=== PATIENT | male | born 2000 | race Caucasian/White ===

== ENCOUNTER 2021-03-09 00:21 | Inpatient (IN) | payer OTHER, SELFPAY ==
--- NOTE | 2021-03-09 00:23 | ED.PSYCH ---
HPI - Psych General Chief Complaint: Psychiatric Symptoms <Roselia Reese NP - Last Filed: 03/09/21 02:05> Stated Complaint: Crisis <Roselia Reese NP - Last Filed: 03/09/21 02:05> Time Seen by Provider: 03/09/21 09:21 <Roselia Reese NP - Last Filed: 03/09/21 02:05> Source: patient and EMS <Roselia Reese NP - Last Filed: 03/09/21 02:05> Mode of arrival: EMS <Roselia Reese NP - Last Filed: 03/09/21 02:05> Limitations: other <Roselia Reese NP - Last Filed: 03/09/21 02:05> History of Present Illness HPI Narrative: 20-year-old male presents via EMS with Section 12 out in the community for violent and aggressive behavior. <Roselia Reese NP - Last Filed: 03/09/21 02:05> MD complaint: anxiety and other (Aggressive and destructive behavior) <Roselia Reese NP - Last Filed: 03/09/21 02:05> Onset (ago): unknown <Roselia Reese NP - Last Filed: 03/09/21 02:05> History of same: Yes <Roselia Reese NP - Last Filed: 03/09/21 02:05> Exacerbating factors: drug use (Suspected) <Roselia Reese NP - Last Filed: 03/09/21 02:05> Context: recent drug abuse and significant life stressor <Roselia Reese NP - Last Filed: 03/09/21 02:05> Associated psychiatric symptoms: other (Aggressive and violent behavior) <Roselia Reese NP - Last Filed: 03/09/21 02:05> Associated symptoms: denies other symptoms <Roselia Reese NP - Last Filed: 03/09/21 02:05> Treatments prior to arrival: placed on mental health hold <Roselia Reese NP - Last Filed: 03/09/21 02:05> Related Data Home Medications: Home Medications Medication Instructions Recorded Confirmed aripiprazole 1 tab PO DAILY 03/09/21 03/09/21 divalproex 2 tab PO BID 03/09/21 03/09/21 fluoxetine 1 cap PO DAILY 03/09/21 03/09/21 lorazepam 1 tab PO TID 03/09/21 03/09/21 melatonin 2 tab PO BEDTIME 03/09/21 03/09/21 quetiapine 1 tab PO QAM 03/09/21 03/09/21 quetiapine 2 tab PO BEDTIME 03/09/21 03/09/21 <Roselia Reese NP - Last Filed: 03/09/21 02:05> Allergies/Adverse Reactions: Allergies Allergy/AdvReac Type Severity Reaction Status Date / Time No Known Allergies Allergy Unverified 05/11/20 18:39 [No Known Allergies*] <Roselia Reese NP - Last Filed: 03/09/21 02:05> Review of Systems Review of Systems: Yes Unobtainable due to mental status <Roselia Reese NP - Last Filed: 03/09/21 02:05> [facility] Past Medical History Attestation statement: The following information was validated with the patient. <Roselia Reese NP - Last Filed: 03/09/21 02:05> Source: old records reviewed <Roselia Reese NP - Last Filed: 03/09/21 02:05> Social History Social History: Social History Advance Directives: No Advance Directives Information Provided: No <Roselia Reese NP - Last Filed: 03/09/21 02:05> Physical Exam Vital Signs: Vital Signs: Last Vital Signs Temp 97.8 F 03/09/21 08:12 Pulse 73 03/09/21 08:12 Resp 03/09/21 08:12 BP 112/59 L 03/09/21 08:12 Pulse Ox 98 03/09/21 08:12 Body Mass Index 34.4 <Roselia Reese NP - Last Filed: 03/09/21 02:05> Vital Signs: Last Vital Signs Temp 97.8 F 03/09/21 08:12 Pulse 73 03/09/21 08:12 Resp 03/09/21 08:12 BP 112/59 L 03/09/21 08:12 Pulse Ox 98 03/09/21 08:12 Body Mass Index 34.4 <ASHLEY Foster - Last Filed: 03/09/21 09:32> Appearance: Alert. Oriented X3. No acute distress. Eyes: Pupils equal, round and reactive to light. ENT: Pharynx normal. Neck: Normal inspection. Neck supple. CVS: Normal heart rate and rhythm. Pulses normal. Respiratory: No respiratory distress. Breath sounds normal. Abdomen: Soft and nontender. Skin: Skin warm and dry. Normal skin color. Normal skin turgor. Extremities: No lower extremity edema. Neuro: No motor deficit. No sensory deficit. <Roselia Reese NP - Last Filed: 03/09/21 02:05> Course Course Course Narrative: 20-year-old male presents with aggressive and violent behavior from the community, placed on Section 12 by police department. Patient was destroying property in his home, and was removed by police and EMS and brought for evaluation. He has been taking his medications as directed, and this behavior is suspected to be due to drug use. At this time patient is not answering questions fully, but is cooperative with care, and polite. Will continue with Section 12, N consult, and will continue his home medications. Physician observation started at this time. <Roselia Reese NP - Last Filed: 03/09/21 02:05> Physician observation continued. Patient is not in any distress. Patient's vital signs stable. Patient awaiting care team evaluation. <ASHLEY Foster - Last Filed: 03/09/21 09:32> MDM - Psych Differential Diagnosis Differential diagnosis: Likely acute psychosis, bipolar disorder, depression, drug-induced psychotic disorder and acute anxiety <Roselia Reese NP - Last Filed: 03/09/21 02:05> Medical Records Attestation: I reviewed the patient's medical records. <Roselia Reese NP - Last Filed: 03/09/21 02:05> Lab Data Attestation: I reviewed the patient's lab results. <Roselia Reese NP - Last Filed: 03/09/21 02:05> Result diagrams: : 03/09/21 01:22 03/09/21 01:22 <Roselia Reese NP - Last Filed: 03/09/21 02:05> Labs: Lab Results 03/09/21 03/09/21 03/09/21 Range/Units 01:22 01:22 01:22 WBC 10.5 (4.8-10.8) X10*3/uL RBC 4.86 (4.60-5.80) X10*6/uL Hgb 14.8 (14.0-18.0) g/dl Hct 43.2 (42-52) % MCV 88.9 (80-98) fL MCH 30.5 (27.0-33.0) pg MCHC 34.3 (31.0-36.0) g/dl RDW 13.1 (11.0-16.0) % Plt Count 260 (160-400) X10*3/uL MPV 10.3 (9.4-12.4) fL Immature Gran % (Auto) 0.2 (0.0-0.4) % Neut % (Auto) 61.5 (45-73) % Lymph % (Auto) 28.4 (20-40) % [place] % (Auto) 8.7 (2-11) % Eos % (Auto) 1.0 (0-4) % Baso % (Auto) 0.2 (0-2) % Lymph # (Auto) 3.0 (1.2-4.9) X10*3/uL [place] # (Auto) 0.9 (0.1-1.2) X10*3/uL Eos # (Auto) 0.1 (0.0-0.4) X10*3/uL Baso # (Auto) 0.0 (0.0-0.2) X10*3/uL Abs Immat Gran (auto) 0.02 (0.00-0.03) X10*3/uL Absolute Neuts (auto) 6.4 (2.0-8.3) X10*3/uL Absolute Nucleated RBC 0.000 (0.0-0.012) X10*3/uL Nucleated RBC % (auto) 0.0 (0.0-0.2) /100WBC Sodium 138 (135-145) mmol/L Potassium 3.3 (3.3-5.1) mmol/L Chloride 100 (96-108) mmol/L Carbon Dioxide 27 (22-29) mmol/L Anion Gap 14 (12-20) BUN 11 (9-16) mg/dL Creatinine 0.94 (0.5-1.4) mg/dL Estim Creat Clear Calc 153.5 Estimated GFR > 60 Random Glucose 127 H (60-115) mg/dL Calcium 9.9 (8.4-10.2) mg/dL Valproic Acid (50.0-100.0) mcg/mL COVID-19 (JOSUE) Negative (Negative) COVID-19 Clin Com See Note 03/09/21 Range/Units 01:22 WBC (4.8-10.8) X10*3/uL RBC (4.60-5.80) X10*6/uL Hgb (14.0-18.0) g/dl Hct (42-52) % MCV (80-98) fL MCH (27.0-33.0) pg MCHC (31.0-36.0) g/dl RDW (11.0-16.0) % Plt Count (160-400) X10*3/uL MPV (9.4-12.4) fL Immature Gran % (Auto) (0.0-0.4) % Neut % (Auto) (45-73) % Lymph % (Auto) (20-40) % [place] % (Auto) (2-11) % Eos % (Auto) (0-4) % Baso % (Auto) (0-2) % Lymph # (Auto) (1.2-4.9) X10*3/uL [place] # (Auto) (0.1-1.2) X10*3/uL Eos # (Auto) (0.0-0.4) X10*3/uL Baso # (Auto) (0.0-0.2) X10*3/uL Abs Immat Gran (auto) (0.00-0.03) X10*3/uL Absolute Neuts (auto) (2.0-8.3) X10*3/uL Absolute Nucleated RBC (0.0-0.012) X10*3/uL Nucleated RBC % (auto) (0.0-0.2) /100WBC Sodium (135-145) mmol/L Potassium (3.3-5.1) mmol/L Chloride (96-108) mmol/L Carbon Dioxide (22-29) mmol/L Anion Gap (12-20) BUN (9-16) mg/dL Creatinine (0.5-1.4) mg/dL Estim Creat Clear Calc Estimated GFR Random Glucose (60-115) mg/dL Calcium (8.4-10.2) mg/dL Valproic Acid < 2.0 L (50.0-100.0) mcg/mL COVID-19 (JOSUE) (Negative) COVID-19 Clin Com <Roselia Reese NP - Last Filed: 03/09/21 02:05> Lab Results 03/09/21 03/09/21 03/09/21 Range/Units 01:22 01:22 01:22 WBC 10.5 (4.8-10.8) X10*3/uL RBC 4.86 (4.60-5.80) X10*6/uL Hgb 14.8 (14.0-18.0) g/dl Hct 43.2 (42-52) % MCV 88.9 (80-98) fL MCH 30.5 (27.0-33.0) pg MCHC 34.3 (31.0-36.0) g/dl RDW 13.1 (11.0-16.0) % Plt Count 260 (160-400) X10*3/uL MPV 10.3 (9.4-12.4) fL Immature Gran % (Auto) 0.2 (0.0-0.4) % Neut % (Auto) 61.5 (45-73) % Lymph % (Auto) 28.4 (20-40) % [place] % (Auto) 8.7 (2-11) % Eos % (Auto) 1.0 (0-4) % Baso % (Auto) 0.2 (0-2) % Lymph # (Auto) 3.0 (1.2-4.9) X10*3/uL [place] # (Auto) 0.9 (0.1-1.2) X10*3/uL Eos # (Auto) 0.1 (0.0-0.4) X10*3/uL Baso # (Auto) 0.0 (0.0-0.2) X10*3/uL Abs Immat Gran (auto) 0.02 (0.00-0.03) X10*3/uL Absolute Neuts (auto) 6.4 (2.0-8.3) X10*3/uL Absolute Nucleated RBC 0.000 (0.0-0.012) X10*3/uL Nucleated RBC % (auto) 0.0 (0.0-0.2) /100WBC Sodium 138 (135-145) mmol/L Potassium 3.3 (3.3-5.1) mmol/L Chloride 100 (96-108) mmol/L Carbon Dioxide 27 (22-29) mmol/L Anion Gap 14 (12-20) BUN 11 (9-16) mg/dL Creatinine 0.94 (0.5-1.4) mg/dL Estim Creat Clear Calc 153.5 Estimated GFR > 60 Random Glucose 127 H (60-115) mg/dL Calcium 9.9 (8.4-10.2) mg/dL Valproic Acid (50.0-100.0) mcg/mL COVID-19 ([facility]OSUE) Negative (Negative) COVID-19 Clin Com See Note 03/09/21 Range/Units 01:22 WBC (4.8-10.8) X10*3/uL RBC (4.60-5.80) X10*6/uL Hgb (14.0-18.0) g/dl Hct (42-52) % MCV (80-98) fL MCH (27.0-33.0) pg MCHC (31.0-36.0) g/dl RDW (11.0-16.0) % Plt Count (160-400) X10*3/uL MPV (9.4-12.4) fL Immature Gran % (Auto) (0.0-0.4) % Neut % (Auto) (45-73) % Lymph % (Auto) (20-40) % [place] % (Auto) (2-11) % Eos % (Auto) (0-4) % Baso % (Auto) (0-2) % Lymph # (Auto) (1.2-4.9) X10*3/uL [place] # (Auto) (0.1-1.2) X10*3/uL Eos # (Auto) (0.0-0.4) X10*3/uL Baso # (Auto) (0.0-0.2) X10*3/uL Abs Immat Gran (auto) (0.00-0.03) X10*3/uL Absolute Neuts (auto) (2.0-8.3) X10*3/uL Absolute Nucleated RBC (0.0-0.012) X10*3/uL Nucleated RBC % (auto) (0.0-0.2) /100WBC Sodium (135-145) mmol/L Potassium (3.3-5.1) mmol/L Chloride (96-108) mmol/L Carbon Dioxide (22-29) mmol/L Anion Gap (12-20) BUN (9-16) mg/dL Creatinine (0.5-1.4) mg/dL Estim Creat Clear Calc Estimated GFR Random Glucose (60-115) mg/dL Calcium (8.4-10.2) mg/dL Valproic Acid < 2.0 L (50.0-100.0) mcg/mL COVID-19 ([facility]OSUE) (Negative) COVID-19 Clin Com <ASHLEY Foster - Last Filed: 03/09/21 09:32> Discharge Plan Discharge Clinical Impression: Acute psychosis, Chronic schizophrenia Drug-induced psychotic disorder Qualifiers: Complication of substance-induced condition: with unspecified complication Qualified Code(s): F19.959 - Other psychoactive substance use, unspecified with psychoactive substance-induced psychotic disorder, unspecified <Roselia Reese NP - Last Filed: 03/09/21 02:05> Prescriptions: No Action quetiapine 300 mg tablet 2 tab PO BEDTIME RF: 0 quetiapine 100 mg tablet 1 tab PO QAM RF: 0 lorazepam 0.5 mg tablet 1 tab PO TID RF: 0 divalproex 500 mg tablet extended release 24 hr 2 tab PO BID RF: 0 fluoxetine 20 mg capsule 1 cap PO DAILY RF: 0 aripiprazole 10 mg tablet 1 tab PO DAILY RF: 0 melatonin 3 mg tablet 2 tab PO BEDTIME RF: 0 <Roselia Reese NP - Last Filed: 03/09/21 02:05>
[2021-03-09 00:27] VITALS: BP 124/78; PULSE 97; RESP 18; TEMP 36.8; O2SAT 97; BMI 34.4
[2021-03-09 00:53] VITALS: BP 151/104; PULSE 110; RESP 18; TEMP 36.8; O2SAT 97
[2021-03-09 01:31] LABS: Basophils Percent Auto 0.2 % (0-2); Eosinophils Absolute Auto 0.1 X10*3/uL (0.0-0.4); Hematocrit 43.2 % (42-52); Hemoglobin 14.8 g/dl (14.0-18.0); Imm Gran Abs Auto 0.02 X10*3/uL (0.00-0.03); Imm Gran Pct Auto 0.2 % (0.0-0.4); Lymphocytes Percent Auto 28.4 % (20-40); MANUAL DIFF FLAG NO; Mean Corpuscular HGB Conc 34.3 g/dl (31.0-36.0); Mean Corpuscular Hemoglobin 30.5 pg (27.0-33.0); Mean Corpuscular Volume 88.9 fL (80-98); Mean Platelet Volume 10.3 fL (9.4-12.4); Monocytes Absolute Auto 0.9 X10*3/uL (0.1-1.2); Monocytes Percent Auto 8.7 % (2-11); Neutrophils Absolute Auto 6.4 X10*3/uL (2.0-8.3); Neutrophils Percent Auto 61.5 % (45-73); Platelet Count 260 X10*3/uL (160-400); Red Blood Count 4.86 X10*6/uL (4.60-5.80); Red Cell Distribution Width 13.1 % (11.0-16.0); White Blood Count 10.5 X10*3/uL (4.8-10.8)
[2021-03-09 01:46] LABS: COVID-19 Test Negative (Negative); IDNOW Serial# 9DD0AD1C
[2021-03-09 02:01] LABS: Anion Gap 14 (12-20); Blood Urea Nitrogen 11 mg/dL (9-16); Calcium 9.9 mg/dL (8.4-10.2); Carbon Dioxide 27 mmol/L (22-29); Chloride 100 mmol/L (96-108); Creatinine Clr Calc Pharmacy 153.5; Estimated Glomerular Filt Rate > 60; Glucose Random 127 mg/dL (60-115); Potassium 3.3 mmol/L (3.3-5.1); Sodium 138 mmol/L (135-145)
[2021-03-09 02:26] LABS: Valproate < 2.0 mcg/mL (50.0-100.0)
--- NOTE | 2021-03-09 06:42 | PC.NURSE ---
Patient in bed appears sleeping, patient slept through the night, no distress observed/reported, pending urine for ZELAYA, med rec completed/pending MAR update, awaiting N assessment, will continue to monitor.
--- NOTE | 2021-03-09 07:05 | PC.NURSE ---
patient appears to remain at rest at present patients respirations are even and unlabored, patient in no distress
[2021-03-09 08:12] VITALS: BP 112/59; PULSE 73; RESP 16; TEMP 36.6; O2SAT 98
[2021-03-09] MEDS: LORazepam 0.5 MG TABLET PO ×3 (11:31→20:10)
[2021-03-09] MEDS: Divalproex Sodium ER 500 MG TAB.ER.24H 1000 MG PO ×2 (11:31→20:09)
[2021-03-09] MEDS: QUEtiapine Fumarate 100 MG TABLET PO (11:31)
[2021-03-09] MEDS: FLUoxetine HCl 20 MG CAPSULE PO (11:31)
[2021-03-09] MEDS: ARIPiprazole 10 MG TABLET PO (11:32)
--- NOTE | 2021-03-09 12:00 | MHC.CARE ---
This television script writer talked with Philomena Wallace from [facility] [place] who is an outreach member. Reported that they received a call from mom reporting that pt was off meds and punched a hole in the wall and was destroying things. Pt could not be located all day and was brought in on a section 12 from the police. Reported that pt has been off medication. Pt reported that he feels like his marijuana was laced and reported that he knows that he was off. Pt reported that he wanted to go and was ready to go home and regretted how he acted. Reported increased fear for being at the hospital and that Pt's mom: [phone] Lizbeth Medina- leather case finisher
--- NOTE | 2021-03-09 16:17 | PC.NURSE ---
patient sleeping, woke to verbal stimulus, medicated per order, vitals being obtained, will continue to monitor
[2021-03-09 16:24] VITALS: BP 130/70; PULSE 91; TEMP 36.3; O2SAT 98
--- NOTE | 2021-03-09 18:26 | PC.NURSE ---
patient ambulated to nursing station asking if we knew what time he would be going to an inpatient bed, pt was told we were unsure of the time but would let him know as soon as we found out.
[2021-03-09] MEDS: QUEtiapine Fumarate 300 MG TABLET 600 MG PO (20:09)
[2021-03-09] MEDS: Melatonin 3 MG TABLET 6 MG PO (20:09)
[2021-03-10] MEDS: Nicotine Polacrilex 2 MG GUM 4 MG BUCCAL ×6 (09:05→19:04)
[2021-03-10] MEDS: QUEtiapine Fumarate 100 MG TABLET PO (09:27)
[2021-03-10] MEDS: ARIPiprazole 10 MG TABLET PO (09:27)
[2021-03-10] MEDS: FLUoxetine HCl 20 MG CAPSULE PO (09:27)
[2021-03-10] MEDS: LORazepam 0.5 MG TABLET PO ×3 (09:27→20:12)
[2021-03-10] MEDS: Divalproex Sodium ER 500 MG TAB.ER.24H 1000 MG PO ×2 (09:27→20:13)
[2021-03-10] MEDS: diphenhydrAMINE HCL 50 MG/ML VIAL IM ×2 (10:36→16:23)
[2021-03-10] MEDS: OLANZapine ODT 10 MG TAB.RAPDIS TRANSLINGU (12:05)
[2021-03-10] MEDS: Ascorbic Acid 500 MG TABLET PO (14:44)
[2021-03-10] MEDS: Ibuprofen 600 MG TABLET PO (15:07)
--- NOTE | 2021-03-10 15:41 | HO.PSYADMNOT ---
Documented by User: Zoë Brady APRN 03/10/21 16:31 HPI Chief Complaint: Psychosis, Agitation, Property Destruction Sources of Information: patient interviewed, chart reviewed and crisis/core team assessment reviewed HPI Subjective Notes: Section 12B Healthcare Proxy: No Guardianship: Yes Medical Problems Affecting Mental Status: No Narrative: 20 yo male, history of schizoaffective disorder, bipolar type to ER with police via Section XII due to an increase in aggression at home. It is reported pt has not been compliant with medications, destruction of property in the home (punching holes in richard pt reports), questionable use of substances for the past month. Significant history of aggression. Pt refused CV signing in ER. Pt then signed a CV meant for a guardian, which he has (refer to paperwork in the MR), so tw completed 12B. Pt has a Inocencio's guardianship, set to 09/28/21 for Seroquel, Abilify, Maintena, Aristada, Latuda, Olanzapine, Clozaril and Chlorpromazine. Met with pt this a.m. He is a poor historian.. This is how it will go-you will discharge me to my home or [facility] or [facility] so I can smoke or I will mess you up. Continued to exhibit threatening behaviors. Team managed these with ease, support, connection with family and scheduled and prn meds including benadryl and olanzapine. Pt at this time continues to pace on the unit, but is talking with team, family, and appears somewhat calmer. Past Psychiatric History: IP: [facility] [id number]; [facility] 01/2019; [facility] 09/2018 OP: [id number], [facility]ill[facility]man Medical Evaluation Reviewed: Yes No toxic screen completed in ER [facility] Medical History (Updated 03/10/21 @ 16:23 by Zoë Brady APRN) Schizoaffective disorder, bipolar type Family History: Bipolar-mother Schizophrenia-mother Opiate Dependence-uncle Bipolar- My cousin Social History: Lives with mother, brother Substance History: Cannibis, Cocaine, Nicotine Trauma History: Affirms Diagnostics Vital Signs (24Hr): Vital Signs - 24 hr 03/09/21 16:24 Temperature 97.4 F Pulse Rate 91 Blood Pressure 130/70 Pulse Oximetry 98 Body Mass Index 34.4 Labs Results: 03/09/21 01:22 03/09/21 01:22 Labs: Laboratory Results - last 48 hr 03/09/21 03/09/21 03/09/21 01:22 01:22 01:22 WBC 10.5 RBC 4.86 Hgb 14.8 Hct 43.2 MCV 88.9 MCH 30.5 MCHC 34.3 RDW 13.1 Plt Count 260 MPV 10.3 Immature Gran % (Auto) 0.2 Neut % (Auto) 61.5 Lymph % (Auto) 28.4 [place] % (Auto) 8.7 Eos % (Auto) 1.0 Baso % (Auto) 0.2 Lymph # (Auto) 3.0 [place] # (Auto) 0.9 Eos # (Auto) 0.1 Baso # (Auto) 0.0 Abs Immat Gran (auto) 0.02 Absolute Neuts (auto) 6.4 Absolute Nucleated RBC 0.000 Nucleated RBC % (auto) 0.0 Sodium Potassium Chloride Carbon Dioxide Anion Gap BUN Creatinine Estim Creat Clear Calc Estimated GFR Random Glucose Calcium Urine Opiates Screen Cancelled Ur Barbiturates Screen Cancelled Valproic Acid Ur Phencyclidine Scrn Cancelled Ur Amphetamines Screen Cancelled U Benzodiazepines Scrn Cancelled Urine Cocaine Screen Cancelled U Marijuana (THC) Screen Cancelled COVID-19 (JOSUE) Negative COVID-19 Clin Com See Note 03/09/21 03/09/21 01:22 01:22 WBC RBC Hgb Hct MCV MCH MCHC RDW Plt Count MPV Immature Gran % (Auto) Neut % (Auto) Lymph % (Auto) [place] % (Auto) Eos % (Auto) Baso % (Auto) Lymph # (Auto) [place] # (Auto) Eos # (Auto) Baso # (Auto) Abs Immat Gran (auto) Absolute Neuts (auto) Absolute Nucleated RBC Nucleated RBC % (auto) Sodium 138 Potassium 3.3 Chloride 100 Carbon Dioxide 27 Anion Gap 14 BUN 11 Creatinine 0.94 Estim Creat Clear Calc 153.5 Estimated GFR > 60 Random Glucose 127 H Calcium 9.9 Urine Opiates Screen Ur Barbiturates Screen Valproic Acid < 2.0 L Ur Phencyclidine Scrn Ur Amphetamines Screen U Benzodiazepines Scrn Urine Cocaine Screen U Marijuana (THC) Screen COVID-19 (JOSUE) COVID-19 Clin Com Meds/Allergies Meds Home Medications Acetaminophen (Acetaminophen 325 Mg Tablet) 650 mg PO Q6H PRN PRN Reason: Pain, Mild (Pain Scale 1-3) Last Admin: 03/11/21 11:38 Dose: 650 mg Documented by: Al Hydroxide/Mg Hydroxide (Magnesium Hydrox/Alum Hydrox 30 Ml Oral.Susp) 30 ml PO Q6H PRN PRN Reason: Heartburn/Nausea Aripiprazole (Aripiprazole 10 Mg Tablet) 10 mg PO DAILY [facility] Last Admin: 03/12/21 08:26 Dose: 10 mg Documented by: Ascorbic Acid (Ascorbic Acid 500 Mg Tablet) 500 mg PO DAILY [facility] Last Admin: 03/12/21 08:26 Dose: 500 mg Documented by: Diphenhydramine HCl (Diphenhydramine Hcl 50 Mg/Ml Vial) 50 mg IM Q6H PRN PRN Reason: agitation Last Admin: 03/12/21 08:26 Dose: 50 mg Documented by: Divalproex Sodium (Divalproex Sodium Er 500 Mg Tab.Er.24h) 1,000 mg PO BID [facility] Last Admin: 03/12/21 08:26 Dose: 1,000 mg Documented by: Fluoxetine HCl (Fluoxetine Hcl 20 Mg Capsule) 20 mg PO DAILY [facility] Last Admin: 03/12/21 08:26 Dose: 20 mg Documented by: Ibuprofen (Ibuprofen 600 Mg Tablet) 600 mg PO Q8H PRN PRN Reason: Pain, Moderate (Pain Scale 4-6 Last Admin: 03/11/21 15:47 Dose: 600 mg Documented by: Lorazepam (Lorazepam 0.5 Mg Tablet) 0.5 mg PO TID [facility] Last Admin: 03/12/21 08:26 Dose: 0.5 mg Documented by: Lorazepam (Lorazepam 1 Mg Tablet) 1 mg PO Q4H PRN PRN Reason: agitation, anxiety Last Admin: 03/10/21 16:31 Dose: 1 mg Documented by: Lorazepam (Lorazepam 2 Mg/Ml Vial) 1 mg IM Q4H PRN PRN Reason: anxiety,agitation Magnesium Hydroxide (Milk Of Magnesia 30 Ml Oral.Susp) 30 ml PO DAILY PRN PRN Reason: Constipation Melatonin (Melatonin 3 Mg Tablet) 6 mg PO BEDTIME [facility] Last Admin: 03/11/21 20:12 Dose: 6 mg Documented by: Nicotine (Nicotine 21 Mg Patch.Td24) 21 mg TRANSDERMA DAILY [facility] Last Admin: 03/12/21 08:25 Dose: 21 mg Documented by: Nicotine Polacrilex (Nicotine Polacrilex 2 Mg Gum) 4 mg BUCCAL Q2H PRN PRN Reason: Nicotine Cravings Last Admin: 03/12/21 08:48 Dose: 4 mg Documented by: Olanzapine (Olanzapine Odt 10 Mg Tab.Rapdis) 10 mg TRANSLINGU BID PRN PRN Reason: psychosis,agitation Last Admin: 03/10/21 12:05 Dose: 10 mg Documented by: Olanzapine (Olanzapine 10 Mg Vial) 10 mg IM BID PRN PRN Reason: psychosis,agitation Quetiapine Fumarate (Quetiapine Fumarate 100 Mg Tablet) 100 mg PO DAILY [facility] Last Admin: 03/12/21 08:26 Dose: 100 mg Documented by: Quetiapine Fumarate (Quetiapine Fumarate 300 Mg Tablet) 600 mg PO BEDTIME [facility] Last Admin: 03/11/21 20:12 Dose: 600 mg Documented by: Allergies Allergies Allergy/AdvReac Type Severity Reaction Status Date / Time No Known Allergies Allergy Unverified 05/11/20 18:39 [No Known Allergies*] Mental Status Exam Mental Status Exam Patient Appearance: Appropriate Patient Orientation: Person and Place Level of Consciousness: Alert Patient Behavior: Guarded, Talkative, Hyperactive, Suspicious, Aggressive, Restless, Wandering, Verbal Threats, Anxious, Fearful, Avoidant, Distractible, Good Eye Contact and Impulsive Mood Description: Labile and Angry Affect Description: Labile Patient Cognition Impaired: Yes Ability to Follow Directions: Fair Speech Pattern: Perseverating and Spontaneous Speech Memory Description: Remote Impaired and Episodic Impaired Hallucinations: Auditory Delusions: Being Controlled, Paranoid Ideation and Present Thought Process: Illogical and Distracted Thought Content: positive for [place], positive for Circumstantial, positive for Perseveration, positive for Preoccupation, positive for Thought Blocking, positive for Tangential, positive for Suicidal Ideation and positive for Homicidal Ideation Depressive Symptoms: Increased Anxiety, Diff. Making Decisions, Increased Irritability, Increased Fatigue, Thoughts of /Suicide and Difficulty Concentrating Abnormal Motor Activity Signs and Symptoms: Aggression, Agitation, Hyperactivity and Restlessness Judgement: Poor Assessment & Plan Assessment & Plan (1) Schizoaffective disorder, bipolar type: Status: Acute Code(s): F25.0 - Schizoaffective disorder, bipolar type Assessment and Plan: 20 yo male, presenting a danger to self and others in community, off meds, possibly using substances, destroying property in the home, exhibiting aggressive agitation. Section XII B. Plan: Re-establish regime-Abilify, Depakote, Prozac, Lorazepam, Seroquel Olanzapine 10 mg bid prn for violent agitation along with Lorazepam 1 mg q 4 hours prn Benadryl 50 mg q 6 hours prn (pt reports this assists him in calming.) Nicotine Patch/Gum Ibuprofen prn for pain Vitamin C daily Diagnostics- EKG, B12, Folate, TSH, Lipid Panel A1C Patient educated on: medication risk/benefits and therapeutic strategies Informed Consent: does not understand Reason for continued inpatient stay Substantial Risk for: harm to self, harm to others, inability to function and rapid decompensation Documented by User: Reinaldo Martinez MD 03/12/21 09:48 HPI Chief Complaint: Psychosis, Agitation, Property Destruction [facility] Medical History (Updated 03/10/21 @ 16:23 by Zoë Brady APRN) Schizoaffective disorder, bipolar type Diagnostics Labs Results: 03/09/21 01:22 03/09/21 01:22 Meds/Allergies Meds Home Medications Acetaminophen (Acetaminophen 325 Mg Tablet) 650 mg PO Q6H PRN PRN Reason: Pain, Mild (Pain Scale 1-3) Last Admin: 03/11/21 11:38 Dose: 650 mg Documented by: Al Hydroxide/Mg Hydroxide (Magnesium Hydrox/Alum Hydrox 30 Ml Oral.Susp) 30 ml PO Q6H PRN PRN Reason: Heartburn/Nausea Aripiprazole (Aripiprazole 10 Mg Tablet) 10 mg PO DAILY [facility] Last Admin: 03/12/21 08:26 Dose: 10 mg Documented by: Ascorbic Acid (Ascorbic Acid 500 Mg Tablet) 500 mg PO DAILY [facility] Last Admin: 03/12/21 08:26 Dose: 500 mg Documented by: Diphenhydramine HCl (Diphenhydramine Hcl 50 Mg/Ml Vial) 50 mg IM Q6H PRN PRN Reason: agitation Last Admin: 03/12/21 08:26 Dose: 50 mg Documented by: Divalproex Sodium (Divalproex Sodium Er 500 Mg Tab.Er.24h) 1,000 mg PO BID [facility] Last Admin: 03/12/21 08:26 Dose: 1,000 mg Documented by: Fluoxetine HCl (Fluoxetine Hcl 20 Mg Capsule) 20 mg PO DAILY [facility] Last Admin: 03/12/21 08:26 Dose: 20 mg Documented by: Ibuprofen (Ibuprofen 600 Mg Tablet) 600 mg PO Q8H PRN PRN Reason: Pain, Moderate (Pain Scale 4-6 Last Admin: 03/11/21 15:47 Dose: 600 mg Documented by: Lorazepam (Lorazepam 0.5 Mg Tablet) 0.5 mg PO TID [facility] Last Admin: 03/12/21 08:26 Dose: 0.5 mg Documented by: Lorazepam (Lorazepam 1 Mg Tablet) 1 mg PO Q4H PRN PRN Reason: agitation, anxiety Last Admin: 03/10/21 16:31 Dose: 1 mg Documented by: Lorazepam (Lorazepam 2 Mg/Ml Vial) 1 mg IM Q4H PRN PRN Reason: anxiety,agitation Magnesium Hydroxide (Milk Of Magnesia 30 Ml Oral.Susp) 30 ml PO DAILY PRN PRN Reason: Constipation Melatonin (Melatonin 3 Mg Tablet) 6 mg PO BEDTIME [facility] Last Admin: 03/11/21 20:12 Dose: 6 mg Documented by: Nicotine (Nicotine 21 Mg Patch.Td24) 21 mg TRANSDERMA DAILY [facility] Last Admin: 03/12/21 08:25 Dose: 21 mg Documented by: Nicotine Polacrilex (Nicotine Polacrilex 2 Mg Gum) 4 mg BUCCAL Q2H PRN PRN Reason: Nicotine Cravings Last Admin: 03/12/21 08:48 Dose: 4 mg Documented by: Olanzapine (Olanzapine Odt 10 Mg Tab.Rapdis) 10 mg TRANSLINGU BID PRN PRN Reason: psychosis,agitation Last Admin: 03/10/21 12:05 Dose: 10 mg Documented by: Olanzapine (Olanzapine 10 Mg Vial) 10 mg IM BID PRN PRN Reason: psychosis,agitation Quetiapine Fumarate (Quetiapine Fumarate 100 Mg Tablet) 100 mg PO DAILY [facility] Last Admin: 03/12/21 08:26 Dose: 100 mg Documented by: Quetiapine Fumarate (Quetiapine Fumarate 300 Mg Tablet) 600 mg PO BEDTIME [facility] Last Admin: 03/11/21 20:12 Dose: 600 mg Documented by: Allergies Allergies Allergy/AdvReac Type Severity Reaction Status Date / Time No Known Allergies Allergy Unverified 05/11/20 18:39 [No Known Allergies*]
[2021-03-10] MEDS: LORazepam 1 MG TABLET PO (16:31)
[2021-03-10 18:00] VITALS: BP 121/70; PULSE 86; TEMP 36.2
[2021-03-10] MEDS: Acetaminophen 325 MG TABLET 650 MG PO (20:12)
[2021-03-10] MEDS: QUEtiapine Fumarate 300 MG TABLET 600 MG PO (20:13)
[2021-03-10] MEDS: Melatonin 3 MG TABLET 6 MG PO (20:13)
[2021-03-11] MEDS: diphenhydrAMINE HCL 50 MG/ML VIAL IM ×3 (04:08→16:45)
[2021-03-11 07:58] LABS: Estimated Average Glucose 91 mg/dL; Hemoglobin A1c % 4.8 %
[2021-03-11] MEDS: Divalproex Sodium ER 500 MG TAB.ER.24H 1000 MG PO ×2 (08:00→08:13)
[2021-03-11 08:11] LABS: Cholesterol 109 mg/dL; HDL Cholesterol 40 mg/dL; LDL Cholesterol Calculated 43 mg/dl; Triglycerides 131 mg/dL
[2021-03-11] MEDS: ARIPiprazole 10 MG TABLET PO (08:13)
[2021-03-11] MEDS: LORazepam 0.5 MG TABLET PO ×3 (08:13→20:12)
[2021-03-11] MEDS: Nicotine 21 MG PATCH.TD24 TRANSDERMA (08:13)
[2021-03-11] MEDS: QUEtiapine Fumarate 100 MG TABLET PO (08:13)
[2021-03-11] MEDS: FLUoxetine HCl 20 MG CAPSULE PO (08:13)
[2021-03-11] MEDS: Ascorbic Acid 500 MG TABLET PO (08:13)
[2021-03-11] MEDS: Nicotine Polacrilex 2 MG GUM 4 MG BUCCAL ×6 (08:20→20:53)
[2021-03-11] MEDS: Acetaminophen 325 MG TABLET 650 MG PO (11:38)
[2021-03-11 12:04] VITALS: BP 133/75; PULSE 85; RESP 18; TEMP 36.4; O2SAT 99
--- NOTE | 2021-03-11 15:02 | HO.PSYCHPN ---
Subjective Subjective Date of Service: 03/11/21 Reason For Visit: Psychosis, Agitation, Property Destruction Interim History: Christian is more settled and calm today in milieu. Attending to ADL's, interactive, connecting with family by phone, no lability or outbursts with TW. Agreed to labs which were completed. Re-titration of medication regime is progessing without adverse effects. Medication Compliance: Yes Side effects from medications: No Attending Groups: Yes Review of Systems Reports behavioral changes Psychiatric: Reports anxiety, Reports behavioral changes, Reports depression, Reports auditory hallucinations, Reports irritability, Reports mood swings, Reports hallucinations, Reports homicidal ideation (denies) and Reports suicidal ideation (denies) Mental Status Exam Mental Status Exam Patient Appearance: Appropriate Patient Orientation: Person and Place Level of Consciousness: Alert Patient Behavior: Guarded, Talkative, Cooperative, Suspicious, Restless, Wandering, Anxious and Distractible Mood Description: Flat Affect Description: Flat Patient Cognition Impaired: Yes Ability to Follow Directions: Fair Speech Pattern: Spontaneous Speech Memory Description: Remote Impaired and Episodic Impaired Hallucinations: Auditory Delusions: Paranoid Ideation Thought Process: Distracted Thought Content: positive for [place], positive for Circumstantial, positive for Perseveration, positive for Preoccupation, positive for Tangential and positive for Suicidal Ideation (denies) Depressive Symptoms: Increased Anxiety, Increased Irritability and Difficulty Concentrating Judgement: Poor Diagnostics Vital Signs (24Hr): Vital Signs - 24 hr 03/10/21 18:00 03/11/21 12:04 Temperature 97.2 F 97.6 F Pulse Rate 86 85 Respiratory Rate 18 Blood Pressure 121/70 133/75 Pulse Oximetry 99 Body Mass Index 34.4 Labs Results: 03/09/21 01:22 03/09/21 01:22 Labs: Laboratory Results - last 48 hr 03/09/21 03/11/21 03/11/21 01:22 07:39 07:39 Estimat Average Glucose 91 Hemoglobin A1c % 4.8 Triglycerides 131 Cholesterol 109 LDL Cholesterol, Calc 43 HDL Cholesterol 40 Urine Opiates Screen Cancelled Ur Barbiturates Screen Cancelled Ur Phencyclidine Scrn Cancelled Ur Amphetamines Screen Cancelled U Benzodiazepines Scrn Cancelled Urine Cocaine Screen Cancelled U Marijuana (THC) Screen Cancelled Medications Medications Current Medications Generic Name Dose Route Start Last Admin Trade Name Freq PRN Reason Stop Dose Admin Acetaminophen 650 mg 03/10/21 13:51 03/11/21 11:38 Acetaminophen 325 Mg Tablet PO 650 mg Q6H PRN Administration Pain, Mild (Pain Scale 1-3) Al Hydroxide/Mg Hydroxide 30 ml 03/09/21 22:20 Magnesium Hydrox/Alum Hydrox 30 Ml Oral.Susp PO Q6H PRN Heartburn/Nausea Aripiprazole 10 mg 03/09/21 09:30 03/11/21 08:13 Aripiprazole 10 Mg Tablet PO 10 mg DAILY DION Administration Ascorbic Acid 500 mg 03/10/21 14:00 03/11/21 08:13 Ascorbic Acid 500 Mg Tablet PO 500 mg DAILY DION Administration Diphenhydramine HCl 50 mg 03/10/21 16:06 03/11/21 10:23 Diphenhydramine Hcl 50 Mg/Ml Vial IM 50 mg Q6H PRN Administration agitation Divalproex Sodium 1,000 mg 03/09/21 09:30 03/11/21 08:13 Divalproex Sodium Er 500 Mg Tab.Er.24h PO 1,000 mg BID DION Administration Fluoxetine HCl 20 mg 03/09/21 09:30 03/11/21 08:13 Fluoxetine Hcl 20 Mg Capsule PO 20 mg DAILY [facility]ION Administration Ibuprofen 600 mg 03/10/21 13:51 03/10/21 15:07 Ibuprofen 600 Mg Tablet PO 600 mg Q8H PRN Administration Pain, Moderate (Pain Scale 4-6 Lorazepam 0.5 mg 03/09/21 09:30 03/11/21 14:23 Lorazepam 0.5 Mg Tablet PO 0.5 mg TID DION Administration Lorazepam 1 mg 03/10/21 09:45 03/10/21 16:31 Lorazepam 1 Mg Tablet PO 1 mg Q4H PRN Administration agitation, anxiety Lorazepam 1 mg 03/10/21 12:34 Lorazepam 2 Mg/Ml Vial IM Q4H PRN anxiety,agitation Magnesium Hydroxide 30 ml 03/09/21 22:20 Milk Of Magnesia 30 Ml Oral.Susp PO DAILY PRN Constipation Melatonin 6 mg 03/09/21 21:00 03/10/21 20:13 Melatonin 3 Mg Tablet PO 6 mg BEDTIME DION Administration Nicotine 21 mg 03/10/21 09:45 03/11/21 08:13 Nicotine 21 Mg Patch.Td24 TRANSDERMA 21 mg DAILY DION Administration Nicotine Polacrilex 4 mg 03/10/21 09:44 03/11/21 13:21 Nicotine Polacrilex 2 Mg Gum BUCCAL 4 mg Q2H PRN Administration Nicotine Cravings Olanzapine 10 mg 03/10/21 09:46 03/10/21 12:05 Olanzapine Odt 10 Mg Tab.Rapdis TRANSLINGU 10 mg BID PRN Administration psychosis,agitation Olanzapine 10 mg 03/10/21 12:33 Olanzapine 10 Mg Vial IM BID PRN psychosis,agitation Quetiapine Fumarate 100 mg 03/09/21 09:30 03/11/21 08:13 Quetiapine Fumarate 100 Mg Tablet PO 100 mg DAILY DION Administration Quetiapine Fumarate 600 mg 03/09/21 21:00 03/10/21 20:13 Quetiapine Fumarate 300 Mg Tablet PO 600 mg BEDTIME DION Administration Allergies Allergies Allergy/AdvReac Type Severity Reaction Status Date / Time No Known Allergies Allergy Unverified 05/11/20 18:39 [No Known Allergies*] Assessment & Plan Assessment & Plan (1) Schizoaffective disorder, bipolar type: Status: Acute Code(s): F25.0 - Schizoaffective disorder, bipolar type Assessment and Plan: 20 yo male, presenting a danger to self and others in community, off meds, possibly using substances, destroying property in the home, exhibiting aggressive agitation. Section XII B. Plan: Re-establish regime-Abilify, Depakote, Prozac, Lorazepam, Seroquel Olanzapine 10 mg bid prn for violent agitation along with Lorazepam 1 mg q 4 hours prn Benadryl 50 mg q 6 hours prn (pt reports this assists him in calming.) Nicotine Patch/Gum Ibuprofen prn for pain Vitamin C daily Diagnostics- EKG, B12, Folate, TSH, Lipid Panel A1C Greater than 50% of the session was spent on counseling and/or coordination of care Reason for contiued inpatient stay Substantial Risk for: harm to self, inability to function and rapid decompensation
[2021-03-11] MEDS: Ibuprofen 600 MG TABLET PO (15:47)
[2021-03-11 17:27] VITALS: BP 125/59; PULSE 106; TEMP 36.1; O2SAT 96
[2021-03-11] MEDS: QUEtiapine Fumarate 300 MG TABLET 600 MG PO (20:12)
[2021-03-11] MEDS: Melatonin 3 MG TABLET 6 MG PO (20:12)
[2021-03-12] MEDS: Nicotine Polacrilex 2 MG GUM 4 MG BUCCAL ×6 (02:24→18:41)
[2021-03-12 06:00] VITALS: BP 121/58; PULSE 96; TEMP 36.3; O2SAT 96
[2021-03-12] MEDS: Nicotine 21 MG PATCH.TD24 TRANSDERMA (08:25)
[2021-03-12] MEDS: LORazepam 0.5 MG TABLET PO ×3 (08:26→19:54)
[2021-03-12] MEDS: diphenhydrAMINE HCL 50 MG/ML VIAL IM ×2 (08:26→13:43)
[2021-03-12] MEDS: Divalproex Sodium ER 500 MG TAB.ER.24H 1000 MG PO ×2 (08:26→19:55)
[2021-03-12] MEDS: FLUoxetine HCl 20 MG CAPSULE PO (08:26)
[2021-03-12] MEDS: QUEtiapine Fumarate 100 MG TABLET PO (08:26)
[2021-03-12] MEDS: ARIPiprazole 10 MG TABLET PO (08:26)
[2021-03-12] MEDS: Ascorbic Acid 500 MG TABLET PO (08:26)
--- NOTE | 2021-03-12 09:48 | HO.PSYCHPN ---
Subjective Subjective Date of Service: 03/12/21 Reason For Visit: Psychosis, Agitation, Property Destruction Subjective Notes: Section 12B Guardianship: Yes Interim History: Patient is irritable agitated paranoid vaguely threatening. Demanding to leave has difficult time taking in information why he was brought to the hospital he was given a [place] warning history of violence unclear if he was taking medication outpatient Medication Compliance: Yes Mental Status Exam Mental Status Exam Patient Appearance: Appropriate Patient Orientation: Person and Place Level of Consciousness: Restless and Alert Patient Behavior: Guarded, Talkative, Posturing, Cooperative, Suspicious, Restless, Wandering, Anxious and Distractible Mood Description: Flat Affect Description: Flat Patient Cognition Impaired: Yes Ability to Follow Directions: Fair Speech Pattern: Spontaneous Speech Memory Description: Remote Impaired and Episodic Impaired Hallucinations: Auditory Delusions: Paranoid Ideation Thought Process: Distracted Thought Content: positive for [place], positive for Circumstantial, positive for Perseveration, positive for Preoccupation, positive for Tangential and positive for Suicidal Ideation (denies) Depressive Symptoms: Increased Anxiety, Increased Irritability and Difficulty Concentrating Judgement: Poor Diagnostics Vital Signs (24Hr): Vital Signs - 24 hr 03/11/21 12:04 03/11/21 17:27 Temperature 97.6 F 96.9 F Pulse Rate 85 106 H Respiratory Rate 18 Blood Pressure 133/75 125/59 L Pulse Oximetry 99 96 Body Mass Index 34.4 Labs Results: 03/09/21 01:22 03/09/21 01:22 Labs: Laboratory Results - last 48 hr 03/11/21 03/11/21 07:39 07:39 Estimat Average Glucose 91 Hemoglobin A1c % 4.8 Triglycerides 131 Cholesterol 109 LDL Cholesterol, Calc 43 HDL Cholesterol 40 Medications Medications Current Medications Generic Name Dose Route Start Last Admin Trade Name Freq PRN Reason Stop Dose Admin Acetaminophen 650 mg 03/10/21 13:51 03/11/21 11:38 Acetaminophen 325 Mg Tablet PO 650 mg Q6H PRN Administration Pain, Mild (Pain Scale 1-3) Al Hydroxide/Mg Hydroxide 30 ml 03/09/21 22:20 Magnesium Hydrox/Alum Hydrox 30 Ml Oral.Susp PO Q6H PRN Heartburn/Nausea Aripiprazole 10 mg 03/09/21 09:30 03/12/21 08:26 Aripiprazole 10 Mg Tablet PO 10 mg DAILY DION Administration Ascorbic Acid 500 mg 03/10/21 14:00 03/12/21 08:26 Ascorbic Acid 500 Mg Tablet PO 500 mg DAILY DION Administration Diphenhydramine HCl 50 mg 03/10/21 16:06 03/12/21 08:26 Diphenhydramine Hcl 50 Mg/Ml Vial IM 50 mg Q6H PRN Administration agitation Divalproex Sodium 1,000 mg 03/09/21 09:30 03/12/21 08:26 Divalproex Sodium Er 500 Mg Tab.Er.24h PO 1,000 mg BID DION Administration Fluoxetine HCl 20 mg 03/09/21 09:30 03/12/21 08:26 Fluoxetine Hcl 20 Mg Capsule PO 20 mg DAILY DION Administration Ibuprofen 600 mg 03/10/21 13:51 03/11/21 15:47 Ibuprofen 600 Mg Tablet PO 600 mg Q8H PRN Administration Pain, Moderate (Pain Scale 4-6 Lorazepam 0.5 mg 03/09/21 09:30 03/12/21 08:26 Lorazepam 0.5 Mg Tablet PO 0.5 mg TID DION Administration Lorazepam 1 mg 03/10/21 09:45 03/10/21 16:31 Lorazepam 1 Mg Tablet PO 1 mg Q4H PRN Administration agitation, anxiety Lorazepam 1 mg 03/10/21 12:34 Lorazepam 2 Mg/Ml Vial IM Q4H PRN anxiety,agitation Magnesium Hydroxide 30 ml 03/09/21 22:20 Milk Of Magnesia 30 Ml Oral.Susp PO DAILY PRN Constipation Melatonin 6 mg 03/09/21 21:00 03/11/21 20:12 Melatonin 3 Mg Tablet PO 6 mg BEDTIME DION Administration Nicotine 21 mg 03/10/21 09:45 03/12/21 08:25 Nicotine 21 Mg Patch.Td24 TRANSDERMA 21 mg DAILY DION Administration Nicotine Polacrilex 4 mg 03/10/21 09:44 03/12/21 08:48 Nicotine Polacrilex 2 Mg Gum BUCCAL 4 mg Q2H PRN Administration Nicotine Cravings Olanzapine 10 mg 03/10/21 09:46 03/10/21 12:05 Olanzapine Odt 10 Mg Tab.Rapdis TRANSLINGU 10 mg BID PRN Administration psychosis,agitation Olanzapine 10 mg 03/10/21 12:33 Olanzapine 10 Mg Vial IM BID PRN psychosis,agitation Quetiapine Fumarate 100 mg 03/09/21 09:30 03/12/21 08:26 Quetiapine Fumarate 100 Mg Tablet PO 100 mg DAILY DION Administration Quetiapine Fumarate 600 mg 03/09/21 21:00 03/11/21 20:12 Quetiapine Fumarate 300 Mg Tablet PO 600 mg BEDTIME DION Administration Allergies Allergies Allergy/AdvReac Type Severity Reaction Status Date / Time No Known Allergies Allergy Unverified 05/11/20 18:39 [No Known Allergies*] Assessment & Plan Assessment & Plan (1) Schizoaffective disorder, bipolar type: Status: Acute Code(s): F25.0 - Schizoaffective disorder, bipolar type Assessment and Plan: 20 yo male, presenting a danger to self and others in community, off meds, possibly using substances, destroying property in the home, exhibiting aggressive agitation. Section XII B. Plan: Re-establish regime-Abilify, Depakote, Prozac, Lorazepam, Seroquel Olanzapine 10 mg bid prn for violent agitation along with Lorazepam 1 mg q 4 hours prn Benadryl 50 mg q 6 hours prn (pt reports this assists him in calming.) Nicotine Patch/Gum Ibuprofen prn for pain Vitamin C daily Diagnostics- EKG, B12, Folate, TSH, Lipid Panel A1C Above reviewed need information how patient was not community whether substance abuse was part of his impulsivity and agitation would hold off on fluoxetine given patient's level of aggression and irritability Tried to speak repeatedly that to the patient we need more information regarding his safety and behavior in the community prior to being able to discharge him Greater than 50% of the session was spent on counseling and/or coordination of care Reason for contiued inpatient stay Substantial Risk for: harm to others, inability to function and rapid decompensation
[2021-03-12 16:55] VITALS: BP 111/70; PULSE 96; TEMP 36.7
[2021-03-12] MEDS: Acetaminophen 325 MG TABLET 650 MG PO (18:40)
[2021-03-12] MEDS: QUEtiapine Fumarate 300 MG TABLET 600 MG PO (19:54)
[2021-03-12] MEDS: Melatonin 3 MG TABLET 6 MG PO (19:54)
[2021-03-12] MEDS: Ibuprofen 600 MG TABLET PO (19:54)
[2021-03-13] MEDS: Acetaminophen 325 MG TABLET 650 MG PO (00:04)
[2021-03-13] MEDS: Nicotine Polacrilex 2 MG GUM 4 MG BUCCAL ×7 (00:08→22:50)
[2021-03-13] MEDS: diphenhydrAMINE HCL 50 MG/ML VIAL IM ×2 (03:43→09:49)
[2021-03-13] MEDS: OLANZapine ODT 10 MG TAB.RAPDIS TRANSLINGU (06:58)
[2021-03-13] MEDS: Divalproex Sodium ER 500 MG TAB.ER.24H 1000 MG PO ×2 (08:29→19:55)
[2021-03-13] MEDS: QUEtiapine Fumarate 100 MG TABLET PO (08:29)
[2021-03-13] MEDS: ARIPiprazole 10 MG TABLET PO (08:29)
[2021-03-13] MEDS: Ascorbic Acid 500 MG TABLET PO (08:30)
[2021-03-13] MEDS: LORazepam 0.5 MG TABLET PO ×3 (08:30→19:56)
[2021-03-13 18:00] VITALS: BP 133/84; PULSE 101; TEMP 36.2
--- NOTE | 2021-03-13 18:38 | HO.PSYCHPN ---
Subjective Subjective Date of Service: 03/13/21 Reason For Visit: Psychosis, Agitation, Property Destruction Subjective Notes: Section 12B (Exp 03/14) Healthcare Proxy: No Guardianship: Yes (Abelardo Guerrier [phone] guardian of Arsenio in community) Medical Problems Affecting Mental Status: No Interim History: Pt anxious, tense, asking for discharge. Family meeting via phone with pt's mother, whom pt believes wants him to leave, but who tells team that she wants pt to remain in hospital until he is really improved. (Computer interpreting service utilized). Discussed with pts guardian Abelardo Guerrier [phone]. Abelardo is unable to sign pt in for treatment, pt is unable to sign in for treatment, so we will need to pursue civil commitment. Mother reports pt has not been taking medications, has an upcoming court date but does not know the specifics of this and she is unclear if there is a protection order placed on him for her. She reports he may come home when stable, really stable . Abelardo contacted pts [facility] career guidance counselor who reports when stable respite may be an option. Review of Systems Reports behavioral changes Psychiatric: Reports anxiety, Reports behavioral changes, Reports difficulty concentrating, Reports auditory hallucinations, Reports irritability, Reports mood swings, Reports paranoia and Reports homicidal ideation Mental Status Exam Mental Status Exam Patient Appearance: Appropriate Patient Orientation: Person, Place, Time and Situation Level of Consciousness: Alert Patient Behavior: Guarded, Talkative, Suspicious, Aggressive, Restless, Wandering, Anxious, Fearful, Avoidant, Distractible and Good Eye Contact Mood Description: Constricted and Labile Affect Description: Constricted Patient Cognition Impaired: Yes Ability to Follow Directions: Good Speech Pattern: Spontaneous Speech and Soft-Spoken Memory Description: Remote Impaired and Episodic Impaired Hallucinations: None Delusions: Present Thought Process: Illogical and Distracted Thought Content: positive for [place], positive for Circumstantial, positive for Perseveration and positive for Thought Blocking Depressive Symptoms: Diff. Making Decisions, Increased Irritability and Unhappiness Abnormal Motor Activity Signs and Symptoms: Agitation and Restlessness Judgement: Poor Diagnostics Vital Signs (24Hr): Vital Signs - 24 hr 03/13/21 18:00 Temperature 97.2 F Pulse Rate 101 H Blood Pressure 133/84 Body Mass Index 34.4 Labs Results: 03/09/21 01:22 03/09/21 01:22 Medications Medications Current Medications Generic Name Dose Route Start Last Admin Trade Name Freq PRN Reason Stop Dose Admin Acetaminophen 650 mg 03/10/21 13:51 03/13/21 00:04 Acetaminophen 325 Mg Tablet PO 650 mg Q6H PRN Administration Pain, Mild (Pain Scale 1-3) Al Hydroxide/Mg Hydroxide 30 ml 03/09/21 22:20 Magnesium Hydrox/Alum Hydrox 30 Ml Oral.Susp PO Q6H PRN Heartburn/Nausea Aripiprazole 10 mg 03/09/21 09:30 03/13/21 08:29 Aripiprazole 10 Mg Tablet PO 10 mg DAILY DION Administration Ascorbic Acid 500 mg 03/10/21 14:00 03/13/21 08:30 Ascorbic Acid 500 Mg Tablet PO 500 mg DAILY DION Administration Diphenhydramine HCl 50 mg 03/10/21 16:06 03/13/21 09:49 Diphenhydramine Hcl 50 Mg/Ml Vial IM 50 mg Q6H PRN Administration agitation Divalproex Sodium 1,000 mg 03/09/21 09:30 03/13/21 08:29 Divalproex Sodium Er 500 Mg Tab.Er.24h PO 1,000 mg BID DION Administration Ibuprofen 600 mg 03/10/21 13:51 03/12/21 19:54 Ibuprofen 600 Mg Tablet PO 600 mg Q8H PRN Administration Pain, Moderate (Pain Scale 4-6 Lorazepam 0.5 mg 03/09/21 09:30 03/13/21 14:06 Lorazepam 0.5 Mg Tablet PO 0.5 mg TID DION Administration Lorazepam 1 mg 03/10/21 09:45 03/10/21 16:31 Lorazepam 1 Mg Tablet PO 1 mg Q4H PRN Administration agitation, anxiety Lorazepam 1 mg 03/10/21 12:34 Lorazepam 2 Mg/Ml Vial IM Q4H PRN anxiety,agitation Magnesium Hydroxide 30 ml 03/09/21 22:20 Milk Of Magnesia 30 Ml Oral.Susp PO DAILY PRN Constipation Melatonin 6 mg 03/09/21 21:00 03/12/21 19:54 Melatonin 3 Mg Tablet PO 6 mg BEDTIME DION Administration Nicotine 21 mg 03/10/21 09:45 03/13/21 08:32 Nicotine 21 Mg Patch.Td24 TRANSDERMA Not Given DAILY DION Nicotine Polacrilex 4 mg 03/10/21 09:44 03/13/21 18:27 Nicotine Polacrilex 2 Mg Gum BUCCAL 4 mg Q2H PRN Administration Nicotine Cravings Olanzapine 10 mg 03/10/21 09:46 03/13/21 06:58 Olanzapine Odt 10 Mg Tab.Rapdis TRANSLINGU 10 mg BID PRN Administration psychosis,agitation Olanzapine 10 mg 03/10/21 12:33 Olanzapine 10 Mg Vial IM BID PRN psychosis,agitation Quetiapine Fumarate 100 mg 03/09/21 09:30 03/13/21 08:29 Quetiapine Fumarate 100 Mg Tablet PO 100 mg DAILY DION Administration Quetiapine Fumarate 600 mg 03/09/21 21:00 03/12/21 19:54 Quetiapine Fumarate 300 Mg Tablet PO 600 mg BEDTIME DION Administration Allergies Allergies Allergy/AdvReac Type Severity Reaction Status Date / Time No Known Allergies Allergy Unverified 05/11/20 18:39 [No Known Allergies*] Assessment & Plan Assessment & Plan (1) Schizoaffective disorder, bipolar type: Status: Acute Code(s): F25.0 - Schizoaffective disorder, bipolar type Assessment and Plan: 20 yo male, presenting a danger to self and others in community, off meds, possibly using substances, destroying property in the home, exhibiting aggressive agitation. Section XII B. Plan: Re-establish regime-Abilify, Depakote, Prozac, Lorazepam, Seroquel Olanzapine 10 mg bid prn for violent agitation along with Lorazepam 1 mg q 4 hours prn Benadryl 50 mg q 6 hours prn (pt reports this assists him in calming.) Nicotine Patch/Gum Ibuprofen prn for pain Vitamin C daily Diagnostics- EKG, B12, Folate, TSH, Lipid Panel A1C Above reviewed need information how patient was not community whether substance abuse was part of his impulsivity and agitation would hold off on fluoxetine given patient's level of aggression and irritability Tried to speak repeatedly that to the patient we need more information regarding his safety and behavior in the community prior to being able to discharge him 03/13/21: Continue current plan. Continue to provide education and support. File for civil commitment on 03/14/21. Greater than 50% of the session was spent on counseling and/or coordination of care Reason for contiued inpatient stay Substantial Risk for: harm to self, harm to others, inability to function and rapid decompensation
[2021-03-13] MEDS: LORazepam 1 MG TABLET PO (19:03)
[2021-03-13] MEDS: QUEtiapine Fumarate 300 MG TABLET 600 MG PO (19:56)
[2021-03-13] MEDS: Melatonin 3 MG TABLET 6 MG PO (19:56)
[2021-03-13] MEDS: Ibuprofen 600 MG TABLET PO (22:50)
[2021-03-14] MEDS: Nicotine Polacrilex 2 MG GUM 4 MG BUCCAL ×5 (00:53→18:58)
[2021-03-14 06:15] VITALS: BP 113/70; PULSE 104; TEMP 35.8
[2021-03-14] MEDS: diphenhydrAMINE HCL 50 MG/ML VIAL IM ×2 (07:01→18:02)
[2021-03-14] MEDS: ARIPiprazole 10 MG TABLET PO (08:02)
[2021-03-14] MEDS: Ascorbic Acid 500 MG TABLET PO (08:03)
[2021-03-14] MEDS: LORazepam 0.5 MG TABLET PO (08:03)
[2021-03-14] MEDS: QUEtiapine Fumarate 100 MG TABLET PO (08:03)
[2021-03-14] MEDS: Divalproex Sodium ER 500 MG TAB.ER.24H 1000 MG PO ×2 (08:03→19:34)
[2021-03-14 18:00] VITALS: BP 110/72; PULSE 101; TEMP 36.6
--- NOTE | 2021-03-14 18:00 | P.PNPSI_ITS ---
Subjective Subjective Date of Service: 03/14/21 Reason For Visit: Psychosis, Agitation, Property Destruction Subjective Notes: Section 7 Healthcare Proxy: No Guardianship: Yes Medical Problems Affecting Mental Status: No Interim History: Met with pt, his team, Lizett DOA and Juan C Escalante RN. Explained Section XIIB, guardianship status and limited options. Informed pt we will file for civil commitment. Pt very sad, angry, acknowledged depressive sx and sadness but in a way where he was threatening to harm others, not wanting to work with anyone except Juan C. Attempted to support pt-discussed increasing frequency of nicotine gum, benadryl prn, assisting him with music access. R eports lump in his groin-requested hospitalist cosultation. Olanzapine 5 mg bid standing dosage added. Will await court date from team. Medication Compliance: Yes Side effects from medications: No Attending Groups: No Review of Systems Reports behavioral changes Psychiatric: Reports anxiety, Reports behavioral changes, Reports depression, Reports difficulty concentrating, Reports hopelessness, Reports irritability, Reports anhedonia, Reports mood swings, Reports paranoia and Reports homicidal ideation Mental Status Exam Mental Status Exam Patient Appearance: Appropriate Patient Orientation: Person and Place Level of Consciousness: Restless and Alert Patient Behavior: Guarded, Talkative, Suspicious, Restless, Anxious, Fearful, Avoidant, Distractible, Isolative and Good Eye Contact Mood Description: Constricted and Angry Affect Description: Constricted Patient Cognition Impaired: Yes Ability to Follow Directions: Fair Speech Pattern: Perseverating, Spontaneous Speech and Soft-Spoken Memory Description: Remote Impaired and Episodic Impaired Hallucinations: None Delusions: Being Controlled, Paranoid Ideation and Present Thought Process: Illogical, Distracted and Rumination Thought Content: positive for [place]um[place], positive for Goal Oriented, positive for Preoccupation and positive for Homicidal Ideation Depressive Symptoms: Increased Anxiety and Increased Irritability Abnormal Motor Activity Signs and Symptoms: Agitation and Restlessness Judgement: Poor Diagnostics Vital Signs (24Hr): Vital Signs - 24 hr 03/14/21 06:15 Temperature 96.5 F L Pulse Rate 104 H Blood Pressure 113/70 Body Mass Index 34.4 Labs Results: 03/09/21 01:22 03/09/21 01:22 Medications Medications Current Medications Generic Name Dose Route Start Last Admin Trade Name Freq PRN Reason Stop Dose Admin Acetaminophen 650 mg 03/10/21 13:51 03/13/21 00:04 Acetaminophen 325 Mg Tablet PO 650 mg Q6H PRN Administration Pain, Mild (Pain Scale 1-3) Al Hydroxide/Mg Hydroxide 30 ml 03/09/21 22:20 Magnesium Hydrox/Alum Hydrox 30 Ml Oral.Susp PO Q6H PRN Heartburn/Nausea Aripiprazole 10 mg 03/09/21 09:30 03/14/21 08:02 Aripiprazole 10 Mg Tablet PO 10 mg DAILY DION Administration Ascorbic Acid 500 mg 03/10/21 14:00 03/14/21 08:03 Ascorbic Acid 500 Mg Tablet PO 500 mg DAILY DION Administration Diphenhydramine HCl 50 mg 03/13/21 23:36 03/14/21 00:00 Diphenhydramine Hcl 25 Mg Tablet PO 50 mg BEDTIME PRN Administration Sleep Diphenhydramine HCl 50 mg 03/14/21 10:15 Diphenhydramine Hcl 50 Mg/Ml Vial IM Q4H PRN agitation Divalproex Sodium 1,000 mg 03/09/21 09:30 03/14/21 08:03 Divalproex Sodium Er 500 Mg Tab.Er.24h PO 1,000 mg BID DION Administration Ibuprofen 600 mg 03/10/21 13:51 03/13/21 22:50 Ibuprofen 600 Mg Tablet PO 600 mg Q8H PRN Administration Pain, Moderate (Pain Scale 4-6 Lorazepam 1 mg 03/10/21 09:45 03/13/21 19:03 Lorazepam 1 Mg Tablet PO 1 mg Q4H PRN Administration agitation, anxiety Lorazepam 1 mg 03/10/21 12:34 Lorazepam 2 Mg/Ml Vial IM Q4H PRN anxiety,agitation Magnesium Hydroxide 30 ml 03/09/21 22:20 Milk Of Magnesia 30 Ml Oral.Susp PO DAILY PRN Constipation Melatonin 6 mg 03/09/21 21:00 03/13/21 19:56 Melatonin 3 Mg Tablet PO 6 mg BEDTIME DION Administration Nicotine 21 mg 03/10/21 09:45 03/14/21 09:04 Nicotine 21 Mg Patch.Td24 TRANSDERMA Not Given DAILY DION Nicotine Polacrilex 4 mg 03/14/21 10:14 03/14/21 15:11 Nicotine Polacrilex 2 Mg Gum BUCCAL 4 mg Q1H PRN Administration Nicotine Cravings Olanzapine 10 mg 03/10/21 09:46 03/13/21 06:58 Olanzapine Odt 10 Mg Tab.Rapdis TRANSLINGU 10 mg BID PRN Administration psychosis,agitation Olanzapine 10 mg 03/10/21 12:33 Olanzapine 10 Mg Vial IM BID PRN psychosis,agitation Olanzapine 5 mg 03/14/21 21:00 Olanzapine 5 Mg Tablet PO BID DION Quetiapine Fumarate 100 mg 03/09/21 09:30 03/14/21 08:03 Quetiapine Fumarate 100 Mg Tablet PO 100 mg DAILY DION Administration Quetiapine Fumarate 600 mg 03/09/21 21:00 03/13/21 19:56 Quetiapine Fumarate 300 Mg Tablet PO 600 mg BEDTIME DION Administration Trolamine Salicylate/Aloe Vera 1 appl 03/13/21 20:39 03/14/21 01:46 Trolamine Salicylate 10%/Aloe Cream 35.4 Gm TOPICAL 1 appl QID PRN Administration Pain, Moderate (Pain Scale 4-6 Allergies Allergies Allergy/AdvReac Type Severity Reaction Status Date / Time No Known Allergies Allergy Unverified 05/11/20 18:39 [No Known Allergies*] Assessment & Plan Assessment & Plan (1) Schizoaffective disorder, bipolar type: Status: Acute Code(s): F25.0 - Schizoaffective disorder, bipolar type Assessment and Plan: 20 yo male, presenting a danger to self and others in community, off meds, po ssibly using substances, destroying property in the home, exhibiting aggressive agitation. Section XII B. Plan: Re-establish regime-Abilify, Depakote, Prozac, Lorazepam, Seroquel Olanzapine 10 mg bid prn for violent agitation along with Lorazepam 1 mg q 4 hours prn Benadryl 50 mg q 6 hours prn (pt reports this assists him in calming.) Nicotine Patch/Gum Ibuprofen prn for pain Vitamin C daily Diagnostics- EKG, B12, Folate, TSH, Lipid Panel A1C Above reviewed need information how patient was not community whether substance abuse was part of his impulsivity and agitation would hold off on fluoxetine given patient's level of aggression and irritability Tried to speak repeatedly that to the patient we need more information regarding his safety and behavior in the community prior to being able to discharge him 03/13/21: Continue current plan. Continue to provide education and support. File for civil commitment on 03/14/21. 03/14/21: Civil commitment papers filed Pt reports lump in his groin-hospitalist consult requested Frequency of nicotine gum increased Benadryl prn increased OLanzapine 5 mg bid CBC Valproate level 7.22.21 Attempt to support pt through this time. Greater than 50% of the session was spent on counseling and/or coordination of care Reason for contiued inpatient stay Substantial Risk for: harm to self, harm to others, inability to function and rapid decompensation
--- NOTE | 2021-03-14 18:12 | PC.NURSE ---
PT agitated from groin pain. PT requests IM Benadryl as this helps both agitation and pain.
[2021-03-14] MEDS: QUEtiapine Fumarate 300 MG TABLET 600 MG PO (19:34)
[2021-03-14] MEDS: OLANZapine 5 MG TABLET PO (19:34)
[2021-03-14] MEDS: Melatonin 3 MG TABLET 6 MG PO (19:34)
[2021-03-14] MEDS: Ibuprofen 600 MG TABLET PO (20:53)
[2021-03-14] MEDS: diphenhydrAMINE HCL 25 MG TABLET 50 MG PO ×2 (21:12)
--- NOTE | 2021-03-14 22:22 | PC.NURSE ---
PT reports severe pain in lump in groin area. Hospitalist consult is pending @ this time. Ibuprofen given with good effect.
[2021-03-15 06:00] VITALS: BP 126/73; PULSE 90; TEMP 36.7; O2SAT 98
[2021-03-15] MEDS: Nicotine Polacrilex 2 MG GUM 4 MG BUCCAL ×5 (06:26→19:04)
[2021-03-15] MEDS: diphenhydrAMINE HCL 50 MG/ML VIAL IM (08:00)
[2021-03-15] MEDS: ARIPiprazole 10 MG TABLET PO (08:00)
[2021-03-15] MEDS: QUEtiapine Fumarate 100 MG TABLET PO (08:01)
[2021-03-15] MEDS: Ascorbic Acid 500 MG TABLET PO (08:01)
[2021-03-15] MEDS: Divalproex Sodium ER 500 MG TAB.ER.24H 1000 MG PO ×2 (08:01→20:48)
[2021-03-15] MEDS: OLANZapine 5 MG TABLET PO ×2 (08:01→20:48)
[2021-03-15 08:21] LABS: MANUAL DIFF FLAG NO
[2021-03-15 08:26] LABS: Basophils Percent Auto 0.3 % (0-2); Eosinophils Absolute Auto 0.1 X10*3/uL (0.0-0.4); Hematocrit 45.5 % (42-52); Hemoglobin 15.2 g/dl (14.0-18.0); Imm Gran Abs Auto 0.02 X10*3/uL (0.00-0.03); Imm Gran Pct Auto 0.3 % (0.0-0.4); Lymphocytes Absolute Auto 2.7 X10*3/uL (1.2-4.9); Lymphocytes Percent Auto 36.8 % (20-40); Mean Corpuscular HGB Conc 33.4 g/dl (31.0-36.0); Mean Corpuscular Hemoglobin 30.5 pg (27.0-33.0); Mean Corpuscular Volume 91.2 fL (80-98); Mean Platelet Volume 10.3 fL (9.4-12.4); Monocytes Absolute Auto 0.7 X10*3/uL (0.1-1.2); Monocytes Percent Auto 9.3 % (2-11); Neutrophils Absolute Auto 3.9 X10*3/uL (2.0-8.3); Neutrophils Percent Auto 52.3 % (45-73); Platelet Count 246 X10*3/uL (160-400); Red Blood Count 4.99 X10*6/uL (4.60-5.80); Red Cell Distribution Width 13.1 % (11.0-16.0); White Blood Count 7.3 X10*3/uL (4.8-10.8)
[2021-03-15 09:02] LABS: Valproate 64.7 mcg/mL (50.0-100.0)
[2021-03-15] MEDS: OLANZapine ODT 10 MG TAB.RAPDIS TRANSLINGU (11:32)
--- NOTE | 2021-03-15 12:09 | P.PNPSI_ITS ---
Subjective Subjective Date of Service: 03/16/21 Reason For Visit: Psychosis, Agitation, Property Destruction Subjective Notes: Section 7 Healthcare Proxy: No Guardianship: Yes Medical Problems Affecting Mental Status: No Interim History: women- useless and stupid . I am mad that you are taking me to court. Settling in to the unit-responsive to music which is organized and streamlined by the nursing team. Accepting medications. Court date pending. One of pt's peers reports he is propositioning her, team is maintaining close obs, however, pt for the most part is visable-in the main group area, near the nursing station and the phone-and for the most part isolative, so validity of this report is questionable. He approaches with questions, declines meeting, declines further explanation of guardianship, rationale for court filing. Review of Systems Genitourinary: Reports testicular mass Comments: Consult from hospitalist ordered. Mental Status Exam Mental Status Exam Patient Appearance: Appropriate Patient Orientation: Person and Place Level of Consciousness: Alert Patient Behavior: Guarded, Suspicious, Anxious, Fearful, Distractible and Isolative Mood Description: Suspicious, Withdrawn and Constricted Affect Description: Constricted Patient Cognition Impaired: Yes Ability to Follow Directions: Good Speech Pattern: Spontaneous Speech Memory Description: Remote Impaired and Episodic Impaired Hallucinations: None Delusions: Being Controlled, Paranoid Ideation and Present Thought Process: Distracted and Goal Oriented Thought Content: positive for [place], positive for Circumstantial and positive for Goal Oriented Depressive Symptoms: Increased Anxiety and Increased Irritability Judgement: Poor Diagnostics Vital Signs (24Hr): Vital Signs - 24 hr 03/14/21 18:00 03/15/21 06:00 Temperature 98 F 98.1 F Pulse Rate 101 H 90 Blood Pressure 110/72 126/73 Pulse Oximetry 98 Body Mass Index 34.4 Labs Results: 03/15/21 08:05 03/09/21 01:22 Labs: Laboratory Results - last 48 hr 03/15/21 03/15/21 08:05 08:06 WBC 7.3 RBC 4.99 Hgb 15.2 Hct 45.5 MCV 91.2 MCH 30.5 MCHC 33.4 RDW 13.1 Plt Count 246 MPV 10.3 Immature Gran % (Auto) 0.3 Neut % (Auto) 52.3 Lymph % (Auto) 36.8 [place] % (Auto) 9.3 Eos % (Auto) 1.0 Baso % (Auto) 0.3 Lymph # (Auto) 2.7 [place] # (Auto) 0.7 Eos # (Auto) 0.1 Baso # (Auto) 0.0 Abs Immat Gran (auto) 0.02 Absolute Neuts (auto) 3.9 Absolute Nucleated RBC 0.000 Nucleated RBC % (auto) 0.0 Valproic Acid 64.7 Medications Medications Current Medications Generic Name Dose Route Start Last Admin Trade Name Freq PRN Reason Stop Dose Admin Acetaminophen 650 mg 03/10/21 13:51 03/13/21 00:04 Acetaminophen 325 Mg Tablet PO 650 mg Q6H PRN Administration Pain, Mild (Pain Scale 1-3) Al Hydroxide/Mg Hydroxide 30 ml 03/09/21 22:20 Magnesium Hydrox/Alum Hydrox 30 Ml Oral.Susp PO Q6H PRN Heartburn/Nausea Aripiprazole 10 mg 03/09/21 09:30 03/15/21 08:00 Aripiprazole 10 Mg Tablet PO 10 mg DAILY DION Administration Ascorbic Acid 500 mg 03/10/21 14:00 03/15/21 08:01 Ascorbic Acid 500 Mg Tablet PO 500 mg DAILY DION Administration Diphenhydramine HCl 50 mg 03/13/21 23:36 03/14/21 21:12 Diphenhydramine Hcl 25 Mg Tablet PO 50 mg BEDTIME PRN Administration Sleep Diphenhydramine HCl 50 mg 03/14/21 10:15 03/15/21 08:00 Diphenhydramine Hcl 50 Mg/Ml Vial IM 50 mg Q4H PRN Administration agitation Divalproex Sodium 1,000 mg 03/09/21 09:30 03/15/21 08:01 Divalproex Sodium Er 500 Mg Tab.Er.24h PO 1,000 mg BID DION Administration Ibuprofen 600 mg 03/10/21 13:51 03/14/21 20:53 Ibuprofen 600 Mg Tablet PO 600 mg Q8H PRN Administration Pain, Moderate (Pain Scale 4-6 Lorazepam 1 mg 03/10/21 09:45 03/13/21 19:03 Lorazepam 1 Mg Tablet PO 1 mg Q4H PRN Administration agitation, anxiety Lorazepam 1 mg 03/10/21 12:34 Lorazepam 2 Mg/Ml Vial IM Q4H PRN anxiety,agitation Magnesium Hydroxide 30 ml 03/09/21 22:20 Milk Of Magnesia 30 Ml Oral.Susp PO DAILY PRN Constipation Melatonin 6 mg 03/09/21 21:00 03/14/21 19:34 Melatonin 3 Mg Tablet PO 6 mg BEDTIME DION Administration Nicotine 21 mg 03/10/21 09:45 03/15/21 08:40 Nicotine 21 Mg Patch.Td24 TRANSDERMA Not Given DAILY DION Nicotine Polacrilex 4 mg 03/14/21 10:14 03/15/21 10:07 Nicotine Polacrilex 2 Mg Gum BUCCAL 4 mg Q1H PRN Administration Nicotine Cravings Olanzapine 10 mg 03/10/21 09:46 03/15/21 11:32 Olanzapine Odt 10 Mg Tab.Rapdis TRANSLINGU 10 mg BID PRN Administration psychosis,agitation Olanzapine 10 mg 03/10/21 12:33 Olanzapine 10 Mg Vial IM BID PRN psychosis,agitation Olanzapine 5 mg 03/14/21 21:00 03/15/21 08:01 Olanzapine 5 Mg Tablet PO 5 mg BID DION Administration Quetiapine Fumarate 100 mg 03/09/21 09:30 03/15/21 08:01 Quetiapine Fumarate 100 Mg Tablet PO 100 mg DAILY DION Administration Quetiapine Fumarate 600 mg 03/09/21 21:00 03/14/21 19:34 Quetiapine Fumarate 300 Mg Tablet PO 600 mg BEDTIME DION Administration Trolamine Salicylate/Aloe Vera 1 appl 03/13/21 20:39 03/14/21 01:46 Trolamine Salicylate 10%/Aloe Cream 35.4 Gm TOPICAL 1 appl QID PRN Administration Pain, Moderate (Pain Scale 4-6 Allergies Allergies Allergy/AdvReac Type Severity Reaction Status Date / Time No Known Allergies Allergy Unverified 05/11/20 18:39 [No Known Allergies*] Assessment & Plan Assessment & Plan (1) Schizoaffective disorder, bipolar type: Status: Acute Code(s): F25.0 - Schizoaffective disorder, bipolar type Assessment and Plan: 20 yo male, presenting a danger to self and others in community, off meds, possibly using substances, destroying property in the home, exhibiting aggressive agitation. Section XII B. Plan: Re-establish regime-Abilify, Depakote, Prozac, Lorazepam, Seroquel Olanzapine 10 mg bid prn for violent agitation along with Lorazepam 1 mg q 4 hours prn Benadryl 50 mg q 6 hours prn (pt reports this assists him in calming.) Nicotine Patch/Gum Ibuprofen prn for pain Vitamin C daily Diagnostics- EKG, B12, Folate, TSH, Lipid Panel A1C Above reviewed need information how patient was not community whether substance abuse was part of his impulsivity and agitation would hold off on fluoxetine given patient's level of aggression and irritability Tried to speak repeatedly that to the patient we need more information regarding his safety and behavior in the community prior to being able to discharge him 03/13/21: Continue current plan. Continue to provide education and support. File for civil commitment on 03/14/21. 03/14/21: Civil commitment papers filed Pt reports lump in his groin-hospitalist consult requested Frequency of nicotine gum increased Benadryl prn increased OLanzapine 5 mg bid CBC Valproate level 03.15.21 Attempt to support pt through this time. Greater than 50% of the session was spent on counseling and/or coordination of care Patient educated on: other (legal status) Informed Consent: further education needed Reason for contiued inpatient stay Substantial Risk for: harm to others, inability to function and rapid decompensation
[2021-03-15 12:10] VITALS: BMI 31.0
--- NOTE | 2021-03-15 17:42 | PM.EVENT ---
Event Note Date of Service: 03/15/21 Event Note:
--- NOTE | 2021-03-15 17:45 | PM.EVENT ---
Event Note Date of Service: 03/15/21 Event Note: Called to see patient for lump in groin small area of induration right groin, no fluctuance to indicate abscess, no erythema. no open area or drainage does not appear infected no fever, leukocytosis can use warm compresses if worsens can consider soft tissue US
[2021-03-15 18:26] VITALS: BP 122/74; PULSE 108; TEMP 36.4
[2021-03-15] MEDS: Melatonin 3 MG TABLET 6 MG PO (20:48)
[2021-03-15] MEDS: QUEtiapine Fumarate 300 MG TABLET 600 MG PO (20:51)
[2021-03-16] MEDS: Nicotine Polacrilex 2 MG GUM 4 MG BUCCAL ×5 (05:17→19:42)
[2021-03-16 06:38] VITALS: BP 125/57; PULSE 82; RESP 16; O2SAT 97
[2021-03-16] MEDS: ARIPiprazole 10 MG TABLET PO (08:26)
[2021-03-16] MEDS: Ascorbic Acid 500 MG TABLET PO (08:26)
[2021-03-16] MEDS: OLANZapine 5 MG TABLET PO (08:26)
[2021-03-16] MEDS: QUEtiapine Fumarate 100 MG TABLET PO (08:26)
[2021-03-16] MEDS: Divalproex Sodium ER 500 MG TAB.ER.24H 1000 MG PO ×2 (08:26→20:01)
[2021-03-16] MEDS: Nicotine 21 MG PATCH.TD24 TRANSDERMA (08:26)
[2021-03-16] MEDS: Ibuprofen 600 MG TABLET PO (10:41)
--- NOTE | 2021-03-16 14:41 | PC.NURSE ---
Pt declined for RN to assess ingrown hair on his R inner thigh. Pt reports that it is currently not bothering him. Declined warm compress when offerred.
--- NOTE | 2021-03-16 15:51 | HO.PSYCHPN ---
Subjective Subjective Date of Service: 03/16/21 Reason For Visit: Psychosis, Agitation, Property Destruction Subjective Notes: Section 7 Healthcare Proxy: No Guardianship: Yes Medical Problems Affecting Mental Status: No Interim History: CBCD WNL. Valproate Level 64.7 Copies given to pt- Will you keep these for me and since my tests are good can I leave. Explained Section VII. Pt responded OK, no problem-can I have soda for supper? Team reports pt with Epistaxis this a.m. Will check PT/PTT on 03/17. Pt agrees. Message left with Dr. Alcaraz of [facility] to discuss pt's treatment as he was admitted to [facility] in 2019. Reports rash/groin lump-evaluated by hospitalist and encouraged to use comfort measures i.e. warm compress. Pt declined today. Review of Systems Reports behavioral changes Psychiatric: Reports behavioral changes and Reports mood swings Mental Status Exam Mental Status Exam Patient Appearance: Unkempt Patient Orientation: Person and Place Level of Consciousness: Alert Patient Behavior: Appropriate, Cooperative, Suspicious, Anxious and Avoidant Mood Description: Withdrawn Affect Description: Flat Patient Cognition Impaired: Yes Ability to Follow Directions: Good Speech Pattern: Spontaneous Speech Memory Description: Remote Impaired and Episodic Impaired Delusions: Being Controlled, Paranoid Ideation and Present Thought Process: Distracted and Evasive Thought Content: positive for Circumstantial, positive for Tangential, positive for Evasive, positive for Suicidal Ideation (denies) and positive for Homicidal Ideation (denies) Depressive Symptoms: Diff. Making Decisions and Increased Irritability Judgement: Poor Diagnostics Vital Signs (24Hr): Vital Signs - 24 hr 03/15/21 18:26 03/16/21 06:38 Temperature 97.5 F Pulse Rate 108 H 82 Respiratory Rate 16 Blood Pressure 122/74 125/57 L Pulse Oximetry 97 Body Mass Index 31.0 Labs Results: 03/15/21 08:05 03/09/21 01:22 Labs: Laboratory Results - last 48 hr 03/15/21 03/15/21 08:05 08:06 WBC 7.3 RBC 4.99 Hgb 15.2 Hct 45.5 MCV 91.2 MCH 30.5 MCHC 33.4 RDW 13.1 Plt Count 246 MPV 10.3 Immature Gran % (Auto) 0.3 Neut % (Auto) 52.3 Lymph % (Auto) 36.8 Brewster % (Auto) 9.3 Eos % (Auto) 1.0 Baso % (Auto) 0.3 Lymph # (Auto) 2.7 Brewster # (Auto) 0.7 Eos # (Auto) 0.1 Baso # (Auto) 0.0 Abs Immat Gran (auto) 0.02 Absolute Neuts (auto) 3.9 Absolute Nucleated RBC 0.000 Nucleated RBC % (auto) 0.0 Valproic Acid 64.7 Medications Medications Current Medications Generic Name Dose Route Start Last Admin Trade Name Freq PRN Reason Stop Dose Admin Acetaminophen 650 mg 03/10/21 13:51 03/13/21 00:04 Acetaminophen 325 Mg Tablet PO 650 mg Q6H PRN Administration Pain, Mild (Pain Scale 1-3) Al Hydroxide/Mg Hydroxide 30 ml 03/09/21 22:20 Magnesium Hydrox/Alum Hydrox 30 Ml Oral.Susp PO Q6H PRN Heartburn/Nausea Aripiprazole 10 mg 03/09/21 09:30 03/16/21 08:26 Aripiprazole 10 Mg Tablet PO 10 mg DAILY DION Administration Ascorbic Acid 500 mg 03/10/21 14:00 03/16/21 08:26 Ascorbic Acid 500 Mg Tablet PO 500 mg DAILY DION Administration Diphenhydramine HCl 50 mg 03/13/21 23:36 03/14/21 21:12 Diphenhydramine Hcl 25 Mg Tablet PO 50 mg BEDTIME PRN Administration Sleep Diphenhydramine HCl 50 mg 03/14/21 10:15 03/15/21 08:00 Diphenhydramine Hcl 50 Mg/Ml Vial IM 50 mg Q4H PRN Administration agitation Divalproex Sodium 1,000 mg 03/09/21 09:30 03/16/21 08:26 Divalproex Sodium Er 500 Mg Tab.Er.24h PO 1,000 mg BID DION Administration Ibuprofen 600 mg 03/10/21 13:51 03/16/21 10:41 Ibuprofen 600 Mg Tablet PO 600 mg Q8H PRN Administration Pain, Moderate (Pain Scale 4-6 Lorazepam 1 mg 03/10/21 09:45 03/13/21 19:03 Lorazepam 1 Mg Tablet PO 1 mg Q4H PRN Administration agitation, anxiety Lorazepam 1 mg 03/10/21 12:34 Lorazepam 2 Mg/Ml Vial IM Q4H PRN anxiety,agitation Magnesium Hydroxide 30 ml 03/09/21 22:20 Milk Of Magnesia 30 Ml Oral.Susp PO DAILY PRN Constipation Melatonin 6 mg 03/09/21 21:00 03/15/21 20:48 Melatonin 3 Mg Tablet PO 6 mg BEDTIME DION Administration Nicotine 21 mg 03/10/21 09:45 03/16/21 08:26 Nicotine 21 Mg Patch.Td24 TRANSDERMA 21 mg DAILY DION Administration Nicotine Polacrilex 4 mg 03/14/21 10:14 03/16/21 14:20 Nicotine Polacrilex 2 Mg Gum BUCCAL 4 mg Q1H PRN Administration Nicotine Cravings Olanzapine 10 mg 03/10/21 09:46 03/15/21 11:32 Olanzapine Odt 10 Mg Tab.Rapdis TRANSLINGU 10 mg BID PRN Administration psychosis,agitation Olanzapine 10 mg 03/10/21 12:33 Olanzapine 10 Mg Vial IM BID PRN psychosis,agitation Olanzapine 5 mg 03/14/21 21:00 03/16/21 08:26 Olanzapine 5 Mg Tablet PO 5 mg BID DION Administration Quetiapine Fumarate 100 mg 03/09/21 09:30 03/16/21 08:26 Quetiapine Fumarate 100 Mg Tablet PO 100 mg DAILY DION Administration Quetiapine Fumarate 600 mg 03/09/21 21:00 03/15/21 20:51 Quetiapine Fumarate 300 Mg Tablet PO 600 mg BEDTIME DION Administration Trolamine Salicylate/Aloe Vera 1 appl 03/13/21 20:39 03/14/21 01:46 Trolamine Salicylate 10%/Aloe Cream 35.4 Gm TOPICAL 1 appl QID PRN Administration Pain, Moderate (Pain Scale 4-6 Allergies Allergies Allergy/AdvReac Type Severity Reaction Status Date / Time No Known Allergies Allergy Unverified 05/11/20 18:39 [No Known Allergies*] Assessment & Plan Assessment & Plan (1) Schizoaffective disorder, bipolar type: Status: Acute Code(s): F25.0 - Schizoaffective disorder, bipolar type Assessment and Plan: 20 yo male, presenting a danger to self and others in community, off meds, possibly using substances, destroying property in the home, exhibiting aggressive agitation. Section XII B. Plan: Re-establish regime-Abilify, Depakote, Prozac, Lorazepam, Seroquel Olanzapine 10 mg bid prn for violent agitation along with Lorazepam 1 mg q 4 hours prn Benadryl 50 mg q 6 hours prn (pt reports this assists him in calming.) Nicotine Patch/Gum Ibuprofen prn for pain Vitamin C daily Diagnostics- EKG, B12, Folate, TSH, Lipid Panel A1C Above reviewed need information how patient was not community whether substance abuse was part of his impulsivity and agitation would hold off on fluoxetine given patient's level of aggression and irritability Tried to speak repeatedly that to the patient we need more information regarding his safety and behavior in the community prior to being able to discharge him 03/13/21: Continue current plan. Continue to provide education and support. File for civil commitment on 03/14/21. 03/14/21: Civil commitment papers filed Pt reports lump in his groin-hospitalist consult requested Frequency of nicotine gum increased Benadryl prn increased OLanzapine 5 mg bid CBC Valproate level 7.22.21 Attempt to support pt through this time. 03/16/21: Discontinue Olanzapine 5 mg bid-keep prn. CBC WNL, Valproate Level 64.7 PT/PTT on 03/17 due to Epistaxis on 03/16. Improved behavioral control Greater than 50% of the session was spent on counseling and/or coordination of care Reason for contiued inpatient stay Substantial Risk for: harm to self, harm to others, inability to function and rapid decompensation
[2021-03-16 16:10] VITALS: BP 117/74; PULSE 101; TEMP 36.6
[2021-03-16] MEDS: QUEtiapine Fumarate 300 MG TABLET 600 MG PO (20:01)
[2021-03-16] MEDS: Melatonin 3 MG TABLET 6 MG PO (20:01)
[2021-03-17] MEDS: Nicotine Polacrilex 2 MG GUM 4 MG BUCCAL ×6 (01:39→20:47)
[2021-03-17] MEDS: diphenhydrAMINE HCL 25 MG TABLET 50 MG PO (01:51)
[2021-03-17] MEDS: LORazepam 1 MG TABLET PO (01:52)
[2021-03-17 05:32] VITALS: BP 119/77; PULSE 100; RESP 18; O2SAT 98
[2021-03-17 08:16] LABS: Prothrombin Time 11.3 SEC (9.9-13.0)
[2021-03-17 08:19] LABS: Partial Thromboplastin Time 38.9 SEC (24.1-38.0)
[2021-03-17] MEDS: QUEtiapine Fumarate 100 MG TABLET PO (08:44)
[2021-03-17] MEDS: Ascorbic Acid 500 MG TABLET PO (08:44)
[2021-03-17] MEDS: ARIPiprazole 10 MG TABLET PO (08:44)
[2021-03-17] MEDS: Divalproex Sodium ER 500 MG TAB.ER.24H 1000 MG PO ×2 (08:44→20:46)
[2021-03-17] MEDS: Nicotine 21 MG PATCH.TD24 TRANSDERMA (10:33)
--- NOTE | 2021-03-17 14:50 | HO.PSYCHPN ---
Subjective Subjective Date of Service: 03/17/21 Reason For Visit: Psychosis, Agitation, Property Destruction Subjective Notes: Ott Order Interim History: is frustrated about being in the hospital. Reports that he feels like getting angry, but also knows that he this could impact his treatment planning and disposition planning if he acts out. Feels that he had a nosebleed yesterday and this was secondary to being hospitalized and did appear paranoid about this. Reports things are good with his family and he can return home. Reports that he will be staying here for 2 more weeks and then get discharged. 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 Review of Systems Review of Systems Nothing new. Aware of recent rash Mental Status Exam Mental Status Exam Narrative: wearing headphones. casually dressed. Fair hygiene. Did engage. Some irritability and frustration. No aggression or agitation. Does respond to redirection and support. No SI. No HI. Does appear guarded at times. Denies hallucinations. Insight and judgment is limited Diagnostics Vital Signs (24Hr): Vital Signs - 24 hr 03/16/21 16:10 03/17/21 05:32 Temperature 97.8 F Pulse Rate 101 H 100 Respiratory Rate 18 Blood Pressure 117/74 119/77 Pulse Oximetry 98 Body Mass Index 31.0 Labs Results: 03/15/21 08:05 03/09/21 01:22 Labs: Laboratory Results - last 48 hr 03/17/21 07:50 PT 11.3 INR 1.0 APTT 38.9 H Medications Medications Current Medications Generic Name Dose Route Start Last Admin Trade Name Bensonq PRN Reason Stop Dose Admin Acetaminophen 650 mg 03/10/21 13:51 03/13/21 00:04 Acetaminophen 325 Mg Tablet PO 650 mg Q6H PRN Administration Pain, Mild (Pain Scale 1-3) Al Hydroxide/Mg Hydroxide 30 ml 03/09/21 22:20 Magnesium Hydrox/Alum Hydrox 30 Ml Oral.Susp PO Q6H PRN Heartburn/Nausea Aripiprazole 10 mg 03/09/21 09:30 03/17/21 08:44 Aripiprazole 10 Mg Tablet PO 10 mg DAILY DION Administration Ascorbic Acid 500 mg 03/10/21 14:00 03/17/21 08:44 Ascorbic Acid 500 Mg Tablet PO 500 mg DAILY DION Administration Diphenhydramine HCl 50 mg 03/13/21 23:36 03/17/21 01:51 Diphenhydramine Hcl 25 Mg Tablet PO 50 mg BEDTIME PRN Administration Sleep Diphenhydramine HCl 50 mg 03/14/21 10:15 03/15/21 08:00 Diphenhydramine Hcl 50 Mg/Ml Vial IM 50 mg Q4H PRN Administration agitation Divalproex Sodium 1,000 mg 03/09/21 09:30 03/17/21 08:44 Divalproex Sodium Er 500 Mg Tab.Er.24h PO 1,000 mg BID DION Administration Ibuprofen 600 mg 03/10/21 13:51 03/16/21 10:41 Ibuprofen 600 Mg Tablet PO 600 mg Q8H PRN Administration Pain, Moderate (Pain Scale 4-6 Lorazepam 1 mg 03/10/21 09:45 03/17/21 01:52 Lorazepam 1 Mg Tablet PO 1 mg Q4H PRN Administration agitation, anxiety Lorazepam 1 mg 03/10/21 12:34 Lorazepam 2 Mg/Ml Vial IM Q4H PRN anxiety,agitation Magnesium Hydroxide 30 ml 03/09/21 22:20 Milk Of Magnesia 30 Ml Oral.Susp PO DAILY PRN Constipation Melatonin 6 mg 03/09/21 21:00 03/16/21 20:01 Melatonin 3 Mg Tablet PO 6 mg BEDTIME DION Administration Nicotine 21 mg 03/10/21 09:45 03/17/21 10:33 Nicotine 21 Mg Patch.Td24 TRANSDERMA 21 mg DAILY DION Administration Nicotine Polacrilex 4 mg 03/14/21 10:14 03/17/21 13:47 Nicotine Polacrilex 2 Mg Gum BUCCAL 4 mg Q1H PRN Administration Nicotine Cravings Olanzapine 10 mg 03/10/21 09:46 03/15/21 11:32 Olanzapine Odt 10 Mg Tab.Rapdis TRANSLINGU 10 mg BID PRN Administration psychosis,agitation Olanzapine 10 mg 03/10/21 12:33 Olanzapine 10 Mg Vial IM BID PRN psychosis,agitation Quetiapine Fumarate 100 mg 03/09/21 09:30 03/17/21 08:44 Quetiapine Fumarate 100 Mg Tablet PO 100 mg DAILY DION Administration Quetiapine Fumarate 600 mg 03/09/21 21:00 03/16/21 20:01 Quetiapine Fumarate 300 Mg Tablet PO 600 mg BEDTIME DION Administration Trolamine Salicylate/Aloe Vera 1 appl 03/13/21 20:39 03/14/21 01:46 Trolamine Salicylate 10%/Aloe Cream 35.4 Gm TOPICAL 1 appl QID PRN Administration Pain, Moderate (Pain Scale 4-6 Allergies Allergies Allergy/AdvReac Type Severity Reaction Status Date / Time No Known Allergies Allergy Unverified 05/11/20 18:39 [No Known Allergies*] Assessment & Plan Assessment & Plan (1) Schizoaffective disorder, bipolar type: Status: Acute Code(s): F25.0 - Schizoaffective disorder, bipolar type Assessment and Plan: 20 yo male, presenting a danger to self and others in community, off meds, possibly using substances, destroying property in the home, exhibiting aggressive agitation. Section XII B. Plan: Re-establish regime-Abilify, Depakote, Prozac, Lorazepam, Seroquel Olanzapine 10 mg bid prn for violent agitation along with Lorazepam 1 mg q 4 hours prn Benadryl 50 mg q 6 hours prn (pt reports this assists him in calming.) Nicotine Patch/Gum Ibuprofen prn for pain Vitamin C daily Diagnostics- EKG, B12, Folate, TSH, Lipid Panel A1C Above reviewed need information how patient was not community whether substance abuse was part of his impulsivity and agitation would hold off on fluoxetine given patient's level of aggression and irritability Tried to speak repeatedly that to the patient we need more information regarding his safety and behavior in the community prior to being able to discharge him 03/13/21: Continue current plan. Continue to provide education and support. File for civil commitment on 03/14/21. 03/14/21: Civil commitment papers filed Pt reports lump in his groin-hospitalist consult requested Frequency of nicotine gum increased Benadryl prn increased OLanzapine 5 mg bid CBC Valproate level .. Attempt to support pt through this time. 03/16/21: Discontinue Olanzapine 5 mg bid-keep prn. CBC WNL, Valproate Level 64.7 PT/PTT on 03/17 due to Epistaxis on 03/16. Improved behavioral control 03/17/21: No changes to primary team's treatment plan Greater than 50% of the session was spent on counseling and/or coordination of care Reason for contiued inpatient stay Substantial Risk for: harm to others and rapid decompensation
[2021-03-17 18:00] VITALS: BP 130/81; PULSE 89; TEMP 36.7
[2021-03-17] MEDS: Ibuprofen 600 MG TABLET PO (19:46)
[2021-03-17] MEDS: QUEtiapine Fumarate 300 MG TABLET 600 MG PO (20:46)
[2021-03-17] MEDS: Melatonin 3 MG TABLET 6 MG PO (20:46)
[2021-03-18] MEDS: Ibuprofen 600 MG TABLET PO (04:51)
[2021-03-18] MEDS: Nicotine Polacrilex 2 MG GUM 4 MG BUCCAL ×7 (04:54→21:48)
[2021-03-18 06:00] VITALS: BP 131/60; PULSE 88; RESP 16
[2021-03-18] MEDS: Ascorbic Acid 500 MG TABLET PO (08:55)
[2021-03-18] MEDS: Divalproex Sodium ER 500 MG TAB.ER.24H 1000 MG PO ×2 (08:56→19:44)
[2021-03-18] MEDS: QUEtiapine Fumarate 100 MG TABLET PO (08:57)
[2021-03-18] MEDS: ARIPiprazole 10 MG TABLET PO (08:57)
[2021-03-18] MEDS: Nicotine 21 MG PATCH.TD24 TRANSDERMA (12:00)
[2021-03-18] MEDS: diphenhydrAMINE HCL 50 MG/ML VIAL IM (14:31)
--- NOTE | 2021-03-18 15:14 | HO.PSYCHPN ---
Subjective Subjective Date of Service: 03/18/21 Reason For Visit: Psychosis, Agitation, Property Destruction Subjective Notes: Section 12B Interim History: reports today that he is feeling good. Denied any concerns. Denied feeling depressed or agitated. Denied feeling paranoid around staff or other patients. Hopeful for discharge soon and wants to discuss this with his primary team tomorrow. Medication Compliance: Yes Review of Systems Review of Systems Nothing new. Aware of recent rash Yes Unobtainable due to mental status Genitourinary: Reports testicular mass Reports behavioral changes Psychiatric: Reports anxiety, Reports behavioral changes, Reports depression, Reports difficulty concentrating, Reports auditory hallucinations, Reports hopelessness, Reports irritability, Reports anhedonia, Reports mood swings, Reports paranoia, Reports hallucinations, Reports homicidal ideation and Reports suicidal ideation (denies) Mental Status Exam Mental Status Exam Narrative: wearing headphones. casually dressed. Fair hygiene. Did engage. Less irritable today. No SI. No HI. Does appear guarded at times. Denies hallucinations. Insight and judgment is limited Patient Appearance: Unkempt Patient Orientation: Person and Place Level of Consciousness: Alert Patient Behavior: Appropriate, Cooperative, Suspicious, Anxious and Avoidant Mood Description: Withdrawn Affect Description: Flat Patient Cognition Impaired: Yes Ability to Follow Directions: Good Speech Pattern: Spontaneous Speech Memory Description: Remote Impaired and Episodic Impaired Diagnostics Vital Signs (24Hr): Vital Signs - 24 hr 03/17/21 18:00 03/18/21 06:00 Temperature 98.1 F Pulse Rate 89 88 Respiratory Rate 16 Blood Pressure 130/81 131/60 Body Mass Index 31.0 Labs Results: 03/15/21 08:05 03/09/21 01:22 Labs: Laboratory Results - last 48 hr 03/17/21 07:50 PT 11.3 INR 1.0 APTT 38.9 H Medications Medications Current Medications Generic Name Dose Route Start Last Admin Trade Name Freq PRN Reason Stop Dose Admin Acetaminophen 650 mg 03/10/21 13:51 03/13/21 00:04 Acetaminophen 325 Mg Tablet PO 650 mg Q6H PRN Administration Pain, Mild (Pain Scale 1-3) Al Hydroxide/Mg Hydroxide 30 ml 03/09/21 22:20 Magnesium Hydrox/Alum Hydrox 30 Ml Oral.Susp PO Q6H PRN Heartburn/Nausea Aripiprazole 10 mg 03/09/21 09:30 03/18/21 08:57 Aripiprazole 10 Mg Tablet PO 10 mg DAILY DION Administration Ascorbic Acid 500 mg 03/10/21 14:00 03/18/21 08:55 Ascorbic Acid 500 Mg Tablet PO 500 mg DAILY DION Administration Diphenhydramine HCl 50 mg 03/13/21 23:36 03/17/21 01:51 Diphenhydramine Hcl 25 Mg Tablet PO 50 mg BEDTIME PRN Administration Sleep Diphenhydramine HCl 50 mg 03/14/21 10:15 03/18/21 14:31 Diphenhydramine Hcl 50 Mg/Ml Vial IM 50 mg Q4H PRN Administration agitation Divalproex Sodium 1,000 mg 03/09/21 09:30 03/18/21 08:56 Divalproex Sodium Er 500 Mg Tab.Er.24h PO 1,000 mg BID DION Administration Ibuprofen 600 mg 03/10/21 13:51 03/18/21 04:51 Ibuprofen 600 Mg Tablet PO 600 mg Q8H PRN Administration Pain, Moderate (Pain Scale 4-6 Lorazepam 1 mg 03/10/21 09:45 03/17/21 01:52 Lorazepam 1 Mg Tablet PO 1 mg Q4H PRN Administration agitation, anxiety Lorazepam 1 mg 03/10/21 12:34 Lorazepam 2 Mg/Ml Vial IM Q4H PRN anxiety,agitation Magnesium Hydroxide 30 ml 03/09/21 22:20 Milk Of Magnesia 30 Ml Oral.Susp PO DAILY PRN Constipation Melatonin 6 mg 03/09/21 21:00 03/17/21 20:46 Melatonin 3 Mg Tablet PO 6 mg BEDTIME DION Administration Nicotine 21 mg 03/10/21 09:45 03/18/21 12:00 Nicotine 21 Mg Patch.Td24 TRANSDERMA 21 mg DAILY DION Administration Nicotine Polacrilex 4 mg 03/14/21 10:14 03/18/21 12:32 Nicotine Polacrilex 2 Mg Gum BUCCAL 4 mg Q1H PRN Administration Nicotine Cravings Olanzapine 10 mg 03/10/21 09:46 03/15/21 11:32 Olanzapine Odt 10 Mg Tab.Rapdis TRANSLINGU 10 mg BID PRN Administration psychosis,agitation Olanzapine 10 mg 03/10/21 12:33 Olanzapine 10 Mg Vial IM BID PRN psychosis,agitation Quetiapine Fumarate 100 mg 03/09/21 09:30 03/18/21 08:57 Quetiapine Fumarate 100 Mg Tablet PO 100 mg DAILY DION Administration Quetiapine Fumarate 600 mg 03/09/21 21:00 03/17/21 20:46 Quetiapine Fumarate 300 Mg Tablet PO 600 mg BEDTIME DION Administration Trolamine Salicylate/Aloe Vera 1 appl 03/13/21 20:39 03/14/21 01:46 Trolamine Salicylate 10%/Aloe Cream 35.4 Gm TOPICAL 1 appl QID PRN Administration Pain, Moderate (Pain Scale 4-6 Allergies Allergies Allergy/AdvReac Type Severity Reaction Status Date / Time No Known Allergies Allergy Unverified 05/11/20 18:39 [No Known Allergies*] Assessment & Plan Assessment & Plan (1) Schizoaffective disorder, bipolar type: Status: Acute Code(s): F25.0 - Schizoaffective disorder, bipolar type Assessment and Plan: 20 yo male, presenting a danger to self and others in community, off meds, possibly using substances, destroying property in the home, exhibiting aggressive agitation. Section XII B. Plan: Re-establish regime-Abilify, Depakote, Prozac, Lorazepam, Seroquel Olanzapine 10 mg bid prn for violent agitation along with Lorazepam 1 mg q 4 hours prn Benadryl 50 mg q 6 hours prn (pt reports this assists him in calming.) Nicotine Patch/Gum Ibuprofen prn for pain Vitamin C daily Diagnostics- EKG, B12, Folate, TSH, Lipid Panel A1C Above reviewed need information how patient was not community whether substance abuse was part of his impulsivity and agitation would hold off on fluoxetine given patient's level of aggression and irritability Tried to speak repeatedly that to the patient we need more information regarding his safety and behavior in the community prior to being able to discharge him 03/13/21: Continue current plan. Continue to provide education and support. File for civil commitment on 03/14/21. 03/14/21: Civil commitment papers filed Pt reports lump in his groin-hospitalist consult requested Frequency of nicotine gum increased Benadryl prn increased OLanzapine 5 mg bid CBC Valproate level 7.22.21 Attempt to support pt through this time. 03/16/21: Discontinue Olanzapine 5 mg bid-keep prn. CBC WNL, Valproate Level 64.7 PT/PTT on 03/17 due to Epistaxis on 03/16. Improved behavioral control 03/17/21: No changes to primary team's treatment plan Greater than 50% of the session was spent on counseling and/or coordination of care Reason for contiued inpatient stay Substantial Risk for: inability to function and rapid decompensation
[2021-03-18 16:45] VITALS: BP 118/67; PULSE 99; TEMP 36.2
[2021-03-18] MEDS: Melatonin 3 MG TABLET 6 MG PO (19:43)
[2021-03-18] MEDS: QUEtiapine Fumarate 300 MG TABLET 600 MG PO (19:43)
[2021-03-18] MEDS: Acetaminophen 325 MG TABLET 650 MG PO (21:07)
[2021-03-19 06:00] VITALS: BP 118/56; PULSE 72; RESP 18; TEMP 35.3; O2SAT 98
[2021-03-19] MEDS: Divalproex Sodium ER 500 MG TAB.ER.24H 1000 MG PO ×2 (07:55→19:39)
[2021-03-19] MEDS: ARIPiprazole 10 MG TABLET PO (07:55)
[2021-03-19] MEDS: Nicotine Polacrilex 2 MG GUM 4 MG BUCCAL ×6 (07:56→19:40)
[2021-03-19] MEDS: Nicotine 21 MG PATCH.TD24 TRANSDERMA (07:56)
[2021-03-19] MEDS: Ascorbic Acid 500 MG TABLET PO (07:56)
[2021-03-19] MEDS: QUEtiapine Fumarate 100 MG TABLET PO (07:56)
[2021-03-19] MEDS: Ibuprofen 600 MG TABLET PO (09:15)
[2021-03-19] MEDS: diphenhydrAMINE HCL 50 MG/ML VIAL IM (09:34)
[2021-03-19] MEDS: Acetaminophen 325 MG TABLET 650 MG PO (14:59)
--- NOTE | 2021-03-19 16:05 | P.PNPSI_ITS ---
Subjective Subjective Date of Service: 03/19/21 Reason For Visit: Psychosis, Agitation, Property Destruction Subjective Notes: Section 7 Healthcare Proxy: No Guardianship: Yes Medical Problems Affecting Mental Status: No Interim History: Agrees to postpone court date, continue treatment and work with team with a goal of going home. Court rescheduled to 03/27/21. No further epistaxis PT 11.3, INR 1.0, PTT 38.9 * Visable in the milieu, social with peers, approachable, using music at times for added support. * Primative, demanding at times Medication Compliance: Yes Side effects from medications: No Attending Groups: No Review of Systems Reports behavioral changes Psychiatric: Reports behavioral changes, Reports irritability, Reports anhedonia, Reports mood swings, Reports paranoia, Reports homicidal ideation (denies) and Reports suicidal ideation (denies) Mental Status Exam Mental Status Exam Patient Appearance: Disheveled Patient Orientation: Person, Place and Situation Level of Consciousness: Alert Patient Behavior: Talkative, Suspicious, Self Manipulative, Restless, Anxious, Avoidant, Distractible, Good Eye Contact and Impulsive Mood Description: Withdrawn Affect Description: Flat Patient Cognition Impaired: Yes Ability to Follow Directions: Good Speech Pattern: Spontaneous Speech and Soft-Spoken Memory Description: Episodic Impaired Hallucinations: None (denies) Delusions: Paranoid Ideation and Present Thought Process: Distracted and Evasive Thought Content: positive for [place], positive for Circumstantial, positive for Suicidal Ideation (denies) and positive for Homicidal Ideation (denies) Depressive Symptoms: Increased Anxiety, Diff. Making Decisions, Increased Irritability and Thoughts of /Suicide (denies) Judgement: Poor Diagnostics Vital Signs (24Hr): Vital Signs - 24 hr 03/18/21 16:45 03/19/21 06:00 Temperature 97.2 F 95.6 F L Pulse Rate 99 72 Respiratory Rate 18 Blood Pressure 118/67 118/56 L Pulse Oximetry 98 Body Mass Index 31.0 Labs Results: 03/15/21 08:05 03/09/21 01:22 Medications Medications Current Medications Generic Name Dose Route Start Last Admin Trade Name Freq PRN Reason Stop Dose Admin Acetaminophen 650 mg 03/10/21 13:51 03/19/21 14:59 Acetaminophen 325 Mg Tablet PO 650 mg Q6H PRN Administration Pain, Mild (Pain Scale 1-3) Al Hydroxide/Mg Hydroxide 30 ml 03/09/21 22:20 Magnesium Hydrox/Alum Hydrox 30 Ml Oral.Susp PO Q6H PRN Heartburn/Nausea Aripiprazole 10 mg 03/09/21 09:30 03/19/21 07:55 Aripiprazole 10 Mg Tablet PO 10 mg DAILY DION Administration Ascorbic Acid 500 mg 03/10/21 14:00 03/19/21 07:56 Ascorbic Acid 500 Mg Tablet PO 500 mg DAILY DION Administration Diphenhydramine HCl 50 mg 03/13/21 23:36 03/17/21 01:51 Diphenhydramine Hcl 25 Mg Tablet PO 50 mg BEDTIME PRN Administration Sleep Diphenhydramine HCl 50 mg 03/14/21 10:15 03/19/21 09:34 Diphenhydramine Hcl 50 Mg/Ml Vial IM 50 mg Q4H PRN Administration agitation Divalproex Sodium 1,000 mg 03/09/21 09:30 03/19/21 07:55 Divalproex Sodium Er 500 Mg Tab.Er.24h PO 1,000 mg BID DION Administration Ibuprofen 600 mg 03/10/21 13:51 03/19/21 09:15 Ibuprofen 600 Mg Tablet PO 600 mg Q8H PRN Administration Pain, Moderate (Pain Scale 4-6 Lorazepam 1 mg 03/10/21 09:45 03/17/21 01:52 Lorazepam 1 Mg Tablet PO 1 mg Q4H PRN Administration agitation, anxiety Lorazepam 1 mg 03/10/21 12:34 Lorazepam 2 Mg/Ml Vial IM Q4H PRN anxiety,agitation Magnesium Hydroxide 30 ml 03/09/21 22:20 Milk Of Magnesia 30 Ml Oral.Susp PO DAILY PRN Constipation Melatonin 6 mg 03/09/21 21:00 03/18/21 19:43 Melatonin 3 Mg Tablet PO 6 mg BEDTIME DION Administration Nicotine 21 mg 03/10/21 09:45 03/19/21 07:56 Nicotine 21 Mg Patch.Td24 TRANSDERMA 21 mg DAILY DION Administration Nicotine Polacrilex 4 mg 03/14/21 10:14 03/19/21 13:17 Nicotine Polacrilex 2 Mg Gum BUCCAL 4 mg Q1H PRN Administration Nicotine Cravings Olanzapine 10 mg 03/10/21 09:46 03/15/21 11:32 Olanzapine Odt 10 Mg Tab.Rapdis TRANSLINGU 10 mg BID PRN Administration psychosis,agitation Olanzapine 10 mg 03/10/21 12:33 Olanzapine 10 Mg Vial IM BID PRN psychosis,agitation Quetiapine Fumarate 100 mg 03/09/21 09:30 03/19/21 07:56 Quetiapine Fumarate 100 Mg Tablet PO 100 mg DAILY DION Administration Quetiapine Fumarate 600 mg 03/09/21 21:00 03/18/21 19:43 Quetiapine Fumarate 300 Mg Tablet PO 600 mg BEDTIME DION Administration Trolamine Salicylate/Aloe Vera 1 appl 03/13/21 20:39 03/14/21 01:46 Trolamine Salicylate 10%/Aloe Cream 35.4 Gm TOPICAL 1 appl QID PRN Administration Pain, Moderate (Pain Scale 4-6 Allergies Allergies Allergy/AdvReac Type Severity Reaction Status Date / Time No Known Allergies Allergy Unverified 05/11/20 18:39 [No Known Allergies*] Assessment & Plan Assessment & Plan (1) Schizoaffective disorder, bipolar type: Status: Acute Code(s): F25.0 - Schizoaffective disorder, bipolar type Assessment and Plan: 20 yo male, presenting a danger to self and others in community, off meds, possibly using substances, destroying property in the home, exhibiting aggressive agitation. Section XII B. Plan: Re-establish regime-Abilify, Depakote, Prozac, Lorazepam, Seroquel Olanzapine 10 mg bid prn for violent agitation along with Lorazepam 1 mg q 4 hours prn Benadryl 50 mg q 6 hours prn (pt reports this assists him in calming.) Nicotine Patch/Gum Ibuprofen prn for pain Vitamin C daily Diagnostics- EKG, B12, Folate, TSH, Lipid Panel A1C Above reviewed need information how patient was not community whether substance abuse was part of his impulsivity and agitation would hold off on fluoxetine given patient's level of aggression and irritability Tried to speak repeatedly that to the patient we need more information regarding his safety and behavior in the community prior to being able to discharge him 03/13/21: Continue current plan. Continue to provide education and support. File for civil commitment on 03/14/21. 03/14/21: Civil commitment papers filed Pt reports lump in his groin-hospitalist consult requested Frequency of nicotine gum increased Benadryl prn increased OLanzapine 5 mg bid CBC Valproate level 03.15.21 Attempt to support pt through this time. 03/16/21: Discontinue Olanzapine 5 mg bid-keep prn. CBC WNL, Valproate Level 64.7 PT/PTT on 03/17 due to Epistaxis on 03/16. Improved behavioral control 03/17/21: No changes to primary team's treatment plan 03/19/21: Court date extension to 03/27/21. Continue current plan of care. Greater than 50% of the session was spent on counseling and/or coordination of care Patient educated on: therapeutic strategies Informed Consent: further education needed Reason for contiued inpatient stay Substantial Risk for: harm to self, harm to others, inability to function and rapid decompensation
[2021-03-19 18:37] VITALS: BP 123/68; PULSE 86; TEMP 36.6; O2SAT 98
[2021-03-19] MEDS: Melatonin 3 MG TABLET 6 MG PO (19:40)
[2021-03-19] MEDS: QUEtiapine Fumarate 300 MG TABLET 600 MG PO (19:40)
[2021-03-20] MEDS: Ibuprofen 600 MG TABLET PO ×2 (05:30→23:01)
[2021-03-20 05:38] VITALS: BP 83/66; PULSE 104; RESP 18; TEMP 36
[2021-03-20] MEDS: Nicotine 21 MG PATCH.TD24 TRANSDERMA (08:14)
[2021-03-20] MEDS: ARIPiprazole 10 MG TABLET PO (08:15)
[2021-03-20] MEDS: QUEtiapine Fumarate 100 MG TABLET PO (08:15)
[2021-03-20] MEDS: Ascorbic Acid 500 MG TABLET PO (08:16)
[2021-03-20] MEDS: Nicotine Polacrilex 2 MG GUM 4 MG BUCCAL ×6 (08:16→21:26)
[2021-03-20] MEDS: Divalproex Sodium ER 500 MG TAB.ER.24H 1000 MG PO ×2 (08:16→20:29)
--- NOTE | 2021-03-20 11:05 | P.PNPSI_ITS ---
Subjective Subjective Date of Service: 03/20/21 Reason For Visit: Psychosis, Agitation, Property Destruction Subjective Notes: Section 7 Healthcare Proxy: No Guardianship: Yes Medical Problems Affecting Mental Status: No Interim History: Compliant with medicines, no behavioral episodes. Family reports pt continues with symptoms of paranoia and psychotic thought process. Pt asks to go home. Mother tells social service she does not feel he is prepared and continues to need adjustment in medications. Will adjust based upon his interactions with family and delusional content presented to team. Review of Systems Reports behavioral changes and Reports confusion Psychiatric: Reports behavioral changes, Reports confusion, Reports difficulty concentrating, Reports auditory hallucinations, Reports irritability, Reports mood swings, Reports paranoia, Reports hallucinations, Reports homicidal ideation (targets non specific people in community, thinking he has been w ronged.) and Reports suicidal ideation (denies) Mental Status Exam Mental Status Exam Patient Appearance: Appropriate Patient Orientation: Person, Place, Time and Situation Level of Consciousness: Alert Patient Behavior: Appropriate, Guarded, Talkative, Suspicious, Distractible and Good Eye Contact Mood Description: Constricted Affect Description: Constricted Patient Cognition Impaired: Yes Speech Pattern: Spontaneous Speech and Cofabulation Memory Description: Remote Impaired and Episodic Impaired Hallucinations: Auditory Delusions: Paranoid Ideation and Present Perceptual Disturbances: Derealization Thought Process: Illogical and Distracted Thought Content: positive for [place], positive for [place] [place], posit christopher for Tangential and positive for Suicidal Ideation (denies) Judgement: Poor Diagnostics Vital Signs (24Hr): Vital Signs - 24 hr 03/19/21 18:37 03/20/21 05:38 Temperature 97.8 F 96.8 F Pulse Rate 86 104 H Respiratory Rate 18 Blood Pressure 123/68 83/66 L Pulse Oximetry 98 Body Mass Index 31.0 Labs Results: 03/15/21 08:05 03/09/21 01:22 Medications Medications Current Medications Generic Name Dose Route Start Last Admin Trade Name Freq PRN Reason Stop Dose Admin Acetaminophen 650 mg 03/10/21 13:51 03/19/21 14:59 Acetaminophen 325 Mg Tablet PO 650 mg Q6H PRN Administration Pain, Mild (Pain Scale 1-3) Al Hydroxide/Mg Hydroxide 30 ml 03/09/21 22:20 Magnesium Hydrox/Alum Hydrox 30 Ml Oral.Susp PO Q6H PRN Heartburn/Nausea Aripiprazole 10 mg 03/09/21 09:30 03/20/21 08:15 Aripiprazole 10 Mg Tablet PO 10 mg DAILY DION Administration Ascorbic Acid 500 mg 03/10/21 14:00 03/20/21 08:16 Ascorbic Acid 500 Mg Tablet PO 500 mg DAILY DION Administration Diphenhydramine HCl 50 mg 03/13/21 23:36 03/17/21 01:51 Diphenhydramine Hcl 25 Mg Tablet PO 50 mg BEDTIME PRN Administration Sleep Diphenhydramine HCl 50 mg 03/14/21 10:15 03/19/21 09:34 Diphenhydramine Hcl 50 Mg/Ml Vial IM 50 mg Q4H PRN Administration agitation Divalproex Sodium 1,000 mg 03/09/21 09:30 03/20/21 08:16 Divalproex Sodium Er 500 Mg Tab.Er.24h PO 1,000 mg BID DION Administration Ibuprofen 600 mg 03/10/21 13:51 03/20/21 05:30 Ibuprofen 600 Mg Tablet PO 600 mg Q8H PRN Administration Pain, Moderate (Pain Scale 4-6 Lorazepam 1 mg 03/10/21 09:45 03/17/21 01:52 Lorazepam 1 Mg Tablet PO 1 mg Q4H PRN Administration agitation, anxiety Lorazepam 1 mg 03/10/21 12:34 Lorazepam 2 Mg/Ml Vial IM Q4H PRN anxiety,agitation Magnesium Hydroxide 30 ml 03/09/21 22:20 Milk Of Magnesia 30 Ml Oral.Susp PO DAILY PRN Constipation Melatonin 6 mg 03/09/21 21:00 03/19/21 19:40 Melatonin 3 Mg Tablet PO 6 mg BEDTIME DION Administration Nicotine 21 mg 03/10/21 09:45 03/20/21 08:14 Nicotine 21 Mg Patch.Td24 TRANSDERMA 21 mg DAILY DION Administration Nicotine Polacrilex 4 mg 03/14/21 10:14 03/20/21 10:29 Nicotine Polacrilex 2 Mg Gum BUCCAL 4 mg Q1H PRN Administration Nicotine Cravings Olanzapine 10 mg 03/10/21 09:46 03/15/21 11:32 Olanzapine Odt 10 Mg Tab.Rapdis TRANSLINGU 10 mg BID PRN Administration psychosis,agitation Olanzapine 10 mg 03/10/21 12:33 Olanzapine 10 Mg Vial IM BID PRN psychosis,agitation Quetiapine Fumarate 100 mg 03/09/21 09:30 03/20/21 08:15 Quetiapine Fumarate 100 Mg Tablet PO 100 mg DAILY DION Administration Quetiapine Fumarate 600 mg 03/09/21 21:00 03/19/21 19:40 Quetiapine Fumarate 300 Mg Tablet PO 600 mg BEDTIME DION Administration Trolamine Salicylate/Aloe Vera 1 appl 03/13/21 20:39 03/14/21 01:46 Trolamine Salicylate 10%/Aloe Cream 35.4 Gm TOPICAL 1 appl QID PRN Administration Pain, Moderate (Pain Scale 4-6 Allergies Allergies Allergy/AdvReac Type Severity Reaction Status Date / Time No Known Allergies Allergy Unverified 05/11/20 18:39 [No Known Allergies*] Assessment & Plan Assessment & Plan (1) Schizoaffective disorder, bipolar type: Status: Acute Code(s): F25.0 - Schizoaffective disorder, bipolar type Assessment and Plan: 20 yo male, presenting a danger to self and others in community, off meds, possibly using substances, destroying property in the home, exhibiting aggressive agitation. Section XII B. Plan: Re-establish regime-Abilify, Depakote, Prozac, Lorazepam, Seroquel Olanzapine 10 mg bid prn for violent agitation along with Lorazepam 1 mg q 4 hours prn Benadryl 50 mg q 6 hours prn (pt reports this assists him in calming.) Nicotine Patch/Gum Ibuprofen prn for pain Vitamin C daily Diagnostics- EKG, B12, Folate, TSH, Lipid Panel A1C Above reviewed need information how patient was not community whether substance abuse was part of his impulsivity and agitation would hold off on fluoxetine given patient's level of aggression and irritability Tried to speak repeatedly that to the patient we need more information regarding his safety and behavior in the community prior to being able to discharge him 03/13/21: Continue current plan. Continue to provide education and support. File for civil commitment on 03/14/21. 03/14/21: Civil commitment papers filed Pt reports lump in his groin-hospitalist consult requested Frequency of nicotine gum increased Benadryl prn increased OLanzapine 5 mg bid CBC Valproate level 7.22.21 Attempt to support pt through this time. 03/16/21: Discontinue Olanzapine 5 mg bid-keep prn. CBC WNL, Valproate Level 64.7 PT/PTT on 03/17 due to Epistaxis on 03/16. Improved behavioral control 03/17/21: No changes to primary team's treatment plan 03/19/21: Court date extension to 03/27/21. Continue current plan of care. 03/20/21: Increase Abilify to 20 mg daily. Greater than 50% of the session was spent on counseling and/or coordination of care Reason for contiued inpatient stay Substantial Risk for: harm to self, harm to others, inability to function and rapid decompensation
[2021-03-20 11:25] VITALS: BP 113/72; PULSE 77; O2SAT 96
[2021-03-20] MEDS: diphenhydrAMINE HCL 50 MG/ML VIAL IM (11:52)
[2021-03-20] MEDS: Acetaminophen 325 MG TABLET 650 MG PO (16:18)
[2021-03-20 18:00] VITALS: BP 144/68; PULSE 90; RESP 18; TEMP 36.3; O2SAT 98
[2021-03-20] MEDS: QUEtiapine Fumarate 300 MG TABLET 600 MG PO (20:28)
[2021-03-20] MEDS: diphenhydrAMINE HCL 25 MG TABLET 50 MG PO (20:29)
[2021-03-20] MEDS: Melatonin 3 MG TABLET 6 MG PO (20:29)
[2021-03-21 06:00] VITALS: BP 113/64; PULSE 114; TEMP 35.8; O2SAT 97
[2021-03-21] MEDS: Nicotine 21 MG PATCH.TD24 TRANSDERMA (08:05)
[2021-03-21] MEDS: ARIPiprazole 20 MG TABLET PO (08:05)
[2021-03-21] MEDS: Divalproex Sodium ER 500 MG TAB.ER.24H 1000 MG PO ×2 (08:05→20:40)
[2021-03-21] MEDS: QUEtiapine Fumarate 100 MG TABLET PO (08:05)
[2021-03-21] MEDS: Ascorbic Acid 500 MG TABLET PO (08:05)
[2021-03-21] MEDS: Nicotine Polacrilex 2 MG GUM 4 MG BUCCAL ×6 (08:08→23:30)
--- NOTE | 2021-03-21 14:46 | HO.PSYCHPN ---
Subjective Subjective Date of Service: 03/21/21 Reason For Visit: Psychosis, Agitation, Property Destruction Review of Systems Accepting of treatment and medicines, participating in milieu, no symptoms of behavioral dyscontrol noted today. Review of Systems Psychiatric: Reports no additional psychiatric complaints, Reports homicidal ideation (denies) and Reports suicidal ideation (denies) Mental Status Exam Mental Status Exam Patient Appearance: Appropriate Patient Orientation: Person, Place and Situation Level of Consciousness: Alert Patient Behavior: Appropriate, Talkative and Cooperative Mood Description: Calm Affect Description: Calm Patient Cognition Impaired: Yes Ability to Follow Directions: Good Speech Pattern: Spontaneous Speech and Cofabulation (on some issues) Memory Description: Remote Impaired and Episodic Impaired Hallucinations: None Delusions: Present Thought Process: Distracted Thought Content: positive for Circumstantial, positive for Tangential, positive for Suicidal Ideation (denies) and positive for Homicidal Ideation (denies) Depressive Symptoms: Thoughts of /Suicide (denies) Judgement: Fair Diagnostics Vital Signs (24Hr): Vital Signs - 24 hr 03/20/21 18:00 03/21/21 06:00 Temperature 97.3 F 96.4 F L Pulse Rate 90 114 H Respiratory Rate 18 Blood Pressure 144/68 H 113/64 Pulse Oximetry 98 97 Body Mass Index 31.0 Labs Results: 03/15/21 08:05 03/09/21 01:22 Medications Medications Current Medications Generic Name Dose Route Start Last Admin Trade Name Freq PRN Reason Stop Dose Admin Acetaminophen 650 mg 03/10/21 13:51 03/20/21 16:18 Acetaminophen 325 Mg Tablet PO 650 mg Q6H PRN Administration Pain, Mild (Pain Scale 1-3) Al Hydroxide/Mg Hydroxide 30 ml 03/09/21 22:20 Magnesium Hydrox/Alum Hydrox 30 Ml Oral.Susp PO Q6H PRN Heartburn/Nausea Aripiprazole 20 mg 03/21/21 09:00 03/21/21 08:05 Aripiprazole 20 Mg Tablet PO 20 mg DAILY DION Administration Ascorbic Acid 500 mg 03/10/21 14:00 03/21/21 08:05 Ascorbic Acid 500 Mg Tablet PO 500 mg DAILY DION Administration Diphenhydramine HCl 50 mg 03/13/21 23:36 03/20/21 20:29 Diphenhydramine Hcl 25 Mg Tablet PO 50 mg BEDTIME PRN Administration Sleep Diphenhydramine HCl 50 mg 03/14/21 10:15 03/20/21 11:52 Diphenhydramine Hcl 50 Mg/Ml Vial IM 50 mg Q4H PRN Administration agitation Divalproex Sodium 1,000 mg 03/09/21 09:30 03/21/21 08:05 Divalproex Sodium Er 500 Mg Tab.Er.24h PO 1,000 mg BID DION Administration Ibuprofen 600 mg 03/10/21 13:51 03/20/21 23:01 Ibuprofen 600 Mg Tablet PO 600 mg Q8H PRN Administration Pain, Moderate (Pain Scale 4-6 Lorazepam 1 mg 03/10/21 09:45 03/17/21 01:52 Lorazepam 1 Mg Tablet PO 1 mg Q4H PRN Administration agitation, anxiety Lorazepam 1 mg 03/10/21 12:34 Lorazepam 2 Mg/Ml Vial IM Q4H PRN anxiety,agitation Magnesium Hydroxide 30 ml 03/09/21 22:20 Milk Of Magnesia 30 Ml Oral.Susp PO DAILY PRN Constipation Melatonin 6 mg 03/09/21 21:00 03/20/21 20:29 Melatonin 3 Mg Tablet PO 6 mg BEDTIME DION Administration Nicotine 21 mg 03/10/21 09:45 03/21/21 08:05 Nicotine 21 Mg Patch.Td24 TRANSDERMA 21 mg DAILY DION Administration Nicotine Polacrilex 4 mg 03/14/21 10:14 03/21/21 12:24 Nicotine Polacrilex 2 Mg Gum BUCCAL 4 mg Q1H PRN Administration Nicotine Cravings Olanzapine 10 mg 03/10/21 09:46 03/15/21 11:32 Olanzapine Odt 10 Mg Tab.Rapdis TRANSLINGU 10 mg BID PRN Administration psychosis,agitation Olanzapine 10 mg 03/10/21 12:33 Olanzapine 10 Mg Vial IM BID PRN psychosis,agitation Quetiapine Fumarate 100 mg 03/09/21 09:30 03/21/21 08:05 Quetiapine Fumarate 100 Mg Tablet PO 100 mg DAILY DION Administration Quetiapine Fumarate 600 mg 03/09/21 21:00 03/20/21 20:28 Quetiapine Fumarate 300 Mg Tablet PO 600 mg BEDTIME DION Administration Trolamine Salicylate/Aloe Vera 1 appl 03/13/21 20:39 03/14/21 01:46 Trolamine Salicylate 10%/Aloe Cream 35.4 Gm TOPICAL 1 appl QID PRN Administration Pain, Moderate (Pain Scale 4-6 Allergies Allergies Allergy/AdvReac Type Severity Reaction Status Date / Time No Known Allergies Allergy Unverified 05/11/20 18:39 [No Known Allergies*] Assessment & Plan Assessment & Plan (1) Schizoaffective disorder, bipolar type: Status: Acute Code(s): F25.0 - Schizoaffective disorder, bipolar type Assessment and Plan: 20 yo male, presenting a danger to self and others in community, off meds, possibly using substances, destroying property in the home, exhibiting aggressive agitation. Section XII B. Plan: Re-establish regime-Abilify, Depakote, Prozac, Lorazepam, Seroquel Olanzapine 10 mg bid prn for violent agitation along with Lorazepam 1 mg q 4 hours prn Benadryl 50 mg q 6 hours prn (pt reports this assists him in calming.) Nicotine Patch/Gum Ibuprofen prn for pain Vitamin C daily Diagnostics- EKG, B12, Folate, TSH, Lipid Panel A1C Above reviewed need information how patient was not community whether substance abuse was part of his impulsivity and agitation would hold off on fluoxetine given patient's level of aggression and irritability Tried to speak repeatedly that to the patient we need more information regarding his safety and behavior in the community prior to being able to discharge him 03/13/21: Continue current plan. Continue to provide education and support. File for civil commitment on 03/14/21. 03/14/21: Civil commitment papers filed Pt reports lump in his groin-hospitalist consult requested Frequency of nicotine gum increased Benadryl prn increased OLanzapine 5 mg bid CBC Valproate level .. Attempt to support pt through this time. 03/16/21: Discontinue Olanzapine 5 mg bid-keep prn. CBC WNL, Valproate Level 64.7 PT/PTT on 03/17 due to Epistaxis on 03/16. Improved behavioral control 03/17/21: No changes to primary team's treatment plan 03/19/21: Court date extension to 03/27/21. Continue current plan of care. 03/20/21: Increase Abilify to 20 mg daily. 03/21/21: Continue current regime. Greater than 50% of the session was spent on counseling and/or coordination of care Informed Consent: understands Reason for contiued inpatient stay Substantial Risk for: harm to others, inability to function and rapid decompensation
[2021-03-21] MEDS: diphenhydrAMINE HCL 50 MG/ML VIAL IM (17:19)
[2021-03-21 18:00] VITALS: BP 105/58; PULSE 100; RESP 18; TEMP 36.3; O2SAT 98
[2021-03-21] MEDS: Melatonin 3 MG TABLET 6 MG PO (20:40)
[2021-03-21] MEDS: QUEtiapine Fumarate 300 MG TABLET 600 MG PO (20:40)
[2021-03-22] MEDS: Ibuprofen 600 MG TABLET PO (02:59)
[2021-03-22] MEDS: Nicotine Polacrilex 2 MG GUM 4 MG BUCCAL ×7 (03:15→23:59)
[2021-03-22 07:00] VITALS: BMI 30.4
[2021-03-22] MEDS: Nicotine 21 MG PATCH.TD24 TRANSDERMA (09:01)
[2021-03-22] MEDS: Divalproex Sodium ER 500 MG TAB.ER.24H 1000 MG PO ×2 (09:05→20:25)
[2021-03-22] MEDS: ARIPiprazole 20 MG TABLET PO (09:06)
[2021-03-22] MEDS: Ascorbic Acid 500 MG TABLET PO (09:06)
[2021-03-22] MEDS: QUEtiapine Fumarate 100 MG TABLET PO (09:07)
[2021-03-22] MEDS: diphenhydrAMINE HCL 50 MG/ML VIAL IM (11:24)
[2021-03-22] MEDS: Acetaminophen 325 MG TABLET 650 MG PO (12:59)
--- NOTE | 2021-03-22 13:21 | HO.PSYCHPN ---
Subjective Subjective Date of Service: 03/22/21 Reason For Visit: Psychosis, Agitation, Property Destruction Subjective Notes: Section 7 Healthcare Proxy: No Guardianship: Yes Medical Problems Affecting Mental Status: No Interim History: Tells team he has no idea why he is admitted to hospital. Review of precipitants to admission. Pt reports he does not recall any conflict at home. Also tells team he has been experiencing shortness of breath a few minutes after he takes Depakote and this has occurred before when hospitalized with [facility]. Medication Compliance: Yes Side effects from medications: Yes (as noted above) Attending Groups: Intermittent Review of Systems Acute medical concerns: No Medical Review of Systems: unchanged Review of Systems Reports behavioral changes and Reports memory loss Psychiatric: Reports behavioral changes, Reports auditory hallucinations, Reports memory loss, Reports homicidal ideation (denies) and Reports suicidal ideation (denies) Mental Status Exam Mental Status Exam Patient Appearance: Disheveled Patient Orientation: Person and Place Level of Consciousness: Awake and Alert Patient Behavior: Cooperative Mood Description: Constricted Affect Description: Constricted Patient Cognition Impaired: Yes Ability to Follow Directions: Good Speech Pattern: Spontaneous Speech Memory Description: Remote Impaired and Episodic Impaired Hallucinations: Auditory Delusions: Present Thought Process: Distracted and Goal Oriented Thought Content: positive for [place], positive for Circumstantial, positive for Goal Oriented, positive for Slowed Thinking, positive for Suicidal Ideation (denies) and positive for Homicidal Ideation (denies) Depressive Symptoms: Diff. Making Decisions and Thoughts of /Suicide (denies) Judgement: Fair Diagnostics Vital Signs (24Hr): Vital Signs - 24 hr 03/21/21 18:00 Temperature 97.4 F Pulse Rate 100 Respiratory Rate 18 Blood Pressure 105/58 L Pulse Oximetry 98 Body Mass Index 30.4 Labs Results: 03/15/21 08:05 03/09/21 01:22 Medications Medications Current Medications Generic Name Dose Route Start Last Admin Trade Name Freq PRN Reason Stop Dose Admin Acetaminophen 650 mg 03/10/21 13:51 03/22/21 12:59 Acetaminophen 325 Mg Tablet PO 650 mg Q6H PRN Administration Pain, Mild (Pain Scale 1-3) Al Hydroxide/Mg Hydroxide 30 ml 03/09/21 22:20 Magnesium Hydrox/Alum Hydrox 30 Ml Oral.Susp PO Q6H PRN Heartburn/Nausea Aripiprazole 20 mg 03/21/21 09:00 03/22/21 09:06 Aripiprazole 20 Mg Tablet PO 20 mg DAILY DION Administration Ascorbic Acid 500 mg 03/10/21 14:00 03/22/21 09:06 Ascorbic Acid 500 Mg Tablet PO 500 mg DAILY DION Administration Diphenhydramine HCl 50 mg 03/13/21 23:36 03/20/21 20:29 Diphenhydramine Hcl 25 Mg Tablet PO 50 mg BEDTIME PRN Administration Sleep Diphenhydramine HCl 50 mg 03/14/21 10:15 03/22/21 11:24 Diphenhydramine Hcl 50 Mg/Ml Vial IM 50 mg Q4H PRN Administration agitation Divalproex Sodium 1,000 mg 03/09/21 09:30 03/22/21 09:05 Divalproex Sodium Er 500 Mg Tab.Er.24h PO 1,000 mg BID DION Administration Ibuprofen 600 mg 03/10/21 13:51 03/22/21 02:59 Ibuprofen 600 Mg Tablet PO 600 mg Q8H PRN Administration Pain, Moderate (Pain Scale 4-6 Lorazepam 1 mg 03/10/21 09:45 03/17/21 01:52 Lorazepam 1 Mg Tablet PO 1 mg Q4H PRN Administration agitation, anxiety Lorazepam 1 mg 03/10/21 12:34 Lorazepam 2 Mg/Ml Vial IM Q4H PRN anxiety,agitation Magnesium Hydroxide 30 ml 03/09/21 22:20 Milk Of Magnesia 30 Ml Oral.Susp PO DAILY PRN Constipation Melatonin 6 mg 03/09/21 21:00 03/21/21 20:40 Melatonin 3 Mg Tablet PO 6 mg BEDTIME DION Administration Nicotine 21 mg 03/10/21 09:45 03/22/21 09:01 Nicotine 21 Mg Patch.Td24 TRANSDERMA 21 mg DAILY DION Administration Nicotine Polacrilex 4 mg 03/14/21 10:14 03/22/21 11:23 Nicotine Polacrilex 2 Mg Gum BUCCAL 4 mg Q1H PRN Administration Nicotine Cravings Olanzapine 10 mg 03/10/21 09:46 03/15/21 11:32 Olanzapine Odt 10 Mg Tab.Rapdis TRANSLINGU 10 mg BID PRN Administration psychosis,agitation Olanzapine 10 mg 03/10/21 12:33 Olanzapine 10 Mg Vial IM BID PRN psychosis,agitation Quetiapine Fumarate 100 mg 03/09/21 09:30 03/22/21 09:07 Quetiapine Fumarate 100 Mg Tablet PO 100 mg DAILY DION Administration Quetiapine Fumarate 600 mg 03/09/21 21:00 03/21/21 20:40 Quetiapine Fumarate 300 Mg Tablet PO 600 mg BEDTIME DION Administration Trolamine Salicylate/Aloe Vera 1 appl 03/13/21 20:39 03/14/21 01:46 Trolamine Salicylate 10%/Aloe Cream 35.4 Gm TOPICAL 1 appl QID PRN Administration Pain, Moderate (Pain Scale 4-6 Allergies Allergies Allergy/AdvReac Type Severity Reaction Status Date / Time No Known Allergies Allergy Unverified 05/11/20 18:39 [No Known Allergies*] Assessment & Plan Assessment & Plan (1) Schizoaffective disorder, bipolar type: Status: Acute Code(s): F25.0 - Schizoaffective disorder, bipolar type Assessment and Plan: 20 yo male, presenting a danger to self and others in community, off meds, possibly using substances, destroying property in the home, exhibiting aggressive agitation. Section XII B. Plan: Re-establish regime-Abilify, Depakote, Prozac, Lorazepam, Seroquel Olanzapine 10 mg bid prn for violent agitation along with Lorazepam 1 mg q 4 hours prn Benadryl 50 mg q 6 hours prn (pt reports this assists him in calming.) Nicotine Patch/Gum Ibuprofen prn for pain Vitamin C daily Diagnostics- EKG, B12, Folate, TSH, Lipid Panel A1C Above reviewed need information how patient was not community whether substance abuse was part of his impulsivity and agitation would hold off on fluoxetine given patient's level of aggression and irritability Tried to speak repeatedly that to the patient we need more information regarding his safety and behavior in the community prior to being able to discharge him 03/13/21: Continue current plan. Continue to provide education and support. File for civil commitment on 03/14/21. 03/14/21: Civil commitment papers filed Pt reports lump in his groin-hospitalist consult requested Frequency of nicotine gum increased Benadryl prn increased OLanzapine 5 mg bid CBC Valproate level 7.22.21 Attempt to support pt through this time. 03/16/21: Discontinue Olanzapine 5 mg bid-keep prn. CBC WNL, Valproate Level 64.7 PT/PTT on 03/17 due to Epistaxis on 03/16. Improved behavioral control 03/17/21: No changes to primary team's treatment plan 03/19/21: Court date extension to 03/27/21. Continue current plan of care. 03/20/21: Increase Abilify to 20 mg daily. 03/21/21: Continue current regime. 03/22/21: Section VII. Tentative court date 03/27/21. Pt on track, with some improvement, ?possible discharge next week to [facility] home if he continues to improve. Assessment and Plan: As noted above. Greater than 50% of the session was spent on counseling and/or coordination of care Patient educated on: therapeutic strategies and medical condition Guardian/Caregiver educated on: medication risk/benefits, therapeutic strategies and medical condition Informed Consent: further education needed Reason for contiued inpatient stay Substantial Risk for: harm to self, harm to others, inability to function and rapid decompensation
[2021-03-22 18:00] VITALS: BP 106/59; PULSE 83; RESP 18; TEMP 36.3; O2SAT 100
[2021-03-22] MEDS: QUEtiapine Fumarate 300 MG TABLET 600 MG PO (20:25)
[2021-03-22] MEDS: Melatonin 3 MG TABLET 6 MG PO (20:25)
[2021-03-23] MEDS: Ibuprofen 600 MG TABLET PO ×2 (00:04→14:20)
[2021-03-23] MEDS: LORazepam 1 MG TABLET PO (01:24)
[2021-03-23] MEDS: Nicotine Polacrilex 2 MG GUM 4 MG BUCCAL ×7 (04:38→21:31)
[2021-03-23 06:00] VITALS: BP 135/69; PULSE 109; RESP 18; TEMP 36.6; O2SAT 97
[2021-03-23] MEDS: diphenhydrAMINE HCL 50 MG/ML VIAL IM ×2 (08:16→16:51)
[2021-03-23] MEDS: Divalproex Sodium ER 500 MG TAB.ER.24H 1000 MG PO ×2 (08:33→20:03)
[2021-03-23] MEDS: QUEtiapine Fumarate 100 MG TABLET PO (08:33)
[2021-03-23] MEDS: Ascorbic Acid 500 MG TABLET PO (08:33)
[2021-03-23] MEDS: ARIPiprazole 20 MG TABLET PO (08:33)
[2021-03-23] MEDS: Nicotine 21 MG PATCH.TD24 TRANSDERMA (12:23)
[2021-03-23 16:22] VITALS: BP 118/59; PULSE 90; RESP 18; TEMP 36.8; O2SAT 99
--- NOTE | 2021-03-23 17:54 | HO.PSYCHPN ---
Subjective Subjective Date of Service: 03/23/21 Reason For Visit: Psychosis, Agitation, Property Destruction Subjective Notes: Section 7 Healthcare Proxy: No Guardianship: Yes Medical Problems Affecting Mental Status: No Interim History: Christian reports he is feeling well. We discussed his report of having shortness of breath after taking Depakote at times-he reports this occurred at [facility] and it is not a consistent symptom, just when feeling congested. Also reviewed epistaxis sx. Pt denies recent sx, stating he has these sx when congested and when environment is dry. Today he denies all sx. We discussed sx possibly being SE and he does not believe this is correct. Believes meds are helpful- I don't know why I don't take them-I feel good when I do and I get in problems when I don't. Is that why I ended up in here? Reviewed recent diagnostics, discussed possible sinus xrays, eval for asthma-pt declines at this time, stating if sx recur he will reconsider this. Medication Compliance: Yes Side effects from medications: No Attending Groups: Intermittent Review of Systems Acute medical concerns: No Medical Review of Systems: unchanged Review of Systems Reports behavioral changes and Reports confusion Psychiatric: Reports behavioral changes, Reports confusion, Reports homicidal ideation (denies) and Reports suicidal ideation (denies) Mental Status Exam Mental Status Exam Patient Appearance: Appropriate Patient Orientation: Person, Place and Situation Level of Consciousness: Alert Patient Behavior: Talkative and Good Eye Contact Mood Description: Calm and Appropriate Affect Description: Appropriate Patient Cognition Impaired: No Ability to Follow Directions: Good Speech Pattern: Spontaneous Speech and Soft-Spoken Memory Description: Episodic Impaired Hallucinations: None Delusions: Not Present Thought Process: Goal Oriented Thought Content: positive for [place], positive for Circumstantial and positive for Goal Oriented Depressive Symptoms: Diff. Making Decisions Judgement: Fair Diagnostics Vital Signs (24Hr): Vital Signs - 24 hr 03/22/21 18:00 03/23/21 06:00 03/23/21 16:22 Temperature 97.4 F 97.8 F 98.3 F Pulse Rate 83 109 H 90 Respiratory Rate 18 18 18 Blood Pressure 106/59 L 135/69 118/59 L Pulse Oximetry 100 97 99 Body Mass Index 30.4 Labs Results: 03/15/21 08:05 03/09/21 01:22 Medications Medications Current Medications Generic Name Dose Route Start Last Admin Trade Name Freq PRN Reason Stop Dose Admin Acetaminophen 650 mg 03/10/21 13:51 03/22/21 12:59 Acetaminophen 325 Mg Tablet PO 650 mg Q6H PRN Administration Pain, Mild (Pain Scale 1-3) Al Hydroxide/Mg Hydroxide 30 ml 03/09/21 22:20 Magnesium Hydrox/Alum Hydrox 30 Ml Oral.Susp PO Q6H PRN Heartburn/Nausea Aripiprazole 20 mg 03/21/21 09:00 03/23/21 08:33 Aripiprazole 20 Mg Tablet PO 20 mg DAILY DION Administration Ascorbic Acid 500 mg 03/10/21 14:00 03/23/21 08:33 Ascorbic Acid 500 Mg Tablet PO 500 mg DAILY DION Administration Diphenhydramine HCl 50 mg 03/13/21 23:36 03/20/21 20:29 Diphenhydramine Hcl 25 Mg Tablet PO 50 mg BEDTIME PRN Administration Sleep Diphenhydramine HCl 50 mg 03/14/21 10:15 03/23/21 16:51 Diphenhydramine Hcl 50 Mg/Ml Vial IM 50 mg Q4H PRN Administration agitation Divalproex Sodium 1,000 mg 03/09/21 09:30 03/23/21 08:33 Divalproex Sodium Er 500 Mg Tab.Er.24h PO 1,000 mg BID DION Administration Ibuprofen 600 mg 03/10/21 13:51 03/23/21 14:20 Ibuprofen 600 Mg Tablet PO 600 mg Q8H PRN Administration Pain, Moderate (Pain Scale 4-6 Lorazepam 1 mg 03/10/21 09:45 03/23/21 01:24 Lorazepam 1 Mg Tablet PO 1 mg Q4H PRN Administration agitation, anxiety Lorazepam 1 mg 03/10/21 12:34 Lorazepam 2 Mg/Ml Vial IM Q4H PRN anxiety,agitation Magnesium Hydroxide 30 ml 03/09/21 22:20 Milk Of Magnesia 30 Ml Oral.Susp PO DAILY PRN Constipation Melatonin 6 mg 03/09/21 21:00 03/22/21 20:25 Melatonin 3 Mg Tablet PO 6 mg BEDTIME DION Administration Nicotine 21 mg 03/10/21 09:45 03/23/21 12:23 Nicotine 21 Mg Patch.Td24 TRANSDERMA 21 mg DAILY DION Administration Nicotine Polacrilex 4 mg 03/14/21 10:14 03/23/21 14:16 Nicotine Polacrilex 2 Mg Gum BUCCAL 4 mg Q1H PRN Administration Nicotine Cravings Olanzapine 10 mg 03/10/21 09:46 03/15/21 11:32 Olanzapine Odt 10 Mg Tab.Rapdis TRANSLINGU 10 mg BID PRN Administration psychosis,agitation Olanzapine 10 mg 03/10/21 12:33 Olanzapine 10 Mg Vial IM BID PRN psychosis,agitation Quetiapine Fumarate 100 mg 03/09/21 09:30 03/23/21 08:33 Quetiapine Fumarate 100 Mg Tablet PO 100 mg DAILY DION Administration Quetiapine Fumarate 600 mg 03/09/21 21:00 03/22/21 20:25 Quetiapine Fumarate 300 Mg Tablet PO 600 mg BEDTIME DION Administration Trolamine Salicylate/Aloe Vera 1 appl 03/13/21 20:39 03/14/21 01:46 Trolamine Salicylate 10%/Aloe Cream 35.4 Gm TOPICAL 1 appl QID PRN Administration Pain, Moderate (Pain Scale 4-6 Allergies Allergies Allergy/AdvReac Type Severity Reaction Status Date / Time No Known Allergies Allergy Unverified 05/11/20 18:39 [No Known Allergies*] Assessment & Plan Assessment & Plan (1) Schizoaffective disorder, bipolar type: Status: Acute Code(s): F25.0 - Schizoaffective disorder, bipolar type Assessment and Plan: 20 yo male, presenting a danger to self and others in community, off meds, possibly using substances, destroying property in the home, exhibiting aggressive agitation. Section XII B. Plan: Re-establish regime-Abilify, Depakote, Prozac, Lorazepam, Seroquel Olanzapine 10 mg bid prn for violent agitation along with Lorazepam 1 mg q 4 hours prn Benadryl 50 mg q 6 hours prn (pt reports this assists him in calming.) Pt prefers IM. Declines PO. Nicotine Patch/Gum Ibuprofen prn for pain Vitamin C daily Diagnostics- EKG, B12, Folate, TSH, Lipid Panel A1C Above reviewed need information how patient was not community whether substance abuse was part of his impulsivity and agitation would hold off on fluoxetine given patient's level of aggression and irritability Tried to speak repeatedly that to the patient we need more information regarding his safety and behavior in the community prior to being able to discharge him 03/13/21: Continue current plan. Continue to provide education and support. File for civil commitment on 03/14/21. 03/14/21: Civil commitment papers filed Pt reports lump in his groin-hospitalist consult requested Frequency of nicotine gum increased Benadryl prn increased OLanzapine 5 mg bid CBC Valproate level 7..21 Attempt to support pt through this time. 03/16/21: Discontinue Olanzapine 5 mg bid-keep prn. CBC WNL, Valproate Level 64.7 PT/PTT on 03/17 due to Epistaxis on 03/16. Improved behavioral control 03/17/21: No changes to primary team's treatment plan 03/19/21: Court date extension to 03/27/21. Continue current plan of care. 03/20/21: Increase Abilify to 20 mg daily. 03/21/21: Continue current regime. 03/22/21: Section VII. Tentative court date 03/27/21. Pt on track, with some improvement, ?possible discharge next week to mothers home if he continues to improve. 03/23/21: Continue plan of care. If pt is continuining on track will plan discharge next week to his home or [facility] respite (they have offered a bed). Assessment and Plan: As noted above. Greater than 50% of the session was spent on counseling and/or coordination of care Reason for contiued inpatient stay Substantial Risk for: harm to self, harm to others, inability to function and rapid decompensation
[2021-03-23] MEDS: Melatonin 3 MG TABLET 6 MG PO (20:03)
[2021-03-23] MEDS: QUEtiapine Fumarate 300 MG TABLET 600 MG PO (20:04)
[2021-03-24] MEDS: Ibuprofen 600 MG TABLET PO (04:14)
[2021-03-24] MEDS: Nicotine Polacrilex 2 MG GUM 4 MG BUCCAL ×6 (04:16→23:38)
[2021-03-24 06:00] VITALS: BP 106/65; PULSE 95; RESP 18; TEMP 35.9; O2SAT 99
[2021-03-24] MEDS: Nicotine 21 MG PATCH.TD24 TRANSDERMA (08:59)
[2021-03-24] MEDS: Divalproex Sodium ER 500 MG TAB.ER.24H 1000 MG PO ×2 (09:00→20:49)
[2021-03-24] MEDS: ARIPiprazole 20 MG TABLET PO (09:00)
[2021-03-24] MEDS: QUEtiapine Fumarate 100 MG TABLET PO (09:00)
[2021-03-24] MEDS: Ascorbic Acid 500 MG TABLET PO (09:00)
[2021-03-24] MEDS: diphenhydrAMINE HCL 50 MG/ML VIAL IM ×2 (10:15→17:04)
--- NOTE | 2021-03-24 14:42 | HO.PSYCHPN ---
Subjective Subjective Date of Service: 03/24/21 Reason For Visit: Psychosis, Agitation, Property Destruction Subjective Notes: Section 7 Interim History: Christian reports he is feeling well. He is taking medication- I don't know why I don't take them-I feel good when I do and I get in problems when I don't. Is that why I ended up in here? Reviewed recent diagnostics, discussed possible sinus xrays, eval for asthma-pt declines at this time, stating if sx recur he will reconsider this. Medication Compliance: Yes Side effects from medications: No Attending Groups: No Review of Systems Acute medical concerns: No Medical Review of Systems: unchanged Review of Systems Review of Systems Nothing new. Aware of recent rash Reports behavioral changes, Reports confusion and Reports memory loss Psychiatric: Reports no additional psychiatric complaints, Reports anxiety, Reports behavioral changes, Reports confusion, Reports depression, Reports difficulty concentrating, Reports auditory hallucinations, Reports hopelessness, Reports irritability, Reports anhedonia, Reports memory loss, Reports mood swings, Reports paranoia, Reports hallucinations, Reports homicidal ideation (denies) and Reports suicidal ideation (denies) Mental Status Exam Mental Status Exam Narrative: wearing headphones. casually dressed. Fair hygiene. Did engage. Less irritable today. No SI. No HI. Does appear guarded at times. Denies hallucinations. Insight and judgment is limited Patient Appearance: Appropriate Patient Orientation: Person, Place and Situation Level of Consciousness: Alert Patient Behavior: Talkative and Good Eye Contact Mood Description: Calm and Appropriate Affect Description: Appropriate Patient Cognition Impaired: No Ability to Follow Directions: Good Speech Pattern: Spontaneous Speech and Soft-Spoken Memory Description: Episodic Impaired Thought Content: negative for Suicidal Ideation or negative for Homicidal Ideation Judgement: Fair Diagnostics Vital Signs (24Hr): Vital Signs - 24 hr 03/23/21 16:22 03/24/21 06:00 Temperature 98.3 F 96.6 F L Pulse Rate 90 95 Respiratory Rate 18 18 Blood Pressure 118/59 L 106/65 Pulse Oximetry 99 99 Body Mass Index 30.4 Labs Results: 03/15/21 08:05 03/09/21 01:22 Medications Medications Current Medications Generic Name Dose Route Start Last Admin Trade Name Freq PRN Reason Stop Dose Admin Acetaminophen 650 mg 03/10/21 13:51 03/22/21 12:59 Acetaminophen 325 Mg Tablet PO 650 mg Q6H PRN Administration Pain, Mild (Pain Scale 1-3) Al Hydroxide/Mg Hydroxide 30 ml 03/09/21 22:20 Magnesium Hydrox/Alum Hydrox 30 Ml Oral.Susp PO Q6H PRN Heartburn/Nausea Aripiprazole 20 mg 03/21/21 09:00 03/24/21 09:00 Aripiprazole 20 Mg Tablet PO 20 mg DAILY DION Administration Ascorbic Acid 500 mg 03/10/21 14:00 03/24/21 09:00 Ascorbic Acid 500 Mg Tablet PO 500 mg DAILY DION Administration Diphenhydramine HCl 50 mg 03/13/21 23:36 03/20/21 20:29 Diphenhydramine Hcl 25 Mg Tablet PO 50 mg BEDTIME PRN Administration Sleep Diphenhydramine HCl 50 mg 03/14/21 10:15 03/24/21 10:15 Diphenhydramine Hcl 50 Mg/Ml Vial IM 50 mg Q4H PRN Administration agitation Divalproex Sodium 1,000 mg 03/09/21 09:30 03/24/21 09:00 Divalproex Sodium Er 500 Mg Tab.Er.24h PO 1,000 mg BID DION Administration Ibuprofen 600 mg 03/10/21 13:51 03/24/21 04:14 Ibuprofen 600 Mg Tablet PO 600 mg Q8H PRN Administration Pain, Moderate (Pain Scale 4-6 Lorazepam 1 mg 03/10/21 09:45 03/23/21 01:24 Lorazepam 1 Mg Tablet PO 1 mg Q4H PRN Administration agitation, anxiety Lorazepam 1 mg 03/10/21 12:34 Lorazepam 2 Mg/Ml Vial IM Q4H PRN anxiety,agitation Magnesium Hydroxide 30 ml 03/09/21 22:20 Milk Of Magnesia 30 Ml Oral.Susp PO DAILY PRN Constipation Melatonin 6 mg 03/09/21 21:00 03/23/21 20:03 Melatonin 3 Mg Tablet PO 6 mg BEDTIME DION Administration Nicotine 21 mg 03/10/21 09:45 03/24/21 08:59 Nicotine 21 Mg Patch.Td24 TRANSDERMA 21 mg DAILY DION Administration Nicotine Polacrilex 4 mg 03/14/21 10:14 03/24/21 08:59 Nicotine Polacrilex 2 Mg Gum BUCCAL 4 mg Q1H PRN Administration Nicotine Cravings Olanzapine 10 mg 03/10/21 09:46 03/15/21 11:32 Olanzapine Odt 10 Mg Tab.Rapdis TRANSLINGU 10 mg BID PRN Administration psychosis,agitation Olanzapine 10 mg 03/10/21 12:33 Olanzapine 10 Mg Vial IM BID PRN psychosis,agitation Quetiapine Fumarate 100 mg 03/09/21 09:30 03/24/21 09:00 Quetiapine Fumarate 100 Mg Tablet PO 100 mg DAILY DION Administration Quetiapine Fumarate 600 mg 03/09/21 21:00 03/23/21 20:04 Quetiapine Fumarate 300 Mg Tablet PO 600 mg BEDTIME DION Administration Trolamine Salicylate/Aloe Vera 1 appl 03/13/21 20:39 03/14/21 01:46 Trolamine Salicylate 10%/Aloe Cream 35.4 Gm TOPICAL 1 appl QID PRN Administration Pain, Moderate (Pain Scale 4-6 Allergies Allergies Allergy/AdvReac Type Severity Reaction Status Date / Time No Known Allergies Allergy Unverified 05/11/20 18:39 [No Known Allergies*] Assessment & Plan Assessment & Plan (1) Schizoaffective disorder, bipolar type: Status: Acute Code(s): F25.0 - Schizoaffective disorder, bipolar type Assessment and Plan: 20 yo male, presenting a danger to self and others in community, off meds, possibly using substances, destroying property in the home, exhibiting aggressive agitation. Section XII B. Plan: Re-establish regime-Abilify, Depakote, Prozac, Lorazepam, Seroquel Olanzapine 10 mg bid prn for violent agitation along with Lorazepam 1 mg q 4 hours prn Benadryl 50 mg q 6 hours prn (pt reports this assists him in calming.) Pt prefers IM. Declines PO. Nicotine Patch/Gum Ibuprofen prn for pain Vitamin C daily Diagnostics- EKG, B12, Folate, TSH, Lipid Panel A1C Above reviewed need information how patient was not community whether substance abuse was part of his impulsivity and agitation would hold off on fluoxetine given patient's level of aggression and irritability Tried to speak repeatedly that to the patient we need more information regarding his safety and behavior in the community prior to being able to discharge him 03/13/21: Continue current plan. Continue to provide education and support. File for civil commitment on 03/14/21. 03/14/21: Civil commitment papers filed Pt reports lump in his groin-hospitalist consult requested Frequency of nicotine gum increased Benadryl prn increased OLanzapine 5 mg bid CBC Valproate level 7.. Attempt to support pt through this time. 03/16/21: Discontinue Olanzapine 5 mg bid-keep prn. CBC WNL, Valproate Level 64.7 PT/PTT on 03/17 due to Epistaxis on 03/16. Improved behavioral control 03/17/21: No changes to primary team's treatment plan 03/19/21: Court date extension to 03/27/21. Continue current plan of care. 03/20/21: Increase Abilify to 20 mg daily. 03/21/21: Continue current regime. 03/22/21: Section VII. Tentative court date 03/27/21. Pt on track, with some improvement, ?possible discharge next week to mothers home if he continues to improve. 03/23/21: Continue plan of care. If pt is continuining on track will plan discharge next week to his home or [facility] respite (they have offered a bed). 03/24/21: No cahnge to the above Assessment and Plan: As noted above. Greater than 50% of the session was spent on counseling and/or coordination of care Patient educated on: diagnosis and medication risk/benefits Informed Consent: further education needed Reason for contiued inpatient stay Substantial Risk for: inability to function
[2021-03-24 16:55] VITALS: BP 107/59; PULSE 92; RESP 18; TEMP 36.9; O2SAT 97
[2021-03-24] MEDS: QUEtiapine Fumarate 300 MG TABLET 600 MG PO (20:49)
[2021-03-24] MEDS: Melatonin 3 MG TABLET 6 MG PO (20:49)
[2021-03-24] MEDS: diphenhydrAMINE HCL 25 MG TABLET 50 MG PO (23:37)
[2021-03-25] MEDS: Nicotine Polacrilex 2 MG GUM 4 MG BUCCAL ×7 (03:07→22:26)
[2021-03-25 06:00] VITALS: BP 118/67; PULSE 94; RESP 18; TEMP 36.4; O2SAT 99
[2021-03-25] MEDS: diphenhydrAMINE HCL 50 MG/ML VIAL IM ×2 (08:35→17:22)
[2021-03-25] MEDS: Nicotine 21 MG PATCH.TD24 TRANSDERMA (08:35)
[2021-03-25] MEDS: QUEtiapine Fumarate 100 MG TABLET PO (09:25)
[2021-03-25] MEDS: Divalproex Sodium ER 500 MG TAB.ER.24H 1000 MG PO ×2 (09:25→20:22)
[2021-03-25] MEDS: ARIPiprazole 20 MG TABLET PO (09:25)
[2021-03-25] MEDS: Ascorbic Acid 500 MG TABLET PO (09:25)
[2021-03-25] MEDS: Ibuprofen 600 MG TABLET PO (12:56)
--- NOTE | 2021-03-25 16:18 | P.PNPSI_ITS ---
Subjective Subjective Date of Service: 03/25/21 Reason For Visit: Psychosis, Agitation, Property Destruction Subjective Notes: Section 7 Interim History: Christian had no new complaints. He was cooperative with all aspects of his treatment and interacting with his peers. He has no been sleeping that well. per nursing. Medication Compliance: Yes Side effects from medications: No Attending Groups: Intermittent Review of Systems Acute medical concerns: No Medical Review of Systems: unchanged Review of Systems Review of Systems Nothing new. Aware of recent rash Yes Unobtainable due to mental status Genitourinary: Reports testicular mass Reports behavioral changes, Reports confusion and Reports memory loss Psychiatric: Reports no additional psychiatric complaints, Reports anxiety, Reports behavioral changes, Reports confusion, Reports depression, Reports difficulty concentrating, Reports auditory hallucinations, Reports hopelessness, Reports irritability, Reports anhedonia, Reports memory loss, Reports mood swings, Reports paranoia, Reports hallucinations, Denies homicidal ideation (denies) and Denies suicidal ideation (denies) Mental Status Exam Mental Status Exam Narrative: wearing headphones. casually dressed. Fair hygiene. Did engage. Less irritable today. No SI. No HI. Does appear guarded at times. Denies hallucinations. Insight and judgment is limited Patient Appearance: Appropriate Patient Orientation: Person, Place and Situation Level of Consciousness: Alert Patient Behavior: Talkative and Good Eye Contact Mood Description: Calm and Appropriate Affect Description: Appropriate Patient Cognition Impaired: No Ability to Follow Directions: Good Speech Pattern: Spontaneous Speech and Soft-Spoken Memory Description: Episodic Impaired Thought Content: positive for [place], negative for Suicidal Ideation or negative for Homicidal Ideation Diagnostics Vital Signs (24Hr): Vital Signs - 24 hr 03/24/21 16:55 03/25/21 06:00 Temperature 98.5 F 97.5 F Pulse Rate 92 94 Respiratory Rate 18 18 Blood Pressure 107/59 L 118/67 Pulse Oximetry 97 99 Body Mass Index 30.4 Labs Results: 03/15/21 08:05 03/09/21 01:22 Medications Medications Current Medications Generic Name Dose Route Start Last Admin Trade Name Freq PRN Reason Stop Dose Admin Acetaminophen 650 mg 03/10/21 13:51 03/22/21 12:59 Acetaminophen 325 Mg Tablet PO 650 mg Q6H PRN Administration Pain, Mild (Pain Scale 1-3) Al Hydroxide/Mg Hydroxide 30 ml 03/09/21 22:20 Magnesium Hydrox/Alum Hydrox 30 Ml Oral.Susp PO Q6H PRN Heartburn/Nausea Aripiprazole 20 mg 03/21/21 09:00 03/25/21 09:25 Aripiprazole 20 Mg Tablet PO 20 mg DAILY DION Administration Ascorbic Acid 500 mg 03/10/21 14:00 03/25/21 09:25 Ascorbic Acid 500 Mg Tablet PO 500 mg DAILY DION Administration Diphenhydramine HCl 50 mg 03/14/21 10:15 03/25/21 08:35 Diphenhydramine Hcl 50 Mg/Ml Vial IM 50 mg Q4H PRN Administration agitation Diphenhydramine HCl 50 mg 03/25/21 21:00 Diphenhydramine Hcl 25 Mg Tablet PO BEDTIME DION Divalproex Sodium 1,000 mg 03/09/21 09:30 03/25/21 09:25 Divalproex Sodium Er 500 Mg Tab.Er.24h PO 1,000 mg BID DION Administration Ibuprofen 600 mg 03/10/21 13:51 03/25/21 12:56 Ibuprofen 600 Mg Tablet PO 600 mg Q8H PRN Administration Pain, Moderate (Pain Scale 4-6 Lorazepam 1 mg 03/10/21 09:45 03/23/21 01:24 Lorazepam 1 Mg Tablet PO 1 mg Q4H PRN Administration agitation, anxiety Lorazepam 1 mg 03/10/21 12:34 Lorazepam 2 Mg/Ml Vial IM Q4H PRN anxiety,agitation Magnesium Hydroxide 30 ml 03/09/21 22:20 Milk Of Magnesia 30 Ml Oral.Susp PO DAILY PRN Constipation Melatonin 9 mg 03/25/21 21:00 Melatonin 3 Mg Tablet PO BEDTIME DION Nicotine 21 mg 03/10/21 09:45 03/25/21 08:35 Nicotine 21 Mg Patch.Td24 TRANSDERMA 21 mg DAILY DION Administration Nicotine Polacrilex 4 mg 03/14/21 10:14 03/25/21 13:07 Nicotine Polacrilex 2 Mg Gum BUCCAL 4 mg Q1H PRN Administration Nicotine Cravings Olanzapine 10 mg 03/10/21 09:46 03/15/21 11:32 Olanzapine Odt 10 Mg Tab.Rapdis TRANSLINGU 10 mg BID PRN Administration psychosis,agitation Olanzapine 10 mg 03/10/21 12:33 Olanzapine 10 Mg Vial IM BID PRN psychosis,agitation Quetiapine Fumarate 100 mg 03/09/21 09:30 03/25/21 09:25 Quetiapine Fumarate 100 Mg Tablet PO 100 mg DAILY DION Administration Quetiapine Fumarate 600 mg 03/09/21 21:00 03/24/21 20:49 Quetiapine Fumarate 300 Mg Tablet PO 600 mg BEDTIME DION Administration Trolamine Salicylate/Aloe Vera 1 appl 03/13/21 20:39 03/14/21 01:46 Trolamine Salicylate 10%/Aloe Cream 35.4 Gm TOPICAL 1 appl QID PRN Administration Pain, Moderate (Pain Scale 4-6 Allergies Allergies Allergy/AdvReac Type Severity Reaction Status Date / Time No Known Allergies Allergy Unverified 05/11/20 18:39 [No Known Allergies*] Assessment & Plan Assessment & Plan (1) Schizoaffective disorder, bipolar type: Status: Acute Code(s): F25.0 - Schizoaffective disorder, bipolar type Assessment and Plan: 20 yo male, presenting a danger to self and others in community, off meds, possibly using substances, destroying property in the home, exhibiting aggressive agitation. Section XII B. Plan: Re-establish regime-Abilify, Depakote, Prozac, Lorazepam, Seroquel Olanzapine 10 mg bid prn for violent agitation along with Lorazepam 1 mg q 4 hours prn Benadryl 50 mg q 6 hours prn (pt reports this assists him in calming.) Pt prefers IM. Declines PO. Nicotine Patch/Gum Ibuprofen prn for pain Vitamin C daily Diagnostics- EKG, B12, Folate, TSH, Lipid Panel A1C Above reviewed need information how patient was not community whether substance abuse was part of his impulsivity and agitation would hold off on fluoxetine given patient's level of aggression and irritability Tried to speak repeatedly that to the patient we need more information regarding his safety and behavior in the community prior to being able to discharge him 03/13/21: Continue current plan. Continue to provide education and support. File for civil commitment on 03/14/21. 03/14/21: Civil commitment papers filed Pt reports lump in his groin-hospitalist consult requested Frequency of nicotine gum increased Benadryl prn increased OLanzapine 5 mg bid CBC Valproate level 7.. Attempt to support pt through this time. 03/16/21: Discontinue Olanzapine 5 mg bid-keep prn. CBC WNL, Valproate Level 64.7 PT/PTT on 03/17 due to Epistaxis on 03/16. Improved behavioral control 03/17/21: No changes to primary team's treatment plan 03/19/21: Court date extension to 03/27/21. Continue current plan of care. 03/20/21: Increase Abilify to 20 mg daily. 03/21/21: Continue current regime. 03/22/21: Section VII. Tentative court date 03/27/21. Pt on track, with some improvement, ?possible discharge next week to mothers home if he continues to improve. 03/23/21: Continue plan of care. If pt is continuining on track will plan discharge next week to his home or [facility] respite (they have offered a bed). 03/24/21: No cahnge to the above 03/25/21: No change to the above Assessment and Plan: As noted above. Greater than 50% of the session was spent on counseling and/or coordination of care Patient educated on: diagnosis and medication risk/benefits Informed Consent: does not understand Reason for contiued inpatient stay Substantial Risk for: rapid decompensation
--- NOTE | 2021-03-25 16:53 | PC.NURSE ---
PT. REPORTED A HEADACHE AND A NOSE BLEED. PT. SHOWED T/W BLOOD FROM HIS NOSE. HE STATED THIS PAIN GOES THROUGH MY NOSE AND IT STARTS BLEEDING WHEN MY BRAIN IS FULL OF BLOOD MY HEAD HURTS. DOC NOTIFIED, MEDICAL CONSULT SUGGESTED FOR TOMORROW, Friday03/26/21. PT. RECEIVED MOTRIN 600 MG AT 12:56 WITH SOME EFFECT, HEADACHE IS 6/10 AT PRESENT TIME.
[2021-03-25 16:59] VITALS: BP 120/70; PULSE 103; RESP 16; TEMP 36.7; O2SAT 98
[2021-03-25] MEDS: Melatonin 3 MG TABLET 9 MG PO (20:21)
[2021-03-25] MEDS: QUEtiapine Fumarate 300 MG TABLET 600 MG PO (20:21)
[2021-03-25] MEDS: diphenhydrAMINE HCL 25 MG TABLET 50 MG PO (20:22)
[2021-03-26] MEDS: Nicotine Polacrilex 2 MG GUM 4 MG BUCCAL ×5 (02:04→14:11)
[2021-03-26 05:15] VITALS: BP 115/68; PULSE 97; RESP 18; TEMP 35.6; O2SAT 99
[2021-03-26] MEDS: Divalproex Sodium ER 500 MG TAB.ER.24H 1000 MG PO (08:54)
[2021-03-26] MEDS: ARIPiprazole 20 MG TABLET PO (08:54)
[2021-03-26] MEDS: QUEtiapine Fumarate 100 MG TABLET PO (08:54)
[2021-03-26] MEDS: Ascorbic Acid 500 MG TABLET PO (08:54)
[2021-03-26] MEDS: diphenhydrAMINE HCL 50 MG/ML VIAL IM (10:48)
[2021-03-26] MEDS: Ibuprofen 600 MG TABLET PO (10:49)
--- NOTE | 2021-03-26 16:30 | PM.PSYDC ---
DS: Providers Provider Date of Service: 03/26/21 Date of admission: 03/09/21 22:21 Date of discharge: 03/26/21 Primary care physician: Idalia Billy NP 04/02/21 [facility]-daily for medications Admitting clinician: Zoë Brady Attending physician on admission: Reinaldo Martinez Consults: 03/14/21 10:20 Consult to Hospitalist Routine Consulting Provider: Hospitalist Reason For Exam: lump in groin-pt prefers female MD-hx aggression 03/26/21 09:38 Consult to Hospitalist Routine Consulting Provider: Hospitalist Reason For Exam: Persistent nose bleeding Attending physician on discharge: Reinaldo Martinez Discharging clinician: Zoë Brady DS: Diagnosis Discharge Diagnosis (1) Schizoaffective disorder, bipolar type: Start date: 03/10/21 Status: Acute DS: Medications Discharge Medications Home Medications: Previous Rx's Medication Instructions Recorded aripiprazole 20 mg tablet (Abilify) 20 mg PO DAILY #30 tab 03/26/21 ascorbic acid (vitamin C) 500 mg 500 mg PO DAILY #30 tab 03/26/21 tablet (Vitamin C) diphenhydramine HCl 25 mg tablet 50 mg PO BEDTIME #30 tab 03/26/21 (Allergy Relief (diphenhydramine)) divalproex 500 mg tablet,extended 2 tab PO BID #120 tab 03/26/21 release 24 hr lorazepam 0.5 mg tablet 1 tab PO TID #90 tab 03/26/21 quetiapine 100 mg tablet 1 tab PO QAM #30 tab 03/26/21 quetiapine 300 mg tablet 2 tab PO BEDTIME #60 tab 03/26/21 Mental Status Exam Mental Status Exam Narrative: wearing headphones. casually dressed. Fair hygiene. Did engage. Less irritable today. No SI. No HI. Does appear guarded at times. Denies hallucinations. Insight and judgment is limited Patient Appearance: Appropriate Patient Orientation: Person, Place and Situation Level of Consciousness: Alert Patient Behavior: Talkative and Good Eye Contact Mood Description: Calm and Appropriate Affect Description: Appropriate Patient Cognition Impaired: No Ability to Follow Directions: Good Speech Pattern: Spontaneous Speech and Soft-Spoken Memory Description: Episodic Impaired Thought Content: positive for [place], negative for Suicidal Ideation or negative for Homicidal Ideation DS: Summary Hospital Course Hospital Course: Christian was admitted on a Section XIIB. He has a community guardian who was informed of his admission. Symptoms of psychosis, agitation and aggression developed as he had been non compliant with medications prior to admission. Medications were re-started and titrated. Civil commitment request was filed, court date assigned, however, pt was able to recompensate as he re-established his medication regime, court was postponed and pt was able to recompensate with treatment, so commitment was not pursued. Once recompensated, pt was able to sign a conditional voluntary and was accepting of treatment. Pt asked to return home to mother's care with VNA to assist with medication compliance and out patient supports and services. Respite services were offered by pt's [facility] team as well, however, pt's mother approved of pt returning home with services. Pt found this plan preferable. Pt, family aware that pt should call return as needed should his plan not be enough to support him in ongoing care mgt. Time spent discussing smoking cessation with patient: 3 to 10 minutes Status at Discharge Cognitive/behavioral status at discharge: alert, oriented, non-psychotic, non suicidal, mood is euthymic, pt is engaged, talking, approving of plan. Functional status at discharge: independent ambulation Overall status at discharge: patient is back to baseline Time Spent with Patient Time attestation: Total time spent providing and/or coordinating discharge services:35 Time spent: Greater than 30 minutes Discharge Plan Discharge Patient Disposition: Home, Self-Care Discharge Diagnosis: Schizoaffective Disorder, Bipolar Type Referrals: Gerald Maher (psychiatrist) [Other] - 04/19/21 9:20 am (Appointment is in-person at [place] office) Scott KINNEY [Other] - 1 Week (Will call you today after discharge. ) Idalia Billy, JOSE [Nurse Practitioner] - 04/02/21 3:00 pm (in office) Discharge Medications: New ascorbic acid (vitamin C) [Vitamin C] 500 mg Tablet 500 mg PO DAILY Qty: 30 RF: 0 diphenhydramine HCl [Allergy Relief(diphenhydramin)] 25 mg Tablet 50 mg PO BEDTIME Qty: 30 RF: 0 aripiprazole [Abilify] 20 mg Tablet 20 mg PO DAILY Qty: 30 RF: 0 Continued quetiapine 300 mg tablet 2 tab PO BEDTIME Qty: 60 RF: 0 lorazepam 0.5 mg tablet 1 tab PO TID Qty: 90 RF: 0 divalproex 500 mg tablet extended release 24 hr 2 tab PO BID Qty: 120 RF: 0 quetiapine 100 mg tablet 1 tab PO QAM Qty: 30 RF: 0 Discontinued fluoxetine 20 mg capsule 1 cap PO DAILY RF: 0 aripiprazole 10 mg tablet 1 tab PO DAILY RF: 0 melatonin 3 mg tablet 2 tab PO BEDTIME RF: 0 No Action amoxicillin-pot clavulanate [Augmentin] 875-125 mg tablet 1 tab PO BID Qty: 10 RF: 0 Discharge Orders: Discharge Order (Routine); Ordered 03/26/21 Ordered By: Zoë Brady Diet: advance to usual diet Activity on Discharge: As tolerated Stand Alone Forms: Patient Portal Discharge page, Community Support Care Plan Goals: Mood Stabilization Health Concerns: Schizoaffective Disorder Plan of Treatment: Take medications as directed Follow up with appointments as scheduled. Assessment: Alert, clear, calm, denies SI, HI. mood is stable, no symptoms of psychosis Discharge Date/Time: 03/26/21 15:19
== END 2021-03-26 15:19 | disposition home or self-care (01) | DRG 750 ==
LOC: HO.ED 21:53 → HO.PM5 22:29
PROVIDERS: Nurse Practitioner Family; Admitting Provider Psychiatry & Neurology Psychiatry; Emergency Provider Student in an Organized Health Care Education/Training Program; PCP Internal Medicine; Visit Provider Clinical Nurse Specialist Psychiatric/Mental Health, Adult
DX: F25.0 Schizoaffective disorder, bipolar type (principal); Z20.822 Contact with and (suspected) exposure to COVID-19; Z79.899 Other long term (current) drug therapy
CPT/HCPCS: 36415; 80048; 80061; 80164; 83036; 85025; 85610; 85730; 87635; 99285; J1200; Q0163

== ENCOUNTER 2021-03-30 19:42 | Inpatient (IN) | payer OTHER, SELFPAY ==
--- NOTE | ~2021-03-30 | CT_ITS ---
EXAMINATION: CT CHEST WITHOUT CONTRAST CLINICAL INFORMATION: Suspected aspiration. COMPARISON: Chest radiograph done earlier today. TECHNIQUE: Multidetector volumetric CT imaging of the chest was done. Axial MIP volume rendering provided. Sagittal and coronal reformatted images were obtained. This CT examination was performed using dose optimization techniques as appropriate, variously including the following: *Automated exposure control *Adjustment of mA and/or kV according to patient size (this includes techniques or standardized protocols for targeted exams where dose is matched to indication/reason for exam; i.e. extremities or head) *Use of iterative reconstruction technique DLP: 300. mGy-cm FINDINGS: WIRELESS CELLULAR TECHNICIAN: Unremarkable. LUNGS: Left lower lobar patchy airspace disease is present with patent bronchi. Minimal airspace disease is also noted within the posteromedial aspect of the right lower lobe. In the appropriate clinical setting, the finding would be consistent with pneumonia including aspiration. The remainder of the lung padilla are clear. The tracheobronchial tree is patent. MEDIASTINUM: Mixed density triangular structure is present within the anterior mediastinum likely represent residual thymus. There are no pathologically enlarged mediastinal and/or hilar lymphadenopathy identified on this nonenhanced study. PLEURA: There is no pleural effusion. No pleural mass or thickening. AXILLA: Bilateral shotty axillary lymph nodes are present. Prominent subareolar soft tissue is noted within both breast, may represent gynecomastia. UPPER ABDOMEN: Unremarkable. OSSEOUS STRUCTURES: Unremarkable. CT/CT chest wo con IMPRESSION: 1. Left lower lobar patchy airspace disease is present. Similar-appearing focal airspace disease is noted within the posteromedial aspect of the right lower lobe. In the appropriate clinical setting, the finding would be consistent with pneumonia including aspiration pneumonia. 2. No evidence of any pleural effusion or pneumothorax or mediastinal or hilar lymphadenopathy. 3. Mixed density triangular soft tissue structure is present within the anterior mediastinum, likely represent residual thymus. Shotty bilateral prominent axillary lymph nodes are also noted with likely bilateral gynecomastia.
--- NOTE | ~2021-03-30 | XR_ITS ---
EXAMINATION: XR chest 1V CLINICAL INFORMATION: Reason for Exam eval for aspiration COMPARISON: None TECHNIQUE: XR chest 1V Tubes and lines: None Lungs and pleura: Opacification of the right hemithorax probably exaggerated by uptake technique. Cannot rule out mild right parahilar infiltrates. Heart and mediastinum: The mediastinum is within normal limits.. Bones/soft tissue: Skeletal structures included are normal for patient's age. XR/XR chest 1V IMPRESSION: Oblique technique might account for increased opacification of the right hemithorax, cannot rule out mild infiltrates. Clinical correlation and follow-up chest PA and lateral recommended.
[2021-03-30 19:50] VITALS: BP 144/102; PULSE 95; RESP 18; O2SAT 95; BMI 30.9
--- NOTE | 2021-03-30 19:53 | ED.OVERDOSE ---
HPI - Overdose General Chief Complaint: Overdose Stated Complaint: OD Time Seen by Provider: 03/30/21 19:53 Source: other (friends dropped him off) Mode of arrival: ambulatory Limitations: altered mental status History of Present Illness HPI Narrative: given 3mg IN narcan by ED staff prior to treatment room when he was dropped off, friends state he does several drugs complaint: accidental overdose Onset (ago): unknown Timing confirmed by: other (dropped by friends) How Overdose Was Discovered: family/friend present at time Context: Accidental Overdose: wanted to get high Treatments Prior to Arrival: none Related Data Previous Rx's Medication Instructions Recorded aripiprazole 20 mg tablet (Abilify) 20 mg PO DAILY #30 tab 03/26/21 ascorbic acid (vitamin C) 500 mg 500 mg PO DAILY #30 tab 03/26/21 tablet (Vitamin C) diphenhydramine HCl 25 mg tablet 50 mg PO BEDTIME #30 tab 03/26/21 (Allergy Relief (diphenhydramine)) divalproex 500 mg tablet,extended 2 tab PO BID #120 tab 03/26/21 release 24 hr lorazepam 0.5 mg tablet 1 tab PO TID #90 tab 03/26/21 quetiapine 100 mg tablet 1 tab PO QAM #30 tab 03/26/21 quetiapine 300 mg tablet 2 tab PO BEDTIME #60 tab 03/26/21 Allergies Allergy/AdvReac Type Severity Reaction Status Date / Time No Known Allergies Allergy Unverified 05/11/20 18:39 [No Known Allergies*] Review of Systems Review of Systems: ROS unable to be obtained due to altered mental status PMFSH Past Medical History Attestation statement: The following information was validated with the patient. 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 Neck: Normal inspection. Neck supple. CVS: Normal heart rate and rhythm. Pulses normal. Respiratory: Moderate respiratory distress. Agonal breath sounds Abdomen: Soft and nontender. No trauma Skin: Skin warm and dry. Normal skin color. Normal skin turgor. Extremities: No lower extremity edema. No calf ttp Neuro: Obtunded Course Course Course Narrative: patient woke up crying and asking what happened after narcan and being bagged x 2 minutes 91% on RA - 4L NC placed, RR 20 CO2 33 at this time possible infection suspected 1054pm possible aspiration pneumonia will obtain cultures, lactic acid, start on zosyn and vancomycin no repeat narcan needed at this time MDM - Overdose MDM Narrative Medical decision making narrative: 20 yo male hx of mental health issues and polysubstance abuse here with pinpoint pupils and agaonal respirations - responded to narcan at this time will need labs, CXR for aspiration, observation until sober in ED Lab Data Result diagrams: 03/30/21 20:11 03/30/21 20:11 Labs: Lab Results 03/30/21 03/30/21 03/30/21 Range/Units 20:11 20:11 20:11 WBC 15.9 H (4.8-10.8) X10*3/uL RBC 4.28 L (4.60-5.80) X10*6/uL Hgb 13.1 L (14.0-18.0) g/dl Hct 39.8 L (42-52) % MCV 93.0 (80-98) fL MCH 30.6 (27.0-33.0) pg MCHC 32.9 (31.0-36.0) g/dl RDW 13.4 (11.0-16.0) % Plt Count 267 (160-400) X10*3/uL MPV 10.0 (9.4-12.4) fL Immature Gran % (Auto) 0.4 (0.0-0.4) % Neut % (Auto) 38.6 L (45-73) % Lymph % (Auto) 51.3 H (20-40) % [place] % (Auto) 8.6 (2-11) % Eos % (Auto) 0.9 (0-4) % Baso % (Auto) 0.2 (0-2) % Lymph # (Auto) 8.2 H (1.2-4.9) X10*3/uL [place] # (Auto) 1.4 H (0.1-1.2) X10*3/uL Eos # (Auto) 0.2 (0.0-0.4) X10*3/uL Baso # (Auto) 0.0 (0.0-0.2) X10*3/uL Abs Immat Gran (auto) 0.06 H (0.00-0.03) X10*3/uL Absolute Neuts (auto) 6.1 (2.0-8.3) X10*3/uL Absolute Nucleated RBC 0.000 (0.0-0.012) X10*3/uL Nucleated RBC % (auto) 0.0 (0.0-0.2) /100WBC Smear Tech's Comments VERIFIED Sodium 140 (135-145) mmol/L Potassium 3.5 (3.3-5.1) mmol/L Chloride 102 (96-108) mmol/L Carbon Dioxide 23 (22-29) mmol/L Anion Gap 19 (12-20) BUN 6 L (9-16) mg/dL Creatinine 0.91 (0.5-1.4) mg/dL Estim Creat Clear Calc 123.8 Estimated GFR > 60 Random Glucose 203 H D (60-115) mg/dL Lactic Acid (0.5-2.0) mmol/L Calcium 8.4 D (8.4-10.2) mg/dL Ethyl Alcohol < 10 mg/dL Coronavirus (PCR) (Negative) Influenza Type A (PCR) (Negative) Influenza Type B (PCR) (Negative) RSV RNA Qual (PCR) (Negative) 03/30/21 03/30/21 Range/Units 23:22 23:22 WBC (4.8-10.8) X10*3/uL RBC (4.60-5.80) X10*6/uL Hgb (14.0-18.0) g/dl Hct (42-52) % MCV (80-98) fL MCH (27.0-33.0) pg MCHC (31.0-36.0) g/dl RDW (11.0-16.0) % Plt Count (160-400) X10*3/uL MPV (9.4-12.4) fL Immature Gran % (Auto) (0.0-0.4) % Neut % (Auto) (45-73) % Lymph % (Auto) (20-40) % [place] % (Auto) (2-11) % Eos % (Auto) (0-4) % Baso % (Auto) (0-2) % Lymph # (Auto) (1.2-4.9) X10*3/uL [place] # (Auto) (0.1-1.2) X10*3/uL Eos # (Auto) (0.0-0.4) X10*3/uL Baso # (Auto) (0.0-0.2) X10*3/uL Abs Immat Gran (auto) (0.00-0.03) X10*3/uL Absolute Neuts (auto) (2.0-8.3) X10*3/uL Absolute Nucleated RBC (0.0-0.012) X10*3/uL Nucleated RBC % (auto) (0.0-0.2) /100WBC Smear Tech's Comments Sodium (135-145) mmol/L Potassium (3.3-5.1) mmol/L Chloride (96-108) mmol/L Carbon Dioxide (22-29) mmol/L Anion Gap (12-20) BUN (9-16) mg/dL Creatinine (0.5-1.4) mg/dL Estim Creat Clear Calc Estimated GFR Random Glucose (60-115) mg/dL Lactic Acid 0.8 (0.5-2.0) mmol/L Calcium (8.4-10.2) mg/dL Ethyl Alcohol mg/dL Coronavirus (PCR) NEGATIVE (Negative) Influenza Type A (PCR) NEGATIVE (Negative) Influenza Type B (PCR) NEGATIVE (Negative) RSV RNA Qual (PCR) NEGATIVE (Negative) Critical Care Time Critical Care Time Critical Care Time: Yes Total Critical Care Time: 45 Attestation: robyn, bagged the patient I attest to this time spent taking care of the patient Discharge Plan Discharge Clinical Impression: Drug overdose Qualifiers: Encounter type: initial encounter Injury intent: undetermined intent Qualified Code(s): T50.904A - Poisoning by unspecified drugs, medicaments and biological substances, undetermined, initial encounter Aspiration pneumonia Qualifiers: Aspiration pneumonia type: unspecified Laterality: bilateral Lung location: unspecified part of lung Qualified Code(s): J69.0 - Pneumonitis due to inhalation of food and vomit Patient Disposition: Admitted As Inpatient
[2021-03-30 20:16] LABS: Basophils Percent Auto 0.2 % (0-2); Eosinophils Absolute Auto 0.2 X10*3/uL (0.0-0.4); Eosinophils Percent Auto 0.9 % (0-4); Hematocrit 39.8 % (42-52); Hemoglobin 13.1 g/dl (14.0-18.0); Imm Gran Abs Auto 0.06 X10*3/uL (0.00-0.03); Imm Gran Pct Auto 0.4 % (0.0-0.4); Lymphocytes Absolute Auto 8.2 X10*3/uL (1.2-4.9); Lymphocytes Percent Auto 51.3 % (20-40); MANUAL DIFF FLAG SCAN; Mean Corpuscular HGB Conc 32.9 g/dl (31.0-36.0); Mean Corpuscular Hemoglobin 30.6 pg (27.0-33.0); Monocytes Absolute Auto 1.4 X10*3/uL (0.1-1.2); Monocytes Percent Auto 8.6 % (2-11); Neutrophils Absolute Auto 6.1 X10*3/uL (2.0-8.3); Neutrophils Percent Auto 38.6 % (45-73); Platelet Count 267 X10*3/uL (160-400); Red Blood Count 4.28 X10*6/uL (4.60-5.80); Red Cell Distribution Width 13.4 % (11.0-16.0); SCAN SMEAR FLAG 1; White Blood Count 15.9 X10*3/uL (4.8-10.8)
[2021-03-30 20:39] LABS: Ethanol < 10 mg/dL
[2021-03-30 20:40] LABS: Anion Gap 19 (12-20); Blood Urea Nitrogen 6 mg/dL (9-16); Calcium 8.4 mg/dL (8.4-10.2); Carbon Dioxide 23 mmol/L (22-29); Chloride 102 mmol/L (96-108); Creatinine Clr Calc Pharmacy 123.8; Estimated Glomerular Filt Rate > 60; Glucose Random 203 mg/dL (60-115); Potassium 3.5 mmol/L (3.3-5.1); Sodium 140 mmol/L (135-145)
[2021-03-30 21:03] LABS: SLIDE REVIEW VERIFIED
[2021-03-30 23:18] VITALS: BP 100/52; PULSE 87; RESP 18; O2SAT 98
[2021-03-30] MEDS: 0.9 % Sodium Chloride 1,000 ML 999 ML IVCONT (23:33)
[2021-03-30] MEDS: Piperacillin Sodium/Tazobactam 3.375 GM in 0.9 % Sodium Chloride 50 ML IV (23:34)
[2021-03-30 23:42] LABS: Lactic Acid 0.8 mmol/L (0.5-2.0)
[2021-03-31] VITALS (9 sets, daily range): BP systolic 103–129; BP diastolic 56–74; PULSE 73–93; RESP 15–20; TEMP 36.2–37; O2SAT 94–100; BMI 33.9
[2021-03-31] MEDS: 0.9 % Sodium Chloride Flush 3 ML SYRINGE IVFLUSH ×3 (00:12→15:14)
[2021-03-31] MEDS: 0.9 % Sodium Chloride 1,000 ML 999 ML IVCONT (00:13)
[2021-03-31] MEDS: vancomycin HCL 1,000 MG in 0.9 % Sodium Chloride 250 ML 270 MG IV (00:13)
--- NOTE | 2021-03-31 00:33 | P.HPHOSP_ITS ---
History of Present Illness Date of Service: 03/31/21 Chief Complaint: Heroin overdose 20-year-old male with a past medical history of anxiety, depression, schizoaffective disorder, history substance abuse, heroin abuse presented to the hospital a chief complaint of heroin overdose. History from the patient is limited as he is drowsy and sleeping; did not in gaze in interview; response to verbal stimuli but does not answer and wanted to sleep. Spoke to ER team who mentioned that patient was dropped off by his friends in front of the ER; in the ER team and in to check on patient patient had pinpoint pupils, agonal breathing, patient was given Ambu bag and given 3 doses of intranasal Narcan; subsequently patient mental status improved; Patient was saturating 91 92%; chest x-ray showed no acute findings; CT scan showed possible aspiration pneumonia; admitted to the hospital for further management. 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 Drugs, Crack/Cocaine, Heroin, Marijuana, Opiates and Prescription Drugs Advance Directives: No Advance Directives Information Provided: No service: No Current occupational status: unemployed Sexual orientation: N/A Meds Allergies Allergy/AdvReac Type Severity Reaction Status Date / Time No Known Allergies Allergy Unverified 05/11/20 18:39 [No Known Allergies*] Active Medications: Current Medications Generic Name Dose Route Start Last Admin Trade Name Freq PRN Reason Stop Dose Admin Acetaminophen 650 mg 03/30/21 23:18 Acetaminophen 325 Mg Tablet PO Q6H PRN Pain, Mild (Pain Scale 1-3) Albuterol/Ipratropium 3 ml 03/30/21 23:18 Albuterol/Iprat 2.5/0.5mg 3 Ml Ampul.Neb INHALE RQ4H PRN Shortness of Breath/Wheezing Aripiprazole 20 mg 03/31/21 09:00 Aripiprazole 20 Mg Tablet PO DAILY DION Ascorbic Acid 500 mg 03/31/21 09:00 Ascorbic Acid 500 Mg Tablet PO DAILY DION Diphenhydramine HCl 50 mg 03/31/21 21:00 Diphenhydramine Hcl 25 Mg Tablet PO BEDTIME DION Divalproex Sodium 1,000 mg 03/31/21 09:00 Divalproex Sodium Er 500 Mg Tab.Er.24h PO BID DION Sodium Chloride 1,000 mls @ 100 mls/hr 03/30/21 23:30 Ns IVCONT .Q10H DION Ceftriaxone Sodium 1 gm/ 50 mls @ 100 mls/hr 03/30/21 23:30 Sodium Chloride IV Q24H DION Azithromycin 500 mg/ Sodium 250 mls @ 125 mls/hr 03/30/21 23:30 Chloride IV Q24H DION Metronidazole 500 mg in 100 mls @ 100 mls/hr 03/30/21 23:30 Flagyl IV Q8H DION Sodium Chloride 1,000 mls @ 999 mls/hr 03/30/21 23:45 03/31/21 00:13 Ns IVCONT 03/31/21 00:45 999 mls/hr .Q1H1M DION Administration Lorazepam 0.5 mg 03/31/21 09:00 Lorazepam 0.5 Mg Tablet PO TID [facility] Melatonin 6 mg 03/30/21 23:18 Melatonin 3 Mg Tablet PO BEDTIME PRN Insomnia Oxycodone HCl 5 mg 03/30/21 23:18 Oxycodone Hcl Immed Release 5 Mg Tablet PO Q6H PRN Pain, Severe (Pain Scale 7-10) Quetiapine Fumarate 100 mg 03/31/21 09:00 Quetiapine Fumarate 100 Mg Tablet PO DAILY [facility] Quetiapine Fumarate 600 mg 03/31/21 21:00 Quetiapine Fumarate 300 Mg Tablet PO BEDTIME DION Senna 17.2 mg 03/30/21 23:18 Sennosides 8.6 Mg Tablet PO BEDTIME PRN Constipation Sodium Chloride 3 ml 03/31/21 00:00 03/31/21 00:12 0.9 % Sodium Chloride Flush 3 Ml Syringe IVFLUSH 3 ml QSHIFT DION Administration Physical Exam Vital Signs and Narrative: Vital Signs: Last Vital Signs Pulse 85 03/31/21 00:00 Resp 18 03/31/21 00:00 BP 115/68 03/31/21 00:00 Pulse Ox 100 03/31/21 00:00 Body Mass Index 30.9 Gen: Appears be in no acute distress HEENT: NCAT, dry mucosa. Pupil size improving. Pulmonary: Vesicular breath sounds, fair air entry CVS: Normal S1-S2 Abdomen: BS+, Soft, Nontender Extremities: Warm well perfused Neuro: Drowsy and sleepy; respond to verbal stimuli; moves all extremities equally; Results Labs CBC and Chem 7: 03/31/21 05:50 03/31/21 05:50 Labs: Laboratory Results - last 24 hr 03/30/21 03/30/21 03/30/21 20:11 20:11 20:11 MCV 93.0 MCH 30.6 MCHC 32.9 RDW 13.4 Plt Count 267 MPV 10.0 Immature Gran % (Auto) 0.4 Neut % (Auto) 38.6 L Lymph % (Auto) 51.3 H [place] % (Auto) 8.6 Eos % (Auto) 0.9 Baso % (Auto) 0.2 Lymph # (Auto) 8.2 H [place] # (Auto) 1.4 H Eos # (Auto) 0.2 Baso # (Auto) 0.0 Abs Immat Gran (auto) 0.06 H Absolute Neuts (auto) 6.1 Absolute Nucleated RBC 0.000 Nucleated RBC % (auto) 0.0 Smear Tech's Comments VERIFIED Anion Gap 19 Estim Creat Clear Calc 123.8 Estimated GFR > 60 Random Glucose 203 H D Lactic Acid Calcium 8.4 D Ethyl Alcohol < 10 03/30/21 23:22 MCV MCH MCHC RDW Plt Count MPV Immature Gran % (Auto) Neut % (Auto) Lymph % (Auto) [place] % (Auto) Eos % (Auto) Baso % (Auto) Lymph # (Auto) [place] # (Auto) Eos # (Auto) Baso # (Auto) Abs Immat Gran (auto) Absolute Neuts (auto) Absolute Nucleated RBC Nucleated RBC % (auto) Smear Tech's Comments Anion Gap Estim Creat Clear Calc Estimated GFR Random Glucose Lactic Acid 0.8 Calcium Ethyl Alcohol Imaging Radiologist's Impressions: Impressions Chest X-Ray 03/30/21 20:06 IMPRESSION: Oblique technique might account for increased opacification of the right hemithorax, cannot rule out mild infiltrates. Clinical correlation and follow-up chest PA and lateral recommended. Chest CT 03/30/21 21:11 IMPRESSION: 1. Left lower lobar patchy airspace disease is present. Similar-appearing focal airspace disease is noted within the posteromedial aspect of the right lower lobe. In the appropriate clinical setting, the finding would be consistent with pneumonia including aspiration pneumonia. 2. No evidence of any pleural effusion or pneumothorax or mediastinal or hilar lymphadenopathy. 3. Mixed density triangular soft tissue structure is present within the anterior mediastinum, likely represent residual thymus. Shotty bilateral prominent axillary lymph nodes are also noted with likely bilateral gynecomastia. Assessment and Plan (1) AMS (altered mental status): Status: Acute 20-year-old male with a past medical history of schizoaffective disorder, polysubstance abuse was dropped in front of the ER by the friends mention patient took a lot of drugs; noted to be possible heroin overdose. Received intranasal Narcan x3; mental status started to improve. Admitted to the hospital for further management. Also noted to have aspiration pneumonia. Altered mental status: In the setting of polysubstance abuse/heroin overdose. Patient received senior receptionist Narcan x3. Currently patient mental status improving. Responds to verbal stimuli. Follows simple commands. But still drowsy and sleepy. Addiction Medicine consult Supportive care NPO Aspiration precautions Aspiration pneumonia: Continue ceftriaxone, azithromycin, Flagyl. Supplemental oxygen p.r.n.. For all other chronic conditions, home medications will be continued. DVT prophylaxis: SCD boots Code status: Full code No phone number available tried tried to reach patient's family. Will defer to the a.m. team try again once patient's mental status improves. Quality Stroke Does the patient have a stroke diagnosis?: No VTE Prior VTE?: No VTE Risk Level:: Medical - moderate - high VTE Device Contraindication: N/A - Device Ordered VTE Drug Contraindication: Treatment Not Indicated
[2021-03-31 00:45] LABS: Influenza A PCR NEGATIVE (Negative); Influenza B PCR NEGATIVE (Negative); Resp Syncy Virus RNA Qual PCR NEGATIVE (Negative); SARS COV2 PCR INHOUSE NEGATIVE (Negative)
--- NOTE | 2021-03-31 01:37 | PC.NURSE ---
1st call imc
[2021-03-31] MEDS: cefTRIAXone sodium 1 GM in 0.9 % Sodium Chloride 50 ML IV ×2 (02:16→23:04)
[2021-03-31] MEDS: 0.9 % Sodium Chloride 1,000 ML 100 ML IVCONT (02:16)
[2021-03-31] MEDS: Azithromycin 500 MG in 0.9 % Sodium Chloride 250 ML 125 MG IV (02:18)
[2021-03-31] MEDS: metroNIDAZOLE/NS 500 MG/100 ML PIGGYBACK 100 MG IV ×3 (03:33→18:33)
[2021-03-31 06:33] LABS: MANUAL DIFF FLAG NO
[2021-03-31 06:49] LABS: Basophils Percent Auto 0.1 % (0-2); Eosinophils Percent Auto 0.2 % (0-4); Hematocrit 36.3 % (42-52); Hemoglobin 12.1 g/dl (14.0-18.0); Imm Gran Abs Auto 0.03 X10*3/uL (0.00-0.03); Imm Gran Pct Auto 0.3 % (0.0-0.4); Lymphocytes Absolute Auto 1.9 X10*3/uL (1.2-4.9); Lymphocytes Percent Auto 21.2 % (20-40); Mean Corpuscular HGB Conc 33.3 g/dl (31.0-36.0); Mean Corpuscular Hemoglobin 30.3 pg (27.0-33.0); Mean Platelet Volume 10.1 fL (9.4-12.4); Monocytes Absolute Auto 0.8 X10*3/uL (0.1-1.2); Monocytes Percent Auto 8.4 % (2-11); Neutrophils Absolute Auto 6.3 X10*3/uL (2.0-8.3); Neutrophils Percent Auto 69.8 % (45-73); Platelet Count 227 X10*3/uL (160-400); Red Blood Count 3.99 X10*6/uL (4.60-5.80); Red Cell Distribution Width 13.2 % (11.0-16.0)
[2021-03-31 07:17] LABS: Magnesium 2.1 mg/dL (1.6-2.6)
[2021-03-31 07:29] LABS: Anion Gap 13 (12-20); Blood Urea Nitrogen 4 mg/dL (9-16); Calcium 7.6 mg/dL (8.4-10.2); Carbon Dioxide 26 mmol/L (22-29); Chloride 107 mmol/L (96-108); Creatinine Clr Calc Pharmacy 190.3; Estimated Glomerular Filt Rate > 60; Glucose Random 77 mg/dL (60-115); Potassium 3.7 mmol/L (3.3-5.1); Sodium 142 mmol/L (135-145)
[2021-03-31] MEDS: LORazepam 0.5 MG TABLET PO ×3 (09:48→19:36)
[2021-03-31] MEDS: Ascorbic Acid 500 MG TABLET PO (09:48)
[2021-03-31] MEDS: Divalproex Sodium ER 500 MG TAB.ER.24H 1000 MG PO ×2 (09:48→19:38)
[2021-03-31] MEDS: QUEtiapine Fumarate 100 MG TABLET PO (09:48)
[2021-03-31] MEDS: ARIPiprazole 20 MG TABLET PO (09:49)
--- NOTE | 2021-03-31 10:21 | MHC.RECOVSUP ---
Recovery Support note: Patient is a 20 year old Citizen Of [place] speaking male who presented to [facility] ED after an accidental overdose. This information writer met with patient with an [facility] loom inspector to discuss his substance use and recovery supports. Patient was awake, alert and engaged in the consultation. Patient denies using all substances. Patient reports he does not have any friends and does not spend time with anyone and reports it was bystanders who brought him in. This information writer discussed opioid overdoses with patient and the circumstances surrounding his ED admission. Patient reports he does not know how any substances could have entered his body. Patient reports it could have been in cannabis however then stated that he does not smoke cannabis. Patient acknowledges the danger in using substances and continues to deny substance use. Patient reports he takes medications prescribed by his doctor. Patient expressed frustration regarding being in the hospital and expressed interest in discharging. Encouraged patient to remain so that he could receive antibiotics. Patient expressed concern that he would overdose on antibiotics. This information writer reassured patient that this would not happen. Encouraged patient to reach out to staff if he needs anything to make him more comfortable while here.
[2021-03-31] MEDS: Nicotine Polacrilex 2 MG GUM BUCCAL ×3 (12:25→19:36)
--- NOTE | 2021-03-31 13:55 | HO.PM.IMPN ---
Subjective Subjective Date of Service: 03/31/21 Interval History: F/u on overdose, aspiration, recently discharge from inpatient Psych Review of Systems Gen: no fever Resp: no sob, no cough CV: no chest, no TERRELL, no leg edema GI: No n/v, no abd pain Neuro: No confusion Physical Exam Vital Signs: Vital Signs: Last Vital Signs Temp 97.2 F 03/31/21 12:00 Pulse 82 03/31/21 12:00 Resp 20 03/31/21 12:00 BP 114/65 03/31/21 12:00 Pulse Ox 95 03/31/21 12:00 Body Mass Index 33.9 Const: Other: General: AO X 3, no acute distress Resp: CTA bilateral CVS: S1,S2,RRR GI: +BS, NT, no distention Skin: No rash Neuro: motor grossly intact Psych: appropriate affect Objective Data Current Medications Generic Name Dose Route Start Last Admin Trade Name Freq PRN Reason Stop Dose Admin Acetaminophen 650 mg 03/30/21 23:18 Acetaminophen 325 Mg Tablet PO Q6H PRN Pain, Mild (Pain Scale 1-3) Albuterol/Ipratropium 3 ml 03/30/21 23:18 Albuterol/Iprat 2.5/0.5mg 3 Ml Ampul.Neb INHALE RQ4H PRN Shortness of Breath/Wheezing Aripiprazole 20 mg 03/31/21 09:00 03/31/21 09:49 Aripiprazole 20 Mg Tablet PO 20 mg DAILY DION Administration Ascorbic Acid 500 mg 03/31/21 09:00 03/31/21 09:48 Ascorbic Acid 500 Mg Tablet PO 500 mg DAILY DION Administration Diphenhydramine HCl 50 mg 03/31/21 21:00 Diphenhydramine Hcl 25 Mg Tablet PO BEDTIME DION Divalproex Sodium 1,000 mg 03/31/21 09:00 03/31/21 09:48 Divalproex Sodium Er 500 Mg Tab.Er.24h PO 1,000 mg BID DION Administration Ceftriaxone Sodium 1 gm/ 50 mls @ 100 mls/hr 03/30/21 23:30 03/31/21 03:38 Sodium Chloride IV Infused Q24H DION Infusion Azithromycin 500 mg/ Sodium 250 mls @ 125 mls/hr 03/30/21 23:30 03/31/21 05:56 Chloride IV Infused Q24H DION Infusion Metronidazole 500 mg in 100 mls @ 100 mls/hr 03/31/21 03:00 03/31/21 12:23 Flagyl IV Infused Q8H [facility] Infusion Lorazepam 0.5 mg 03/31/21 09:00 03/31/21 09:48 Lorazepam 0.5 Mg Tablet PO 0.5 mg TID DION Administration Melatonin 6 mg 03/30/21 23:18 Melatonin 3 Mg Tablet PO BEDTIME PRN Insomnia Nicotine Polacrilex 2 mg 03/31/21 11:10 03/31/21 12:25 Nicotine Polacrilex 2 Mg Gum BUCCAL 2 mg Q2H PRN Administration Nicotine Cravings Oxycodone HCl 5 mg 03/30/21 23:18 Oxycodone Hcl Immed Release 5 Mg Tablet PO Q6H PRN Pain, Severe (Pain Scale 7-10) Quetiapine Fumarate 100 mg 03/31/21 09:00 03/31/21 09:48 Quetiapine Fumarate 100 Mg Tablet PO 100 mg DAILY [facility] Administration Quetiapine Fumarate 600 mg 03/31/21 21:00 Quetiapine Fumarate 300 Mg Tablet PO BEDTIME [facility] Senna 17.2 mg 03/30/21 23:18 Sennosides 8.6 Mg Tablet PO BEDTIME PRN Constipation Sodium Chloride 3 ml 03/31/21 00:00 03/31/21 09:47 0.9 % Sodium Chloride Flush 3 Ml Syringe IVFLUSH 3 ml QSHIFT [facility] Administration Labs CBC & Chem 7: 03/31/21 05:50 03/31/21 05:50 Labs: Laboratory Results - last 24 hr 03/30/21 03/30/21 03/30/21 20:11 20:11 20:11 MCV 93.0 MCH 30.6 MCHC 32.9 RDW 13.4 Plt Count 267 MPV 10.0 Immature Gran % (Auto) 0.4 Neut % (Auto) 38.6 L Lymph % (Auto) 51.3 H [place] % (Auto) 8.6 Eos % (Auto) 0.9 Baso % (Auto) 0.2 Lymph # (Auto) 8.2 H [place] # (Auto) 1.4 H Eos # (Auto) 0.2 Baso # (Auto) 0.0 Abs Immat Gran (auto) 0.06 H Absolute Neuts (auto) 6.1 Absolute Nucleated RBC 0.000 Nucleated RBC % (auto) 0.0 Smear Tech's Comments VERIFIED Anion Gap 19 Estim Creat Clear Calc 123.8 Estimated GFR > 60 Random Glucose 203 H D Lactic Acid Calcium 8.4 D Magnesium Ethyl Alcohol < 10 Coronavirus (PCR) Influenza Type A (PCR) Influenza Type B (PCR) RSV RNA Qual (PCR) 03/30/21 03/30/21 03/31/21 23:22 23:22 05:50 MCV 91.0 MCH 30.3 MCHC 33.3 RDW 13.2 Plt Count 227 MPV 10.1 Immature Gran % (Auto) 0.3 Neut % (Auto) 69.8 Lymph % (Auto) 21.2 [place] % (Auto) 8.4 Eos % (Auto) 0.2 Baso % (Auto) 0.1 Lymph # (Auto) 1.9 [place] # (Auto) 0.8 Eos # (Auto) 0.0 Baso # (Auto) 0.0 Abs Immat Gran (auto) 0.03 Absolute Neuts (auto) 6.3 Absolute Nucleated RBC 0.000 Nucleated RBC % (auto) 0.0 Smear Tech's Comments Anion Gap Estim Creat Clear Calc Estimated GFR Random Glucose Lactic Acid 0.8 Calcium Magnesium Ethyl Alcohol Coronavirus (PCR) NEGATIVE Influenza Type A (PCR) NEGATIVE Influenza Type B (PCR) NEGATIVE RSV RNA Qual (PCR) NEGATIVE 03/31/21 03/31/21 05:50 05:50 MCV MCH MCHC RDW Plt Count MPV Immature Gran % (Auto) Neut % (Auto) Lymph % (Auto) [place] % (Auto) Eos % (Auto) Baso % (Auto) Lymph # (Auto) [place] # (Auto) Eos # (Auto) Baso # (Auto) Abs Immat Gran (auto) Absolute Neuts (auto) Absolute Nucleated RBC Nucleated RBC % (auto) Smear Tech's Comments Anion Gap 13 Estim Creat Clear Calc 190.3 Estimated GFR > 60 Random Glucose 77 D Lactic Acid Calcium 7.6 L D Magnesium 2.1 Ethyl Alcohol Coronavirus (PCR) Influenza Type A (PCR) Influenza Type B (PCR) RSV RNA Qual (PCR) Assessment and Plan (1) Aspiration pneumonia: Status: Acute (2) Drug overdose: Status: Acute (3) Schizoaffective disorder, bipolar type: Status: Acute (4) Schizoaffective disorder: Status: Acute Assessment and Plan: 20-year-old male with a past medical history of schizoaffective disorder, polysubstance abuse was dropped in front of the ER by the friends mention patient took a lot of drugs; noted to be possible heroin overdose.? Received intranasal Narcan x3; mental status started to improve.? Admitted to the hospital for further management.? Also noted to have aspiration pneumonia. Overdose with heroin and other substances, treated with Narcan--He is completely lucid right, denies SI, but concern given recent discharge from Psych, will consult N to be reasess for readmission Aspiration pneumonia-no fever, WBC is normal. MARIUM [place] Rocephin, and [place], oral Augmentin Quality Stroke Does the patient have a stroke diagnosis?: No VTE Prior VTE?: No VTE Risk Level:: Medical - moderate - high VTE Device Contraindication: N/A - Device Ordered VTE Drug Contraindication: Treatment Not Indicated
--- NOTE | 2021-03-31 15:31 | MHC.CM.PN ---
CM MET WITH PT WHO REPORTS HE LIVES WITH HIS MOTHER AND IS INDEPENDENT WITH SELF CARE. PT REPORTS HE HAS A DOCTOR THAT COMES TO HIS HOME AND GIVES HIM MEDICATION HOWEVER HE IS UNABLE TO TELL T/W WHAT AGENCY THEY ARE WITH OR THE NAME OF THE DOCTOR. PT ALSO UNABLE TO TELL T/W IF HE HAS A PCP BUT SAYS HE HAS BEEN TO THE [facility] IN THE PAST. PT DENIES USING ANY DME AT HOME. PT ALSO DECLINES TO PROVIDE HIS MOTHERS PHONE NUMBER SO THAT SHE MAY PROVIDE INFORMATION ABOUT HIS OUTSIDE SERVICES. PT REPORTS HE WOULD LIKE TO DC HOME TODAY. CURRENT DC PLAN IS HOME WITH CARE TEAM RESOURCES.
--- NOTE | 2021-03-31 17:20 | MHC.CARE ---
1530 ? Met with pt upon receiving request for a consult.? Pt was drowsy and appeared reluctant to engage in conversation, though he did.? Eye contact was almost entirely absent, speech was soft and mumbled. Pt was in bed at the time of the consult.? Pt denies any SI or HI and advised CARE Team that he did not intentionally overdose.? Pt denies any AVH and reports being medication compliant.? Pt declined any referrals to outpatient providers such as [facility] and the [facility] Partial Hospitalization Program.? This consult was requested due to his being recently discharged from from one of our inpatient units.? Pt presented then, much as he does now, and denied any SI, HI, and AVH.? CARE Team does not believe he is a candidate for IPLOC at this time.
[2021-03-31] MEDS: QUEtiapine Fumarate 300 MG TABLET 600 MG PO (19:36)
[2021-03-31] MEDS: diphenhydrAMINE HCL 50 MG/ML VIAL 25 MG IVPUSH (19:39)
[2021-04-01] MEDS: Azithromycin 500 MG in 0.9 % Sodium Chloride 250 ML 125 MG IV (00:26)
[2021-04-01] MEDS: 0.9 % Sodium Chloride Flush 3 ML SYRINGE IVFLUSH (00:27)
[2021-04-01] MEDS: metroNIDAZOLE/NS 500 MG/100 ML PIGGYBACK 100 MG IV (02:57)
[2021-04-01 03:15] LABS: Amphetamine Screen Urine Not Detected (Not Detect); Barbiturates, Urine Not Detected (Not Detect); Benzodiazepines Screen Urine Not Detected (Not Detect); Cannabinoid Screen Urine POSITIVE (Not Detect); Cocaine Screen Urine POSITIVE (Not Detect); Opiate Screen Urine Not Detected (Not Detect); Phencyclidine Screen Urine Not Detected (Not Detect)
[2021-04-01 03:29] VITALS: BP 114/55; PULSE 82; RESP 18; TEMP 36.7; O2SAT 97
[2021-04-01 06:00] VITALS: BMI 38.5
[2021-04-01 07:41] VITALS: BP 116/68; PULSE 66; RESP 16; TEMP 37.1; O2SAT 98
[2021-04-01] MEDS: Divalproex Sodium ER 500 MG TAB.ER.24H 1000 MG PO (08:35)
[2021-04-01] MEDS: Ascorbic Acid 500 MG TABLET PO (08:35)
[2021-04-01] MEDS: QUEtiapine Fumarate 100 MG TABLET PO (08:35)
[2021-04-01] MEDS: LORazepam 0.5 MG TABLET PO (08:35)
[2021-04-01] MEDS: ARIPiprazole 20 MG TABLET PO (08:35)
[2021-04-01] MEDS: Nicotine Polacrilex 2 MG GUM BUCCAL (09:08)
--- NOTE | 2021-04-01 09:19 | PM.DS ---
DS: Providers Provider Date of Service: 04/01/21 Date of admission: 03/30/21 23:18 Primary care physician: Unknown Physician Consults: 03/30/21 23:18 Addiction Medicine Routine Consulting Provider: Dennise Hess Reason for consultation: heroin abuse 03/31/21 10:12 Consult to Care Team Routine Comment: Reason for consultation: heroin overdose 03/31/21 14:07 Consult to Crisis Stat Reason for consultation: overdose, underlying recent discharge from inpatient Psych, Has provider been notified: No DS: Diagnosis Discharge Diagnosis (1) Aspiration pneumonia: Status: Acute (2) Drug overdose: Status: Acute (3) Schizoaffective disorder, bipolar type: Status: Acute (4) Schizoaffective disorder: Status: Acute DS: Medications Discharge Medications Home Medications: Previous Rx's Medication Instructions Recorded aripiprazole 20 mg tablet (Abilify) 20 mg PO DAILY #30 tab 03/26/21 ascorbic acid (vitamin C) 500 mg 500 mg PO DAILY #30 tab 03/26/21 tablet (Vitamin C) diphenhydramine HCl 25 mg tablet 50 mg PO BEDTIME #30 tab 03/26/21 (Allergy Relief (diphenhydramine)) divalproex 500 mg tablet,extended 2 tab PO BID #120 tab 03/26/21 release 24 hr lorazepam 0.5 mg tablet 1 tab PO TID #90 tab 03/26/21 quetiapine 100 mg tablet 1 tab PO QAM #30 tab 03/26/21 quetiapine 300 mg tablet 2 tab PO BEDTIME #60 tab 03/26/21 amoxicillin 875 mg-potassium 1 tab PO BID #10 tab 04/01/21 clavulanate 125 mg tablet (Augmentin) DS: Summary Hospital Course Hospital Course: Chief Complaint: Heroin overdose 20-year-old male with a past medical history of anxiety, depression, schizoaffective disorder, history substance abuse, heroin abuse presented to the hospital a chief complaint of heroin overdose. History from the patient is limited as he is drowsy and sleeping; did not in gaze in interview; response to verbal stimuli but does not answer and wanted to sleep. Spoke to ER team who mentioned that patient was dropped off by his friends in front of the ER; in the ER team and in to check on patient patient had pinpoint pupils, agonal breathing, patient was given Ambu bag and given 3 doses of intranasal Narcan; subsequently patient mental status improved; Patient was saturating 91 92%; chest x-ray showed no acute findings; CT scan showed possible aspiration pneumonia; admitted to the hospital for further manage. Hospital course: Patient was admitted for unintentional opioid overdose complicated by encephalopathy and aspiration pneumonia with increased in WBC but not hypoxia and this has been treated with IV Ceftriaxone, Azithromycin and Flagyl. He dsoens't have fever, WBC has come to normal. He has been evaluated by JOHN/Sina and not deem to be in need of inpatient Psych rehospitalization, they have given him resources in the community, I have advised as him of the need to stay awar from ilicity substances. He should follow up with PCP, will prescribe Augmentin for 5 days for pneumonia. Time Spent with Patient Time attestation: Total time spent providing and/or coordinating discharge services: Discharge coordination time: Greater than 30 minutes Quality: Stroke Does the patient have a stroke diagnosis?: No Physical Exam Vital Signs: Vital Signs: Last Vital Signs Temp 98.7 F 04/01/21 07:41 Pulse 66 04/01/21 07:41 Resp 16 04/01/21 07:41 BP 116/68 04/01/21 07:41 Pulse Ox 98 04/01/21 07:41 Body Mass Index 38.5 Const: Other: General: AO X 3, no acute distress Resp: CTA bilateral CVS: S1,S2,RRR GI: +BS, NT, no distention Skin: No rash Neuro: motor grossly intact Psych: appropriate affect DS: Data Data Completed and Pending Labs on day of discharge: Laboratory Results - last 24 hr 04/01/21 02:02 Urine Opiates Screen Not Detected Ur Barbiturates Screen Not Detected Ur Phencyclidine Scrn Not Detected Ur Amphetamines Screen Not Detected U Benzodiazepines Scrn Not Detected Urine Cocaine Screen POSITIVE H U Marijuana (THC) Screen POSITIVE H Preliminary micro results at discharge 03/30/21 23:22 Blood Culture - Preliminary Blood - Venous No growth after 24 hours. 03/30/21 23:22 Blood Culture - Preliminary Blood - Venous No growth after 24 hours. Discharge Plan Discharge Anticipated Discharge Date/Time: 04/01/21 09:08 Patient Disposition: Home, Self-Care Discharge Diagnosis: Drug overdose, aspiration pneumonitis Referrals: Physician,Unknown [Primary Care Provider] - 1 Week Discharge Medications: New amoxicillin-pot clavulanate [Augmentin] 875-125 mg tablet 1 tab PO BID Qty: 10 RF: 0 Continued ascorbic acid (vitamin C) [Vitamin C] 500 mg Tablet 500 mg PO DAILY Qty: 30 RF: 0 diphenhydramine HCl [Allergy Relief(diphenhydramin)] 25 mg Tablet 50 mg PO BEDTIME Qty: 30 RF: 0 aripiprazole [Abilify] 20 mg Tablet 20 mg PO DAILY Qty: 30 RF: 0 quetiapine 300 mg tablet 2 tab PO BEDTIME Qty: 60 RF: 0 lorazepam 0.5 mg tablet 1 tab PO TID Qty: 90 RF: 0 divalproex 500 mg tablet extended release 24 hr 2 tab PO BID Qty: 120 RF: 0 quetiapine 100 mg tablet 1 tab PO QAM Qty: 30 RF: 0 Discharge Orders: Discharge Order (Routine); Ordered 04/01/21 Ordered By: Morris Bruce Diet: advance to usual diet and diabetic diet Activity on Discharge: As tolerated Stand Alone Forms: Patient Portal Discharge page Care Plan Goals: Prevent further overdose, and to stay sobber Health Concerns: Opioid dependence, ilicit substance abuse Plan of Treatment: Take Augmentin as recommended and follow up with your Doctor in a wee Assessment: As above
--- NOTE | 2021-04-01 09:25 | MHC.CM.PN ---
PT CLEARED TO [place] TODAY WITH NO SERVICES .
[2021-04-02 08:53] LABS: Glucose, Whole Blood 260 mg/dL (60-115)
== END 2021-04-01 09:50 | disposition home or self-care (01) | DRG 816 ==
LOC: HO.ED 22:59 → HO.IMC 03-31 01:17
PROVIDERS: Admitting Provider Hospitalist; Emergency Provider Emergency Medicine; Visit Provider Internal Medicine
DX: T40.1X1A Poisoning by heroin, accidental (unintentional), initial encounter (principal); J69.0 Pneumonitis due to inhalation of food and vomit; G92 Toxic encephalopathy; Z20.822 Contact with and (suspected) exposure to COVID-19; F25.0 Schizoaffective disorder, bipolar type; Y92.9 Unspecified place or not applicable; Z79.899 Other long term (current) drug therapy
CPT/HCPCS: 0241U; 36415; 71045; 71250; 80048; 80307; 82077; 82947; 83605; 83735; 85025; 87040; 99285; J0456; J0696; J1200; J2543; J3370

== ENCOUNTER 2021-04-22 13:58 | Emergency (ER) | payer OTHER, SELFPAY ==
--- NOTE | ~2021-04-22 | CT_ITS ---
EXAMINATION: CT CHEST WITHOUT CONTRAST CLINICAL INFORMATION: OD, vomiting, check for aspiration COMPARISON: CT chest 03/30/2021 and chest radiograph 03/30/2021. TECHNIQUE: Multidetector volumetric CT imaging of the chest was done. Axial MIP volume rendering provided. Sagittal and coronal reformatted images were obtained. This CT examination was performed using dose optimization techniques as appropriate, variously including the following: *Automated exposure control *Adjustment of mA and/or kV according to patient size (this includes techniques or standardized protocols for targeted exams where dose is matched to indication/reason for exam; i.e. extremities or head) *Use of iterative reconstruction technique DLP: 310 mGy-cm FINDINGS: MEAT CARRIER: Unremarkable. LUNGS: Artifact has been created from the patient's arms. The central airways are patent without evidence of filling defects. Very minimal opacity is seen in the right middle lobe inferiorly (image 32, series 15) which may reflect artifact. MEDIASTINUM: The mediastinum is normal. PLEURA: There is no pleural effusion. No pleural mass or thickening. AXILLA: Normal axillary lymph nodes. CHEST WALL: Bilateral gynecomastia. UPPER ABDOMEN: Unremarkable. OSSEOUS STRUCTURES: Unremarkable. CT/CT chest wo con IMPRESSION: No significant consolidation or atelectasis. Minimal opacity in the inferior aspect of the right middle lobe may be artifactual.
--- NOTE | ~2021-04-22 | CT_ITS ---
EXAMINATION: CT HEAD WITHOUT CONTRAST CLINICAL INFORMATION: OD, evaluate for ICH. COMPARISON: None TECHNIQUE: Contiguous axial imaging was performed from the skull base to vertex without intravenous administration of contrast. This CT examination was performed using dose optimization techniques as appropriate, variously including the following: *Automated exposure control *Adjustment of mA and/or kV according to patient size (this includes techniques or standardized protocols for targeted exams where dose is matched to indication/reason for exam; i.e. extremities or head) *Use of iterative reconstruction technique DLP: 690 mGy-cm FINDINGS: There is no evidence of acute intracranial hemorrhage or territorial infarction. No abnormal mass effect or midline shift is seen. Nelson to white matter differentiation is well preserved. No extra-axial fluid collections are identified. The ventricles are normal in size. There is no abnormal attenuation within the brain parenchyma. The osseous structures and soft tissues are normal. The mastoid air cells and visualized portions of the paranasal sinuses are well aerated. CT/CT head/brain wo con IMPRESSION: No acute intracranial pathology.
[2021-04-22 14:04] VITALS: PULSE 94; RESP 20; O2SAT 100; BMI 27.2
--- NOTE | 2021-04-22 14:19 | ECG_ITS ---
Test Reason : OVEDOSE Blood Pressure : / mmHG Vent. Rate : 083 BPM Atrial Rate : 083 BPM P-R Int : 134 ms QRS Dur : 096 ms QT Int : 380 ms P-R-T Axes : 006 062 044 degrees QTc Int : 446 ms Normal sinus rhythm Normal ECG No previous ECGs available Referred By: Chayo Fuentes Electronically Signed By:KRALA TURNER
--- NOTE | 2021-04-22 14:25 | ED.OVERDOSE ---
HPI - Overdose General Chief Complaint: Overdose Stated Complaint: OD, COAx3 now, 8mg narcan Time Seen by Provider: 04/22/21 14:03 Source: EMS Mode of arrival: EMS Limitations: no limitations History of Present Illness HPI Narrative: [age] year on year old male with a past medical history of schizoaffective disorder, polysubstance abuse here after an overdose. Patient was found down on the ground unresponsive by a bystander. He received 4 mg of intranasal Narcan by a bystander. EMS was called and he received additional 4 mg of Narcan with some response. Related Data Previous Rx's Medication Instructions Recorded aripiprazole 20 mg tablet (Abilify) 20 mg PO DAILY #30 tab 03/26/21 ascorbic acid (vitamin C) 500 mg 500 mg PO DAILY #30 tab 03/26/21 tablet (Vitamin C) diphenhydramine HCl 25 mg tablet 50 mg PO BEDTIME #30 tab 03/26/21 (Allergy Relief (diphenhydramine)) divalproex 500 mg tablet,extended 2 tab PO BID #120 tab 03/26/21 release 24 hr lorazepam 0.5 mg tablet 1 tab PO TID #90 tab 03/26/21 quetiapine 100 mg tablet 1 tab PO QAM #30 tab 03/26/21 quetiapine 300 mg tablet 2 tab PO BEDTIME #60 tab 03/26/21 amoxicillin 875 mg-potassium 1 tab PO BID #10 tab 04/01/21 clavulanate 125 mg tablet (Augmentin) Allergies Allergy/AdvReac Type Severity Reaction Status Date / Time No Known Allergies Allergy Unverified 05/11/20 18:39 [No Known Allergies*] Review of Systems Review of Systems: Yes Unobtainable due to mental status PMFSH Past Medical History Attestation statement: The following information was validated with the patient. 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 Drugs, Crack/Cocaine, Heroin, Marijuana, Opiates and Prescription Drugs service: No Current occupational status: unemployed Sexual orientation: N/A Physical Exam Vital Signs: Vital Signs: Last Vital Signs Pulse 94 04/22/21 15:24 Resp 16 04/22/21 15:24 BP 132/81 04/22/21 15:24 Pulse Ox 99 04/22/21 15:24 Body Mass Index 27.2 Const: General: lethargic Orientation/consciousness: lethargic Limitations: altered mental status HENMT: Head: Yes normal to inspection Ears: hearing grossly normal bilaterally and TM's normal bilaterally General nose exam: Normal external nose present Face and sinus: Yes normal facial exam Mouth: Normal oral and palatal mucosa present Throat: Yes posterior oropharynx normal, Yes tonsils normal and Yes uvula midline Eyes: General: appearance normal, both eyes and all related structures Pupils: Equal, round and reactive pupils present (Pinpoint pupils bilaterally) Neck: Neck: Yes normal visual inspection, Yes full ROM and Yes no lymphadenopathy Chest: Other: Vomit noted across shirt Chest palpation & inspection: normal inspection of the chest Resp: Effort & Inspection: normal respiratory effort Auscultation: clear to auscultation bilaterally Cardio: Rate: regular rate Rhythm: regular rhythm Peripheral pulses: Peripheral pulses 2+ throughout GI: Inspection: Yes normal to inspection Palpation (GI): Soft to palpation and nontender Auscultation: normal bowel sounds Back/Spine/Pelvis: Thoracic/Lumbar Spine: thoracic and lumbar spine normal to inspection Skin: General skin exam: no rashes or lesions noted Neuro: Other: Very lethargic Arouses to painful stimuli. Follows some commands but then falls back asleep Sensation is intact Moves all extremities Cranial nerves: Yes Equal, round and reactive pupils present (Pinpoint pupils bilaterally) Extrem: General: Yes normal to inspection Course Course Course Narrative: 20-year-old male here after an assumed overdose. Found unresponsive by EMS. Received 8 mg of intranasal Narcan prior to arrival. On arrival to the ED. He hemodynamically stable. Oxygen saturations 100% on room air. Respiratory rate normal. Patient very lethargic-rouses to painful stimuli and follows some simple brief commands.. Pinpoint pupils. Given additional 8 mg of Narcan. On reassessment patient is still quite lethargic and very restless. Dr. Preciado aware patient. Plan for labs, drug screen, CT head, CT chest, EKG. Nursing moved patient to a quality assurance monitor for continuous CO2 monitoring and oxygen monitoring 1530-imaging negative. Drug screen shows patient is positive for opiates, fentanyl, cocaine, THC. Additional labs are unremarkable. Patient is still lethargic protecting airway, moving all extremities, resp even and unlabored. Still unclear if intentional OD so will monitor patient. 1800-Sign out to Roselia JINRIKSHA DRIVER pending above. MDM - Overdose Medical Records Attestation: I reviewed the patient's medical records. Lab Data Attestation: I reviewed the patient's lab results. Result diagrams: 04/22/21 14:38 04/22/21 14:38 Labs: Lab Results 04/22/21 04/22/21 04/22/21 Range/Units 14:25 14:25 14:38 WBC 8.3 (4.8-10.8) X10*3/uL RBC 4.58 L (4.60-5.80) X10*6/uL Hgb 13.7 L (14.0-18.0) g/dl Hct 40.9 L (42-52) % MCV 89.3 (80-98) fL MCH 29.9 (27.0-33.0) pg MCHC 33.5 (31.0-36.0) g/dl RDW 12.8 (11.0-16.0) % Plt Count 280 (160-400) X10*3/uL MPV 9.7 (9.4-12.4) fL Immature Gran % (Auto) 0.1 (0.0-0.4) % Neut % (Auto) 64.4 (45-73) % Lymph % (Auto) 27.3 (20-40) % [place] % (Auto) 7.5 (2-11) % Eos % (Auto) 0.6 (0-4) % Baso % (Auto) 0.1 (0-2) % Lymph # (Auto) 2.3 (1.2-4.9) X10*3/uL [place] # (Auto) 0.6 (0.1-1.2) X10*3/uL Eos # (Auto) 0.1 (0.0-0.4) X10*3/uL Baso # (Auto) 0.0 (0.0-0.2) X10*3/uL Abs Immat Gran (auto) 0.01 (0.00-0.03) X10*3/uL Absolute Neuts (auto) 5.3 (2.0-8.3) X10*3/uL Absolute Nucleated RBC 0.000 (0.0-0.012) X10*3/uL Nucleated RBC % (auto) 0.0 (0.0-0.2) /100WBC Sodium (135-145) mmol/L Potassium (3.3-5.1) mmol/L Chloride (96-108) mmol/L Carbon Dioxide (22-29) mmol/L Anion Gap (12-20) BUN (9-16) mg/dL Creatinine (0.5-1.4) mg/dL Estim Creat Clear Calc Estimated GFR Random Glucose (60-115) mg/dL Calcium (8.4-10.2) mg/dL Total Bilirubin (0.0-1.0) mg/dL Direct Bilirubin (0.0-0.5) mg/dL AST (5-37) U/L ALT (0-40) U/L Alkaline Phosphatase (39-117) U/L Total Protein (6.5-8.0) g/dL Albumin (3.5-5.0) g/dL Urine Color YELLOW Urine Appearance CLEAR Urine pH 6.0 (5.0-8.0) Ur Specific [place] 1.025 (1.005-1.025) Urine Protein NEG (NEG-TRACE) MG/DL Urine Glucose (UA) NEG (NEG) MG/DL Urine Ketones NEG (NEG) MG/DL Urine Blood NEG (NEG) Urine Nitrite NEG (NEG) Ur Leukocyte Esterase NEG (NEG) Urine Opiates Screen POSITIVE H (Not Detect) Urine Fentanyl Screen POSITIVE H (Not Detect) Ur Barbiturates Screen Not Detected (Not Detect) Ur Phencyclidine Scrn Not Detected (Not Detect) Ur Amphetamines Screen Not Detected (Not Detect) U Benzodiazepines Scrn Not Detected (Not Detect) Urine Cocaine Screen POSITIVE H (Not Detect) U Marijuana (THC) Screen POSITIVE H (Not Detect) Ethyl Alcohol mg/dL 04/22/21 04/22/21 Range/Units 14:38 14:38 WBC (4.8-10.8) X10*3/uL RBC (4.60-5.80) X10*6/uL Hgb (14.0-18.0) g/dl Hct (42-52) % MCV (80-98) fL MCH (27.0-33.0) pg MCHC (31.0-36.0) g/dl RDW (11.0-16.0) % Plt Count (160-400) X10*3/uL MPV (9.4-12.4) fL Immature Gran % (Auto) (0.0-0.4) % Neut % (Auto) (45-73) % Lymph % (Auto) (20-40) % [place] % (Auto) (2-11) % Eos % (Auto) (0-4) % Baso % (Auto) (0-2) % Lymph # (Auto) (1.2-4.9) X10*3/uL [place] # (Auto) (0.1-1.2) X10*3/uL Eos # (Auto) (0.0-0.4) X10*3/uL Baso # (Auto) (0.0-0.2) X10*3/uL Abs Immat Gran (auto) (0.00-0.03) X10*3/uL Absolute Neuts (auto) (2.0-8.3) X10*3/uL Absolute Nucleated RBC (0.0-0.012) X10*3/uL Nucleated RBC % (auto) (0.0-0.2) /100WBC Sodium 139 (135-145) mmol/L Potassium 3.5 (3.3-5.1) mmol/L Chloride 103 (96-108) mmol/L Carbon Dioxide 28 (22-29) mmol/L Anion Gap 12 (12-20) BUN 5 L (9-16) mg/dL Creatinine 0.79 (0.5-1.4) mg/dL Estim Creat Clear Calc 152.7 Estimated GFR > 60 Random Glucose 69 (60-115) mg/dL Calcium 9.4 D (8.4-10.2) mg/dL Total Bilirubin 0.5 (0.0-1.0) mg/dL Direct Bilirubin 0.2 (0.0-0.5) mg/dL AST 30 (5-37) U/L ALT 24 (0-40) U/L Alkaline Phosphatase 84 (39-117) U/L Total Protein 6.9 (6.5-8.0) g/dL Albumin 4.3 (3.5-5.0) g/dL Urine Color Urine Appearance Urine pH (5.0-8.0) Ur Specific [place] (1.005-1.025) Urine Protein (NEG-TRACE) MG/DL Urine Glucose (UA) (NEG) MG/DL Urine Ketones (NEG) MG/DL Urine Blood (NEG) Urine Nitrite (NEG) Ur Leukocyte Esterase (NEG) Urine Opiates Screen (Not Detect) Urine Fentanyl Screen (Not Detect) Ur Barbiturates Screen (Not Detect) Ur Phencyclidine Scrn (Not Detect) Ur Amphetamines Screen (Not Detect) U Benzodiazepines Scrn (Not Detect) Urine Cocaine Screen (Not Detect) U Marijuana (THC) Screen (Not Detect) Ethyl Alcohol < 10 mg/dL Imaging Data CT scan - chest: Attestation: I personally reviewed and interpreted this imaging study as follows: Radiologist's impression: FINDINGS: ADMINISTRATION PROFESSIONAL: Unremarkable. LUNGS: Artifact has been created from the patient's arms. The central airways are patent without evidence of filling defects. Very minimal opacity is seen in the right middle lobe inferiorly (image 32, series 15) which may reflect artifact. MEDIASTINUM: The mediastinum is normal.? PLEURA: There is no pleural effusion. No pleural mass or thickening.? AXILLA: Normal axillary lymph nodes. CHEST WALL: Bilateral gynecomastia. UPPER ABDOMEN: Unremarkable.? OSSEOUS STRUCTURES: Unremarkable.? CT scan - head: Attestation: I personally reviewed and interpreted this imaging study as follows: Radiologist's impression: FINDINGS: There is no evidence of acute intracranial hemorrhage or territorial infarction. No abnormal mass effect or midline shift is seen. Nelson to white matter differentiation is well preserved. No extra-axial fluid collections are identified. The ventricles are normal in size. There is no abnormal attenuation within the brain parenchyma. The osseous structures and soft tissues are normal. The mastoid air cells and visualized portions of the paranasal sinuses are well aerated. ECG Data Attestation: I personally reviewed and interpreted this ECG as follows: ECG interpretation date: 04/22/21 ECG interpretation time: 14:26 Interpretation: NSR with rate 83, normal pr, normal qrs, normal qt Discharge Plan Discharge Clinical Impression: Drug overdose Prescriptions: No Action ascorbic acid (vitamin C) [Vitamin C] 500 mg Tablet 500 mg PO DAILY Qty: 30 RF: 0 diphenhydramine HCl [Allergy Relief(diphenhydramin)] 25 mg Tablet 50 mg PO BEDTIME Qty: 30 RF: 0 aripiprazole [Abilify] 20 mg Tablet 20 mg PO DAILY Qty: 30 RF: 0 quetiapine 300 mg tablet 2 tab PO BEDTIME Qty: 60 RF: 0 lorazepam 0.5 mg tablet 1 tab PO TID Qty: 90 RF: 0 divalproex 500 mg tablet extended release 24 hr 2 tab PO BID Qty: 120 RF: 0 quetiapine 100 mg tablet 1 tab PO QAM Qty: 30 RF: 0 amoxicillin-pot clavulanate [Augmentin] 875-125 mg tablet 1 tab PO BID Qty: 10 RF: 0
[2021-04-22 14:42] LABS: MANUAL DIFF FLAG NO
[2021-04-22 14:43] LABS: Basophils Percent Auto 0.1 % (0-2); Eosinophils Absolute Auto 0.1 X10*3/uL (0.0-0.4); Eosinophils Percent Auto 0.6 % (0-4); Hematocrit 40.9 % (42-52); Hemoglobin 13.7 g/dl (14.0-18.0); Imm Gran Abs Auto 0.01 X10*3/uL (0.00-0.03); Imm Gran Pct Auto 0.1 % (0.0-0.4); Lymphocytes Absolute Auto 2.3 X10*3/uL (1.2-4.9); Lymphocytes Percent Auto 27.3 % (20-40); Mean Corpuscular HGB Conc 33.5 g/dl (31.0-36.0); Mean Corpuscular Hemoglobin 29.9 pg (27.0-33.0); Mean Corpuscular Volume 89.3 fL (80-98); Mean Platelet Volume 9.7 fL (9.4-12.4); Monocytes Absolute Auto 0.6 X10*3/uL (0.1-1.2); Monocytes Percent Auto 7.5 % (2-11); Neutrophils Absolute Auto 5.3 X10*3/uL (2.0-8.3); Neutrophils Percent Auto 64.4 % (45-73); Platelet Count 280 X10*3/uL (160-400); Red Blood Count 4.58 X10*6/uL (4.60-5.80); Red Cell Distribution Width 12.8 % (11.0-16.0); White Blood Count 8.3 X10*3/uL (4.8-10.8)
[2021-04-22 14:56] LABS: Amphetamine Screen Urine Not Detected (Not Detect); Barbiturates, Urine Not Detected (Not Detect); Benzodiazepines Screen Urine Not Detected (Not Detect); Cannabinoid Screen Urine POSITIVE (Not Detect); Cocaine Screen Urine POSITIVE (Not Detect); Fentanyl, urine POSITIVE (Not Detect); Opiate Screen Urine POSITIVE (Not Detect); Phencyclidine Screen Urine Not Detected (Not Detect)
[2021-04-22 15:08] LABS: Alanine Aminotransferase 24 U/L (0-40); Albumin Level 4.3 g/dL (3.5-5.0); Alkaline Phosphatase 84 U/L (39-117); Anion Gap 12 (12-20); Aspartate Amino Transferase 30 U/L (5-37); Bilirubin Direct 0.2 mg/dL (0.0-0.5); Bilirubin Total 0.5 mg/dL (0.0-1.0); Blood Urea Nitrogen 5 mg/dL (9-16); Calcium 9.4 mg/dL (8.4-10.2); Carbon Dioxide 28 mmol/L (22-29); Chloride 103 mmol/L (96-108); Creatinine Clr Calc Pharmacy 152.7; Estimated Glomerular Filt Rate > 60; Glucose Random 69 mg/dL (60-115); Potassium 3.5 mmol/L (3.3-5.1); Sodium 139 mmol/L (135-145); Total Protein 6.9 g/dL (6.5-8.0)
[2021-04-22 15:15] LABS: Ethanol < 10 mg/dL
[2021-04-22 15:24] VITALS: BP 132/81; PULSE 94; RESP 16; O2SAT 99
[2021-04-22 17:20] LABS: Appearance Urine CLEAR; Color Urine YELLOW; Glucose Urine UA NEG (NEG); Leukocyte Esterase Urine NEG (NEG); Nitrite Urine NEG (NEG); Specific Gravity - Urine 1.025 (1.005-1.025); Urine Blood NEG (NEG); Urine Ketones NEG (NEG); Urine Protein NEG (NEG-TRACE)
[2021-04-22 18:07] VITALS: BP 129/82; PULSE 72; RESP 17; TEMP 37; O2SAT 98
[2021-04-22 19:43] VITALS: BP 118/82; PULSE 78; RESP 14; TEMP 37.1; O2SAT 97
--- NOTE | 2021-04-22 19:51 | MHC.RECOVSUP ---
Attempted to interview but could not get anything out of him
--- NOTE | 2021-04-22 20:03 | PC.NURSE ---
This RN to bedside. Pt arousable to painful stimuli. Pt monitor alerting asystole as pt was disconnected from monitor. This RN placed pt on monitor, NSR. This RN attempts to attach pt to end tidal capnography. This RN unsuccessful, monitor not reading ETCO2. Odalys Diehl RN to bedside to assist. Unsuccessful, Rosina Mccloud RN and Halina PCT to bedside to assist, unsuccessful. Pt RR 12/min with equal chest rise and fall bilaterally. This RN successful with ETCO2 reading, reading 13-14. Roselia HARVESTING MANAGER made aware This RN advocates for narcan. Narcan ordered, to be given per orders
[2021-04-22] MEDS: Naloxone HCl 0.4 MG/ML VIAL IVPUSH (20:10)
--- NOTE | 2021-04-22 20:12 | PC.NURSE ---
This rn established 18g PIV in RAC, medicated per OCT. Pt RR increased to 16/min ETCO2 36 at this time. Pt awakes, requests to use urinal. Urinal provided. Pt stands with this RN assistance, urinates into urinal and requests blankets.
[2021-04-22 20:15] VITALS: BP 138/60; PULSE 115; RESP 17; O2SAT 97
--- NOTE | 2021-04-22 20:51 | PC.NURSE ---
Pt with red fall prevention socks on, red fall alert wrist band, and red star posted outside of room. Pt currently asleep, VSS on RA. Pt arousable to verbal stimuli at this time but minimally conversive, quickly falls back to sleep. While awake, pt denies this OD was attempt to harm self, denies SI. Pt then returned to sleep.
[2021-04-22 21:54] VITALS: BP 116/60; PULSE 77; RESP 13; TEMP 37.1; O2SAT 96
[2021-04-23] VITALS: BP 114/59; PULSE 73; RESP 15; O2SAT 97
--- NOTE | 2021-04-23 00:20 | PC.NURSE ---
Roselia CONTOUR GRINDER to bedside, wakes pt from sleep. Pt ambulates to bathroom with steady gait.
== END 2021-04-23 01:06 | disposition home or self-care (01) ==
LOC: HO.ED 04-23 00:44
PROVIDERS: Nurse Practitioner Family; Emergency Provider Emergency Medicine
DX: T40.1X1A Poisoning by heroin, accidental (unintentional), initial encounter (principal); M54.6 Pain in thoracic spine; F20.9 Schizophrenia, unspecified; Y92.9 Unspecified place or not applicable; Z79.899 Other long term (current) drug therapy; Z71.51 Drug abuse counseling and surveillance of drug abuser
CPT/HCPCS: 36415; 70450; 71250; 80048; 80076; 80307; 81003; 82077; 85025; 93005; 96374; 99285

== ENCOUNTER 2021-05-07 17:21 | Emergency (ER) | payer OTHER, SELFPAY ==
--- NOTE | 2021-05-07 17:36 | ED_ITS ---
HPI - Overdose General Chief Complaint: ETOH/Substance Use Stated Complaint: overdose Time Seen by Provider: 05/07/21 17:36 Source: EMS Mode of arrival: EMS Limitations: other (uncooperative) History of Present Illness HPI Narrative: 20 year old male presents to the ED with EMS. EMS states that this patient snorted heroin earlier today, and was given narcan by a bystandard in the community. 2 hours later used again and EMS gave 1mg narcan IV en route to the hospital. Patient is not answering questions, he is not being cooperative. He does not appear to be in acute respiratory distress. Pinpoint pupils MD complaint: accidental overdose Onset (ago): hour(s) (2 hours prior to arrival to ED ) Intent: unwilling to say Context: Accidental Overdose: wanted to get high Associated symptoms: lethargy Treatments Prior to Arrival: narcan (1 IN narcan given by EMS and 1 IN narcan given by a bystandared in the community) Related Data Previous Rx's Medication Instructions Recorded aripiprazole 20 mg tablet (Abilify) 20 mg PO DAILY #30 tab 03/26/21 ascorbic acid (vitamin C) 500 mg 500 mg PO DAILY #30 tab 03/26/21 tablet (Vitamin C) diphenhydramine HCl 25 mg tablet 50 mg PO BEDTIME #30 tab 03/26/21 (Allergy Relief (diphenhydramine)) divalproex 500 mg tablet,extended 2 tab PO BID #120 tab 03/26/21 release 24 hr lorazepam 0.5 mg tablet 1 tab PO TID #90 tab 03/26/21 quetiapine 100 mg tablet 1 tab PO QAM #30 tab 03/26/21 quetiapine 300 mg tablet 2 tab PO BEDTIME #60 tab 03/26/21 amoxicillin 875 mg-potassium 1 tab PO BID #10 tab 04/01/21 clavulanate 125 mg tablet (Augmentin) Allergies Allergy/AdvReac Type Severity Reaction Status Date / Time No Known Allergies Allergy Unverified 05/11/20 18:39 [No Known Allergies*] Review of Systems Review of Systems: ROS unable to be obtained due to patinet being uncooperative PMFSH Past Medical History Source: old records reviewed Medical History Schizoaffective disorder Schizoaffective disorder, bipolar type Social History Social History Household Members: Family Housing: House Unable to assess alcohol history related to: Refusing to respond Alcohol intake: current Alcohol intake frequency: 0-2 drinks per day Patient Tobacco Use Status: Tobacco use Unknown e-Cigarette/Vaping Use: Never Used Second Hand Smoke Exposure: No Substance Use 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 Eyes: Pinpoint pupils ENT: Pharynx normal. Neck: Normal inspection. Neck supple. CVS: Normal heart rate and rhythm. Pulses normal. Respiratory: No respiratory distress. Breath sounds normal. Abdomen: Soft and no trauma noted Skin: Skin warm and dry. Normal skin color. Normal skin turgor. Extremities: No lower extremity edema. No calf ttp Neuro: Will not answer questions. No motor deficit. No sensory deficit. Course Course Course Narrative: very somnolent - will given IV 2mg narcan then likely sign patient out until more clinically sober good response to narcan will sign out to ASHLEY Fall pending resolution MDM - Overdose MDM Narrative Medical decision making narrative: 20 yo male with unintentional heroin OD - seen here not cooperative not giving much information. Will observe and once he is able to participate will offer recovery coaches. Dispo per observation period Discharge Plan Discharge Clinical Impression: Accidental heroin overdose Qualifiers: Encounter type: initial encounter Qualified Code(s): T40.1X1A - Poisoning by heroin, accidental (unintentional), initial encounter Instructions: Opioid Use Disorder (ED) Prescriptions: No Action ascorbic acid (vitamin C) [Vitamin C] 500 mg Tablet 500 mg PO DAILY Qty: 30 RF: 0 diphenhydramine HCl [Allergy Relief(diphenhydramin)] 25 mg Tablet 50 mg PO BEDTIME Qty: 30 RF: 0 aripiprazole [Abilify] 20 mg Tablet 20 mg PO DAILY Qty: 30 RF: 0 quetiapine 300 mg tablet 2 tab PO BEDTIME Qty: 60 RF: 0 lorazepam 0.5 mg tablet 1 tab PO TID Qty: 90 RF: 0 divalproex 500 mg tablet extended release 24 hr 2 tab PO BID Qty: 120 RF: 0 quetiapine 100 mg tablet 1 tab PO QAM Qty: 30 RF: 0 amoxicillin-pot clavulanate [Augmentin] 875-125 mg tablet 1 tab PO BID Qty: 10 RF: 0
[2021-05-07 17:37] VITALS: BP 126/78; PULSE 64; O2SAT 100
[2021-05-07 17:45] VITALS: BP 131/75; PULSE 76; RESP 16; TEMP 36.6; O2SAT 99; BMI 24.4
--- NOTE | 2021-05-07 18:19 | MHC.RECOVSUP ---
Recovery Support note: Patient is a 20 year old Maltese speaking male who presented to [facility] ED via EMS after an accidental overdose. Patient is known to this technical writer from previous consultations for the same reason. RN reports patient is not engaging in conversation however it is likely he is awake and choosing not to engage. This technical writer met with patient with an [facility] a&p technician. Patient kept his eyes closed and did not respond to communication. This technical writer explained to patient that this is the third time he has been here for an overdose in a short period of time. Explained to patient that we are not interested in getting him in trouble and that we are here to offer him help and support. Informed patient that there are treatment options and supports available if he is interested. Patient did not respond. This technical writer or CARE Team is available to meet with patient in the event that he requests support later on in his stay.
[2021-05-07 18:52] VITALS: BP 131/76; PULSE 72; RESP 16; TEMP 36.5; O2SAT 100
[2021-05-07] MEDS: ondansetron HCL 4 MG/2 ML VIAL IVPUSH (20:06)
[2021-05-07] MEDS: Naloxone HCl 2 MG/2 ML SYRINGE IVPUSH (20:06)
[2021-05-08 01:18] VITALS: RESP 16
--- NOTE | 2021-05-08 01:19 | PC.NURSE ---
pt a&O, able to answer question appropriately. pt requesting a drink and food. plan is for pt to be discharge home.
== END 2021-05-08 01:25 | disposition home or self-care (01) ==
LOC: HO.ED 05-08 01:19
PROVIDERS: Emergency Provider Emergency Medicine
DX: T40.1X1A Poisoning by heroin, accidental (unintentional), initial encounter (principal); F11.10 Opioid abuse, uncomplicated; Y92.9 Unspecified place or not applicable; Z79.899 Other long term (current) drug therapy; Z71.51 Drug abuse counseling and surveillance of drug abuser
CPT/HCPCS: 96374; 96375; 99284; J2405

== ENCOUNTER 2021-08-13 23:01 | Inpatient (IN) | payer OTHER, SELFPAY ==
[2021-08-13 23:29] VITALS: BP 118/71; BP 122/51; PULSE 111; PULSE 113; RESP 18; TEMP 36.8; O2SAT 100; O2SAT 99; BMI 26.6
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
[2021-08-13 23:52] VITALS: BP 120/53; PULSE 108; RESP 15; TEMP 37.1; O2SAT 99
--- NOTE | 2021-08-14 | ECG_ITS ---
Test Reason : MEDCLEARANCE Blood Pressure : / mmHG Vent. Rate : 098 BPM Atrial Rate : 098 BPM P-R Int : 140 ms QRS Dur : 084 ms QT Int : 358 ms P-R-T Axes : -10 065 018 degrees QTc Int : 457 ms Normal sinus rhythm Normal ECG When compared with ECG of 14-AUG-2021 14:11, No significant change was found Referred By: Reinaldo Martinez Electronically Signed By:PETR MARTE
--- NOTE | 2021-08-14 | ECG_ITS ---
Test Reason : MEDCLEARANCE Blood Pressure : / mmHG Vent. Rate : 098 BPM Atrial Rate : 098 BPM P-R Int : 142 ms QRS Dur : 082 ms QT Int : 358 ms P-R-T Axes : -07 065 020 degrees QTc Int : 457 ms Normal sinus rhythm Normal ECG When compared with ECG of 22-APR-2021 14:26, No significant change was found Referred By: Theo Fall Electronically Signed By:PETR MARTE
[2021-08-14 00:40] LABS: MANUAL DIFF FLAG NO
[2021-08-14 00:42] LABS: Basophils Percent Auto 0.1 % (0-2); Eosinophils Percent Auto 0.4 % (0-4); Hematocrit 34.2 % (42.0-52.0); Hemoglobin 11.3 g/dl (14.0-18.0); Imm Gran Abs Auto 0.03 X10*3/uL (0.00-0.03); Imm Gran Pct Auto 0.4 % (0.0-0.4); Lymphocytes Absolute Auto 1.3 X10*3/uL (1.2-4.9); Lymphocytes Percent Auto 15.6 % (20-40); Mean Corpuscular Hemoglobin 29.1 pg (27.0-33.0); Mean Corpuscular Volume 88.1 fL (80.0-98.0); Monocytes Absolute Auto 0.8 X10*3/uL (0.1-1.2); Monocytes Percent Auto 9.6 % (2-11); Neutrophils Absolute Auto 6.3 x10*3/uL (2.0-8.3); Neutrophils Percent Auto 73.9 % (45-73); Platelet Count 322 X10*3/uL (160-400); Red Blood Count 3.88 X10*6/uL (4.60-5.80); Red Cell Distribution Width 14.8 % (11.0-16.0); White Blood Count 8.5 X10*3/uL (4.8-10.8)
[2021-08-14 00:56] LABS: COVID-19 Test Negative (Negative); Ethanol < 10 mg/dL; IDNOW Serial# 9DD0AD1C
[2021-08-14 00:58] LABS: Alanine Aminotransferase 28 U/L (0-40); Albumin Level 3.7 g/dL (3.5-5.0); Alkaline Phosphatase 82 U/L (39-117); Anion Gap 12 (12-20); Aspartate Amino Transferase 35 U/L (5-37); Bilirubin Total 0.3 mg/dL (0.0-1.0); Blood Urea Nitrogen 8 mg/dL (9-16); Carbon Dioxide 26 mmol/L (22-29); Chloride 104 mmol/L (96-108); Creatinine Clr Calc Pharmacy 146.3; Estimated Glomerular Filt Rate > 60; Glucose Random 132 mg/dL (60-115); Potassium 3.3 mmol/L (3.3-5.1); Sodium 139 mmol/L (135-145); Total Protein 6.5 g/dL (6.5-8.0)
--- NOTE | 2021-08-14 05:49 | PC.NURSE ---
Patient slept though the night, no distress observed/reported, behavior appropriate, med rec completed/pending providers approval, [facility] referral completed/confirmed patient will be evaluated in the morning, patient was unable to provide urine sample but agreed give us one when he has to go, will continue to monitor.
[2021-08-14 05:59] LABS: Valproate < 2.0 mcg/mL (50.0-100.0)
--- NOTE | 2021-08-14 07:21 | PC.NURSE ---
patient appears to remain asleep at present, respirations even and unlabored, patient appears in no distress
[2021-08-14 09:20] LABS: Amphetamine Screen Urine Not Detected (Not Detect); Barbiturates, Urine Not Detected (Not Detect); Benzodiazepines Screen Urine Not Detected (Not Detect); Cannabinoid Screen Urine POSITIVE (Not Detect); Cocaine Screen Urine POSITIVE (Not Detect); Fentanyl, urine POSITIVE (Not Detect); Opiate Screen Urine POSITIVE (Not Detect); Phencyclidine Screen Urine Not Detected (Not Detect)
[2021-08-14 12:37] VITALS: BP 121/84; PULSE 112; RESP 17; TEMP 37.2; O2SAT 96
--- NOTE | 2021-08-14 17:11 | PC.NURSE ---
Patient resting comfortably in bed denies any chest pain or sob was compliant with ekg. awaiting admission to
--- NOTE | 2021-08-14 17:55 | PC.NURSE ---
Patient is alert and oriented x 4 lung sounds are clear skin is pink warm and dry being admiited to room 510-1 escorted by security and staff
[2021-08-14 19:09] LABS: Valproate < 2.0 mcg/mL (50.0-100.0)
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
[2021-08-15 06:00] VITALS: BP 132/82; PULSE 105; RESP 18; TEMP 36.6; O2SAT 96
[2021-08-15] MEDS: ARIPiprazole 20 MG TABLET PO (08:44)
[2021-08-15] MEDS: QUEtiapine Fumarate 100 MG TABLET PO (08:44)
[2021-08-15] MEDS: Multivitamin TABLET 1 TAB PO (08:44)
[2021-08-15] MEDS: Divalproex Sodium ER 500 MG TAB.ER.24H PO ×2 (08:44→21:00)
[2021-08-15] MEDS: Ferrous Sulfate 324 MG TABLET.DR PO (08:44)
[2021-08-15 08:57] LABS: Cholesterol 133 mg/dL; HDL Cholesterol 44 mg/dL; Iron 45 mcg/dL (45-160); LDL Cholesterol Calculated 76 mg/dl; Magnesium 2.2 mg/dL (1.6-2.6); Percent Iron Saturation 14 % (15-50); Total Iron Binding Capacity 317 mcg/dL (228-428); Triglycerides 69 mg/dL; Unsaturated Iron Binding 272 ug/dL
[2021-08-15 09:19] LABS: Free T4 (Free Thyroxine) 1.06 ng/dL (0.71-1.85); Thyroid Stimulating Hormone 0.45 uIU/mL (0.32-4.0)
[2021-08-15 09:25] LABS: Folate 15.3 ng/mL (> or = 4.0); Vitamin B12 840 pg/mL (200-900)
[2021-08-15 09:45] LABS: Estimated Average Glucose 91 mg/dL; Hemoglobin A1c % 4.8 %
[2021-08-15] MEDS: Nicotine Polacrilex 2 MG GUM BUCCAL ×2 (11:45→14:27)
[2021-08-15 12:31] VITALS: BP 134/63; PULSE 118
[2021-08-15] MEDS: cloNIDine HCL 0.1 MG TABLET PO (12:31)
[2021-08-15] MEDS: LORazepam 1 MG TABLET PO (12:31)
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
[2021-08-15] MEDS: QUEtiapine Fumarate 300 MG TABLET PO (21:00)
[2021-08-15 21:14] VITALS: BP 129/78; PULSE 112; RESP 20; TEMP 36.7; O2SAT 97
[2021-08-16] MEDS: Nicotine Polacrilex 2 MG GUM BUCCAL ×6 (00:54→23:42)
[2021-08-16 06:00] VITALS: BP 131/72; PULSE 96; RESP 18; TEMP 37.2; O2SAT 96
[2021-08-16] MEDS: Multivitamin TABLET 1 TAB PO (08:35)
[2021-08-16] MEDS: Divalproex Sodium ER 500 MG TAB.ER.24H PO ×2 (08:35→22:21)
[2021-08-16] MEDS: ARIPiprazole 20 MG TABLET PO (08:35)
[2021-08-16] MEDS: Ferrous Sulfate 324 MG TABLET.DR PO (08:35)
[2021-08-16] MEDS: QUEtiapine Fumarate 100 MG TABLET PO (08:35)
[2021-08-16] MEDS: cloNIDine HCL 0.1 MG TABLET PO (10:58)
[2021-08-16] MEDS: OLANZapine 10 MG TABLET PO (10:58)
[2021-08-16 11:08] LABS: Ammonia 39 umol/L (13-55)
[2021-08-16 11:18] LABS: Alanine Aminotransferase 22 U/L (0-40); Albumin Level 4.2 g/dL (3.5-5.0); Alkaline Phosphatase 83 U/L (39-117); Aspartate Amino Transferase 20 U/L (5-37); Bilirubin Direct < 0.2 mg/dL (0.0-0.5); Bilirubin Total 0.3 mg/dL (0.0-1.0); Total Protein 7.5 g/dL (6.5-8.0)
[2021-08-16] MEDS: LORazepam 1 MG TABLET PO ×2 (11:39→23:42)
--- NOTE | 2021-08-16 12:00 | MHC.RECOVRN ---
Met with pt in group room to discuss substance use and available recovery supports as well as MOUD. Upon first interaction, pt repeating I want to go home. Explained t/w role to pt and pt willing to engage in discussion. Pt reports using heroin, 1 bag IN daily since age 20. Pt denies other substances. Pt currently experiencing withdrawal symptoms including rhinorrhea and body aches. Pt states I'm sick as fk. Pt expresses desire to initate Suboxone while inpatient, reports having utilized it before while in the hospital. Pt would like to continue tx outpatient. Discussed with Dennise Hess APRN.
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
[2021-08-16] MEDS: buPROPion HCL 75 MG TABLET PO (12:14)
[2021-08-16] MEDS: Buprenorphine/Naloxone 2/0.5mg FILM 0.5 FILM SUBLINGUAL (14:53)
[2021-08-16] MEDS: QUEtiapine Fumarate 300 MG TABLET PO (22:21)
[2021-08-16 23:40] LABS: COVID-19 Test Negative (Negative); IDNOW Serial# 9DD0AD1C
[2021-08-16] MEDS: Acetaminophen 325 MG TABLET 650 MG PO (23:43)
[2021-08-17 05:55] VITALS: BP 139/62; PULSE 122
[2021-08-17] MEDS: cloNIDine HCL 0.1 MG TABLET PO (05:55)
[2021-08-17] MEDS: Nicotine Polacrilex 2 MG GUM BUCCAL ×2 (05:55→09:43)
[2021-08-17 05:57] VITALS: BP 139/62; PULSE 122; RESP 18; TEMP 36.7; O2SAT 95
[2021-08-17] MEDS: Buprenorphine/Naloxone 2/0.5mg FILM 1 FILM SUBLINGUAL (06:41)
[2021-08-17] MEDS: buPROPion HCL 75 MG TABLET PO ×2 (06:41→08:03)
[2021-08-17] MEDS: Divalproex Sodium ER 500 MG TAB.ER.24H PO (08:03)
[2021-08-17] MEDS: QUEtiapine Fumarate 100 MG TABLET PO (08:03)
[2021-08-17] MEDS: Ferrous Sulfate 324 MG TABLET.DR PO (08:03)
[2021-08-17] MEDS: Multivitamin TABLET 1 TAB PO (08:03)
[2021-08-17] MEDS: ARIPiprazole 20 MG TABLET PO (08:03)
[2021-08-17 08:05] LABS: Valproate 18.8 mcg/mL (50.0-100.0)
[2021-08-17] MEDS: Nicotine 21 MG PATCH.TD24 TRANSDERMA (08:12)
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
== END 2021-08-17 10:05 | DRG 750 ==
LOC: HO.ED 08-14 02:24 → HO.PM5 08-14 16:47
PROVIDERS: Psychiatry & Neurology Psychiatry; Registered Nurse; Admitting Provider Psychiatry & Neurology Psychiatry; Emergency Provider Internal Medicine; Visit Provider Clinical Nurse Specialist Psychiatric/Mental Health, Adult
DX: F25.0 Schizoaffective disorder, bipolar type (principal); F11.90 Opioid use, unspecified, uncomplicated; Z20.822 Contact with and (suspected) exposure to COVID-19; Z79.899 Other long term (current) drug therapy
CPT/HCPCS: 36415; 80053; 80061; 80076; 80164; 80307; 82077; 82140; 82607; 82746; 83036; 83540; 83735; 84439; 84443; 85025; 87635; 93005; 99285

== ENCOUNTER 2022-03-07 12:39 | Inpatient (IN) | payer MEDICAID, SELFPAY ==
--- NOTE | ~2022-03-07 | US_ITS ---
EXAMINATION: ARTERIAL DUPLEX BILATERAL LEGS CLINICAL INFORMATION: Swollen and painful COMPARISON: None TECHNIQUE: Duplex Doppler of the bilateral lower extremity arterial systems was performed. FINDINGS: RIGHT: Common femoral: PSV 149 cm/s. Triphasic waveform. Deep femoral: PSV 114 cm/s. Triphasic waveform. Proximal superficial femoral: PSV 134 cm/s. Triphasic waveform. Mid superficial femoral: PSV 159 cm/s. Triphasic waveform. Distal superficial femoral: PSV 117 cm/s. Triphasic waveform. Popliteal: PSV 82 cm/s. Triphasic waveform. Posterior tibial: PSV 112 cm/s. Monophasic hyperemic waveform. Peroneal: PSV 46 cm/s. Triphasic waveform. LEFT: Common femoral: PSV 173 cm/s. Triphasic waveform. Deep femoral: PSV 116 cm/s. Triphasic waveform. Proximal superficial femoral: PSV 150 cm/s. Triphasic waveform. Mid superficial femoral: PSV 175 cm/s. Triphasic waveform. Distal superficial femoral: PSV 121 cm/s. Triphasic waveform. Popliteal: PSV 111 cm/s. Triphasic waveform. Posterior tibial: PSV 116 cm/s. Monophasic hyperemic waveform. Peroneal: PSV 46 cm/s. Triphasic waveform. US/US arterial duplex LE BI IMPRESSION: No evidence of hemodynamically significant stenotic disease. Both posterior tibial arteries have hyperemic waveforms which may relate to distal vasodilatation (which can be seen in entities such as cellulitis).
--- NOTE | ~2022-03-07 | XR_ITS ---
EXAMINATION: XR CHEST CLINICAL INFORMATION: ` Acidosis, evidence of infection. No source. COMPARISON: Chest x-ray 03/30/2021 TECHNIQUE: Frontal view of the chest was obtained. FINDINGS: The lungs are clear. No airspace consolidation, pleural effusion, or pneumothorax. The cardiomediastinal silhouette is within normal limits. No acute osseous injury. XR/XR chest 1V IMPRESSION: No acute pulmonary process.
--- NOTE | ~2022-03-07 | US_ITS ---
EXAMINATION: US VENOUS ULTRASOUND WITH DOPPLER LOWER EXTREMITY, BILATERAL CLINICAL INFORMATION: Swollen, painful COMPARISON: None TECHNIQUE: Ultrasound of the deep veins is performed from the hip to the calf with compression sonography and color and pulse Doppler assessment. Spectral analysis with color-flow imaging is performed. FINDINGS: RIGHT: There is normal venous compression and respiratory variation and augmented flow. The visualized common femoral vein, superficial femoral vein, profunda femoral vein, popliteal vein, and the trifurcation region shows no evidence of deep venous thrombosis. There is no significant popliteal fossa cyst. LEFT: There is normal venous compression and respiratory variation and augmented flow. The visualized common femoral vein, superficial femoral vein, profunda femoral vein, popliteal vein, and the trifurcation region shows no evidence of deep venous thrombosis. There is no significant popliteal fossa cyst. If the patient's symptoms persist, followup ultrasound in 5 days 7 days might be of value to exclude proximal propagation from a non-visualized calf vein. US/US venous duplex LE BI IMPRESSION: No DVT demonstrated in the bilateral lower extremities.
[2022-03-07 12:49] VITALS: BP 160/90; PULSE 80; O2SAT 97
[2022-03-07 12:50] VITALS: BP 120/53; PULSE 81; RESP 18; TEMP 36.6; O2SAT 99; BMI 39.5
--- NOTE | 2022-03-07 13:14 | ED_ITS ---
HPI - Psych General Chief Complaint: Psychiatric Symptoms <Patrizia Ellecarlos Pineda CNP - Last Filed: 03/07/22 20:20> Stated Complaint: SECT 12,FROM [facility],NO LONGER AN INMATE [facility] EMS <Patrizia Pineda CNP - Last Filed: 03/07/22 20:20> Time Seen by Provider: 03/07/22 13:13 <Patrizia Pineda CNP - Last Filed: 03/07/22 20:20> Source: patient <Patrizia Almeida KEZIA Pineda - Last Filed: 03/07/22 20:20> Mode of arrival: EMS <Patrizianasir Pineda CNP - Last Filed: 03/07/22 20:20> Limitations: no limitations <Patrizia Ellecarlos Pineda CNP - Last Filed: 03/07/22 20:20> History of Present Illness HPI Narrative: Patient presents to the Emergency Department on a Section 12 via EMS from [facility]. Patient with a history of polysubstance abuse including crack cocaine and heroin. Was reportedly evaluated by [facility] while in group home, it is unclear exactly when this was. Patient was to be released yesterday, he instead was released today. Upon attempting to release patient he was becoming agitated striking the richard, and reporting withdrawal symptoms. Patient was placed on a Section 12 for transferred to the hospital. Patient is a very vague historian. When asked whether he is interested in detox he states yes. Reporting stomach upset and headache at this time. <Patrizia Pineda CNP - Last Filed: 03/07/22 20:20> Related Data Home Medications: Home Medications Medication Instructions Recorded Confirmed No Known Home Meds 03/07/22 03/07/22 <Patrizia Pineda CNP - Last Filed: 03/07/22 20:20> Allergies/Adverse Reactions: Allergies Allergy/AdvReac Type Severity Reaction Status Date / Time No Known Allergies Allergy Verified 03/07/22 13:00 [No Known Allergies*] <Patrizianasir Pineda CNP - Last Filed: 03/07/22 20:20> Review of Systems Review of Systems: Constitutional : No Fever, No Chills ENT/Mouth : No Ear Pain, No Nasal Congestion, No sore throat Eyes: No Eye Pain, No Swelling, No Redness Cardiovascular : No Chest Pain, No SOB Respiratory : No Cough, No Sputum, No Dyspnea Gastrointestinal : Positive Nausea, No Vomiting, No Diarrhea, No Hematochezia, No Melena Genitourinary : No Dysuria, No Urinary Frequency, No Hematuria Musculoskeletal : No Myalgias Skin : No Skin Lesions, No rash Neuro : No Weakness, No Numbness, No Paresthesias, No Dizziness, positive Headache Psych : Denies Anxiety, denies Depression, denies SI/HI Heme/Lymph: No Lymphadenopathy Endocrine : No Polyuria, No Polydipsia <Patrizia Pineda CNP - Last Filed: 03/07/22 20:20> Yes all other systems are reviewed and are negative <Patrizia Pineda CNP - Last Filed: 03/07/22 20:20> [facility] Past Medical History Attestation statement: The following information was validated with the patient. <Patrizia Pineda CNP - Last Filed: 03/07/22 20:20> Source: old records reviewed <Patrizia Pineda CNP - Last Filed: 03/07/22 20:20> Medical History: Medical History Opioid use disorder Schizoaffective disorder Schizoaffective disorder, bipolar type <Patrizia Pineda CNP - Last Filed: 03/07/22 20:20> Social History Social History: Social History Household Members: Family Housing: House Do you presently have visiting nurse or other home services: No Unable to assess alcohol history related to: Refusing to respond Alcohol intake: never Patient Tobacco Use Status: Current everyday Tobacco user Tobacco use type: Cigarette e-Cigarette/Vaping Use: Never Used Second Hand Smoke Exposure: No Substance Use Type: Crack/Cocaine, Marijuana and Opiates Advance Directives: No Advance Directives Information Provided: No service: No Current occupational status: unemployed Sexual orientation: Straight/Heterosexual <Patrizia Pineda CNP - Last Filed: 03/07/22 20:20> Physical Exam Vital Signs: Vital Signs: Last Vital Signs Temp 97.8 F 03/08/22 03:04 Pulse 81 03/08/22 03:04 Resp 17 03/08/22 03:04 BP 135/85 03/08/22 03:04 Pulse Ox 98 03/08/22 03:04 O2 Del Method 03/08/22 03:04 BMI result Body Mass Index 39.5 Vital signs have been reviewed as normal and appeared to be correct. Blood pressure normal.? Heart rate normal.? Respiration rate normal. Temperature normal.? Oxygen saturation normal. <Patrizia Pineda CNP - Last Filed: 03/07/22 20:20> Vital Signs: Last Vital Signs Temp 97.8 F 03/08/22 03:04 Pulse 81 03/08/22 03:04 Resp 17 03/08/22 03:04 BP 135/85 03/08/22 03:04 Pulse Ox 98 03/08/22 03:04 O2 Del Method 03/08/22 03:04 BMI result Body Mass Index 39.5 <ASHLEY Eagle - Last Filed: 03/07/22 21:21> Vital Signs: Last Vital Signs Temp 97.8 F 03/08/22 03:04 Pulse 81 03/08/22 03:04 Resp 17 03/08/22 03:04 BP 135/85 03/08/22 03:04 Pulse Ox 98 03/08/22 03:04 O2 Del Method 03/08/22 03:04 BMI result Body Mass Index 39.5 <Margot Collado MD - Last Filed: 03/08/22 07:27> Appearance: Alert.?Oriented to person, place and time. No acute distress.?Normal affect. Eyes: Pupils equal, round and reactive to light.? ENT: Pharynx normal.?? Neck: Normal inspection.? Neck supple.?? CVS: Heart sounds normal. Normal heart rate and rhythm.? Pulses normal.?? Respiratory: No respiratory distress.? Lung sounds clear to auscultation bilaterally?? Abdomen: Soft and non-tender. Normoactive bowel sounds. ? Skin: Skin warm and dry.? Normal skin color.? Extremities: No lower extremity edema.? Neuro: Moves all extremities spontaneously. Sensation intact bilaterally. CN II- XII intact. No focal neuro deficits. Ambulates with normal steady gait. <Patrizia Pineda CNP - Last Filed: 03/07/22 20:20> Course Course Course Narrative: Patient is a 21-year-old male with a past medical history of polysubstance abuse and schizophrenia presenting on a Section 12 for agitated behaviors after being [facility] from [facility]. Patient states that he last used heroin and crack cocaine yesterday. It is unclear exactly how long he was in group home for. When asked if he is interested in detox he does report yes. He is currently reporting a headache and nausea, will provide ibuprofen and Zofran orally. Denies any suicidal or homicidal ideations. Patient was reportedly on Ott Orders, but has not been taking any medications since November 2021. Patient to be evaluated by crisis/ care team with assistant coach. <Patrizia Pineda CNP - Last Filed: 03/07/22 20:20> Reevaluation(s) Reevaluation #1: CBC reveals normocytic anemia consistent with baseline, hypokalemia with potassium 2.9, asymptomatic, will replace orally. Drug abuse screen positive for fentanyl and marijuana. At this time, patient will be placed in physician observation as he will require additional time to be evaluated by crisis. <Patrizia Pineda CNP - Last Filed: 03/07/22 20:20> Reevaluation #2: Patient will be in his Section 12 inpatient bed search, diagnosis unspecified schizophrenia, evaluated by the behavioral health team. Comfortable with plan <ASHLEY Eagle - Last Filed: 03/07/22 21:21> Time: 21:21 <ASHLEY Eagle - Last Filed: 03/07/22 21:21> Reevaluation #3: 21 years old male came in for agitation, patient with history of unspec ified schizophrenia, patient is Section 12 was evaluated by N and for bed search, patient has uneventful night, physician observation starting now at 07:30. <Margot Collado MD - Last Filed: 03/08/22 07:27> Time: 07:26 <Margot Collado MD - Last Filed: 03/08/22 07:27> MDM - Psych Lab Data Result diagrams: : 03/07/22 14:21 03/07/22 14:21 <Patrizia Pineda CNP - Last Filed: 03/07/22 20:20> Labs: Lab Results 03/07/22 03/07/22 03/07/22 Range/Units 13:22 13:22 13:22 WBC (4.8-10.8) X10*3/uL RBC (4.60-5.80) X10*6/uL Hgb (14.0-18.0) g/dl Hct (42.0-52.0) % MCV (80.0-98.0) fL MCH (27.0-33.0) pg MCHC (31.0-36.0) g/dl RDW (11.0-16.0) % Plt Count (160-400) X10*3/uL MPV (9.4-12.4) fL Immature Gran % (Auto) (0.0-0.4) % Neut % (Auto) (45-73) % Lymph % (Auto) (20-40) % [place] % (Auto) (2-11) % Eos % (Auto) (0-4) % Baso % (Auto) (0-2) % Lymph # (Auto) (1.2-4.9) X10*3/uL [place] # (Auto) (0.1-1.2) X10*3/uL Eos # (Auto) (0.0-0.4) X10*3/uL Baso # (Auto) (0.0-0.2) X10*3/uL Abs Immat Gran (auto) (0.00-0.03) X10*3/uL Absolute Neuts (auto) (2.0-8.3) x10*3/uL Absolute Nucleated RBC (0.0-0.012) X10*3/uL Nucleated RBC % (auto) (0.0-0.2) /100WBC Sodium (135-145) mmol/L Potassium (3.3-5.1) mmol/L Chloride (96-108) mmol/L Carbon Dioxide (22-29) mmol/L Anion Gap (12-20) BUN (9-16) mg/dL Creatinine (0.5-1.4) mg/dL Estim Creat Clear Calc Estimated GFR Random Glucose (60-115) mg/dL Calcium (8.4-10.2) mg/dL Urine Color YELLOW Urine Appearance CLEAR Urine pH 7.0 (5.0-8.0) Ur Specific [place] <= 1.005 (1.005-1.025) Urine Protein NEG (NEG-TRACE) MG/DL Urine Glucose (UA) NEG (NEG) MG/DL Urine Ketones >=80 (NEG) MG/DL Urine Blood NEG (NEG) Urine Nitrite NEG (NEG) Ur Leukocyte Esterase NEG (NEG) Urine Opiates Screen Not Detected (Not Detect) Urine Fentanyl Screen POSITIVE H (Not Detect) Ur Barbiturates Screen Not Detected (Not Detect) Ur Phencyclidine Scrn Not Detected (Not Detect) Ur Amphetamines Screen Not Detected (Not Detect) U Benzodiazepines Scrn Not Detected (Not Detect) Urine Cocaine Screen Not Detected (Not Detect) U Marijuana (THC) Screen POSITIVE H (Not Detect) Ethyl Alcohol mg/dL COVID-19 (JOSUE) Negative (Negative) COVID-19 Clin Com See Note 03/07/22 03/07/22 Range/Units 14:21 14:21 WBC 9.4 (4.8-10.8) X10*3/uL RBC 4.38 L (4.60-5.80) X10*6/uL Hgb 12.2 L (14.0-18.0) g/dl Hct 36.6 L (42.0-52.0) % MCV 83.6 (80.0-98.0) fL MCH 27.9 (27.0-33.0) pg MCHC 33.3 (31.0-36.0) g/dl RDW 13.4 (11.0-16.0) % Plt Count 291 (160-400) X10*3/uL MPV 9.8 (9.4-12.4) fL Immature Gran % (Auto) 0.7 H (0.0-0.4) % Neut % (Auto) 72.7 (45-73) % Lymph % (Auto) 18.9 L (20-40) % [place] % (Auto) 7.4 (2-11) % Eos % (Auto) 0.2 (0-4) % Baso % (Auto) 0.1 (0-2) % Lymph # (Auto) 1.8 (1.2-4.9) X10*3/uL [place] # (Auto) 0.7 (0.1-1.2) X10*3/uL Eos # (Auto) 0.0 (0.0-0.4) X10*3/uL Baso # (Auto) 0.0 (0.0-0.2) X10*3/uL Abs Immat Gran (auto) 0.07 H (0.00-0.03) X10*3/uL Absolute Neuts (auto) 6.9 (2.0-8.3) x10*3/uL Absolute Nucleated RBC 0.000 (0.0-0.012) X10*3/uL Nucleated RBC % (auto) 0.0 (0.0-0.2) /100WBC Sodium 137 (135-145) mmol/L Potassium 2.9 L (3.3-5.1) mmol/L Chloride 95 L (96-108) mmol/L Carbon Dioxide 27 (22-29) mmol/L Anion Gap 18 (12-20) BUN 4 L (9-16) mg/dL Creatinine 0.58 (0.5-1.4) mg/dL Estim Creat Clear Calc 257.2 Estimated GFR > 60 Random Glucose 119 H (60-115) mg/dL Calcium 8.5 (8.4-10.2) mg/dL Urine Color Urine Appearance Urine pH (5.0-8.0) Ur Specific [place] (1.005-1.025) Urine Protein (NEG-TRACE) MG/DL Urine Glucose (UA) (NEG) MG/DL Urine Ketones (NEG) MG/DL Urine Blood (NEG) Urine Nitrite (NEG) Ur Leukocyte Esterase (NEG) Urine Opiates Screen (Not Detect) Urine Fentanyl Screen (Not Detect) Ur Barbiturates Screen (Not Detect) Ur Phencyclidine Scrn (Not Detect) Ur Amphetamines Screen (Not Detect) U Benzodiazepines Scrn (Not Detect) Urine Cocaine Screen (Not Detect) U Marijuana (THC) Screen (Not Detect) Ethyl Alcohol < 10 mg/dL COVID-19 (JOSUE) (Negative) COVID-19 Clin Com <Patrizia Pineda, BOARD MEMBER - Last Filed: 03/07/22 20:20> Lab Results 07/14/22 07/14/22 07/14/22 Range/Units 13:22 13:22 13:22 WBC (4.8-10.8) X10*3/uL RBC (4.60-5.80) X10*6/uL Hgb (14.0-18.0) g/dl Hct (42.0-52.0) % MCV (80.0-98.0) fL MCH (27.0-33.0) pg MCHC (31.0-36.0) g/dl RDW (11.0-16.0) % Plt Count (160-400) X10*3/uL MPV (9.4-12.4) fL Immature Gran % (Auto) (0.0-0.4) % Neut % (Auto) (45-73) % Lymph % (Auto) (20-40) % [place] % (Auto) (2-11) % Eos % (Auto) (0-4) % Baso % (Auto) (0-2) % Lymph # (Auto) (1.2-4.9) X10*3/uL [place] # (Auto) (0.1-1.2) X10*3/uL Eos # (Auto) (0.0-0.4) X10*3/uL Baso # (Auto) (0.0-0.2) X10*3/uL Abs Immat Gran (auto) (0.00-0.03) X10*3/uL Absolute Neuts (auto) (2.0-8.3) x10*3/uL Absolute Nucleated RBC (0.0-0.012) X10*3/uL Nucleated RBC % (auto) (0.0-0.2) /100WBC Sodium (135-145) mmol/L Potassium (3.3-5.1) mmol/L Chloride (96-108) mmol/L Carbon Dioxide (22-29) mmol/L Anion Gap (12-20) BUN (9-16) mg/dL Creatinine (0.5-1.4) mg/dL Estim Creat Clear Calc Estimated GFR Random Glucose (60-115) mg/dL Calcium (8.4-10.2) mg/dL Urine Color YELLOW Urine Appearance CLEAR Urine pH 7.0 (5.0-8.0) Ur Specific [place] <= 1.005 (1.005-1.025) Urine Protein NEG (NEG-TRACE) MG/DL Urine Glucose (UA) NEG (NEG) MG/DL Urine Ketones >=80 (NEG) MG/DL Urine Blood NEG (NEG) Urine Nitrite NEG (NEG) Ur Leukocyte Esterase NEG (NEG) Urine Opiates Screen Not Detected (Not Detect) Urine Fentanyl Screen POSITIVE H (Not Detect) Ur Barbiturates Screen Not Detected (Not Detect) Ur Phencyclidine Scrn Not Detected (Not Detect) Ur Amphetamines Screen Not Detected (Not Detect) U Benzodiazepines Scrn Not Detected (Not Detect) Urine Cocaine Screen Not Detected (Not Detect) U Marijuana (THC) Screen POSITIVE H (Not Detect) Ethyl Alcohol mg/dL COVID-19 (JOSUE) Negative (Negative) COVID-19 Clin Com See Note 03/07/22 03/07/22 Range/Units 14:21 14:21 WBC 9.4 (4.8-10.8) X10*3/uL RBC 4.38 L (4.60-5.80) X10*6/uL Hgb 12.2 L (14.0-18.0) g/dl Hct 36.6 L (42.0-52.0) % MCV 83.6 (80.0-98.0) fL MCH 27.9 (27.0-33.0) pg MCHC 33.3 (31.0-36.0) g/dl RDW 13.4 (11.0-16.0) % Plt Count 291 (160-400) X10*3/uL MPV 9.8 (9.4-12.4) fL Immature Gran % (Auto) 0.7 H (0.0-0.4) % Neut % (Auto) 72.7 (45-73) % Lymph % (Auto) 18.9 L (20-40) % [place] % (Auto) 7.4 (2-11) % Eos % (Auto) 0.2 (0-4) % Baso % (Auto) 0.1 (0-2) % Lymph # (Auto) 1.8 (1.2-4.9) X10*3/uL [place] # (Auto) 0.7 (0.1-1.2) X10*3/uL Eos # (Auto) 0.0 (0.0-0.4) X10*3/uL Baso # (Auto) 0.0 (0.0-0.2) X10*3/uL Abs Immat Gran (auto) 0.07 H (0.00-0.03) X10*3/uL Absolute Neuts (auto) 6.9 (2.0-8.3) x10*3/uL Absolute Nucleated RBC 0.000 (0.0-0.012) X10*3/uL Nucleated RBC % (auto) 0.0 (0.0-0.2) /100WBC Sodium 137 (135-145) mmol/L Potassium 2.9 L (3.3-5.1) mmol/L Chloride 95 L (96-108) mmol/L Carbon Dioxide 27 (22-29) mmol/L Anion Gap 18 (12-20) BUN 4 L (9-16) mg/dL Creatinine 0.58 (0.5-1.4) mg/dL Estim Creat Clear Calc 257.2 Estimated GFR > 60 Random Glucose 119 H (60-115) mg/dL Calcium 8.5 (8.4-10.2) mg/dL Urine Color Urine Appearance Urine pH (5.0-8.0) Ur Specific [place] (1.005-1.025) Urine Protein (NEG-TRACE) MG/DL Urine Glucose (UA) (NEG) MG/DL Urine Ketones (NEG) MG/DL Urine Blood (NEG) Urine Nitrite (NEG) Ur Leukocyte Esterase (NEG) Urine Opiates Screen (Not Detect) Urine Fentanyl Screen (Not Detect) Ur Barbiturates Screen (Not Detect) Ur Phencyclidine Scrn (Not Detect) Ur Amphetamines Screen (Not Detect) U Benzodiazepines Scrn (Not Detect) Urine Cocaine Screen (Not Detect) U Marijuana (THC) Screen (Not Detect) Ethyl Alcohol < 10 mg/dL COVID-19 (JOSUE) (Negative) COVID-19 Clin Com <ASHLEY Eagle - Last Filed: 03/07/22 21:21> Lab Results 03/07/22 03/07/22 03/07/22 Range/Units 13:22 13:22 13:22 WBC (4.8-10.8) X10*3/uL RBC (4.60-5.80) X10*6/uL Hgb (14.0-18.0) g/dl Hct (42.0-52.0) % MCV (80.0-98.0) fL MCH (27.0-33.0) pg MCHC (31.0-36.0) g/dl RDW (11.0-16.0) % Plt Count (160-400) X10*3/uL MPV (9.4-12.4) fL Immature Gran % (Auto) (0.0-0.4) % Neut % (Auto) (45-73) % Lymph % (Auto) (20-40) % [place] % (Auto) (2-11) % Eos % (Auto) (0-4) % Baso % (Auto) (0-2) % Lymph # (Auto) (1.2-4.9) X10*3/uL [place] # (Auto) (0.1-1.2) X10*3/uL Eos # (Auto) (0.0-0.4) X10*3/uL Baso # (Auto) (0.0-0.2) X10*3/uL Abs Immat Gran (auto) (0.00-0.03) X10*3/uL Absolute Neuts (auto) (2.0-8.3) x10*3/uL Absolute Nucleated RBC (0.0-0.012) X10*3/uL Nucleated RBC % (auto) (0.0-0.2) /100WBC Sodium (135-145) mmol/L Potassium (3.3-5.1) mmol/L Chloride (96-108) mmol/L Carbon Dioxide (22-29) mmol/L Anion Gap (12-20) BUN (9-16) mg/dL Creatinine (0.5-1.4) mg/dL Estim Creat Clear Calc Estimated GFR Random Glucose (60-115) mg/dL Calcium (8.4-10.2) mg/dL Urine Color YELLOW Urine Appearance CLEAR Urine pH 7.0 (5.0-8.0) Ur Specific [place] <= 1.005 (1.005-1.025) Urine Protein NEG (NEG-TRACE) MG/DL Urine Glucose (UA) NEG (NEG) MG/DL Urine Ketones >=80 (NEG) MG/DL Urine Blood NEG (NEG) Urine Nitrite NEG (NEG) Ur Leukocyte Esterase NEG (NEG) Urine Opiates Screen Not Detected (Not Detect) Urine Fentanyl Screen POSITIVE H (Not Detect) Ur Barbiturates Screen Not Detected (Not Detect) Ur Phencyclidine Scrn Not Detected (Not Detect) Ur Amphetamines Screen Not Detected (Not Detect) U Benzodiazepines Scrn Not Detected (Not Detect) Urine Cocaine Screen Not Detected (Not Detect) U Marijuana (THC) Screen POSITIVE H (Not Detect) Ethyl Alcohol mg/dL COVID-19 (JOSUE) Negative (Negative) COVID-19 Clin Com See Note 03/07/22 03/07/22 Range/Units 14:21 14:21 WBC 9.4 (4.8-10.8) X10*3/uL RBC 4.38 L (4.60-5.80) X10*6/uL Hgb 12.2 L (14.0-18.0) g/dl Hct 36.6 L (42.0-52.0) % MCV 83.6 (80.0-98.0) fL MCH 27.9 (27.0-33.0) pg MCHC 33.3 (31.0-36.0) g/dl RDW 13.4 (11.0-16.0) % Plt Count 291 (160-400) X10*3/uL MPV 9.8 (9.4-12.4) fL Immature Gran % (Auto) 0.7 H (0.0-0.4) % Neut % (Auto) 72.7 (45-73) % Lymph % (Auto) 18.9 L (20-40) % [place] % (Auto) 7.4 (2-11) % Eos % (Auto) 0.2 (0-4) % Baso % (Auto) 0.1 (0-2) % Lymph # (Auto) 1.8 (1.2-4.9) X10*3/uL [place] # (Auto) 0.7 (0.1-1.2) X10*3/uL Eos # (Auto) 0.0 (0.0-0.4) X10*3/uL Baso # (Auto) 0.0 (0.0-0.2) X10*3/uL Abs Immat Gran (auto) 0.07 H (0.00-0.03) X10*3/uL Absolute Neuts (auto) 6.9 (2.0-8.3) x10*3/uL Absolute Nucleated RBC 0.000 (0.0-0.012) X10*3/uL Nucleated RBC % (auto) 0.0 (0.0-0.2) /100WBC Sodium 137 (135-145) mmol/L Potassium 2.9 L (3.3-5.1) mmol/L Chloride 95 L (96-108) mmol/L Carbon Dioxide 27 (22-29) mmol/L Anion Gap 18 (12-20) BUN 4 L (9-16) mg/dL Creatinine 0.58 (0.5-1.4) mg/dL Estim Creat Clear Calc 257.2 Estimated GFR > 60 Random Glucose 119 H (60-115) mg/dL Calcium 8.5 (8.4-10.2) mg/dL Urine Color Urine Appearance Urine pH (5.0-8.0) Ur Specific [place] (1.005-1.025) Urine Protein (NEG-TRACE) MG/DL Urine Glucose (UA) (NEG) MG/DL Urine Ketones (NEG) MG/DL Urine Blood (NEG) Urine Nitrite (NEG) Ur Leukocyte Esterase (NEG) Urine Opiates Screen (Not Detect) Urine Fentanyl Screen (Not Detect) Ur Barbiturates Screen (Not Detect) Ur Phencyclidine Scrn (Not Detect) Ur Amphetamines Screen (Not Detect) U Benzodiazepines Scrn (Not Detect) Urine Cocaine Screen (Not Detect) U Marijuana (THC) Screen (Not Detect) Ethyl Alcohol < 10 mg/dL COVID-19 (JOSUE) (Negative) COVID-19 Clin Com <Margot Collado MD - Last Filed: 03/08/22 07:27> Discharge Plan Discharge Clinical Impression: Polysubstance use disorder, Agitation <Patrizia Pineda CNP - Last Filed: 03/07/22 20:20> Patient Disposition: Still a Patient <Patrizia Pineda CNP - Last Filed: 03/07/22 20:20> Prescriptions: No Action No Known Home Meds <Patrizia Pineda CNP - Last Filed: 03/07/22 20:20>
[2022-03-07 13:15] VITALS: PULSE 81
[2022-03-07 13:51] LABS: Amphetamine Screen Urine Not Detected (Not Detect); Barbiturates, Urine Not Detected (Not Detect); Benzodiazepines Screen Urine Not Detected (Not Detect); Cannabinoid Screen Urine POSITIVE (Not Detect); Cocaine Screen Urine Not Detected (Not Detect); Fentanyl, urine POSITIVE (Not Detect); Opiate Screen Urine Not Detected (Not Detect); Phencyclidine Screen Urine Not Detected (Not Detect)
[2022-03-07 13:55] LABS: COVID-19 Test Negative (Negative); IDNOW Serial# 55D5AD1C
[2022-03-07] MEDS: Ibuprofen 600 MG TABLET PO (14:02)
[2022-03-07] MEDS: Ondansetron ODT 4 MG TAB.RAPDIS TRANSLINGU (14:03)
[2022-03-07 14:24] LABS: MANUAL DIFF FLAG NO
[2022-03-07 14:27] LABS: Appearance Urine CLEAR; Color Urine YELLOW; Glucose Urine UA NEG (NEG); Leukocyte Esterase Urine NEG (NEG); Nitrite Urine NEG (NEG); Specific Gravity - Urine <= 1.005 (1.005-1.025); Urine Blood NEG (NEG); Urine Ketones >=80 MG/DL (NEG); Urine Protein NEG (NEG-TRACE)
[2022-03-07 14:31] LABS: Basophils Percent Auto 0.1 % (0-2); Eosinophils Percent Auto 0.2 % (0-4); Hematocrit 36.6 % (42.0-52.0); Hemoglobin 12.2 g/dl (14.0-18.0); Imm Gran Abs Auto 0.07 X10*3/uL (0.00-0.03); Imm Gran Pct Auto 0.7 % (0.0-0.4); Lymphocytes Absolute Auto 1.8 X10*3/uL (1.2-4.9); Lymphocytes Percent Auto 18.9 % (20-40); Mean Corpuscular HGB Conc 33.3 g/dl (31.0-36.0); Mean Corpuscular Hemoglobin 27.9 pg (27.0-33.0); Mean Corpuscular Volume 83.6 fL (80.0-98.0); Mean Platelet Volume 9.8 fL (9.4-12.4); Monocytes Absolute Auto 0.7 X10*3/uL (0.1-1.2); Monocytes Percent Auto 7.4 % (2-11); Neutrophils Absolute Auto 6.9 x10*3/uL (2.0-8.3); Neutrophils Percent Auto 72.7 % (45-73); Platelet Count 291 X10*3/uL (160-400); Red Blood Count 4.38 X10*6/uL (4.60-5.80); Red Cell Distribution Width 13.4 % (11.0-16.0); White Blood Count 9.4 X10*3/uL (4.8-10.8)
[2022-03-07 14:41] LABS: Anion Gap 18 (12-20); Blood Urea Nitrogen 4 mg/dL (9-16); Calcium 8.5 mg/dL (8.4-10.2); Carbon Dioxide 27 mmol/L (22-29); Chloride 95 mmol/L (96-108); Creatinine Clr Calc Pharmacy 257.2; Estimated Glomerular Filt Rate > 60; Ethanol < 10 mg/dL; Glucose Random 119 mg/dL (60-115); Potassium 2.9 mmol/L (3.3-5.1); Sodium 137 mmol/L (135-145)
[2022-03-07 15:00] VITALS: RESP 16
[2022-03-07] MEDS: Acetaminophen 325 MG TABLET 975 MG PO (17:26)
[2022-03-07] MEDS: Potassium Chloride ER 20 MEQ TAB.ER.PRT 60 MEQ PO (17:27)
[2022-03-07] MEDS: diphenhydrAMINE HCL 25 MG TABLET 50 MG PO (23:45)
[2022-03-07] MEDS: HaloperidoL 5 MG TABLET 10 MG PO (23:46)
[2022-03-07] MEDS: LORazepam 1 MG TABLET 2 MG PO (23:46)
--- NOTE | 2022-03-08 | ECG_ITS ---
Test Reason : MEDICAL CLEARANCE Blood Pressure : / mmHG Vent. Rate : 093 BPM Atrial Rate : 093 BPM P-R Int : 140 ms QRS Dur : 088 ms QT Int : 390 ms P-R-T Axes : -06 034 027 degrees QTc Int : 484 ms Normal sinus rhythm Prolonged QT Abnormal ECG When compared with ECG of 14-AUG-2021 14:11, No significant change was found Referred By: Brenda Headley Electronically Signed By:EWA CRUZ MD
[2022-03-08 03:04] VITALS: BP 135/85; PULSE 81; RESP 17; TEMP 36.6; O2SAT 98
--- NOTE | 2022-03-08 05:10 | PC.NURSE ---
Patient slept intermittently, no distress observed/reported, endorsing visual hallucination, patient is off medication for months, patient's mother monitors patient's Ott order but left his mother's house currently living on street as homeless, patient engaged well with [facility] clinician, disposition section 12 inpatient bed search, Haldol 10 mg PO, Benadryl 50 mg PO, and Ativan 2 mg PO administered at 2345 with + effect, psych consult ordered to review medication, behavior unpredictable however patient is re-directable, VSS, will continue to monitor.
--- NOTE | 2022-03-08 07:04 | PC.NURSE ---
patient appears to remain asleep a few moments ago came out and asked for blankets, expresses self primitively. juice respirations are even and unlabored patient appears in no distress
[2022-03-08] MEDS: hydrOXYzine HCL 50 MG TABLET PO (10:19)
[2022-03-08] MEDS: Ibuprofen 600 MG TABLET PO (10:28)
--- NOTE | 2022-03-08 11:41 | PC.NURSE ---
attempted to call mother to get copy of cori robertson
[2022-03-08 16:16] VITALS: RESP 16
--- NOTE | 2022-03-08 16:29 | PC.NURSE ---
Cruzito Rahman @ [facility] requests update from floor staff upon admission at [phone]
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
[2022-03-08 20:50] VITALS: BP 129/83; PULSE 95; TEMP 36.8
[2022-03-08] MEDS: methADONE HCl 20 MG/2 ML ORAL.CONC 30 MG PO (21:52)
[2022-03-08 22:02] VITALS: BP 121/59; PULSE 89; TEMP 36.8
[2022-03-08 22:23] LABS: MANUAL DIFF FLAG NO
[2022-03-08 22:31] LABS: Basophils Percent Auto 0.2 % (0-2); Eosinophils Percent Auto 0.1 % (0-4); Hematocrit 37.4 % (42.0-52.0); Hemoglobin 12.4 g/dl (14.0-18.0); Imm Gran Abs Auto 0.08 X10*3/uL (0.00-0.03); Imm Gran Pct Auto 0.7 % (0.0-0.4); Lymphocytes Absolute Auto 2.5 X10*3/uL (1.2-4.9); Mean Corpuscular HGB Conc 33.2 g/dl (31.0-36.0); Mean Corpuscular Hemoglobin 28.1 pg (27.0-33.0); Mean Corpuscular Volume 84.6 fL (80.0-98.0); Mean Platelet Volume 10.1 fL (9.4-12.4); Monocytes Percent Auto 8.7 % (2-11); Neutrophils Absolute Auto 7.4 x10*3/uL (2.0-8.3); Neutrophils Percent Auto 67.3 % (45-73); Platelet Count 342 X10*3/uL (160-400); Red Blood Count 4.42 X10*6/uL (4.60-5.80); Red Cell Distribution Width 13.7 % (11.0-16.0)
[2022-03-08 22:52] LABS: Lactic Acid 2.6 mmol/L (0.5-2.0)
[2022-03-08 22:53] LABS: Alanine Aminotransferase 91 U/L (0-40); Albumin Level 3.3 g/dL (3.5-5.0); Alkaline Phosphatase 86 U/L (39-117); Anion Gap 14 (12-20); Aspartate Amino Transferase 52 U/L (5-37); Bilirubin Total < 0.2 mg/dL (0.0-1.0); Blood Urea Nitrogen 3 mg/dL (9-16); Calcium 8.6 mg/dL (8.4-10.2); Carbon Dioxide 29 mmol/L (22-29); Chloride 100 mmol/L (96-108); Creatinine Clr Calc Pharmacy 233.1; Estimated Glomerular Filt Rate > 60; Glucose Fasting 126 mg/dL (60-99); Potassium 3.1 mmol/L (3.3-5.1); Sodium 140 mmol/L (135-145); Total Protein 6.4 g/dL (6.5-8.0)
--- NOTE | 2022-03-08 23:29 | P.DS_ITS ---
DS: Providers Provider Date of Service: 03/08/22 Date of admission: 03/08/22 18:38 Date of discharge: 03/08/22 Primary care physician: Unknown Physician Admitting clinician: Brenda Headley Attending physician on admission: Reinaldo Martinez Consults: 03/08/22 21:02 Addiction Medicine Routine Consulting Provider: Dennise Hess Reason for consultation: pt in withdrawal, methadone start Has provider been notified: Yes Attending physician on discharge: Reinaldo Martinez Discharging clinician: Brenda Headley DS: Diagnosis Discharge Diagnosis (1) Schizoaffective disorder, bipolar type: Status: Acute (2) Cocaine use disorder: Status: Acute (3) Alcohol use disorder, moderate, dependence: Status: Acute (4) Leg swelling: Status: Acute DS: Medications Discharge Medications Home Medications: Home Medications Medication Instructions Recorded Confirmed No Known Home Meds 03/07/22 03/07/22 Mental Status Exam Mental Status Exam Narrative: A&O. Pt is unkempt, sweating, taking his shirt off, appears uncomfortable, flatulent. Asks for juice, says he is thirsty. Poor eye contact, inattentive. No Tics or Tremors. No abnormal involuntary movements. Agitated, guarded, difficult to engage. Non-pressured speech, non-spontaneous, at times refusing to speak. Mood is ?anxious,? affect is irritable. Denies SI/SIB/HI upon inquiry. Endorses CAH, Denies VH or delusional thought content. Thoughts are distracted, internal ly preoccupied. No known cognitive or memory impairment. Insight/ Judgment poor. Data Data Completed and Pending Completed studies during hospitalization [Text1]: 03/07/22 03/07/22 03/07/22 13:22 13:22 13:22 WBC RBC Hgb Hct MCV MCH MCHC RDW Plt Count MPV Immature Gran % (Auto) Neut % (Auto) Lymph % (Auto) [place] % (Auto) Eos % (Auto) Baso % (Auto) Lymph # (Auto) [place] # (Auto) Eos # (Auto) Baso # (Auto) Abs Immat Gran (auto) Absolute Neuts (auto) Absolute Nucleated RBC Nucleated RBC % (auto) ESR Sodium Potassium Chloride Carbon Dioxide Anion Gap BUN Creatinine Estim Creat Clear Calc Estimated GFR Random Glucose Fasting Glucose Lactic Acid Lactic Acid F/U @ 2Hr Lactic Acid F/U @ 4Hr Calcium Total Bilirubin Direct Bilirubin AST ALT Alkaline Phosphatase C-Reactive Protein Total Protein Albumin Urine Color YELLOW Urine Appearance CLEAR Urine pH 7.0 Ur Specific [place] <= 1.005 Urine Protein NEG Urine Glucose (UA) NEG Urine Ketones >=80 Urine Blood NEG Urine Nitrite NEG Ur Leukocyte Esterase NEG Urine Opiates Screen Not Detected Urine Fentanyl Screen POSITIVE H Ur Barbiturates Screen Not Detected Ur Phencyclidine Scrn Not Detected Ur Amphetamines Screen Not Detected U Benzodiazepines Scrn Not Detected Urine Cocaine Screen Not Detected U Marijuana (THC) Screen POSITIVE H Ethyl Alcohol COVID-19 (JOSUE) Negative COVID-19 Clin Com See Note Hepatitis A IgM Ab Hep Bs Antigen Hep Bs Antibody Hep B Core Total Ab Hepatitis C Ab (EIA) 03/07/22 03/07/22 03/08/22 14:21 14:21 22:17 WBC 9.4 11.0 H RBC 4.38 L 4.42 L Hgb 12.2 L 12.4 L Hct 36.6 L 37.4 L MCV 83.6 84.6 MCH 27.9 28.1 MCHC 33.3 33.2 RDW 13.4 13.7 Plt Count 291 342 MPV 9.8 10.1 Immature Gran % (Auto) 0.7 H 0.7 H Neut % (Auto) 72.7 67.3 Lymph % (Auto) 18.9 L 23.0 [place] % (Auto) 7.4 8.7 Eos % (Auto) 0.2 0.1 Baso % (Auto) 0.1 0.2 Lymph # (Auto) 1.8 2.5 [place] # (Auto) 0.7 1.0 Eos # (Auto) 0.0 0.0 Baso # (Auto) 0.0 0.0 Abs Immat Gran (auto) 0.07 H 0.08 H Absolute Neuts (auto) 6.9 7.4 Absolute Nucleated RBC 0.000 0.000 Nucleated RBC % (auto) 0.0 0.0 ESR Sodium 137 Potassium 2.9 L Chloride 95 L Carbon Dioxide 27 Anion Gap 18 BUN 4 L Creatinine 0.58 Estim Creat Clear Calc 257.2 Estimated GFR > 60 Random Glucose 119 H Fasting Glucose Lactic Acid Lactic Acid F/U @ 2Hr Lactic Acid F/U @ 4Hr Calcium 8.5 Total Bilirubin Direct Bilirubin AST ALT Alkaline Phosphatase C-Reactive Protein Total Protein Albumin Urine Color Urine Appearance Urine pH Ur Specific [place] Urine Protein Urine Glucose (UA) Urine Ketones Urine Blood Urine Nitrite Ur Leukocyte Esterase Urine Opiates Screen Urine Fentanyl Screen Ur Barbiturates Screen Ur Phencyclidine Scrn Ur Amphetamines Screen U Benzodiazepines Scrn Urine Cocaine Screen U Marijuana (THC) Screen Ethyl Alcohol < 10 COVID-19 (JOSUE) COVID-19 Clin Com Hepatitis A IgM Ab Hep Bs Antigen Hep Bs Antibody Hep B Core Total Ab Hepatitis C Ab (EIA) 03/08/22 03/08/22 03/09/22 22:17 22:17 01:43 WBC RBC Hgb Hct MCV MCH MCHC RDW Plt Count MPV Immature Gran % (Auto) Neut % (Auto) Lymph % (Auto) [place] % (Auto) Eos % (Auto) Baso % (Auto) Lymph # (Auto) [place] # (Auto) Eos # (Auto) Baso # (Auto) Abs Immat Gran (auto) Absolute Neuts (auto) Absolute Nucleated RBC Nucleated RBC % (auto) ESR Sodium 140 Potassium 3.1 L Chloride 100 Carbon Dioxide 29 Anion Gap 14 BUN 3 L Creatinine 0.64 Estim Creat Clear Calc 233.1 Estimated GFR > 60 Random Glucose Fasting Glucose 126 H Lactic Acid 2.6 H* Lactic Acid F/U @ 2Hr 2.6 H* Lactic Acid F/U @ 4Hr Calcium 8.6 Total Bilirubin < 0.2 Direct Bilirubin AST 52 H ALT 91 H Alkaline Phosphatase 86 C-Reactive Protein Total Protein 6.4 L Albumin 3.3 L D Urine Color Urine Appearance Urine pH Ur Specific [place] Urine Protein Urine Glucose (UA) Urine Ketones Urine Blood Urine Nitrite Ur Leukocyte Esterase Urine Opiates Screen Urine Fentanyl Screen Ur Barbiturates Screen Ur Phencyclidine Scrn Ur Amphetamines Screen U Benzodiazepines Scrn Urine Cocaine Screen U Marijuana (THC) Screen Ethyl Alcohol COVID-19 (JOSUE) COVID-19 Clin Com Hepatitis A IgM Ab Hep Bs Antigen Hep Bs Antibody Hep B Core Total Ab Hepatitis C Ab (EIA) 03/09/22 03/09/22 03/09/22 04:18 04:18 04:18 WBC 11.3 H RBC 4.29 L Hgb 12.2 L Hct 36.4 L MCV 84.8 MCH 28.4 MCHC 33.5 RDW 13.9 Plt Count 318 MPV 9.7 Immature Gran % (Auto) 0.5 H Neut % (Auto) 64.2 Lymph % (Auto) 27.4 [place] % (Auto) 7.3 Eos % (Auto) 0.4 Baso % (Auto) 0.2 Lymph # (Auto) 3.1 [place] # (Auto) 0.8 Eos # (Auto) 0.1 Baso # (Auto) 0.0 Abs Immat Gran (auto) 0.06 H Absolute Neuts (auto) 7.2 Absolute Nucleated RBC 0.000 Nucleated RBC % (auto) 0.0 ESR Sodium 138 Potassium 3.4 Chloride 100 Carbon Dioxide 31 H Anion Gap 10 L BUN 4 L Creatinine 0.59 Estim Creat Clear Calc 238.3 Estimated GFR > 60 Random Glucose 100 Fasting Glucose Lactic Acid Lactic Acid F/U @ 2Hr Lactic Acid F/U @ 4Hr 1.0 Calcium 8.5 Total Bilirubin Direct Bilirubin AST ALT Alkaline Phosphatase C-Reactive Protein Total Protein Albumin Urine Color Urine Appearance Urine pH Ur Specific [place] Urine Protein Urine Glucose (UA) Urine Ketones Urine Blood Urine Nitrite Ur Leukocyte Esterase Urine Opiates Screen Urine Fentanyl Screen Ur Barbiturates Screen Ur Phencyclidine Scrn Ur Amphetamines Screen U Benzodiazepines Scrn Urine Cocaine Screen U Marijuana (THC) Screen Ethyl Alcohol COVID-19 (JOSUE) COVID-19 Clin Com Hepatitis A IgM Ab Hep Bs Antigen Hep Bs Antibody Hep B Core Total Ab Hepatitis C Ab (EIA) 03/09/22 03/09/22 03/09/22 06:37 06:37 18:44 WBC RBC Hgb Hct MCV MCH MCHC RDW Plt Count MPV Immature Gran % (Auto) Neut % (Auto) Lymph % (Auto) [place] % (Auto) Eos % (Auto) Baso % (Auto) Lymph # (Auto) [place] # (Auto) Eos # (Auto) Baso # (Auto) Abs Immat Gran (auto) Absolute Neuts (auto) Absolute Nucleated RBC Nucleated RBC % (auto) ESR 13 Sodium Potassium Chloride Carbon Dioxide Anion Gap BUN Creatinine 0.66 Estim Creat Clear Calc 213.1 Estimated GFR > 60 Random Glucose Fasting Glucose Lactic Acid Lactic Acid F/U @ 2Hr Lactic Acid F/U @ 4Hr Calcium Total Bilirubin 0.2 Direct Bilirubin < 0.2 AST 52 H ALT 92 H Alkaline Phosphatase 90 C-Reactive Protein 2.13 H Total Protein 6.8 Albumin 3.5 Urine Color Urine Appearance Urine pH Ur Specific [place] Urine Protein Urine Glucose (UA) Urine Ketones Urine Blood Urine Nitrite Ur Leukocyte Esterase Urine Opiates Screen Urine Fentanyl Screen Ur Barbiturates Screen Ur Phencyclidine Scrn Ur Amphetamines Screen U Benzodiazepines Scrn Urine Cocaine Screen U Marijuana (THC) Screen Ethyl Alcohol COVID-19 (JOSUE) COVID-19 Clin Com Hepatitis A IgM Ab Hep Bs Antigen Hep Bs Antibody Hep B Core Total Ab Hepatitis C Ab (EIA) 03/10/22 03/10/22 03/10/22 06:33 07:39 07:39 WBC 8.3 RBC 4.32 L Hgb 12.0 L Hct 37.3 L MCV 86.3 MCH 27.8 MCHC 32.2 RDW 13.9 Plt Count 305 MPV 9.7 Immature Gran % (Auto) Neut % (Auto) Lymph % (Auto) [place] % (Auto) Eos % (Auto) Baso % (Auto) Lymph # (Auto) [place] # (Auto) Eos # (Auto) Baso # (Auto) Abs Immat Gran (auto) Absolute Neuts (auto) Absolute Nucleated RBC 0.000 Nucleated RBC % (auto) 0.0 ESR Sodium 140 Potassium 4.0 Chloride 105 Carbon Dioxide 27 Anion Gap 12 BUN 4 L Creatinine 0.61 Estim Creat Clear Calc 230.5 Estimated GFR > 60 Random Glucose 109 Fasting Glucose Lactic Acid Lactic Acid F/U @ 2Hr Lactic Acid F/U @ 4Hr Calcium 8.6 Total Bilirubin < 0.2 Direct Bilirubin < 0.2 AST 47 H ALT 78 H Alkaline Phosphatase 76 C-Reactive Protein Total Protein 6.1 L Albumin 3.2 L Urine Color Urine Appearance Urine pH Ur Specific [place] Urine Protein Urine Glucose (UA) Urine Ketones Urine Blood Urine Nitrite Ur Leukocyte Esterase Urine Opiates Screen Urine Fentanyl Screen Ur Barbiturates Screen Ur Phencyclidine Scrn Ur Amphetamines Screen U Benzodiazepines Scrn Urine Cocaine Screen U Marijuana (THC) Screen Ethyl Alcohol COVID-19 (JOSUE) COVID-19 Clin Com Hepatitis A IgM Ab Nonreactive Hep Bs Antigen Negative Hep Bs Antibody NONREACTIVE Hep B Core Total Ab Nonreactive Hepatitis C Ab (EIA) Nonreactive 03/09/22 01:43 Blood - Venous Blood Culture - Preliminary No growth after 48 hours. 03/09/22 01:43 Blood - Venous Blood Culture - Preliminary No growth after 48 hours. 03/08/22 22:17 Blood - Venous Blood Culture - Preliminary No growth after 48 hours. 03/08/22 22:17 Blood - Venous Blood Culture - Preliminary No growth after 48 hours. Imaging Diagnostic Imaging Impressions Chest X-Ray 03/09/22 00:11 IMPRESSION: No acute pulmonary process. Venous Duplex 03/09/22 00:27 IMPRESSION: No DVT demonstrated in the bilateral lower extremities. Duplex Scan Lower Extremity Artery 03/09/22 12:20 IMPRESSION: No evidence of hemodynamically significant stenotic disease. Both posterior tibial arteries have hyperemic waveforms which may relate to distal vasodilatation (which can be seen in entities such as cellulitis). DS: Summary Hospital Course Hospital Course: Christian is a 21 y.o. Male who carries a dx of polysubstance abuse (opioid, crack cocaine, cannabis), alcohol use disorder, and schizoaffective disorder, bipolar type. Hx of previous admissions to [facility] M5, Section VIII civil commitment. Has DHM, [facility] ACCS, and a Inocencio?s Order. Has been non-adherent on meds for some time. He presented to [facility] ED on 03/07/22 on a Section 12a via EMS from [facility] after being evaluated by [facility] there due to agitation, striking the richard, reporting AH, responding to internal stimuli, and reporting withdrawal symptoms. Pt complains of pain bilaterally in LE. Patient has history of polysubstance IV drug use, injects crack cocaine but denies injecting his feet.? Patient denies any trauma or injury to his feet. Afebrile. Hospitalist was consulted. Labs were obtained showed leukocytosis of 11.3, lactic acidosis of 2.6, AST of 52, ALT of 91, which were previously normal Venous duplex of the lower extremities is negative for any DVT Chest x-ray negative, Arterial duplex pending Pt was transferred to the floor and start him on IV fluids and IV antibiotics pending blood culture results. Status at Discharge Functional status at discharge: independent ambulation Overall status at discharge: other Time Spent with Patient Time attestation: Total time spent providing and/or coordinating discharge services: Time spent: Less than 30 minutes Discharge Plan Discharge Patient Disposition: Xfer Psychiatric Hosp Referrals: Physician,Unknown J [Primary Care Provider] - 1 Week Discharge Medications: No Action nicotine (polacrilex) 2 mg Gum 2 mg buccal Q2H PRN (Reason: nicotine withdrawal) Qty: 60 0RF olanzapine 5 mg Tablet 5 mg PO Q6H PRN (Reason: agitation, psychosis, anxiety) Qty: 30 0RF melatonin 3 mg Tablet 6 mg PO BEDTIME PRN (Reason: insomnia) Qty: 30 0RF quetiapine 100 mg Tablet 100 mg PO BEDTIME PRN (Reason: Insomnia) Qty: 30 0RF divalproex 500 mg Tablet Extended Release 24 Hr 500 mg PO BEDTIME Qty: 30 0RF benztropine 1 mg Tablet 1 mg PO BID Qty: 60 0RF nicotine 21 mg/24 hr Patch 24 Hour 21 mg transdermal DAILY Qty: 30 0RF docusate sodium 100 mg Capsule 100 mg PO DAILY PRN (Reason: Constipation) Qty: 30 0RF pyridoxine (vitamin B6) 50 mg Tablet 25 mg PO DAILY Qty: 30 0RF folic acid 1 mg Tablet 1 mg PO DAILY Qty: 30 0RF aripiprazole [Abilify] 20 mg Tablet 20 mg PO DAILY Qty: 30 0RF ferrous sulfate 324 mg (65 mg iron) Tablet,Delayed Release (Dr/Ec) 324 mg PO DAILY Qty: 30 0RF thiamine mononitrate (vit B1) 100 mg Tablet 50 mg PO DAILY Qty: 30 0RF buprenorphine-naloxone [Suboxone] 8-2 mg Film 1 film sublingual DAILY Qty: 0 0RF naloxone [Narcan] 4 mg/actuation spray,non-aerosol 4 mg intranasal Q2M PRN (Reason: opioid overdose) Qty: 2 0RF Rx Instructions: spray 1 dose into ONE nostril; alternate nostrils w each dose until help arrives buprenorphine-naloxone [Suboxone] 8-2 mg film 1 film sublingual DAILY Qty: 7 0RF Discharge Orders: Discharge Order (Routine); Ordered 03/10/22 Ordered By: Sugar Brown Activity on Discharge: As tolerated Stand Alone Forms: Patient Portal Discharge page Health Concerns: Lower extremity cellulitis and swelling Elevated LFTs Plan of Treatment: Complete course of doxycycline keep legs elevated when able follow up results of hepatitis screening Discharge Date/Time: 03/10/22 15:43
[2022-03-08] MEDS: Nicotine Polacrilex 2 MG GUM BUCCAL (23:46)
[2022-03-09] VITALS (10 sets, daily range): BP systolic 89–147; BP diastolic 50–89; PULSE 78–90; RESP 18–19; TEMP 36.4–36.9; O2SAT 96–100; BMI 35.3
[2022-03-09 00:21] LABS: Reflex Lactate? Lactic Acid Added
--- NOTE | 2022-03-09 01:21 | PM.IMHP ---
History of Present Illness Date of Service: 03/09/22 Chief Complaint: leg swelling This is a 21-year-old male who was admitted to [facility] for SI, and depression under section 12 has not developed swelling in his feet bilaterally. Patient also feels febrile, but reports pain in his legs bilaterally. Patient denies any headache, no chest pain, no abdominal pain nausea or vomiting, no diarrhea constipation, no urinary symptoms and no lower extremity edema. Patient has history of polysubstance IV drug use, injects crack cocaine but denies injecting his feet. Patient denies any trauma or injury to his feet. He at this time denies any headache, change in vision, no abdominal pain nausea or vomiting, no diarrhea constipation, no urinary symptoms Vitals reviewed showing no acute fever, no significant abnormality otherwise Labs were obtained showed leukocytosis of 11.3, lactic acidosis of 2.6, AST of 52, ALT of 91, which were previously normal Venous duplex of the lower extremities is negative for any DVT Chest x-ray negative, Arterial duplex pending Given his history of IV drug use, elevated lactic acid and leukocytosis, will transfer to the floor and start him on IV fluids and IV antibiotics pending blood culture results Review of Systems Review of Systems: Yes all other systems are reviewed and are negative [facility] Medical History Opioid use disorder Schizoaffective disorder Schizoaffective disorder, bipolar type Social History Household Members: Unknown / Unable to assess Housing: Unknown / Unable to assess Do you presently have visiting nurse or other home services: No Unable to assess alcohol history related to: Refusing to respond Alcohol intake: never Patient Tobacco Use Status: Current everyday Tobacco user Tobacco use type: Cigarette Cigarette Packs Per Day: 1 Cigarettes Per Day: 20.0 Years Smoked: 10+ Smoked in Last 30 Days: Yes e-Cigarette/Vaping Use: Never Used Patient Interested in Nicotine Replacement: Yes Patient Given Instructions on How to Stop Smoking: Yes Date Education Initiated: 03/08/22 Second Hand Smoke Exposure: Yes Use of substances other than those prescribed or required for medical reasons: Yes Substance Use Type: Crack/Cocaine and Heroin Substance Use Frequency: Chronic Longstanding Last Used Substance: Just Prior to Admission Currently Displaying Signs/Symptoms of Drug Intoxication Withdrawal: No Any prior treatment program specific to substance use: Yes Have you been hit, kicked, punched, or otherwise hurt by someone within the past year? If so, by whom?: No Do you feel safe in your current relationship?: No Current Relationship Is there a partner from a previous relationship who is making you feel unsafe now?: No Are you made to feel afraid or neglected: No Advance Directives: No Advance Directives Information Provided: No Do you have thoughts of harming others: None Do you have a plan to hurt others: No Plan Recently lost weight without trying: Unsure How much weight loss: Unsure Eating poorly because of decreased appetite: No Nutrition screen score: 4 Nutrition Risks: No Nutritional Risk Poor oral hygiene: No service: No Current occupational status: unemployed Sexual orientation: Straight/Heterosexual Meds Allergies Allergy/AdvReac Type Severity Reaction Status Date / Time No Known Allergies Allergy Verified 03/07/22 13:00 [No Known Allergies*] Active Medications: Current Medications Acetaminophen (Acetaminophen 325 Mg Tablet) 650 mg PO Q6H PRN PRN Reason: Headache/Pain Mild Scale (1-3) Acetaminophen (Acetaminophen 325 Mg Tablet) 650 mg PO Q6H PRN PRN Reason: Pain, Mild (Pain Scale 1-3) Al Hydroxide/Mg Hydroxide (Magnesium Hydrox/Alum Hydrox 30 Ml Oral.Susp) 30 ml PO Q6H PRN PRN Reason: Heartburn/Nausea Clonidine HCl (Clonidine Hcl 0.1 Mg Tablet) 0.1 mg PO TID PRN; Protocol PRN Reason: hyperarousal Docusate Sodium (Docusate Sodium 100 Mg Capsule) 100 mg PO DAILY PRN PRN Reason: Constipation Enoxaparin Sodium (Enoxaparin Sodium 40 Mg/0.4 Ml Syringe) 40 mg SUBCUT Q24H DION Folic Acid (Folic Acid 1 Mg Tablet) 1 mg PO DAILY DION Hydroxyzine HCl (Hydroxyzine Hcl 50 Mg Tablet) 50 mg PO Q6H PRN PRN Reason: Anxiety Sodium Chloride (Ns) 1,000 mls @ 100 mls/hr IVCONT .Q10H DION Ibuprofen (Ibuprofen 600 Mg Tablet) 600 mg PO Q6H PRN PRN Reason: mod-severe pain Loperamide HCl (Loperamide Hcl 2 Mg Capsule) 2 mg PO Q4H PRN PRN Reason: diarrhea Lorazepam (Lorazepam 1 Mg Tablet) 2 mg PO Q6H PRN PRN Reason: CIWA<8 Magnesium Hydroxide (Milk Of Magnesia 30 Ml Oral.Susp) 30 ml PO DAILY PRN PRN Reason: Constipation Melatonin (Melatonin 3 Mg Tablet) 6 mg PO BEDTIME PRN PRN Reason: insomnia Methadone HCl (Methadone Hcl 20 Mg/2 Ml Oral.Conc) 30 mg PO ONCE ONE Stop: 03/09/22 12:01 Nicotine (Nicotine 21 Mg Patch.Td24) 21 mg TRANSDERMA DAILY DION Nicotine Polacrilex (Nicotine Polacrilex 2 Mg Gum) 2 mg BUCCAL Q2H PRN PRN Reason: nicotine withdrawal Last Admin: 03/08/22 23:46 Dose: 2 mg Olanzapine (Olanzapine 5 Mg Tablet) 5 mg PO Q6H PRN PRN Reason: agitation, psychosis, anxiety Ondansetron HCl (Ondansetron Odt 4 Mg Tab.Rapdis) 4 mg TRANSLINGU Q6H PRN PRN Reason: nausea Ondansetron HCl (Ondansetron Hcl 4 Mg/2 Ml Vial) 4 mg IVPUSH Q8H PRN PRN Reason: Nausea and Vomiting Polyethylene Glycol (Polyethylene Glycol 3350 17 Gm Powd.Pack) 17 gm PO BID PRN PRN Reason: constipation Pyridoxine HCl (Pyridoxine Hcl (Vitamin B6) 50 Mg Tablet) 25 mg PO DAILY DION Sodium Chloride (0.9 % Sodium Chloride Flush 3 Ml Syringe) 3 ml IVFLUSH QSHIFT DION Thiamine HCl (Thiamine Hcl 100 Mg Tablet) 50 mg PO DAILY DION Trazodone HCl (Trazodone Hcl 50 Mg Tablet) 50 mg PO BEDTIME PRN PRN Reason: Insomnia Home Medications Medication Instructions Recorded Confirmed Last Taken Type No Known Home Meds 03/07/22 03/07/22 Unknown History Physical Exam Vital Signs and Narrative: Vital Signs: Last Vital Signs Temp 98.2 F 03/08/22 22:02 Pulse 89 03/08/22 22:02 Resp 16 03/08/22 16:16 BP 121/59 L 03/08/22 22:02 Pulse Ox 98 03/08/22 03:04 O2 Del Method 03/08/22 03:04 BMI result Body Mass Index 39.5 Const: Other: Flat affect General: cooperative and no acute distress Orientation/consciousness: patient oriented x3 Eyes: General: appearance normal, both eyes and all related structures Resp: Effort & Inspection: normal respiratory effort Auscultation: clear to auscultation bilaterally Cardio: Rate: regular rate Rhythm: regular rhythm GI: Palpation (GI): Soft to palpation Auscultation: normal bowel sounds Skin: General skin exam: no rashes or lesions noted Neuro: General: patient oriented x3 Cognition (Neuro): normal cognition Extrem: Other: Lower extremity edema in feet bilaterally, nonpitting, tender, he has multiple what appears to be small lesions in feet bilaterally General: Yes normal to inspection and Yes no pedal edema Results Labs CBC and Chem 7: 03/09/22 04:18 03/09/22 04:18 Labs: Laboratory Results - last 24 hr 03/08/22 03/08/22 03/08/22 22:17 22:17 22:17 MCV 84.6 MCH 28.1 MCHC 33.2 RDW 13.7 Plt Count 342 MPV 10.1 Immature Gran % (Auto) 0.7 H Neut % (Auto) 67.3 Lymph % (Auto) 23.0 [place] % (Auto) 8.7 Eos % (Auto) 0.1 Baso % (Auto) 0.2 Lymph # (Auto) 2.5 [place] # (Auto) 1.0 Eos # (Auto) 0.0 Baso # (Auto) 0.0 Abs Immat Gran (auto) 0.08 H Absolute Neuts (auto) 7.4 Absolute Nucleated RBC 0.000 Nucleated RBC % (auto) 0.0 Anion Gap 14 Estim Creat Clear Calc 233.1 Estimated GFR > 60 Fasting Glucose 126 H Lactic Acid 2.6 H* Calcium 8.6 Total Bilirubin < 0.2 AST 52 H ALT 91 H Alkaline Phosphatase 86 Total Protein 6.4 L Albumin 3.3 L D Imaging Radiologist's Impressions: Impressions Chest X-Ray 03/09/22 00:11 IMPRESSION: No acute pulmonary process. Venous Duplex 03/09/22 00:27 IMPRESSION: No DVT demonstrated in the bilateral lower extremities. Assessment and Plan (1) Lactic acidosis: Status: Acute (2) Leukocytosis: Status: Acute (3) Leg swelling: Status: Acute (4) Polysubstance use disorder: Status: Acute Plan 21-year-old male with past medical history positive since Ms. who is currently admitted to [facility] for SI who we are consulted on for leg swelling and pain # swelling in feet - unclear etiology at this time, patient has edema as well as tendinitis in his feet bilaterally - venous duplex negative, pending arterial duplex given his history of IV drug abuse - pain control, monitor # lactic acidosis - unclear etiology - treat with IV antibiotics - IV fluids - trend # leukocytosis - chest x-ray negative, patient has swelling in his feet bilaterally with history of IV drug abuse - will treat with broad-spectrum IV antibiotics pending blood cultures - follow CBC # SI -sitter at bedside - psych to follow - section 12 DVT prophylaxis: Lovenox Given patient's IV drug abuse, look take acidosis and leukocytosis patient will require a minimum 2 night hospital stay as inpatient for further management Quality Stroke Does the patient have a stroke diagnosis?: No VTE Prior VTE?: No VTE Risk Level:: Medical - moderate - high VTE Device Contraindication: Treatment Not Indicated VTE Drug Contraindication: N/A - Med Ordered
[2022-03-09] MEDS: 0.9 % Sodium Chloride 1,000 ML 100 ML IVCONT (02:10)
[2022-03-09] MEDS: Piperacillin Sodium/Tazobactam 3.375 GM in 0.9 % Sodium Chloride 50 ML IV ×4 (02:11→21:25)
[2022-03-09] MEDS: Enoxaparin Sodium 40 MG/0.4 ML SYRINGE SUBCUT (02:15)
[2022-03-09 02:33] LABS: ~Lactic Acid-LAB USE ONLY 2.6 mmol/L (0.5-2.0)
[2022-03-09] MEDS: vancomycin HCL 1,000 MG in 0.9 % Sodium Chloride 250 ML 270 MG IV (03:14)
[2022-03-09 04:04] LABS: Reflex Lactate? 2 Y
[2022-03-09 04:25] LABS: Basophils Percent Auto 0.2 % (0-2); Eosinophils Absolute Auto 0.1 X10*3/uL (0.0-0.4); Eosinophils Percent Auto 0.4 % (0-4); Hematocrit 36.4 % (42.0-52.0); Hemoglobin 12.2 g/dl (14.0-18.0); Imm Gran Abs Auto 0.06 X10*3/uL (0.00-0.03); Imm Gran Pct Auto 0.5 % (0.0-0.4); Lymphocytes Absolute Auto 3.1 X10*3/uL (1.2-4.9); Lymphocytes Percent Auto 27.4 % (20-40); MANUAL DIFF FLAG NO; Mean Corpuscular HGB Conc 33.5 g/dl (31.0-36.0); Mean Corpuscular Hemoglobin 28.4 pg (27.0-33.0); Mean Corpuscular Volume 84.8 fL (80.0-98.0); Mean Platelet Volume 9.7 fL (9.4-12.4); Monocytes Absolute Auto 0.8 X10*3/uL (0.1-1.2); Monocytes Percent Auto 7.3 % (2-11); Neutrophils Absolute Auto 7.2 x10*3/uL (2.0-8.3); Neutrophils Percent Auto 64.2 % (45-73); Platelet Count 318 X10*3/uL (160-400); Red Blood Count 4.29 X10*6/uL (4.60-5.80); Red Cell Distribution Width 13.9 % (11.0-16.0); White Blood Count 11.3 X10*3/uL (4.8-10.8)
[2022-03-09 04:52] LABS: Anion Gap 10 (12-20); Blood Urea Nitrogen 4 mg/dL (9-16); Calcium 8.5 mg/dL (8.4-10.2); Carbon Dioxide 31 mmol/L (22-29); Chloride 100 mmol/L (96-108); Creatinine Clr Calc Pharmacy 238.3; Estimated Glomerular Filt Rate > 60; Glucose Random 100 mg/dL (60-115); Potassium 3.4 mmol/L (3.3-5.1); Sodium 138 mmol/L (135-145)
[2022-03-09 07:21] LABS: C Reactive Protein 2.13 mg/dL (< or = 0.50)
[2022-03-09 08:01] LABS: Erythrocyte Sedimentation Rate 13 MM/HR (0-15)
[2022-03-09] MEDS: Folic Acid 1 MG TABLET PO (08:34)
[2022-03-09] MEDS: Pyridoxine HCl (Vitamin B6) 50 MG TABLET 25 MG PO (08:34)
[2022-03-09] MEDS: Thiamine HCL 100 MG TABLET 50 MG PO (08:34)
[2022-03-09] MEDS: Loperamide HCl 2 MG CAPSULE PO (08:45)
[2022-03-09] MEDS: Acetaminophen 325 MG TABLET 650 MG PO (08:45)
[2022-03-09] MEDS: LORazepam 1 MG TABLET 2 MG PO ×2 (08:45→18:29)
--- NOTE | 2022-03-09 09:02 | PHA.PROG ---
Admission Date/Time: March 08, 2022 18:38 Indication: other - tendinitis vs bacteremia? Weight in k.5 kg Adjusted body weight in K.82 Maxie body weight in K.7 Obesity Dosing Indication % IBW: Serum Creatinine - Last 168 Hours 03/07/22 03/08/22 03/09/22 14:21 22:17 04:18 Creatinine 0.58 0.64 0.59 Estimated CrCl and GFR - Last 168 Hours 03/07/22 03/08/22 03/09/22 14:21 22:17 04:18 Estim Creat Clear Calc 257.2 233.1 238.3 Estimated GFR > 60 > 60 > 60 Vancomycin Loading Dose: pt only received 1000 mg, timed next dose 6 hours later since he shouldve received 2 gm Current Vancomycin Dosing Regimen:1250 mg q12 Vancomycin Monitoring using AUC goal of 400 - 600 range with trough as surrogate marker: Date and Time for next Vancomycin Level to be drawn:03/10- @1900 Pharmacist Comments on Vancomycin Plan: Timed second dose to be given much sooner since load was not adequate Vancomycin dosing will take advantage of [employer] as a clinical decision support tool that uses Bayesian modeling to calculate individual patient's pharmacokinetic parameters and forecast the patient's drug concentration time course with the target goal AUC 24 range of 400 - 600 mg/L/hr.
--- NOTE | 2022-03-09 11:41 | MHC.CM.PN ---
Addendum entered by Gabriela Helton 03/10/22 10:59: NINO INFORMED BY [employer] THAT THIS PT HAS A FISHMAN PT IS MEDICALLY CLEARED FOR DC HOWEVER HE WILL REQUIRE A CRISIS EVALUATION FOR DISPO Original Note: CM MET WITH PT WHO WAS MINIMALLY RESPONSIVE AND PROVIDED AN ANSWER OF I DON'T KNOW TO MOST QUESTIONS. RECORDS INDICATE PT STAYS WITH HIS MOTHER, HOWEVER HE REPORTS HE DOES NOT KNOW IF THIS IS STILL ACCURATE HE ALSO DOES NOT KNOW IF HE HAS A HCP OR PCP OR IF HE USES DME PT DOES SAY HE IS COVID-19 VACCINATED CURRENT DCP IS HOME WITH [employer] PTS MOTHER IS LISTED, HOWEVER PER RECORDS, PT IS A&O AND DOES NOT PROVIDE PERMISSION TO CALL HER
[2022-03-09] MEDS: vancomycin HCL 1,250 MG in 0.9 % Sodium Chloride 250 ML 166.67 MG IV ×2 (11:43→22:05)
[2022-03-09] MEDS: Potassium Chloride Packet 20 MEQ PACKET 40 MEQ PO (11:45)
[2022-03-09] MEDS: methADONE HCl 20 MG/2 ML ORAL.CONC 30 MG PO (11:45)
--- NOTE | 2022-03-09 12:29 | HO.PM.IMPN ---
Subjective Subjective Date of Service: 03/09/22 Interval History: Seen and examined this morning Was transferred from [facility] overnight due to bilateral foot pain and swelling Pain seems to have resolved, swelling improved Patient sleepy, not interested in talking Review of Systems Review of Systems: Yes all other systems are reviewed and are negative Constitutional Constitutional: Denies chills and Denies fever(s) Cardiovascular Cardiovascular: Denies chest pain, Denies palpitations and Denies dyspnea Respiratory Respiratory: Denies cough and Denies dyspnea Gastrointestinal Gastrointestinal: Denies abdominal pain, Denies nausea and Denies vomiting Endocrine Endocrine: Denies palpitations Physical Exam Vital Signs: Vital Signs: Last Vital Signs Temp 98.2 F 03/09/22 11:29 Pulse 83 03/09/22 11:29 Resp 18 03/09/22 11:29 BP 129/79 03/09/22 11:29 Pulse Ox 97 03/09/22 11:29 O2 Del Method 03/09/22 11:29 BMI result Body Mass Index 35.3 Const: Other: Sleepy but awakens easily to verbal stimuli answering questions appropriately General: comfortable and no acute distress Nutritional Appearance: overweight Orientation/consciousness: patient oriented x3 Resp: Effort & Inspection: normal respiratory effort and able to speak in complete sentences Auscultation: clear to auscultation bilaterally Cardio: Rate: regular rate Heart sounds: S1 normal heart sound present and S2 normal heart sound present GI: Inspection: No distended Palpation (GI): Soft to palpation and nontender Neuro: General: patient oriented x3 Extrem: Other: some swelling to top of right foot, no erythema Objective Data Active Medications Acetaminophen (Acetaminophen 325 Mg Tablet) 650 mg PO Q6H PRN PRN Reason: Headache/Pain Mild Scale (1-3) Last Admin: 03/09/22 08:45 Dose: 650 mg Documented By: EMILIANA Acetaminophen (Acetaminophen 325 Mg Tablet) 650 mg PO Q6H PRN PRN Reason: Pain, Mild (Pain Scale 1-3) Al Hydroxide/Mg Hydroxide (Magnesium Hydrox/Alum Hydrox 30 Ml Oral.Susp) 30 ml PO Q6H PRN PRN Reason: Heartburn/Nausea Clonidine HCl (Clonidine Hcl 0.1 Mg Tablet) 0.1 mg PO TID PRN; Protocol PRN Reason: hyperarousal Docusate Sodium (Docusate Sodium 100 Mg Capsule) 100 mg PO DAILY PRN PRN Reason: Constipation Enoxaparin Sodium (Enoxaparin Sodium 40 Mg/0.4 Ml Syringe) 40 mg SUBCUT Q24H [facility] Last Admin: 03/09/22 02:15 Dose: 40 mg Documented By: ANTONI Folic Acid (Folic Acid 1 Mg Tablet) 1 mg PO DAILY [facility] Last Admin: 03/09/22 08:34 Dose: 1 mg Documented By: EMILIANA Hydroxyzine HCl (Hydroxyzine Hcl 50 Mg Tablet) 50 mg PO Q6H PRN PRN Reason: Anxiety Piperacillin Sod/Tazobactam (Sod 3.375 gm/ Sodium Chloride) 50 mls @ 100 mls/hr IV Q6H [facility] Last Infusion: 03/09/22 09:45 Dose: 0 mls/hr Documented By: EMILIANA Vancomycin HCl 1,250 mg/ (Sodium Chloride) 250 mls @ 166.667 mls/hr IV Q12H [facility] Last Admin: 03/09/22 11:43 Dose: 166.67 mls/hr Documented By: EMILIANA Ibuprofen (Ibuprofen 600 Mg Tablet) 600 mg PO Q6H PRN PRN Reason: mod-severe pain Loperamide HCl (Loperamide Hcl 2 Mg Capsule) 2 mg PO Q4H PRN PRN Reason: diarrhea Last Admin: 03/09/22 08:45 Dose: 2 mg Documented By: EMILIANA Lorazepam (Lorazepam 1 Mg Tablet) 2 mg PO Q6H PRN PRN Reason: CIWA<8 Last Admin: 03/09/22 08:45 Dose: 2 mg Documented By: EMILIANA Magnesium Hydroxide (Milk Of Magnesia 30 Ml Oral.Susp) 30 ml PO DAILY PRN PRN Reason: Constipation Melatonin (Melatonin 3 Mg Tablet) 6 mg PO BEDTIME PRN PRN Reason: insomnia Nicotine (Nicotine 21 Mg Patch.Td24) 21 mg TRANSDERMA DAILY [facility] Last Admin: 03/09/22 08:35 Dose: Not Given Documented By: EMILIANA Non-Admin Reason: Patient Refused Nicotine Polacrilex (Nicotine Polacrilex 2 Mg Gum) 2 mg BUCCAL Q2H PRN PRN Reason: nicotine withdrawal Last Admin: 03/08/22 23:46 Dose: 2 mg Documented By: PAIGE Olanzapine (Olanzapine 5 Mg Tablet) 5 mg PO Q6H PRN PRN Reason: agitation, psychosis, anxiety Ondansetron HCl (Ondansetron Odt 4 Mg Tab.Rapdis) 4 mg TRANSLINGU Q6H PRN PRN Reason: nausea Ondansetron HCl (Ondansetron Hcl 4 Mg/2 Ml Vial) 4 mg IVPUSH Q8H PRN PRN Reason: Nausea and Vomiting Pharmacy Consult (Consult Rx Vancomycin Dosing) 1 each MISCELLANE DAILY PRN PRN Reason: Consult order Polyethylene Glycol (Polyethylene Glycol 3350 17 Gm Powd.Pack) 17 gm PO BID PRN PRN Reason: constipation Pyridoxine HCl (Pyridoxine Hcl (Vitamin B6) 50 Mg Tablet) 25 mg PO DAILY [facility] Last Admin: 03/09/22 08:34 Dose: 25 mg Documented By: EMILIANA Sodium Chloride (0.9 % Sodium Chloride Flush 3 Ml Syringe) 3 ml IVFLUSH QSHIFT [facility] Last Admin: 03/09/22 08:35 Dose: Not Given Documented By: EMILIANA Non-Admin Reason: IV Running Thiamine HCl (Thiamine Hcl 100 Mg Tablet) 50 mg PO DAILY [facility] Last Admin: 03/09/22 08:34 Dose: 50 mg Documented By: EMILIANA Trazodone HCl (Trazodone Hcl 50 Mg Tablet) 50 mg PO BEDTIME PRN PRN Reason: Insomnia Labs CBC & Chem 7: 03/09/22 04:18 03/09/22 04:18 Labs: Laboratory Results - last 24 hr 03/08/22 03/08/22 03/08/22 22:17 22:17 22:17 MCV 84.6 MCH 28.1 MCHC 33.2 RDW 13.7 Plt Count 342 MPV 10.1 Immature Gran % (Auto) 0.7 H Neut % (Auto) 67.3 Lymph % (Auto) 23.0 [place] % (Auto) 8.7 Eos % (Auto) 0.1 Baso % (Auto) 0.2 Lymph # (Auto) 2.5 [place] # (Auto) 1.0 Eos # (Auto) 0.0 Baso # (Auto) 0.0 Abs Immat Gran (auto) 0.08 H Absolute Neuts (auto) 7.4 Absolute Nucleated RBC 0.000 Nucleated RBC % (auto) 0.0 ESR Anion Gap 14 Estim Creat Clear Calc 233.1 Estimated GFR > 60 Random Glucose Fasting Glucose 126 H Lactic Acid 2.6 H* Lactic Acid F/U @ 2Hr Lactic Acid F/U @ 4Hr Calcium 8.6 Total Bilirubin < 0.2 AST 52 H ALT 91 H Alkaline Phosphatase 86 C-Reactive Protein Total Protein 6.4 L Albumin 3.3 L D 03/09/22 03/09/22 03/09/22 01:43 04:18 04:18 MCV 84.8 MCH 28.4 MCHC 33.5 RDW 13.9 Plt Count 318 MPV 9.7 Immature Gran % (Auto) 0.5 H Neut % (Auto) 64.2 Lymph % (Auto) 27.4 [place] % (Auto) 7.3 Eos % (Auto) 0.4 Baso % (Auto) 0.2 Lymph # (Auto) 3.1 [place] # (Auto) 0.8 Eos # (Auto) 0.1 Baso # (Auto) 0.0 Abs Immat Gran (auto) 0.06 H Absolute Neuts (auto) 7.2 Absolute Nucleated RBC 0.000 Nucleated RBC % (auto) 0.0 ESR Anion Gap 10 L Estim Creat Clear Calc 238.3 Estimated GFR > 60 Random Glucose 100 Fasting Glucose Lactic Acid Lactic Acid F/U @ 2Hr 2.6 H* Lactic Acid F/U @ 4Hr Calcium 8.5 Total Bilirubin AST ALT Alkaline Phosphatase C-Reactive Protein Total Protein Albumin 03/09/22 03/09/22 03/09/22 04:18 06:37 06:37 MCV MCH MCHC RDW Plt Count MPV Immature Gran % (Auto) Neut % (Auto) Lymph % (Auto) [place] % (Auto) Eos % (Auto) Baso % (Auto) Lymph # (Auto) [place] # (Auto) Eos # (Auto) Baso # (Auto) Abs Immat Gran (auto) Absolute Neuts (auto) Absolute Nucleated RBC Nucleated RBC % (auto) ESR 13 Anion Gap Estim Creat Clear Calc Estimated GFR Random Glucose Fasting Glucose Lactic Acid Lactic Acid F/U @ 2Hr Lactic Acid F/U @ 4Hr 1.0 Calcium Total Bilirubin AST ALT Alkaline Phosphatase C-Reactive Protein 2.13 H Total Protein Albumin Assessment and Plan (1) Leg swelling: Status: Acute Plan 21-year-old male with past medical history positive since Ms. who is currently admitted to [facility] for SI who we are consulted on for leg swelling and pain swelling in feet improving - venous duplex negative, arterial duplex without occlusion - pain control, monitor lactic acidosis resolved with IVF leukocytosis - chest x-ray negative, patient has swelling in his feet bilaterally with history of IV drug abuse - will treat with broad-spectrum IV antibiotics pending blood cultures - follow CBC SI -sitter at bedside - psych to follow - section 12 Transaminitis repeat LFTs Polysubstance abuse Addiction medicine following Mood Treatment per psych recommendation Psych consult pending DVT prophylaxis: Lovejanex attending - Dr. Malloy Needs ongoing inpatient hospitalization for broad-spectrum antibiotics Quality Stroke Does the patient have a stroke diagnosis?: No VTE Prior VTE?: No VTE Risk Level:: Medical - moderate - high VTE Device Contraindication: Treatment Not Indicated VTE Drug Contraindication: N/A - Med Ordered
[2022-03-09 12:50] LABS: Alanine Aminotransferase 92 U/L (0-40); Albumin Level 3.5 g/dL (3.5-5.0); Alkaline Phosphatase 90 U/L (39-117); Aspartate Amino Transferase 52 U/L (5-37); Bilirubin Direct < 0.2 mg/dL (0.0-0.5); Bilirubin Total 0.2 mg/dL (0.0-1.0); Total Protein 6.8 g/dL (6.5-8.0)
--- NOTE | 2022-03-09 15:12 | P.CNPS_ITS ---
History of Present Illness Date of Service: 03/09/22 Chief Complaint: Electrolyte Imbalance Reason for Consult: assess Requesting physician: Sugar Brown Discussed with referring provider: No Sources of Information: patient interviewed, chart reviewed and crisis/core team assessment reviewed Additional Sources of Information: HNP from initial M5 admission same day: Christian is a 21 y.o. Male who carries a dx of polysubstance abuse (opioid, crack cocaine, cannabis), alcohol use disorder, and schizoaffective disorder, bipolar type. Hx of previous [place] [facility] [place], Section VIII civil commitment. Has DHM, CHD ACCS, and a Inocencio?s Order. Has been non-adherent on meds for some time. He presented to [facility] [place] on 03[place]07/22 on a Section 12a via EMS [facility] after being evaluated by BHN there due to agitation, striking the richard, reporting AH, responding to internal stimuli, and reporting withdrawal symptoms. [facility] due to trespassing for a 24 hr hold and released 03/07/22. Per ED notes, pt reported not sleeping x 14 hours and worsening AH that are negative, insulting. Has been using 1 bundle of heroin daily and $20 of crack cocaine daily x 2 months. Utox positive for fentanyl and cannabis at arrival to [facility] [place], [facility], [facility]. Crisis spoke with pt?s [facility] CM, who reported that pt has recently been verbally aggressive, getting into verbal altercations with his bio mom, who he resides with. His mother told his CM that pt had stolen from a store yesterday and stole drugs from a dealer, feels he has endangered his family. Pt was recently admitted for 90 days at [facility] on a Section 35, released on 08/08/2021, does not appear to have filled meds since then. Most recently prescribed abilify 20 mg daily, depakote 750 HS and 500 daily, prozac 20 mg daily, seroquel 100 mg daily and 300 mg HS, and suboxone 2-0.5 mg film daily PRN.? Per crisis rory, pt?s [facility] immigration case worker stated that pt relapsed within a day after his release from [facility] and his mother went back and petitioned the court on 08/10/2021 and another section 35 was issued. However, he was sent to [facility] for ATS bed due to a lack of available beds at other facilities. He was then admitted to [facility] [place] 08/14/21-09/16/21 due to med non-adherence, aggressive behaviors, and chronic relapsing. During his hospitalization, pt was not motivated towards treatment or recovery, stole one of the staff's cell phones and would not return it until security informed him they would pursue legal action. He then returned the phone. Wellbutrin was initiated for assist with smoking cessation. Previous regime was re-started due to reported efficacy (i.e. depakote ER 500 mg BID, abilify 20 mg daily, and quetiapine 100 mg daily and 300 mg HS. Pt was discharged to attend court for a Section XXXV hearing. It is unclear to T/W what happened as a result of this hearing, as pt is not forthcoming with his hx and there is no info in the crisis eval.? I evaluated the pt this evening with defective cigarette slitter and upon interview he reports he is in ?withdrawal? and has ?a lot of anxiety.? Pt is open to methadone. I consulted with trading specialist, Dennise Hess, who recommended 30 mg of methadone now. She had assessed pt in the ED earlier in the afternoon, however pt was not in withdrawal at that time. Will initiate COWS and CIWA, as pt reports he has been drinking 4-5 beers daily. He reports current withdrawal sx as dizziness, ?I feel like i?m falling,? unable to sleep, hot and cold. Pt also complains of bilateral foot pain x 2 weeks, found to having non-pitting edema, some blisters and poor pedal hygiene. He continues to endorse AH, hears a male voice who tells him to harm himself, says his voices are ?always there,? worse at night. Denies SI/SIB/HI. Says he feels safe.? Past Psychiatric History: -Pt is on a Inocencio?s Order, however this was not in his chart. Hx of inpatient civil commitments. Pt's guardian is Abelardo Guerrier. -Pt has DMH, CHD ACCS.? -DMH CM is Cruzito Rahman -OP Psych provider is Gerald Maher, meds last filled by Gerald Blackmon. -Hx of presenting to crisis with substance use, delusional/ bizarre thoughts, AH, and flashbacks. Has long hx of treatment non-adherence and lack of follow up with OP providers. -Hx of IP at [facility] ; [facility] 01/2019; [facility] 09/2018. Last [place]PLOC at [facility] [place] on 08/14/2021 due to pt trashing his room and going after his mother,? med non-adherence on a Inocencio?s. HPI Narrative: As per above, patient admitted to psychiatric unit but within an hour or 2 transferred to medical floor for treatment with antibiotics for cellulitis. On approach, patient is calm and cooperative. He says he is feeling better, physically and emotionally. He denies any SI or HI and denies any AVH. He agrees to get back on his medications including Abilify, Depakote and Seroquel. He asks if he will need to go to the psych inpatient unit which screenplay writer agrees it is unclear at this time but will reassess when he is doing better. Riverboat Master explains will start with Abilify to which he agrees. Past Psychiatric History: -Pt is on a Inocencio?s Order, however this was not in his chart. Hx of inpatient civil commitments. Pt's guardian is Abelardo Guerrier. -Pt has DMH, CHD ACCS. -DMH CM is Cruzito Rahman -OP Psych provider is Gerlad Maher, meds last filled by Gerald Blackmon. -Hx of presenting to crisis with substance use, delusional/ bizarre thoughts, AH, and flashbacks. Has long hx of treatment non-adherence and lack of follow up with OP providers. -Hx of IP at [facility] ; [facility] 01/2019; [facility] 09/2018. Last IPLOC at [facility] on 08/14/2021 due to pt trashing his room and going after his mother,? med non-adherence on a Inocencio?s. PMFSH Medical History Opioid use disorder Schizoaffective disorder Schizoaffective disorder, bipolar type Family History: Bipolar-mother Schizophrenia-mother Opiate Dependence-uncle, of OD 2011 Bipolar- My cousin Social History: Lives with mother, brother. Unemployed. Legal: Hx of being charged with trespassing, destruction of property Pt was born in [place]. He resided with his Uncle until 2011 (he of a heroin overdose). No relationship with bio dad. Supports: has two brothers and a cousin. Trauma History: Affirms Diagnostics Vital Signs (24Hr): Vital Signs - 24 hr 03/08/22 16:16 03/08/22 20:50 03/08/22 22:02 Temperature 98.2 F 98.2 F Pulse Rate 95 89 Respiratory Rate 16 Blood Pressure 129/83 121/59 L Pulse Oximetry Oxygen Delivery Method 03/09/22 01:49 03/09/22 04:00 03/09/22 07:39 Temperature 98.1 F 98 F 98.5 F Pulse Rate 87 81 85 Respiratory Rate 18 18 19 Blood Pressure 115/65 119/67 89/50 L Pulse Oximetry 97 97 96 Oxygen Delivery Method Room Air Room Air Room Air 03/09/22 08:36 03/09/22 11:29 Temperature 98.2 F Pulse Rate 83 Respiratory Rate 18 Blood Pressure 147/89 H 129/79 Pulse Oximetry 97 Oxygen Delivery Method Room Air BMI result Body Mass Index 35.3 Labs Results: 03/10/22 07:39 03/10/22 07:39 Labs: Laboratory Results - last 48 hr 03/08/22 03/08/22 03/08/22 22:17 22:17 22:17 WBC 11.0 H RBC 4.42 L Hgb 12.4 L Hct 37.4 L MCV 84.6 MCH 28.1 MCHC 33.2 RDW 13.7 Plt Count 342 MPV 10.1 Immature Gran % (Auto) 0.7 H Neut % (Auto) 67.3 Lymph % (Auto) 23.0 Nobles % (Auto) 8.7 Eos % (Auto) 0.1 Baso % (Auto) 0.2 Lymph # (Auto) 2.5 Nobles # (Auto) 1.0 Eos # (Auto) 0.0 Baso # (Auto) 0.0 Abs Immat Gran (auto) 0.08 H Absolute Neuts (auto) 7.4 Absolute Nucleated RBC 0.000 Nucleated RBC % (auto) 0.0 ESR Sodium 140 Potassium 3.1 L Chloride 100 Carbon Dioxide 29 Anion Gap 14 BUN 3 L Creatinine 0.64 Estim Creat Clear Calc 233.1 Estimated GFR > 60 Random Glucose Fasting Glucose 126 H Lactic Acid 2.6 H* Lactic Acid F/U @ 2Hr Lactic Acid F/U @ 4Hr Calcium 8.6 Total Bilirubin < 0.2 Direct Bilirubin AST 52 H ALT 91 H Alkaline Phosphatase 86 C-Reactive Protein Total Protein 6.4 L Albumin 3.3 L D 03/09/22 03/09/22 03/09/22 01:43 04:18 04:18 WBC 11.3 H RBC 4.29 L Hgb 12.2 L Hct 36.4 L MCV 84.8 MCH 28.4 MCHC 33.5 RDW 13.9 Plt Count 318 MPV 9.7 Immature Gran % (Auto) 0.5 H Neut % (Auto) 64.2 Lymph % (Auto) 27.4 Nobles % (Auto) 7.3 Eos % (Auto) 0.4 Baso % (Auto) 0.2 Lymph # (Auto) 3.1 Nobles # (Auto) 0.8 Eos # (Auto) 0.1 Baso # (Auto) 0.0 Abs Immat Gran (auto) 0.06 H Absolute Neuts (auto) 7.2 Absolute Nucleated RBC 0.000 Nucleated RBC % (auto) 0.0 ESR Sodium 138 Potassium 3.4 Chloride 100 Carbon Dioxide 31 H Anion Gap 10 L BUN 4 L Creatinine 0.59 Estim Creat Clear Calc 238.3 Estimated GFR > 60 Random Glucose 100 Fasting Glucose Lactic Acid Lactic Acid F/U @ 2Hr 2.6 H* Lactic Acid F/U @ 4Hr Calcium 8.5 Total Bilirubin Direct Bilirubin AST ALT Alkaline Phosphatase C-Reactive Protein Total Protein Albumin 03/09/22 03/09/22 03/09/22 04:18 06:37 06:37 WBC RBC Hgb Hct MCV MCH MCHC RDW Plt Count MPV Immature Gran % (Auto) Neut % (Auto) Lymph % (Auto) Nobles % (Auto) Eos % (Auto) Baso % (Auto) Lymph # (Auto) Nobles # (Auto) Eos # (Auto) Baso # (Auto) Abs Immat Gran (auto) Absolute Neuts (auto) Absolute Nucleated RBC Nucleated RBC % (auto) ESR 13 Sodium Potassium Chloride Carbon Dioxide Anion Gap BUN Creatinine Estim Creat Clear Calc Estimated GFR Random Glucose Fasting Glucose Lactic Acid Lactic Acid F/U @ 2Hr Lactic Acid F/U @ 4Hr 1.0 Calcium Total Bilirubin 0.2 Direct Bilirubin < 0.2 AST 52 H ALT 92 H Alkaline Phosphatase 90 C-Reactive Protein 2.13 H Total Protein 6.8 Albumin 3.5 Imaging Radiology Impressions: ITS Impressions Chest X-Ray 03/09/22 00:11 IMPRESSION: No acute pulmonary process. Venous Duplex 03/09/22 00:27 IMPRESSION: No DVT demonstrated in the bilateral lower extremities. Duplex Scan Lower Extremity Artery 03/09/22 12:20 IMPRESSION: No evidence of hemodynamically significant stenotic disease. Both posterior tibial arteries have hyperemic waveforms which may relate to distal vasodilatation (which can be seen in entities such as cellulitis). Mental Status Exam Mental Status Exam Narrative: Pt is alert and oriented; behavior is cooperative and calm; patient is not in distress; dressed in hospital gown; marginal hygiene; mood is described as ok and affect congruent; eye contact appropriate; Speech is latent and a little soft but normal prosody; some psychomotor retardation present; thought process is goal directed; Thought content is on tx; otherwise pertinent to relevant topics and without any delusional content, paranoid ideations or grandiosity; denies any SI/HI. Denies AVH; Patients insight and judgment improving. Medications Medications Current Medications Acetaminophen (Acetaminophen 325 Mg Tablet) 650 mg PO Q6H PRN PRN Reason: Headache/Pain Mild Scale (1-3) Last Admin: 03/09/22 08:45 Dose: 650 mg Acetaminophen (Acetaminophen 325 Mg Tablet) 650 mg PO Q6H PRN PRN Reason: Pain, Mild (Pain Scale 1-3) Al Hydroxide/Mg Hydroxide (Magnesium Hydrox/Alum Hydrox 30 Ml Oral.Susp) 30 ml PO Q6H PRN PRN Reason: Heartburn/Nausea Clonidine HCl (Clonidine Hcl 0.1 Mg Tablet) 0.1 mg PO TID PRN; Protocol PRN Reason: hyperarousal Docusate Sodium (Docusate Sodium 100 Mg Capsule) 100 mg PO DAILY PRN PRN Reason: Constipation Enoxaparin Sodium (Enoxaparin Sodium 40 Mg/0.4 Ml Syringe) 40 mg SUBCUT Q24H [facility] Last Admin: 03/09/22 02:15 Dose: 40 mg Folic Acid (Folic Acid 1 Mg Tablet) 1 mg PO DAILY [facility] Last Admin: 03/09/22 08:34 Dose: 1 mg Hydroxyzine HCl (Hydroxyzine Hcl 50 Mg Tablet) 50 mg PO Q6H PRN PRN Reason: Anxiety Piperacillin Sod/Tazobactam (Sod 3.375 gm/ Sodium Chloride) 50 mls @ 100 mls/hr IV Q6H [facility] Last Infusion: 03/09/22 14:47 Dose: Infused Vancomycin HCl 1,250 mg/ (Sodium Chloride) 250 mls @ 166.667 mls/hr IV Q12H [facility] Last Infusion: 03/09/22 13:37 Dose: Infused Ibuprofen (Ibuprofen 600 Mg Tablet) 600 mg PO Q6H PRN PRN Reason: mod-severe pain Loperamide HCl (Loperamide Hcl 2 Mg Capsule) 2 mg PO Q4H PRN PRN Reason: diarrhea Last Admin: 03/09/22 08:45 Dose: 2 mg Lorazepam (Lorazepam 1 Mg Tablet) 2 mg PO Q6H PRN PRN Reason: CIWA<8 Last Admin: 03/09/22 08:45 Dose: 2 mg Magnesium Hydroxide (Milk Of Magnesia 30 Ml Oral.Susp) 30 ml PO DAILY PRN PRN Reason: Constipation Melatonin (Melatonin 3 Mg Tablet) 6 mg PO BEDTIME PRN PRN Reason: insomnia Nicotine (Nicotine 21 Mg Patch.Td24) 21 mg TRANSDERMA DAILY [facility] Last Admin: 03/09/22 08:35 Dose: Not Given Nicotine Polacrilex (Nicotine Polacrilex 2 Mg Gum) 2 mg BUCCAL Q2H PRN PRN Reason: nicotine withdrawal Last Admin: 03/08/22 23:46 Dose: 2 mg Olanzapine (Olanzapine 5 Mg Tablet) 5 mg PO Q6H PRN PRN Reason: agitation, psychosis, anxiety Ondansetron HCl (Ondansetron Odt 4 Mg Tab.Rapdis) 4 mg TRANSLINGU Q6H PRN PRN Reason: nausea Ondansetron HCl (Ondansetron Hcl 4 Mg/2 Ml Vial) 4 mg IVPUSH Q8H PRN PRN Reason: Nausea and Vomiting Pharmacy Consult (Consult Rx Vancomycin Dosing) 1 each MISCELLANE DAILY PRN PRN Reason: Consult order Polyethylene Glycol (Polyethylene Glycol 3350 17 Gm Powd.Pack) 17 gm PO BID PRN PRN Reason: constipation Pyridoxine HCl (Pyridoxine Hcl (Vitamin B6) 50 Mg Tablet) 25 mg PO DAILY [facility] Last Admin: 03/09/22 08:34 Dose: 25 mg Sodium Chloride (0.9 % Sodium Chloride Flush 3 Ml Syringe) 3 ml IVFLUSH QSHIFT [facility] Last Admin: 03/09/22 08:35 Dose: Not Given Thiamine HCl (Thiamine Hcl 100 Mg Tablet) 50 mg PO DAILY [facility] Last Admin: 03/09/22 08:34 Dose: 50 mg Trazodone HCl (Trazodone Hcl 50 Mg Tablet) 50 mg PO BEDTIME PRN PRN Reason: Insomnia Allergies Allergies Allergy/AdvReac Type Severity Reaction Status Date / Time No Known Allergies Allergy Verified 03/07/22 13:00 [No Known Allergies*] Assessment & Plan Assessment & Plan (1) Schizoaffective disorder, bipolar type: Status: Acute Code(s): F25.0 - Schizoaffective disorder, bipolar type (2) Cocaine use disorder: Status: Acute Code(s): F14.10 - Cocaine abuse, uncomplicated (3) Alcohol use disorder, moderate, dependence: Status: Acute Code(s): F10.20 - Alcohol dependence, uncomplicated (4) Leg swelling: Status: Acute Code(s): M79.89 - Other specified soft tissue disorders Plan Christian is a 21 y.o. Male who carries a dx of polysubstance abuse (opioid, crack cocaine, cannabis), alcohol use disorder, and schizoaffective disorder, bipolar type. Hx of previous [place] [facility] [place], Section VIII civil commitment Continue treatment for leg swelling/cellulitis Will start patient on Abilify and had other home medications as warranted Once patient is medically cleared will reassess to see if patient needs to come back to the psychiatric unit for continued treatment I spent minutes with the patient and/or on the patient floor today, greater than?50% of which was spent counseling/coordinating care. Patient educated on: medication risk/benefits and medical condition Informed Consent: understands
[2022-03-09] MEDS: 0.9 % Sodium Chloride Flush 3 ML SYRINGE IVFLUSH ×2 (16:17→23:51)
--- NOTE | 2022-03-09 18:38 | HO.ADDICT_ITS ---
History of Present Illness Date of Service: 03/09/2022 Chief Complaint: Electrolyte Imbalance Reason for Consult: OUD HPI Narrative: Patient is a 21 year old Pashto speaking male with dx of schizoaffective disorder and opioid use disorder currently medically admitted. Given methadone last evening due to acute withdrawal sx, with good effect. Additional 30mg today with good effect. Patient seen in room 377. Initially awake and answering questions, then closed eyes and appeared to fall asleep. Somewhat challenging to follow history provided by patient as he provided some conflicting information and then asked this magazine writer several times for $2. He reports [place] use of heroin daily, but also reports buying suboxone on the street with regularity. Reports occasional alcohol use. He reports numerous ATS (detox) admissions. Reports history of methadone and suboxone treatment. When asked about goals of treatment, somewhat indifferent--originally stating yes to methadone continuation, then stating he wanted to start suboxone. Did not appear to be experiencing any withdrawal sx. Denies any withdrawl sx. Past Psychiatric History: -Pt is on a Inocencio?s Order, however this was not in his chart. Hx of inpatient civil commitments. Pt's guardian is Abelardo Guerrier. -Pt has DMH, [facility] ACCS. -DM CM is Cruzito Rahman -OP Psych provider is Gerald Maher, meds last filled by Gerald Blackmon. -Hx of presenting to crisis with substance use, delusional/ bizarre thoughts, AH, and flashbacks. Has long hx of treatment non-adherence and lack of follow up with OP providers. -Hx of IP at [facility] [id number]; [facility] 01/2019; [facility] 09/2018. Last IPLOC at [facility] on 08/14/2021 due to pt trashing his room and going after his mother,? med non-adherence on a Inocencio?s. Review of Systems Constitutional: Reports as per HPI Diagnostics Vital Signs (24Hr): Vital Signs - 24 hr 03/08/22 20:50 03/08/22 22:02 03/09/22 01:49 Temperature 98.2 F 98.2 F 98.1 F Pulse Rate 95 89 87 Respiratory Rate 18 Blood Pressure 129/83 121/59 L 115/65 Pulse Oximetry 97 Oxygen Delivery Method Room Air 03/09/22 04:00 03/09/22 07:39 03/09/22 08:36 Temperature 98 F 98.5 F Pulse Rate 81 85 Respiratory Rate 18 19 Blood Pressure 119/67 89/50 L 147/89 H Pulse Oximetry 97 96 Oxygen Delivery Method Room Air Room Air 03/09/22 11:29 03/09/22 15:39 Temperature 98.2 F 97.5 F Pulse Rate 83 84 Respiratory Rate 18 18 Blood Pressure 129/79 118/72 Pulse Oximetry 97 99 Oxygen Delivery Method Room Air Room Air BMI result Body Mass Index 35.3 Labs Results: 03/09/22 04:18 03/09/22 18:44 Labs: Laboratory Results - last 48 hr 03/08/22 03/08/22 03/08/22 22:17 22:17 22:17 WBC 11.0 H RBC 4.42 L Hgb 12.4 L Hct 37.4 L MCV 84.6 MCH 28.1 MCHC 33.2 RDW 13.7 Plt Count 342 MPV 10.1 Immature Gran % (Auto) 0.7 H Neut % (Auto) 67.3 Lymph % (Auto) 23.0 [place] % (Auto) 8.7 Eos % (Auto) 0.1 Baso % (Auto) 0.2 Lymph # (Auto) 2.5 [place] # (Auto) 1.0 Eos # (Auto) 0.0 Baso # (Auto) 0.0 Abs Immat Gran (auto) 0.08 H Absolute Neuts (auto) 7.4 Absolute Nucleated RBC 0.000 Nucleated RBC % (auto) 0.0 ESR Sodium 140 Potassium 3.1 L Chloride 100 Carbon Dioxide 29 Anion Gap 14 BUN 3 L Creatinine 0.64 Estim Creat Clear Calc 233.1 Estimated GFR > 60 Random Glucose Fasting Glucose 126 H Lactic Acid 2.6 H* Lactic Acid F/U @ 2Hr Lactic Acid F/U @ 4Hr Calcium 8.6 Total Bilirubin < 0.2 Direct Bilirubin AST 52 H ALT 91 H Alkaline Phosphatase 86 C-Reactive Protein Total Protein 6.4 L Albumin 3.3 L D 03/09/22 03/09/22 03/09/22 01:43 04:18 04:18 WBC 11.3 H RBC 4.29 L Hgb 12.2 L Hct 36.4 L MCV 84.8 MCH 28.4 MCHC 33.5 RDW 13.9 Plt Count 318 MPV 9.7 Immature Gran % (Auto) 0.5 H Neut % (Auto) 64.2 Lymph % (Auto) 27.4 [place] % (Auto) 7.3 Eos % (Auto) 0.4 Baso % (Auto) 0.2 Lymph # (Auto) 3.1 [place] # (Auto) 0.8 Eos # (Auto) 0.1 Baso # (Auto) 0.0 Abs Immat Gran (auto) 0.06 H Absolute Neuts (auto) 7.2 Absolute Nucleated RBC 0.000 Nucleated RBC % (auto) 0.0 ESR Sodium 138 Potassium 3.4 Chloride 100 Carbon Dioxide 31 H Anion Gap 10 L BUN 4 L Creatinine 0.59 Estim Creat Clear Calc 238.3 Estimated GFR > 60 Random Glucose 100 Fasting Glucose Lactic Acid Lactic Acid F/U @ 2Hr 2.6 H* Lactic Acid F/U @ 4Hr Calcium 8.5 Total Bilirubin Direct Bilirubin AST ALT Alkaline Phosphatase C-Reactive Protein Total Protein Albumin 03/09/22 03/09/22 03/09/22 04:18 06:37 06:37 WBC RBC Hgb Hct MCV MCH MCHC RDW Plt Count MPV Immature Gran % (Auto) Neut % (Auto) Lymph % (Auto) [place] % (Auto) Eos % (Auto) Baso % (Auto) Lymph # (Auto) [place] # (Auto) Eos # (Auto) Baso # (Auto) Abs Immat Gran (auto) Absolute Neuts (auto) Absolute Nucleated RBC Nucleated RBC % (auto) ESR 13 Sodium Potassium Chloride Carbon Dioxide Anion Gap BUN Creatinine Estim Creat Clear Calc Estimated GFR Random Glucose Fasting Glucose Lactic Acid Lactic Acid F/U @ 2Hr Lactic Acid F/U @ 4Hr 1.0 Calcium Total Bilirubin 0.2 Direct Bilirubin < 0.2 AST 52 H ALT 92 H Alkaline Phosphatase 90 C-Reactive Protein 2.13 H Total Protein 6.8 Albumin 3.5 Imaging Radiology Impressions: ITS Impressions Chest X-Ray 03/09/22 00:11 IMPRESSION: No acute pulmonary process. Venous Duplex 03/09/22 00:27 IMPRESSION: No DVT demonstrated in the bilateral lower extremities. Duplex Scan Lower Extremity Artery 03/09/22 12:20 IMPRESSION: No evidence of hemodynamically significant stenotic disease. Both posterior tibial arteries have hyperemic waveforms which may relate to distal vasodilatation (which can be seen in entities such as cellulitis). Mental Status Exam Mental Status Exam Level of Consciousness: Drowsy Medications Medications Current Medications Acetaminophen (Acetaminophen 325 Mg Tablet) 650 mg PO Q6H PRN PRN Reason: Headache/Pain Mild Scale (1-3) Last Admin: 03/09/22 08:45 Dose: 650 mg Acetaminophen (Acetaminophen 325 Mg Tablet) 650 mg PO Q6H PRN PRN Reason: Pain, Mild (Pain Scale 1-3) Al Hydroxide/Mg Hydroxide (Magnesium Hydrox/Alum Hydrox 30 Ml Oral.Susp) 30 ml PO Q6H PRN PRN Reason: Heartburn/Nausea Clonidine HCl (Clonidine Hcl 0.1 Mg Tablet) 0.1 mg PO TID PRN; Protocol PRN Reason: hyperarousal Docusate Sodium (Docusate Sodium 100 Mg Capsule) 100 mg PO DAILY PRN PRN Reason: Constipation Enoxaparin Sodium (Enoxaparin Sodium 40 Mg/0.4 Ml Syringe) 40 mg SUBCUT Q24H [facility] Last Admin: 03/09/22 02:15 Dose: 40 mg Folic Acid (Folic Acid 1 Mg Tablet) 1 mg PO DAILY [facility] Last Admin: 03/09/22 08:34 Dose: 1 mg Hydroxyzine HCl (Hydroxyzine Hcl 50 Mg Tablet) 50 mg PO Q6H PRN PRN Reason: Anxiety Piperacillin Sod/Tazobactam (Sod 3.375 gm/ Sodium Chloride) 50 mls @ 100 mls/hr IV Q6H [facility] Last Infusion: 03/09/22 14:47 Dose: Infused Vancomycin HCl 1,250 mg/ (Sodium Chloride) 250 mls @ 166.667 mls/hr IV Q12H [facility] Last Infusion: 03/09/22 13:37 Dose: Infused Ibuprofen (Ibuprofen 600 Mg Tablet) 600 mg PO Q6H PRN PRN Reason: mod-severe pain Loperamide HCl (Loperamide Hcl 2 Mg Capsule) 2 mg PO Q4H PRN PRN Reason: diarrhea Last Admin: 03/09/22 08:45 Dose: 2 mg Lorazepam (Lorazepam 1 Mg Tablet) 2 mg PO Q6H PRN PRN Reason: CIWA<8 Last Admin: 03/09/22 18:29 Dose: 2 mg Magnesium Hydroxide (Milk Of Magnesia 30 Ml Oral.Susp) 30 ml PO DAILY PRN PRN Reason: Constipation Melatonin (Melatonin 3 Mg Tablet) 6 mg PO BEDTIME PRN PRN Reason: insomnia Nicotine (Nicotine 21 Mg Patch.Td24) 21 mg TRANSDERMA DAILY [facility] Last Admin: 03/09/22 08:35 Dose: Not Given Nicotine Polacrilex (Nicotine Polacrilex 2 Mg Gum) 2 mg BUCCAL Q2H PRN PRN Reason: nicotine withdrawal Last Admin: 03/08/22 23:46 Dose: 2 mg Olanzapine (Olanzapine 5 Mg Tablet) 5 mg PO Q6H PRN PRN Reason: agitation, psychosis, anxiety Ondansetron HCl (Ondansetron Odt 4 Mg Tab.Rapdis) 4 mg TRANSLINGU Q6H PRN PRN Reason: nausea Ondansetron HCl (Ondansetron Hcl 4 Mg/2 Ml Vial) 4 mg IVPUSH Q8H PRN PRN Reason: Nausea and Vomiting Pharmacy Consult (Consult Rx Vancomycin Dosing) 1 each MISCELLANE DAILY PRN PRN Reason: Consult order Polyethylene Glycol (Polyethylene Glycol 3350 17 Gm Powd.Pack) 17 gm PO BID PRN PRN Reason: constipation Pyridoxine HCl (Pyridoxine Hcl (Vitamin B6) 50 Mg Tablet) 25 mg PO DAILY [facility] Last Admin: 03/09/22 08:34 Dose: 25 mg Sodium Chloride (0.9 % Sodium Chloride Flush 3 Ml Syringe) 3 ml IVFLUSH QSHIFT [facility] Last Admin: 03/09/22 16:17 Dose: 3 ml Thiamine HCl (Thiamine Hcl 100 Mg Tablet) 50 mg PO DAILY [facility] Last Admin: 03/09/22 08:34 Dose: 50 mg Trazodone HCl (Trazodone Hcl 50 Mg Tablet) 50 mg PO BEDTIME PRN PRN Reason: Insomnia Allergies Allergies Allergy/AdvReac Type Severity Reaction Status Date / Time No Known Allergies Allergy Verified 03/07/22 13:00 [No Known Allergies*] Assessment & Plan Assessment & Plan (1) Opioid use disorder: Status: Acute Code(s): F11.90 - Opioid use, unspecified, uncomplicated Assessment and Plan: * will begin methadone taper, with plan to discuss outpatient treatment plan with team (unable to gather any reliable information from patient) * follow up on Friday I spent __35____ minutes with the patient and/or on the patient floor today, greater than?50% of which was spent counseling/coordinating care. [facility] Past Medical History Medical History Opioid use disorder Schizoaffective disorder Schizoaffective disorder, bipolar type Social History Social History Household Members: Unknown / Unable to assess Housing: Unknown / Unable to assess Do you presently have visiting nurse or other home services: No Unable to assess alcohol history related to: Refusing to respond Alcohol intake: never Patient Tobacco Use Status: Current everyday Tobacco user Tobacco use type: Cigarette Cigarette Packs Per Day: 1 Cigarettes Per Day: 20.0 Years Smoked: 10+ Smoked in Last 30 Days: Yes e-Cigarette/Vaping Use: Never Used Patient Interested in Nicotine Replacement: Yes Patient Given Instructions on How to Stop Smoking: Yes Date Education Initiated: 03/08/22 Second Hand Smoke Exposure: Yes Use of substances other than those prescribed or required for medical reasons: Yes Substance Use Type: Crack/Cocaine and Heroin Substance Use Frequency: Chronic Longstanding Last Used Substance: Just Prior to Admission Currently Displaying Signs/Symptoms of Drug Intoxication Withdrawal: No Any prior treatment program specific to substance use: Yes Have you been hit, kicked, punched, or otherwise hurt by someone within the past year? If so, by whom?: No Do you feel safe in your current relationship?: No Current Relationship Is there a partner from a previous relationship who is making you feel unsafe now?: No Are you made to feel afraid or neglected: No Advance Directives: No Advance Directives Information Provided: No Do you have thoughts of harming others: None Do you have a plan to hurt others: No Plan Recently lost weight without trying: Unsure How much weight loss: Unsure Eating poorly because of decreased appetite: No Nutrition screen score: 4 Nutrition Risks: No Nutritional Risk Poor oral hygiene: No service: No Current occupational status: unemployed Sexual orientation: Straight/Heterosexual
[2022-03-09 19:04] LABS: Creatinine Clr Calc Pharmacy 213.1; Estimated Glomerular Filt Rate > 60
[2022-03-09] MEDS: cloNIDine HCL 0.1 MG TABLET PO (21:32)
[2022-03-09] MEDS: Melatonin 3 MG TABLET 6 MG PO (21:39)
[2022-03-10] MEDS: Piperacillin Sodium/Tazobactam 3.375 GM in 0.9 % Sodium Chloride 50 ML IV ×3 (01:49→14:34)
[2022-03-10] MEDS: Enoxaparin Sodium 40 MG/0.4 ML SYRINGE SUBCUT (01:51)
[2022-03-10] MEDS: hydrOXYzine HCL 50 MG TABLET PO ×2 (03:14→14:32)
[2022-03-10 03:57] VITALS: BP 117/52; PULSE 75; RESP 18; TEMP 36.4; O2SAT 98
[2022-03-10 07:41] VITALS: BP 110/58; PULSE 74; RESP 18; TEMP 36.6; O2SAT 96
[2022-03-10 08:00] VITALS: PULSE 74
[2022-03-10 08:01] LABS: Hematocrit 37.3 % (42.0-52.0); Mean Corpuscular HGB Conc 32.2 g/dl (31.0-36.0); Mean Corpuscular Hemoglobin 27.8 pg (27.0-33.0); Mean Corpuscular Volume 86.3 fL (80.0-98.0); Mean Platelet Volume 9.7 fL (9.4-12.4); Platelet Count 305 X10*3/uL (160-400); Red Blood Count 4.32 X10*6/uL (4.60-5.80); Red Cell Distribution Width 13.9 % (11.0-16.0); White Blood Count 8.3 X10*3/uL (4.8-10.8)
[2022-03-10] MEDS: Pyridoxine HCl (Vitamin B6) 50 MG TABLET 25 MG PO (08:07)
[2022-03-10] MEDS: methADONE HCl 20 MG/2 ML ORAL.CONC PO (08:07)
[2022-03-10] MEDS: Folic Acid 1 MG TABLET PO (08:08)
[2022-03-10] MEDS: Thiamine HCL 100 MG TABLET 50 MG PO (08:08)
[2022-03-10] MEDS: ARIPiprazole 20 MG TABLET PO (08:08)
[2022-03-10] MEDS: 0.9 % Sodium Chloride Flush 3 ML SYRINGE IVFLUSH (08:09)
[2022-03-10] MEDS: Nicotine 21 MG PATCH.TD24 TRANSDERMA ×2 (08:11→14:31)
[2022-03-10 08:20] LABS: Alanine Aminotransferase 78 U/L (0-40); Albumin Level 3.2 g/dL (3.5-5.0); Alkaline Phosphatase 76 U/L (39-117); Anion Gap 12 (12-20); Aspartate Amino Transferase 47 U/L (5-37); Bilirubin Direct < 0.2 mg/dL (0.0-0.5); Bilirubin Total < 0.2 mg/dL (0.0-1.0); Blood Urea Nitrogen 4 mg/dL (9-16); Calcium 8.6 mg/dL (8.4-10.2); Carbon Dioxide 27 mmol/L (22-29); Chloride 105 mmol/L (96-108); Creatinine Clr Calc Pharmacy 230.5; Estimated Glomerular Filt Rate > 60; Glucose Random 109 mg/dL (60-115); Sodium 140 mmol/L (135-145); Total Protein 6.1 g/dL (6.5-8.0)
[2022-03-10] MEDS: LORazepam 1 MG TABLET 2 MG PO (08:27)
[2022-03-10] MEDS: vancomycin HCL 1,250 MG in 0.9 % Sodium Chloride 250 ML 166.67 MG IV (09:03)
--- NOTE | 2022-03-10 11:45 | MHC.CARE ---
Patient needs full evaluation (due to insurance) to return to , was referred to . CARE Team will complete if [facility] unable to meet with patient within hour.
[2022-03-10 12:00] VITALS: BP 122/65; PULSE 77; RESP 16; TEMP 36.8; O2SAT 98
[2022-03-10 15:32] VITALS: BP 129/76; PULSE 88; RESP 18; TEMP 36.4; O2SAT 98
--- NOTE | 2022-03-10 15:54 | P.DS_ITS ---
DS: Providers Provider Date of Service: 03/10/22 Date of admission: 03/08/22 18:38 Date of discharge: 03/10/22 Primary care physician: Unknown Physician Consults: 03/08/22 21:02 Addiction Medicine Routine Consulting Provider: Dennise Hess Reason for consultation: pt in withdrawal, methadone start Has provider been notified: Yes 03/09/22 12:41 Consult to Psychiatry Routine Consulting Provider: Psych Covering Reason for consultation: SI; follow pt while on medical floor 03/10/22 09:49 Consult to Care Team Routine Comment: Reason for consultation: transferred from psych; medically clear to return Attending physician on discharge: Karson Malloy Discharging clinician: Sugar Brown DS: Diagnosis Discharge Diagnosis (1) Opioid use disorder: Status: Acute (2) Leg swelling: Status: Acute (3) Lactic acidosis: Status: Acute DS: Summary Hospital Course Hospital Course: From H&P on day of admission This is a 21-year-old male who was admitted to [facility] for SI, and depression under section 12 has not developed swelling in his feet bilaterally.? Patient also feels febrile, but reports pain in his legs bilaterally.? Patient denies any headache, no chest pain, no abdominal pain nausea or vomiting, no diarrhea constipation, no urinary symptoms and no lower extremity edema.? Patient has history of polysubstance IV drug use, injects crack cocaine but denies injecting his feet.? Patient denies any trauma or injury to his feet. He at this time denies any headache, change in vision, no abdominal pain nausea or vomiting, no diarrhea constipation, no urinary symptoms Vitals reviewed showing no acute fever, no significant abnormality otherwise Labs were obtained showed leukocytosis of 11.3, lactic acidosis of 2.6, AST of 52, ALT of 91, which were previously normal Venous duplex of the lower extremities is negative for any DVT Chest x-ray negative, Arterial duplex pending Given his history of IV drug use, elevated lactic acid and leukocytosis, will transfer to the floor and start him on IV fluids and IV antibiotics pending blood culture results Discharge diagnoses Bilateral lower extremity edema Bilateral lower extremity cellulitis left greater than right Mild transaminitis Patient was transferred from [facility] for lower extremity swelling. Labs were obtained and show leukocytosis of 11.3 lactic acidosis of 2.6. He underwent ultrasound of bilateral lower extremities which was negative for DVT. Arterial ultrasound showed hyperemic waveforms which may relate to distal vasodilation which can be seen in cellulitis. He was started on broad-spectrum antibiotics. He was given IV fluid. His leukocytosis and lactic acidosis have resolved. His remained afebrile. No other source of infection was identified. Both chest x- ray and urinalysis were unremarkable. Lower extremity edema has improved as well as his pain. Will transition to oral doxycycline for 5 additional days. Patient noted to have mild transaminitis. No abdominal pain. Hepatitis panel pending at the time of discharge. Time Spent with Patient Time attestation: Total time spent providing and/or coordinating discharge services: Discharge coordination time: Greater than 30 minutes Quality: Safe Use of Opioids Does Pt have an Active Cancer Diagnosis on the Problem List?: No Quality: Stroke Does the patient have a stroke diagnosis?: No Physical Exam Vital Signs: Vital Signs: Last Vital Signs Temp 97.6 F 03/10/22 15:32 Pulse 88 03/10/22 15:32 Resp 18 03/10/22 15:32 BP 129/76 03/10/22 15:32 Pulse Ox 98 03/10/22 15:32 O2 Del Method 03/10/22 15:32 BMI result Body Mass Index 35.3 DS: Data Data Completed and Pending Labs on day of discharge: Laboratory Results - last 24 hr 03/09/22 03/10/22 03/10/22 18:44 07:39 07:39 WBC 8.3 RBC 4.32 L Hgb 12.0 L Hct 37.3 L MCV 86.3 MCH 27.8 MCHC 32.2 RDW 13.9 Plt Count 305 MPV 9.7 Absolute Nucleated RBC 0.000 Nucleated RBC % (auto) 0.0 Sodium 140 Potassium 4.0 Chloride 105 Carbon Dioxide 27 Anion Gap 12 BUN 4 L Creatinine 0.66 0.61 Estim Creat Clear Calc 213.1 230.5 Estimated GFR > 60 > 60 Random Glucose 109 Calcium 8.6 Total Bilirubin < 0.2 Direct Bilirubin < 0.2 AST 47 H ALT 78 H Alkaline Phosphatase 76 Total Protein 6.1 L Albumin 3.2 L Preliminary micro results at discharge 03/09/22 01:43 Blood Culture - Preliminary Blood - Venous No growth after 24 hours. 03/09/22 01:43 Blood Culture - Preliminary Blood - Venous No growth after 24 hours. 03/08/22 22:17 Blood Culture - Preliminary Blood - Venous No growth after 24 hours. 03/08/22 22:17 Blood Culture - Preliminary Blood - Venous No growth after 24 hours. Discharge Plan Discharge Patient Disposition: Xfer Psychiatric Hosp Referrals: Physician,Jenny J [Primary Care Provider] - 1 Week Discharge Medications: No Action No Known Home Meds Discharge Orders: Discharge Order (Routine); Ordered 03/10/22 Ordered By: Sugar Brown Activity on Discharge: As tolerated Stand Alone Forms: Patient Portal Discharge page Health Concerns: Lower extremity cellulitis and swelling Elevated LFTs Plan of Treatment: Complete course of doxycycline keep legs elevated when able follow up results of hepatitis screening
[2022-03-10 16:00] VITALS: PULSE 74
--- NOTE | 2022-03-10 17:39 | PC.NURSE ---
Pt restless this morning, anxious wanting to shower. Medicated with po ativan with good effect. 1:1 sitter in room. Pt without any words of harming himself or suicide. Nurse to nurse report given. Pending transfer back up to psych unit
[2022-03-11 06:57] LABS: HBc Num1 0.12 S/CO (0.00-0.79); HBsAGNum1 0.23 S/CO (0.00-0.99); Hepatitis A Antibody IgM 0.14 Index (0-0.79); Hepatitis B Core Antibody Nonreactive (Nonreactive); Hepatitis B Surface Antigen Negative (Negative); ~HepC Num1 0.06 S/CO (0.00-0.79); ~Hepatitis A Antibody IgM Nonreactive (Nonreactive); ~Hepatitis B Surface Antibody NONREACTIVE (Nonreactive); ~Hepatitis C Antibody Nonreactive (Nonreactive)
== END 2022-03-10 15:43 | DRG 885 ==
LOC: HO.ED 20:19 → HO.PM5 03-08 19:35 → HO.S3 03-09 00:34 → HO.PM5 03-09 00:35
PROVIDERS: Nurse Practitioner Family; Registered Nurse; Admitting Provider Internal Medicine; Emergency Provider Emergency Medicine; Visit Provider Physician Assistant Medical
DX: F25.0 Schizoaffective disorder, bipolar type (principal); E87.2 Acidosis; R45.851 Suicidal ideations; L03.116 Cellulitis of left lower limb; L03.115 Cellulitis of right lower limb; F14.10 Cocaine abuse, uncomplicated; F10.20 Alcohol dependence, uncomplicated; R74.01 Elevation of levels of liver transaminase levels; D72.829 Elevated white blood cell count, unspecified; Z20.822 Contact with and (suspected) exposure to COVID-19; F19.10 Other psychoactive substance abuse, uncomplicated; F17.210 Nicotine dependence, cigarettes, uncomplicated; Z74.3 Need for continuous supervision; Z71.6 Tobacco abuse counseling; Z56.0 Unemployment, unspecified; Z79.899 Other long term (current) drug therapy
CPT/HCPCS: 36415; 71045; 80048; 80053; 80076; 80307; 81003; 82077; 82565; 83605; 85025; 85027; 85652; 86140; 86704; 86706; 86709; 86803; 87040; 87340; 87635; 93005; 93925; 93970; 99285; J1650; J2543; J3370; Q0163

== ENCOUNTER 2022-03-10 15:44 | Inpatient (IN) | payer MEDICAID, OTHER, SELFPAY ==
--- NOTE | ~2022-03-10 | XR_ITS ---
EXAMINATION: XR CHEST CLINICAL INFORMATION: Shortness of breath COMPARISON: 03/09/2022 TECHNIQUE: Frontal view of the chest was obtained. FINDINGS: Lungs are clear. No focal consolidation or mass. Normal pulmonary vascularity. No pleural effusion or pneumothorax. Normal heart size. No acute osseous abnormality. XR/XR chest 1V IMPRESSION: No acute pulmonary disease.
--- NOTE | ~2022-03-10 | XR_ITS ---
EXAMINATION: XR FOOT, RIGHT CLINICAL INFORMATION: Right foot pain. COMPARISON: None TECHNIQUE: AP, lateral, and oblique views of the right foot. FINDINGS: Deformity seen in the third metatarsal. The remainder the digits are intact. The tarsal bones are normally aligned. There is mild soft tissue swelling. XR/XR foot RT 2V IMPRESSION: Deformity in the third metatarsal is appearance of a healing fracture without significant displacement. Correlate with physical exam and trauma history.
[2022-03-10 18:32] VITALS: BMI 31.7
--- NOTE | 2022-03-10 19:23 | PC.ADMIT ---
Pt is a 21 years old male admitted on CV for depression, SI, AH. Pt has been noncompliant with Inocencio's order medication for three months, using cocain and Heroin. Pt was admitted days ago on pt developed Lactic Acidosis and was transferred to [place] [id number] for medical [place]. Pt is readmitted to today. Pt is alert and oriented X3, VSS, Covid negative, Tox screen positive for Cocaine and Heroin. Pt denies SI/HI/AH at this time. Pt seem preoccupied given out delayed answers which doesn't make sense. Pt is irritable with flat mood and affect. Speech is irregular with low tone. Pt expressed concern about wanting to leave the facility early. Admission orders obtained.
[2022-03-10] MEDS: Nicotine Polacrilex 2 MG GUM BUCCAL ×2 (19:54→23:02)
[2022-03-10] MEDS: Divalproex Sodium ER 500 MG TAB.ER.24H PO (19:54)
[2022-03-10] MEDS: Acetaminophen 325 MG TABLET 650 MG PO (23:39)
[2022-03-10] MEDS: Ondansetron ODT 4 MG TAB.RAPDIS TRANSLINGU (23:40)
[2022-03-10] MEDS: QUEtiapine Fumarate 100 MG TABLET PO (23:40)
--- NOTE | 2022-03-10 23:42 | PC.NURSE ---
Pt vomits about 300cc after taking ensure. PRN ondansetron 4mg given.
[2022-03-11] MEDS: Nicotine Polacrilex 2 MG GUM BUCCAL ×6 (01:15→17:20)
[2022-03-11] MEDS: Ibuprofen 600 MG TABLET PO ×2 (04:45→22:12)
[2022-03-11 06:00] VITALS: BP 119/59; PULSE 79; RESP 18; TEMP 36.4; O2SAT 98
[2022-03-11] MEDS: methADONE HCl 20 MG/2 ML ORAL.CONC PO (07:40)
[2022-03-11] MEDS: Thiamine HCL 100 MG TABLET 50 MG PO (07:41)
[2022-03-11] MEDS: Pyridoxine HCl (Vitamin B6) 50 MG TABLET 25 MG PO (07:41)
[2022-03-11] MEDS: ARIPiprazole 20 MG TABLET PO (07:42)
[2022-03-11] MEDS: Nicotine 21 MG PATCH.TD24 TRANSDERMA (07:42)
[2022-03-11] MEDS: Folic Acid 1 MG TABLET PO (07:42)
[2022-03-11] MEDS: Acetaminophen 325 MG TABLET 650 MG PO (09:45)
[2022-03-11] MEDS: Ondansetron ODT 4 MG TAB.RAPDIS TRANSLINGU ×2 (12:47→17:44)
--- NOTE | 2022-03-11 13:13 | P.HPPS_ITS ---
HPI Date of Service: 03/11/22 Chief Complaint: psych Sources of Information: patient interviewed, chart reviewed and crisis/core team assessment reviewed HPI Subjective Notes: Salvador Warning and Conditional Voluntary Healthcare Proxy: No Guardianship: No Medical Problems Affecting Mental Status: No Narrative: 21 yo male, history of polysubstance abuse (cocaine, crack, opiates, cannabis, alcohol), schizoaffective disorder, bipolar type. Pt originally admitted on 03/08/22 for increasing sx of agitation, response to internal stimuli, withdrawal and striking the richard and reports of withdrawal sx-1 bundle heroin daily along with crack cocaine daily for 8 weeks[place] [place] for [place] and cannabis-toxicology positive at [facility] for opiates and cocaine in addition. Per crisis team discussion with [facility]- pt experiencing verbal aggression, arguments with mother and stealing items from a store, along with stealing drugs from a dealer and endangering his family. Pt was transferred from psychiatry to medicine on 03/08/22 for leg swelling, lactic acidosis. He was transferred to medicine due to his history of IV drug use, leukocytosis, elevated lactic acid for IV fluids and IV antibiotics. It was found that he had bilateral lower extremity edema, bilateral lower extremity cellulitis which was more prominent on the left side and mild transaminitis. Ultrasound negative for DVT. Symptoms resolved. Pt returns to adult psychiatry to continue Methadone titration, re-establishment of medications and discharge planning. Pt today reports paranoia about others on the unit-he asks for a private room-[facility]. Pt not interested in psychiatric medications. Reviewed guardianship with pt and Inocencio's plan of care. Expressed anger with [id number] he does not recall why he was admitted and wants to report the unit keeping him to police- they promised me I could leave . Pt also feeling that the food/beverages on the unit are poisoned. Per reports pt has had a few Section 35 applications, the most recent last week which was not followed up with as pt could not be found. Pt reports not really knowing what to do-want ing to be at home with his mother. Pt discussed wanting to make a change back to Suboxone-discussed with Dennise Hess CUSTOMER RELATIONS ASSISTANT Addictions Director, who will assist pt in this process. Pt asking to leave. Discussed treatment plan and our need to re-establish meds, re-establish Suboxone, and connect with collaterals to discuss what is the best plan of care for pt at this time. Past Psychiatric History: -Pt is on a Inocencio?s Order, however this was not in his chart. Hx of inpatient civil commitments. Pt's guardian is Abelardo Guerrier. -Pt has [facility], [facility]. -[facility] CM is Cruzito Rahman -OP Psych provider is Gerald Maher, meds last filled by Gerald Blackmon. -Hx of presenting to crisis with substance use, delusional/ bizarre thoughts, AH, and flashbacks. Has long hx of treatment non-adherence and lack of follow up with OP providers. -Hx of IP at [facility] [id number]; [facility] 01/2019; [facility] 09/2018. Last [place] at [facility] on 08/14/2021 due to pt trashing his room and going after his mother,? med non-adherence on a Inocencio?s. Medical Evaluation Reviewed: Yes PMFSH Medical History Opioid use disorder Schizoaffective disorder Schizoaffective disorder, bipolar type Narrative: Resolved lactic acidosis Resolved bilateral lower extremity cellulitis Resolved mild transaminitis Family History: Bipolar-mother Schizophrenia-mother Opiate Dependence-uncle, of OD 2011 Bipolar- My cousin Social History: Lives with mother, brother. Unemployed. Legal: Hx of being charged with trespassing, destruction of property Pt was born in [place]. He resided with his Uncle until 2011 (he of a heroin overdose). No relationship with bio dad. Supports: has two brothers and a cousin. Substance History: Opiates, Crack-Cocaine, Fentanyl, Cannabis, Alcohol Trauma History: Affirms Diagnostics Vital Signs (24Hr): Vital Signs - 24 hr 03/11/22 06:00 Temperature 97.6 F Pulse Rate 79 Respiratory Rate 18 Blood Pressure 119/59 L Pulse Oximetry 98 BMI result Body Mass Index 31.7 Meds/Allergies Meds Home Medications Medication Instructions Recorded Confirmed Type No Known Home Meds 03/07/22 03/07/22 History Allergies Allergies Allergy/AdvReac Type Severity Reaction Status Date / Time No Known Allergies Allergy Verified 03/07/22 13:00 [No Known Allergies*] Mental Status Exam Mental Status Exam Patient Appearance: Appropriate Patient Orientation: Person, Place and Time Level of Consciousness: Restless and Alert Patient Behavior: Guarded, Talkative, Cooperative, Suspicious, Restless, Wandering, Anxious, Fearful, Avoidant, Distractible, Isolative and Good Eye Contact Mood Description: Suspicious, Withdrawn, Depressed, Anxious, Labile, Angry and Apprehensive Affect Description: Labile Patient Cognition Impaired: Yes Ability to Follow Directions: Fair Speech Pattern: Perseverating, Spontaneous Speech and Soft-Spoken Memory Description: Remote Impaired and Episodic Impaired Hallucinations: Auditory Delusions: Being Controlled and Paranoid Ideation Perceptual Disturbances: Depersonalization, Derealization and Hallucinations Thought Process: Illogical, Distracted, Rumination and Evasive Thought Content: positive for Circumstantial, positive for Perseveration, positive for Preoccupation, positive for Thought Blocking, positive for Tangential and positive for Evasive Depressive Symptoms: Increased Anxiety, Increased Irritability, Isolating- Friends/Family and Difficulty Concentrating Abnormal Motor Activity Signs and Symptoms: Restlessness Judgement: Poor Assessment & Plan Assessment & Plan (1) Schizoaffective disorder, bipolar type: Status: Acute Code(s): F25.0 - Schizoaffective disorder, bipolar type (2) Opioid use disorder: Status: Acute Code(s): F11.90 - Opioid use, unspecified, uncomplicated (3) Polysubstance use disorder: Status: Acute Code(s): F19.90 - Other psychoactive substance use, unspecified, uncomplicated (4) Alcohol use disorder, moderate, dependence: Status: Acute Code(s): F10.20 - Alcohol dependence, uncomplicated (5) Cocaine use disorder: Status: Acute Code(s): F14.10 - Cocaine abuse, uncomplicated Plan 21 yo male, history of schizoaffective disorder, bipolar type, polysubstance abuse, admitted for psychotic sx and withdrawal from [facility]. Pt admitted psychiatrically then transferred to medicine due to bilateral lower extremity cellulitis-Pt returns now after this has resolved for ongoing care. Plan. 1. Pt prefers Suboxone to Methadone- He is working with Dennise Hess CUSTOMER RELATIONS ASSISTANT to transition. 2. Inocencio's paperwork reviewed. Continue current regime. Regime is within parameters. 3. Collateral contacts for treatment planning. Pt, with polysubstance and psychiatric issues is at risk in community. Discuss care with family, [facility] and OP Team. Patient educated on: medication risk/benefits and therapeutic strategies Informed Consent: does not understand and further education needed Reason for continued inpatient stay Substantial Risk for: inability to function and rapid decompensation
--- NOTE | 2022-03-11 16:50 | HO.ADDICTPRO ---
Subjective Subjective Date of Service: 03/11/22 Reason For Visit: psych Interim History: Patient seen in follow up currently recieving methadone 20mg qd. Tolerating mediation. When seen by this rfp writer, patient was walking around unit, appearing comfortable asking to have food warmed up. Denies any withdrawal sx. At time of interview unclear what direction patient wanted to go in , in regards to continuing methadone or starting buprenorphine as he said yes to both options, then said don't worry about it, I am leaving today or tomorrow . This rfp writer reviewed case with attending provider, patient is not scheduled to be discharged today or tomorrow. Working to reestablish psychiatric medications. Attending psych provider later messaged this rfp writer that patient wished to initiate suboxone. Review of Systems Constitutional: Reports as per HPI and Reports no additional constitutional complaints Mental Status Exam Mental Status Exam Patient Appearance: Well Grooomed and Appropriate Level of Consciousness: Awake and Alert Patient Behavior: Talkative Diagnostics Vital Signs (24Hr): Vital Signs - 24 hr 03/11/22 06:00 Temperature 97.6 F Pulse Rate 79 Respiratory Rate 18 Blood Pressure 119/59 L Pulse Oximetry 98 BMI result Body Mass Index 31.7 Medications Medications Current Medications Acetaminophen (Acetaminophen 325 Mg Tablet) 650 mg PO Q6H PRN PRN Reason: Headache/Pain Mild Scale (1-3) Last Admin: 03/11/22 09:45 Dose: 650 mg Aripiprazole (Aripiprazole 20 Mg Tablet) 20 mg PO DAILY [facility] Last Admin: 03/11/22 07:42 Dose: 20 mg Buprenorphine/Naloxone (Buprenorphine/Naloxone 2/0.5mg Film) 0.25 film SUBLINGUAL ONCE@0800 [facility] Stop: 03/12/22 08:01 Buprenorphine/Naloxone (Buprenorphine/Naloxone 2/0.5mg Film) 0.25 film SUBLINGUAL BID@0800,1600 [facility] Stop: 03/13/22 16:01 Buprenorphine/Naloxone (Buprenorphine/Naloxone 2/0.5mg Film) 0.5 film SUBLINGUAL BID@0800,1600 [facility] Stop: 03/14/22 16:01 Buprenorphine/Naloxone (Buprenorphine/Naloxone 2/0.5mg Film) 1 film SUBLINGUAL BID@0800,1600 [facility] Stop: 03/15/22 16:01 Buprenorphine/Naloxone (Buprenorphine/Naloxone 4/1 Mg Film) 1 film SUBLINGUAL BID@0800,1600 [facility] Stop: 03/16/22 16:01 Buprenorphine/Naloxone (Buprenorphine/Naloxone 8/2 Mg Film) 1 film SUBLINGUAL DAILY [facility] Clonidine HCl (Clonidine Hcl 0.1 Mg Tablet) 0.1 mg PO TID PRN; Protocol PRN Reason: hyperarousal Divalproex Sodium (Divalproex Sodium Er 500 Mg Tab.Er.24h) 500 mg PO BEDTIME [facility] Last Admin: 03/10/22 19:54 Dose: 500 mg Docusate Sodium (Docusate Sodium 100 Mg Capsule) 100 mg PO DAILY PRN PRN Reason: Constipation Doxycycline Hyclate (Doxycycline Hyclate 100 Mg Tablet) 100 mg PO BID [facility] Last Admin: 03/11/22 07:40 Dose: 100 mg Folic Acid (Folic Acid 1 Mg Tablet) 1 mg PO DAILY [facility] Last Admin: 03/11/22 07:42 Dose: 1 mg Hydroxyzine HCl (Hydroxyzine Hcl 50 Mg Tablet) 50 mg PO Q6H PRN PRN Reason: Anxiety Ibuprofen (Ibuprofen 600 Mg Tablet) 600 mg PO Q6H PRN PRN Reason: mod-severe pain Last Admin: 03/11/22 04:45 Dose: 600 mg Loperamide HCl (Loperamide Hcl 2 Mg Capsule) 2 mg PO Q4H PRN PRN Reason: diarrhea Lorazepam (Lorazepam 1 Mg Tablet) 2 mg PO Q6H PRN PRN Reason: CIWA<8 Magnesium Hydroxide (Milk Of Magnesia 30 Ml Oral.Susp) 30 ml PO DAILY PRN PRN Reason: Constipation Melatonin (Melatonin 3 Mg Tablet) 6 mg PO BEDTIME PRN PRN Reason: insomnia Methadone HCl (Methadone Hcl 20 Mg/2 Ml Oral.Conc) 20 mg PO DAILY [facility] Stop: 03/16/22 10:00 Last Admin: 03/11/22 07:40 Dose: 20 mg Nicotine (Nicotine 21 Mg Patch.Td24) 21 mg TRANSDERMA DAILY [facility] Last Admin: 03/11/22 07:42 Dose: 21 mg Nicotine Polacrilex (Nicotine Polacrilex 2 Mg Gum) 2 mg BUCCAL Q2H PRN PRN Reason: nicotine withdrawal Last Admin: 03/11/22 12:48 Dose: 2 mg Olanzapine (Olanzapine 5 Mg Tablet) 5 mg PO Q6H PRN PRN Reason: agitation, psychosis, anxiety Ondansetron HCl (Ondansetron Odt 4 Mg Tab.Rapdis) 4 mg TRANSLINGU Q6H PRN PRN Reason: nausea Last Admin: 03/11/22 12:47 Dose: 4 mg Polyethylene Glycol (Polyethylene Glycol 3350 17 Gm Powd.Pack) 17 gm PO BID PRN PRN Reason: constipation Pyridoxine HCl (Pyridoxine Hcl (Vitamin B6) 50 Mg Tablet) 25 mg PO DAILY [facility] Last Admin: 03/11/22 07:41 Dose: 25 mg Quetiapine Fumarate (Quetiapine Fumarate 100 Mg Tablet) 100 mg PO BEDTIME PRN PRN Reason: Insomnia Last Admin: 03/10/22 23:40 Dose: 100 mg Thiamine HCl (Thiamine Hcl 100 Mg Tablet) 50 mg PO DAILY [facility] Last Admin: 03/11/22 07:41 Dose: 50 mg Trazodone HCl (Trazodone Hcl 50 Mg Tablet) 50 mg PO BEDTIME PRN PRN Reason: Insomnia Allergies Allergies Allergy/AdvReac Type Severity Reaction Status Date / Time No Known Allergies Allergy Verified 03/07/22 13:00 [No Known Allergies*] Assessment & Plan Assessment & Plan (1) Opioid use disorder: Status: Acute Code(s): F11.90 - Opioid use, unspecified, uncomplicated Assessment and Plan: continue methadone, with last dose being Staurday start low dose suboxone tomorrow. Suboxone should be administered ONE hour BEFORE methadone dose is administered Suboxone titration schedule: 0.5mg X1, 0.5mg X2, 1mg X2, 2mg X2, 4mg X2 will continue to follow. comfort meds as necessary. I spent __30____ minutes with the patient and/or on the patient floor today, greater than?50% of which was spent counseling/coordinating care.
[2022-03-11] MEDS: LORazepam 1 MG TABLET 2 MG PO (17:42)
--- NOTE | 2022-03-11 18:19 | PC.NURSE ---
Patient c/o pain 8/10 on 0-10 scale with 10 being the worst on his right foot. This press writer looked at his right foot and noticed swelling and patient said he had kicked something a week or so ago and foot has been hurting ever since. He had not mentioned this to anyone else today. Dr. Martinez notified of patient's complaint. Patient indicated that he want a long bandage (probably Michael wrap). Explaained to patient that michael wraps are not allowed on [facility].
[2022-03-11 20:00] VITALS: BP 110/56; PULSE 80; TEMP 35.8; O2SAT 97
--- NOTE | 2022-03-11 21:43 | PC.NURSE ---
Result of right foot x-ray report viewed. Patient has a healing fracture of 3 third metatarsal without significant displacement. Result texted to Dr. Martinez.
[2022-03-11] MEDS: Divalproex Sodium ER 500 MG TAB.ER.24H PO (22:11)
[2022-03-12] MEDS: Nicotine Polacrilex 2 MG GUM BUCCAL ×4 (02:04→21:55)
[2022-03-12 08:00] VITALS: PULSE 98
[2022-03-12] MEDS: Buprenorphine/Naloxone 2/0.5mg FILM 0.25 FILM SUBLINGUAL (08:50)
[2022-03-12] MEDS: Thiamine HCL 100 MG TABLET 50 MG PO (09:31)
[2022-03-12] MEDS: Pyridoxine HCl (Vitamin B6) 50 MG TABLET 25 MG PO (09:31)
[2022-03-12] MEDS: ARIPiprazole 20 MG TABLET PO (09:31)
[2022-03-12] MEDS: Folic Acid 1 MG TABLET PO (09:31)
[2022-03-12] MEDS: Nicotine 21 MG PATCH.TD24 TRANSDERMA (09:33)
[2022-03-12] MEDS: methADONE HCl 20 MG/2 ML ORAL.CONC PO (09:35)
--- NOTE | 2022-03-12 12:12 | P.PNPSI_ITS ---
Subjective Subjective Date of Service: 03/12/22 Reason For Visit: psych Subjective Notes: Conditional Voluntary Healthcare Proxy: No Guardianship: No Medical Problems Affecting Mental Status: No Interim History: Transitioning to Suboxone from Methadone. Displeased with low dosing during transition. Review of labs, anemia, agrees to allow further labs, supplementation. Guarded and appears with paranoia today. Medication Compliance: Yes Side effects from medications: No Attending Groups: Intermittent Review of Systems Acute medical concerns: No Medical Review of Systems: unchanged Review of Systems Reports behavioral changes Psychiatric: Reports anxiety, Reports behavioral changes, Reports depression, Reports difficulty concentrating, Reports auditory hallucinations, Reports ho pelessness, Reports irritability, Reports mood swings, Reports paranoia and Reports suicidal ideation (denies) Mental Status Exam Mental Status Exam Patient Appearance: Appropriate Patient Orientation: Person, Place and Time Level of Consciousness: Restless and Alert Patient Behavior: Guarded, Talkative, Cooperative, Suspicious, Restless, Wandering, Anxious, Fearful, Avoidant, Distractible, Isolative and Good Eye Contact Mood Description: Suspicious, Withdrawn, Depressed, Anxious, Labile, Angry and Apprehensive Affect Description: Labile Patient Cognition Impaired: Yes Ability to Follow Directions: Fair Speech Pattern: Perseverating, Spontaneous Speech and Soft-Spoken Memory Description: Remote Impaired and Episodic Impaired Hallucinations: Auditory Delusions: Being Controlled and Paranoid Ideation Perceptual Disturbances: Depersonalization, Derealization and Hallucinations Thought Process: Illogical, Distracted, Rumination and Evasive Thought Content: positive for Circumstantial, positive for Perseveration, positive for Preoccupation, positive for Thought Blocking, positive for Tangential and positive for Evasive Depressive Symptoms: Increased Anxiety, Increased Irritability, Isolating- Friends/Family and Difficulty Concentrating Abnormal Motor Activity Signs and Symptoms: Restlessness Judgement: Poor Diagnostics Vital Signs (24Hr): Vital Signs - 24 hr 03/11/22 20:00 Temperature 96.4 F L Pulse Rate 80 Blood Pressure 110/56 L Pulse Oximetry 97 Oxygen Delivery Method Room Air BMI result Body Mass Index 31.7 Imaging Radiology Impressions: ITS Impressions Foot X-Ray 03/11/22 20:35 IMPRESSION: Deformity in the third metatarsal is appearance of a healing fracture without significant displacement. Correlate with physical exam and trauma history. Medications Medications Current Medications Acetaminophen (Acetaminophen 325 Mg Tablet) 650 mg PO Q6H PRN PRN Reason: Headache/Pain Mild Scale (1-3) Last Admin: 03/11/22 09:45 Dose: 650 mg Aripiprazole (Aripiprazole 20 Mg Tablet) 20 mg PO DAILY [facility] Last Admin: 03/12/22 09:31 Dose: 20 mg Buprenorphine/Naloxone (Buprenorphine/Naloxone 2/0.5mg Film) 0.25 film SUBLINGUAL BID@0800,1600 [facility] Stop: 03/13/22 16:01 Buprenorphine/Naloxone (Buprenorphine/Naloxone 2/0.5mg Film) 0.5 film SUBLINGUAL BID@0800,1600 [facility] Stop: 03/14/22 16:01 Buprenorphine/Naloxone (Buprenorphine/Naloxone 2/0.5mg Film) 1 film SUBLINGUAL BID@0800,1600 [facility] Stop: 03/15/22 16:01 Buprenorphine/Naloxone (Buprenorphine/Naloxone 4/1 Mg Film) 1 film SUBLINGUAL BID@0800,1600 [facility] Stop: 03/16/22 16:01 Buprenorphine/Naloxone (Buprenorphine/Naloxone 8/2 Mg Film) 1 film SUBLINGUAL DAILY [facility] Clonidine HCl (Clonidine Hcl 0.1 Mg Tablet) 0.1 mg PO TID PRN; Protocol PRN Reason: hyperarousal Divalproex Sodium (Divalproex Sodium Er 500 Mg Tab.Er.24h) 500 mg PO BEDTIME [facility] Last Admin: 03/11/22 22:11 Dose: 500 mg Docusate Sodium (Docusate Sodium 100 Mg Capsule) 100 mg PO DAILY PRN PRN Reason: Constipation Doxycycline Hyclate (Doxycycline Hyclate 100 Mg Tablet) 100 mg PO BID [facility] Last Admin: 03/12/22 09:31 Dose: 100 mg Folic Acid (Folic Acid 1 Mg Tablet) 1 mg PO DAILY [facility] Last Admin: 03/12/22 09:31 Dose: 1 mg Hydroxyzine HCl (Hydroxyzine Hcl 50 Mg Tablet) 50 mg PO Q6H PRN PRN Reason: Anxiety Ibuprofen (Ibuprofen 600 Mg Tablet) 600 mg PO Q6H PRN PRN Reason: mod-severe pain Last Admin: 03/11/22 22:12 Dose: 600 mg Loperamide HCl (Loperamide Hcl 2 Mg Capsule) 2 mg PO Q4H PRN PRN Reason: diarrhea Lorazepam (Lorazepam 1 Mg Tablet) 2 mg PO Q6H PRN PRN Reason: CIWA<8 Last Admin: 03/11/22 17:42 Dose: 2 mg Magnesium Hydroxide (Milk Of Magnesia 30 Ml Oral.Susp) 30 ml PO DAILY PRN PRN Reason: Constipation Melatonin (Melatonin 3 Mg Tablet) 6 mg PO BEDTIME PRN PRN Reason: insomnia Methadone HCl (Methadone Hcl 20 Mg/2 Ml Oral.Conc) 20 mg PO DAILY [facility] Stop: 03/16/22 10:00 Last Admin: 03/12/22 09:35 Dose: 20 mg Nicotine (Nicotine 21 Mg Patch.Td24) 21 mg TRANSDERMA DAILY [facility] Last Admin: 03/12/22 09:33 Dose: 21 mg Nicotine Polacrilex (Nicotine Polacrilex 2 Mg Gum) 2 mg BUCCAL Q2H PRN PRN Reason: nicotine withdrawal Last Admin: 03/12/22 09:31 Dose: 2 mg Olanzapine (Olanzapine 5 Mg Tablet) 5 mg PO Q6H PRN PRN Reason: agitation, psychosis, anxiety Ondansetron HCl (Ondansetron Odt 4 Mg Tab.Rapdis) 4 mg TRANSLINGU Q6H PRN PRN Reason: nausea Last Admin: 03/11/22 17:44 Dose: 4 mg Polyethylene Glycol (Polyethylene Glycol 3350 17 Gm Powd.Pack) 17 gm PO BID PRN PRN Reason: constipation Pyridoxine HCl (Pyridoxine Hcl (Vitamin B6) 50 Mg Tablet) 25 mg PO DAILY [facility] Last Admin: 03/12/22 09:31 Dose: 25 mg Quetiapine Fumarate (Quetiapine Fumarate 100 Mg Tablet) 100 mg PO BEDTIME PRN PRN Reason: Insomnia Last Admin: 03/10/22 23:40 Dose: 100 mg Thiamine HCl (Thiamine Hcl 100 Mg Tablet) 50 mg PO DAILY [facility] Last Admin: 03/12/22 09:31 Dose: 50 mg Trazodone HCl (Trazodone Hcl 50 Mg Tablet) 50 mg PO BEDTIME PRN PRN Reason: Insomnia Allergies Allergies Allergy/AdvReac Type Severity Reaction Status Date / Time No Known Allergies Allergy Verified 03/07/22 13:00 [No Known Allergies*] Assessment & Plan Assessment & Plan (1) Opioid use disorder: Status: Acute Code(s): F11.90 - Opioid use, unspecified, uncomplicated Assessment and Plan: * continue methadone, with last dose being Staurday * start low dose suboxone tomorrow. Suboxone should be administered ONE hour BEFORE methadone dose is administered * Suboxone titration schedule: 0.5mg X1, 0.5mg X2, 1mg X2, 2mg X2, 4mg X2 * will continue to follow. comfort meds as necessary. Plan Labs: B12,Folate, Iron Profile, TSH, A1C, Cholesterol Ferrous Sulfate 325 mg daily Continue psychiatric regime I spent minutes with the patient and/or on the patient floor today, greater than?50% of which was spent counseling/coordinating care. Patient educated on: medication risk/benefits and therapeutic strategies Informed Consent: further education needed Reason for contiued inpatient stay Substantial Risk for: harm to self, harm to others, inability to function and rapid decompensation
[2022-03-12] MEDS: hydrOXYzine HCL 50 MG TABLET PO (13:34)
[2022-03-12] MEDS: Ondansetron ODT 4 MG TAB.RAPDIS TRANSLINGU ×2 (13:34→19:25)
[2022-03-12] MEDS: Ibuprofen 600 MG TABLET PO (15:08)
[2022-03-12 18:00] VITALS: BP 100/70; PULSE 80; RESP 20; TEMP 36.1; O2SAT 98
[2022-03-12] MEDS: QUEtiapine Fumarate 100 MG TABLET PO (19:33)
[2022-03-12] MEDS: cloNIDine HCL 0.1 MG TABLET PO (20:37)
[2022-03-12] MEDS: Divalproex Sodium ER 500 MG TAB.ER.24H PO (21:21)
[2022-03-12] MEDS: traZODone HCL 50 MG TABLET PO (21:25)
[2022-03-13] MEDS: Buprenorphine/Naloxone 2/0.5mg FILM 0.25 FILM SUBLINGUAL ×2 (07:52→16:43)
[2022-03-13 08:00] VITALS: PULSE 74
[2022-03-13] MEDS: methADONE HCl 20 MG/2 ML ORAL.CONC PO (08:34)
[2022-03-13] MEDS: Ferrous Sulfate 324 MG TABLET.DR PO (08:34)
[2022-03-13] MEDS: ARIPiprazole 20 MG TABLET PO (08:34)
[2022-03-13] MEDS: Folic Acid 1 MG TABLET PO (08:34)
[2022-03-13] MEDS: Pyridoxine HCl (Vitamin B6) 50 MG TABLET 25 MG PO (08:34)
[2022-03-13] MEDS: Thiamine HCL 100 MG TABLET 50 MG PO (08:34)
[2022-03-13] MEDS: Nicotine Polacrilex 2 MG GUM BUCCAL ×3 (08:35→22:44)
[2022-03-13] MEDS: Nicotine 21 MG PATCH.TD24 TRANSDERMA (08:35)
[2022-03-13] MEDS: Ondansetron ODT 4 MG TAB.RAPDIS TRANSLINGU ×2 (09:18→16:46)
[2022-03-13] MEDS: Ibuprofen 600 MG TABLET PO ×2 (09:19→18:04)
[2022-03-13 09:27] LABS: Estimated Average Glucose 100 mg/dL; Hemoglobin A1c % 5.1 %
[2022-03-13 09:39] LABS: Cholesterol 159 mg/dL; HDL Cholesterol 34 mg/dL; Iron 74 mcg/dL (45-160); LDL Cholesterol Calculated 77 mg/dl; Percent Iron Saturation 23 % (15-50); Total Iron Binding Capacity 323 mcg/dL (228-428); Triglycerides 243 mg/dL; Unsaturated Iron Binding 249 ug/dL
[2022-03-13 10:02] LABS: Thyroid Stimulating Hormone 2.92 uIU/mL (0.32-4.0)
[2022-03-13 10:47] VITALS: BP 118/74; PULSE 89; RESP 20; TEMP 36.4; O2SAT 99
[2022-03-13 10:57] LABS: Folate 7.5 ng/mL (> or = 4.0); Vitamin B12 569 pg/mL (200-900)
--- NOTE | 2022-03-13 16:07 | HO.PSYCHPN ---
Subjective Subjective Date of Service: 03/13/22 Reason For Visit: psych Subjective Notes: Conditional Voluntary and 3 Day Healthcare Proxy: No Guardianship: No Medical Problems Affecting Mental Status: No Interim History: Three day notice submitted. Medication compliant. 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 Medication Compliance: Yes Side effects from medications: No Attending Groups: Intermittent Review of Systems Acute medical concerns: No Medical Review of Systems: unchanged Review of Systems Reports behavioral changes Psychiatric: Reports behavioral changes and Reports other (mild withdrawal symptoms- methadone reviewed with Dennise Hess NP) Mental Status Exam Mental Status Exam Patient Appearance: Appropriate Patient Orientation: Person, Place and Time Level of Consciousness: Alert Patient Behavior: Talkative, Cooperative, Suspicious, Wandering, Anxious, Distractible and Good Eye Contact Mood Description: Labile and Apprehensive Affect Description: Labile Patient Cognition Impaired: No Ability to Follow Directions: Fair Speech Pattern: Spontaneous Speech and Soft-Spoken Memory Description: Remote Impaired and Episodic Impaired Delusions: Being Controlled and Paranoid Ideation Perceptual Disturbances: Depersonalization and Derealization Thought Process: Distracted and Evasive Thought Content: positive for Circumstantial, positive for Tangential and positive for Evasive Depressive Symptoms: Increased Anxiety Abnormal Motor Activity Signs and Symptoms: Restlessness Judgement: Fair Diagnostics Vital Signs (24Hr): Vital Signs - 24 hr 03/12/22 18:00 03/13/22 10:47 Temperature 97 F 97.5 F Pulse Rate 80 89 Respiratory Rate 20 20 Blood Pressure 100/70 118/74 Pulse Oximetry 98 99 Oxygen Delivery Method Room Air Room Air BMI result Body Mass Index 31.7 Labs Labs: Laboratory Results - last 48 hr 03/13/22 03/13/22 03/13/22 08:17 08:17 08:17 Estimat Average Glucose 100 Hemoglobin A1c % 5.1 Iron 74 TIBC 323 % Saturation 23 Unsat Iron Binding 249 Triglycerides 243 Cholesterol 159 LDL Cholesterol, Calc 77 HDL Cholesterol 34 D Vitamin B12 569 Folate 7.5 TSH 2.92 Imaging Radiology Impressions: ITS Impressions Foot X-Ray 03/11/22 20:35 IMPRESSION: Deformity in the third metatarsal is appearance of a healing fracture without significant displacement. Correlate with physical exam and trauma history. Medications Medications Current Medications Acetaminophen (Acetaminophen 325 Mg Tablet) 650 mg PO Q6H PRN PRN Reason: Headache/Pain Mild Scale (1-3) Last Admin: 03/11/22 09:45 Dose: 650 mg Aripiprazole (Aripiprazole 20 Mg Tablet) 20 mg PO DAILY [facility] Last Admin: 03/13/22 08:34 Dose: 20 mg Buprenorphine/Naloxone (Buprenorphine/Naloxone 2/0.5mg Film) 0.5 film SUBLINGUAL BID@0800,1600 [facility] Stop: 03/14/22 16:01 Buprenorphine/Naloxone (Buprenorphine/Naloxone 2/0.5mg Film) 1 film SUBLINGUAL BID@0800,1600 [facility] Stop: 03/15/22 16:01 Buprenorphine/Naloxone (Buprenorphine/Naloxone 4/1 Mg Film) 1 film SUBLINGUAL BID@0800,1600 [facility] Stop: 03/16/22 16:01 Buprenorphine/Naloxone (Buprenorphine/Naloxone 8/2 Mg Film) 1 film SUBLINGUAL DAILY [facility] Clonidine HCl (Clonidine Hcl 0.1 Mg Tablet) 0.1 mg PO TID PRN; Protocol PRN Reason: hyperarousal Last Admin: 03/12/22 20:37 Dose: 0.1 mg Divalproex Sodium (Divalproex Sodium Er 500 Mg Tab.Er.24h) 500 mg PO BEDTIME [facility] Last Admin: 03/12/22 21:21 Dose: 500 mg Docusate Sodium (Docusate Sodium 100 Mg Capsule) 100 mg PO DAILY PRN PRN Reason: Constipation Doxycycline Hyclate (Doxycycline Hyclate 100 Mg Tablet) 100 mg PO BID [facility] Stop: 03/16/22 09:00 Last Admin: 03/13/22 08:34 Dose: 100 mg Ferrous Sulfate (Ferrous Sulfate 324 Mg Tablet.Dr) 324 mg PO DAILY [facility] Last Admin: 03/13/22 08:34 Dose: 324 mg Folic Acid (Folic Acid 1 Mg Tablet) 1 mg PO DAILY [facility] Last Admin: 03/13/22 08:34 Dose: 1 mg Hydroxyzine HCl (Hydroxyzine Hcl 50 Mg Tablet) 50 mg PO Q6H PRN PRN Reason: Anxiety Last Admin: 03/12/22 13:34 Dose: 50 mg Ibuprofen (Ibuprofen 600 Mg Tablet) 600 mg PO Q6H PRN PRN Reason: mod-severe pain Last Admin: 03/13/22 09:19 Dose: 600 mg Loperamide HCl (Loperamide Hcl 2 Mg Capsule) 2 mg PO Q4H PRN PRN Reason: diarrhea Lorazepam (Lorazepam 1 Mg Tablet) 2 mg PO Q6H PRN PRN Reason: CIWA<8 Last Admin: 03/11/22 17:42 Dose: 2 mg Magnesium Hydroxide (Milk Of Magnesia 30 Ml Oral.Susp) 30 ml PO DAILY PRN PRN Reason: Constipation Melatonin (Melatonin 3 Mg Tablet) 6 mg PO BEDTIME PRN PRN Reason: insomnia Methadone HCl (Methadone Hcl 20 Mg/2 Ml Oral.Conc) 20 mg PO DAILY [facility] Stop: 03/16/22 10:00 Last Admin: 03/13/22 08:34 Dose: 20 mg Nicotine (Nicotine 21 Mg Patch.Td24) 21 mg TRANSDERMA DAILY [facility] Last Admin: 03/13/22 08:35 Dose: 21 mg Nicotine Polacrilex (Nicotine Polacrilex 2 Mg Gum) 2 mg BUCCAL Q2H PRN PRN Reason: nicotine withdrawal Last Admin: 03/13/22 08:35 Dose: 2 mg Olanzapine (Olanzapine 5 Mg Tablet) 5 mg PO Q6H PRN PRN Reason: agitation, psychosis, anxiety Ondansetron HCl (Ondansetron Odt 4 Mg Tab.Rapdis) 4 mg TRANSLINGU Q6H PRN PRN Reason: nausea Last Admin: 03/13/22 09:18 Dose: 4 mg Polyethylene Glycol (Polyethylene Glycol 3350 17 Gm Powd.Pack) 17 gm PO BID PRN PRN Reason: constipation Pyridoxine HCl (Pyridoxine Hcl (Vitamin B6) 50 Mg Tablet) 25 mg PO DAILY [facility] Last Admin: 03/13/22 08:34 Dose: 25 mg Quetiapine Fumarate (Quetiapine Fumarate 100 Mg Tablet) 100 mg PO BEDTIME PRN PRN Reason: Insomnia Last Admin: 03/12/22 19:33 Dose: 100 mg Thiamine HCl (Thiamine Hcl 100 Mg Tablet) 50 mg PO DAILY [facility] Last Admin: 03/13/22 08:34 Dose: 50 mg Trazodone HCl (Trazodone Hcl 50 Mg Tablet) 50 mg PO BEDTIME PRN PRN Reason: Insomnia Last Admin: 03/12/22 21:25 Dose: 50 mg Allergies Allergies Allergy/AdvReac Type Severity Reaction Status Date / Time No Known Allergies Allergy Verified 03/07/22 13:00 [No Known Allergies*] Assessment & Plan Assessment & Plan (1) Opioid use disorder: Status: Acute Code(s): F11.90 - Opioid use, unspecified, uncomplicated Assessment and Plan: continue methadone, with last dose being Staurday start low dose suboxone tomorrow. Suboxone should be administered ONE hour BEFORE methadone dose is administered Suboxone titration schedule: 0.5mg X1, 0.5mg X2, 1mg X2, 2mg X2, 4mg X2 will continue to follow. comfort meds as necessary. Plan Labs: B12,Folate, Iron Profile, TSH, A1C, Cholesterol Ferrous Sulfate 325 mg daily Continue psychiatric regime 03/13/22- Three day notice to 03/18. Continue current regime I spent minutes with the patient and/or on the patient floor today, greater than?50% of which was spent counseling/coordinating care. Patient educated on: therapeutic strategies Informed Consent: understands and further education needed Reason for contiued inpatient stay Substantial Risk for: rapid decompensation
--- NOTE | 2022-03-13 16:22 | PC.NURSE ---
Pt signed 3 day notice 03/13/22, up on 03/18/22.
--- NOTE | 2022-03-13 17:26 | P.PNADD_ITS ---
Subjective Subjective Date of Service: 03/13/22 Reason For Visit: psych Interim History: Patient seen in follow up Started transition from methadone to suboxone staff reporting that patient is presenting with withdrawal sx in the morning. Patient seen in room 505. Laying in bed, answering questions Reports that he is experiencing headaches, but denies any GI sx, chills, nausea, runny nose. Discussed increasing methadone slightly while buprenorphine dose increase, patient requested this proposal writer not do that. Reporting that he does not feel sick and wants to continue with current plan. Reinforced that current plan would continue even if methadone was slightly increased just to provide more comfort, again patient declined dose increase. Review of Systems Constitutional: Reports as per HPI Mental Status Exam Mental Status Exam Patient Appearance: Appropriate Level of Consciousness: Awake Speech Pattern: Clear Diagnostics Vital Signs (24Hr): Vital Signs - 24 hr 03/12/22 18:00 03/13/22 10:47 Temperature 97 F 97.5 F Pulse Rate 80 89 Respiratory Rate 20 20 Blood Pressure 100/70 118/74 Pulse Oximetry 98 99 Oxygen Delivery Method Room Air Room Air BMI result Body Mass Index 31.7 Labs Labs: Laboratory Results - last 48 hr 03/13/22 03/13/22 03/13/22 08:17 08:17 08:17 Estimat Average Glucose 100 Hemoglobin A1c % 5.1 Iron 74 TIBC 323 % Saturation 23 Unsat Iron Binding 249 Triglycerides 243 Cholesterol 159 LDL Cholesterol, Calc 77 HDL Cholesterol 34 D Vitamin B12 569 Folate 7.5 TSH 2.92 Imaging Radiology Impressions: ITS Impressions Foot X-Ray 03/11/22 20:35 IMPRESSION: Deformity in the third metatarsal is appearance of a healing fracture without significant displacement. Correlate with physical exam and trauma history. Chest X-Ray 03/13/22 15:30 IMPRESSION: No acute pulmonary disease. Medications Medications Current Medications Acetaminophen (Acetaminophen 325 Mg Tablet) 650 mg PO Q6H PRN PRN Reason: Headache/Pain Mild Scale (1-3) Last Admin: 03/11/22 09:45 Dose: 650 mg Aripiprazole (Aripiprazole 20 Mg Tablet) 20 mg PO DAILY [facility] Last Admin: 03/13/22 08:34 Dose: 20 mg Buprenorphine/Naloxone (Buprenorphine/Naloxone 2/0.5mg Film) 0.5 film SUBLINGUAL BID@0800,1600 [facility] Stop: 03/14/22 16:01 Buprenorphine/Naloxone (Buprenorphine/Naloxone 2/0.5mg Film) 1 film SUBLINGUAL BID@0800,1600 [facility] Stop: 03/15/22 16:01 Buprenorphine/Naloxone (Buprenorphine/Naloxone 4/1 Mg Film) 1 film SUBLINGUAL BID@0800,1600 [facility] Stop: 03/16/22 16:01 Buprenorphine/Naloxone (Buprenorphine/Naloxone 8/2 Mg Film) 1 film SUBLINGUAL DAILY [facility] Clonidine HCl (Clonidine Hcl 0.1 Mg Tablet) 0.1 mg PO TID PRN; Protocol PRN Reason: hyperarousal Last Admin: 03/12/22 20:37 Dose: 0.1 mg Divalproex Sodium (Divalproex Sodium Er 500 Mg Tab.Er.24h) 500 mg PO BEDTIME [facility] Last Admin: 03/12/22 21:21 Dose: 500 mg Docusate Sodium (Docusate Sodium 100 Mg Capsule) 100 mg PO DAILY PRN PRN Reason: Constipation Doxycycline Hyclate (Doxycycline Hyclate 100 Mg Tablet) 100 mg PO BID [facility] Stop: 03/16/22 09:00 Last Admin: 03/13/22 08:34 Dose: 100 mg Ferrous Sulfate (Ferrous Sulfate 324 Mg Tablet.Dr) 324 mg PO DAILY [facility] Last Admin: 03/13/22 08:34 Dose: 324 mg Folic Acid (Folic Acid 1 Mg Tablet) 1 mg PO DAILY [facility] Last Admin: 03/13/22 08:34 Dose: 1 mg Hydroxyzine HCl (Hydroxyzine Hcl 50 Mg Tablet) 50 mg PO Q6H PRN PRN Reason: Anxiety Last Admin: 03/12/22 13:34 Dose: 50 mg Ibuprofen (Ibuprofen 600 Mg Tablet) 600 mg PO Q6H PRN PRN Reason: mod-severe pain Last Admin: 03/13/22 09:19 Dose: 600 mg Loperamide HCl (Loperamide Hcl 2 Mg Capsule) 2 mg PO Q4H PRN PRN Reason: diarrhea Lorazepam (Lorazepam 1 Mg Tablet) 2 mg PO Q6H PRN PRN Reason: CIWA<8 Last Admin: 03/11/22 17:42 Dose: 2 mg Magnesium Hydroxide (Milk Of Magnesia 30 Ml Oral.Susp) 30 ml PO DAILY PRN PRN Reason: Constipation Melatonin (Melatonin 3 Mg Tablet) 6 mg PO BEDTIME PRN PRN Reason: insomnia Methadone HCl (Methadone Hcl 20 Mg/2 Ml Oral.Conc) 20 mg PO DAILY [facility] Stop: 03/16/22 10:00 Last Admin: 03/13/22 08:34 Dose: 20 mg Nicotine (Nicotine 21 Mg Patch.Td24) 21 mg TRANSDERMA DAILY [facility] Last Admin: 03/13/22 08:35 Dose: 21 mg Nicotine Polacrilex (Nicotine Polacrilex 2 Mg Gum) 2 mg BUCCAL Q2H PRN PRN Reason: nicotine withdrawal Last Admin: 03/13/22 16:55 Dose: 2 mg Olanzapine (Olanzapine 5 Mg Tablet) 5 mg PO Q6H PRN PRN Reason: agitation, psychosis, anxiety Ondansetron HCl (Ondansetron Odt 4 Mg Tab.Rapdis) 4 mg TRANSLINGU Q6H PRN PRN Reason: nausea Last Admin: 03/13/22 16:46 Dose: 4 mg Polyethylene Glycol (Polyethylene Glycol 3350 17 Gm Powd.Pack) 17 gm PO BID PRN PRN Reason: constipation Pyridoxine HCl (Pyridoxine Hcl (Vitamin B6) 50 Mg Tablet) 25 mg PO DAILY [facility] Last Admin: 03/13/22 08:34 Dose: 25 mg Quetiapine Fumarate (Quetiapine Fumarate 100 Mg Tablet) 100 mg PO BEDTIME PRN PRN Reason: Insomnia Last Admin: 03/12/22 19:33 Dose: 100 mg Thiamine HCl (Thiamine Hcl 100 Mg Tablet) 50 mg PO DAILY [facility] Last Admin: 03/13/22 08:34 Dose: 50 mg Trazodone HCl (Trazodone Hcl 50 Mg Tablet) 50 mg PO BEDTIME PRN PRN Reason: Insomnia Last Admin: 03/12/22 21:25 Dose: 50 mg Allergies Allergies Allergy/AdvReac Type Severity Reaction Status Date / Time No Known Allergies Allergy Verified 03/07/22 13:00 [No Known Allergies*] Assessment & Plan Assessment & Plan (1) Opioid use disorder: Status: Acute Code(s): F11.90 - Opioid use, unspecified, uncomplicated Assessment and Plan: * continue plan * offer comfort meds as necessary I spent ___15___ minutes with the patient and/or on the patient floor today, greater than?50% of which was spent counseling/coordinating care.
[2022-03-13 18:00] VITALS: BP 132/77; PULSE 104; RESP 18; TEMP 36.3; O2SAT 98
[2022-03-13] MEDS: LORazepam 1 MG TABLET 2 MG PO (18:04)
[2022-03-13] MEDS: Divalproex Sodium ER 500 MG TAB.ER.24H PO (22:04)
[2022-03-13] MEDS: cloNIDine HCL 0.1 MG TABLET PO (22:04)
[2022-03-13] MEDS: traZODone HCL 50 MG TABLET PO (22:04)
[2022-03-13] MEDS: QUEtiapine Fumarate 100 MG TABLET PO (22:04)
[2022-03-14] MEDS: Nicotine Polacrilex 2 MG GUM BUCCAL ×2 (03:22→13:21)
[2022-03-14 06:33] VITALS: BP 123/57; PULSE 67; RESP 18; TEMP 36.4; O2SAT 98
[2022-03-14] MEDS: Buprenorphine/Naloxone 2/0.5mg FILM 0.5 FILM SUBLINGUAL ×2 (08:44→16:21)
[2022-03-14] MEDS: Pyridoxine HCl (Vitamin B6) 50 MG TABLET 25 MG PO (09:10)
[2022-03-14] MEDS: Thiamine HCL 100 MG TABLET 50 MG PO (09:10)
[2022-03-14] MEDS: Ferrous Sulfate 324 MG TABLET.DR PO (09:10)
[2022-03-14] MEDS: ARIPiprazole 20 MG TABLET PO (09:10)
[2022-03-14] MEDS: Folic Acid 1 MG TABLET PO (09:10)
[2022-03-14] MEDS: Nicotine 21 MG PATCH.TD24 TRANSDERMA (09:11)
[2022-03-14 09:16] VITALS: BMI 31.6
--- NOTE | 2022-03-14 09:16 | HO.PSYCHPN ---
Subjective Subjective Date of Service: 03/14/22 Reason For Visit: psych Subjective Notes: Conditional Voluntary and 3 Day Healthcare Proxy: No Guardianship: No Medical Problems Affecting Mental Status: No Interim History: Three day notice of intent Reports he is ready to leave No issues with behavioral dyscontrol Tolerating transition to suboxone from Methadone Mother is difficult to reach for her input. Per team report, recent Section 35 filed was declined-pt in process of court eval for capacity to stand trial. [facility] case was closed as pt had left [place] for [place] to be with father. Pt working with [facility] team to re-instate his [facility]-he has been appropriate thus far in this process. Medication Compliance: Yes Side effects from medications: No Attending Groups: Intermittent Review of Systems Acute medical concerns: No Medical Review of Systems: unchanged Review of Systems Psychiatric: Reports no additional psychiatric complaints Mental Status Exam Mental Status Exam Patient Appearance: Appropriate Patient Orientation: Person, Place and Time Level of Consciousness: Alert Patient Behavior: Talkative, Cooperative, Suspicious, Wandering, Anxious, Distractible and Good Eye Contact Mood Description: Labile and Apprehensive Affect Description: Labile Patient Cognition Impaired: No Ability to Follow Directions: Fair Speech Pattern: Spontaneous Speech and Soft-Spoken Memory Description: Remote Impaired and Episodic Impaired Delusions: Being Controlled and Paranoid Ideation Perceptual Disturbances: Depersonalization and Derealization Thought Process: Distracted and Evasive Thought Content: positive for Circumstantial, positive for Tangential and positive for Evasive Depressive Symptoms: Increased Anxiety Abnormal Motor Activity Signs and Symptoms: Restlessness Judgement: Fair Diagnostics Vital Signs (24Hr): Vital Signs - 24 hr 03/13/22 10:47 03/13/22 18:00 03/14/22 06:33 Temperature 97.5 F 97.4 F 97.6 F Pulse Rate 89 104 H 67 Respiratory Rate 20 18 18 Blood Pressure 118/74 132/77 123/57 L Pulse Oximetry 99 98 98 Oxygen Delivery Method Room Air Room Air BMI result Body Mass Index 31.7 Labs Labs: Laboratory Results - last 48 hr 03/13/22 03/13/22 03/13/22 08:17 08:17 08:17 Estimat Average Glucose 100 Hemoglobin A1c % 5.1 Iron 74 TIBC 323 % Saturation 23 Unsat Iron Binding 249 Triglycerides 243 Cholesterol 159 LDL Cholesterol, Calc 77 HDL Cholesterol 34 D Vitamin B12 569 Folate 7.5 TSH 2.92 Imaging Radiology Impressions: ITS Impressions Foot X-Ray 03/11/22 20:35 IMPRESSION: Deformity in the third metatarsal is appearance of a healing fracture without significant displacement. Correlate with physical exam and trauma history. Chest X-Ray 03/13/22 15:30 IMPRESSION: No acute pulmonary disease. Medications Medications Current Medications Acetaminophen (Acetaminophen 325 Mg Tablet) 650 mg PO Q6H PRN PRN Reason: Headache/Pain Mild Scale (1-3) Last Admin: 03/11/22 09:45 Dose: 650 mg Aripiprazole (Aripiprazole 20 Mg Tablet) 20 mg PO DAILY [facility] Last Admin: 03/14/22 09:10 Dose: 20 mg Buprenorphine/Naloxone (Buprenorphine/Naloxone 2/0.5mg Film) 0.5 film SUBLINGUAL BID@0800,1600 [facility] Stop: 03/14/22 16:01 Last Admin: 03/14/22 08:44 Dose: 0.5 film Buprenorphine/Naloxone (Buprenorphine/Naloxone 2/0.5mg Film) 1 film SUBLINGUAL BID@0800,1600 [facility] Stop: 03/15/22 16:01 Buprenorphine/Naloxone (Buprenorphine/Naloxone 4/1 Mg Film) 1 film SUBLINGUAL BID@0800,1600 [facility] Stop: 03/16/22 16:01 Buprenorphine/Naloxone (Buprenorphine/Naloxone 8/2 Mg Film) 1 film SUBLINGUAL DAILY [facility] Clonidine HCl (Clonidine Hcl 0.1 Mg Tablet) 0.1 mg PO TID PRN; Protocol PRN Reason: hyperarousal Last Admin: 03/13/22 22:04 Dose: 0.1 mg Divalproex Sodium (Divalproex Sodium Er 500 Mg Tab.Er.24h) 500 mg PO BEDTIME [facility] Last Admin: 03/13/22 22:04 Dose: 500 mg Docusate Sodium (Docusate Sodium 100 Mg Capsule) 100 mg PO DAILY PRN PRN Reason: Constipation Doxycycline Hyclate (Doxycycline Hyclate 100 Mg Tablet) 100 mg PO BID [facility] Stop: 03/16/22 09:00 Last Admin: 03/14/22 09:10 Dose: 100 mg Ferrous Sulfate (Ferrous Sulfate 324 Mg Tablet.) 324 mg PO DAILY [facility] Last Admin: 03/14/22 09:10 Dose: 324 mg Folic Acid (Folic Acid 1 Mg Tablet) 1 mg PO DAILY [facility] Last Admin: 03/14/22 09:10 Dose: 1 mg Hydroxyzine HCl (Hydroxyzine Hcl 50 Mg Tablet) 50 mg PO Q6H PRN PRN Reason: Anxiety Last Admin: 03/12/22 13:34 Dose: 50 mg Ibuprofen (Ibuprofen 600 Mg Tablet) 600 mg PO Q6H PRN PRN Reason: mod-severe pain Last Admin: 03/13/22 18:04 Dose: 600 mg Loperamide HCl (Loperamide Hcl 2 Mg Capsule) 2 mg PO Q4H PRN PRN Reason: diarrhea Lorazepam (Lorazepam 1 Mg Tablet) 2 mg PO Q6H PRN PRN Reason: CIWA<8 Last Admin: 03/13/22 18:04 Dose: 2 mg Magnesium Hydroxide (Milk Of Magnesia 30 Ml Oral.Susp) 30 ml PO DAILY PRN PRN Reason: Constipation Melatonin (Melatonin 3 Mg Tablet) 6 mg PO BEDTIME PRN PRN Reason: insomnia Methadone HCl (Methadone Hcl 20 Mg/2 Ml Oral.Conc) 20 mg PO DAILY [facility] Stop: 03/16/22 10:00 Last Admin: 03/13/22 08:34 Dose: 20 mg Nicotine (Nicotine 21 Mg Patch.Td24) 21 mg TRANSDERMA DAILY [facility] Last Admin: 03/14/22 09:11 Dose: 21 mg Nicotine Polacrilex (Nicotine Polacrilex 2 Mg Gum) 2 mg BUCCAL Q2H PRN PRN Reason: nicotine withdrawal Last Admin: 03/14/22 03:22 Dose: 2 mg Olanzapine (Olanzapine 5 Mg Tablet) 5 mg PO Q6H PRN PRN Reason: agitation, psychosis, anxiety Ondansetron HCl (Ondansetron Odt 4 Mg Tab.Rapdis) 4 mg TRANSLINGU Q6H PRN PRN Reason: nausea Last Admin: 03/13/22 16:46 Dose: 4 mg Polyethylene Glycol (Polyethylene Glycol 3350 17 Gm Powd.Pack) 17 gm PO BID PRN PRN Reason: constipation Pyridoxine HCl (Pyridoxine Hcl (Vitamin B6) 50 Mg Tablet) 25 mg PO DAILY [facility] Last Admin: 03/14/22 09:10 Dose: 25 mg Quetiapine Fumarate (Quetiapine Fumarate 100 Mg Tablet) 100 mg PO BEDTIME PRN PRN Reason: Insomnia Last Admin: 03/13/22 22:04 Dose: 100 mg Thiamine HCl (Thiamine Hcl 100 Mg Tablet) 50 mg PO DAILY [facility] Last Admin: 03/14/22 09:10 Dose: 50 mg Trazodone HCl (Trazodone Hcl 50 Mg Tablet) 50 mg PO BEDTIME PRN PRN Reason: Insomnia Last Admin: 03/13/22 22:04 Dose: 50 mg Allergies Allergies Allergy/AdvReac Type Severity Reaction Status Date / Time No Known Allergies Allergy Verified 03/07/22 13:00 [No Known Allergies*] Assessment & Plan Assessment & Plan (1) Opioid use disorder: Status: Acute Code(s): F11.90 - Opioid use, unspecified, uncomplicated Assessment and Plan: continue plan offer comfort meds as necessary Plan 03/14/22- Continue current plan. Three day notice to 03/18 with plan to discharge. I spent minutes with the patient and/or on the patient floor today, greater than?50% of which was spent counseling/coordinating care. Patient educated on: therapeutic strategies Informed Consent: understands Reason for contiued inpatient stay Substantial Risk for: rapid decompensation
[2022-03-14 09:22] VITALS: PULSE 89
[2022-03-14] MEDS: methADONE HCl 20 MG/2 ML ORAL.CONC PO (10:07)
[2022-03-14] MEDS: Ibuprofen 600 MG TABLET PO (13:02)
[2022-03-14] MEDS: Ondansetron ODT 4 MG TAB.RAPDIS TRANSLINGU ×2 (13:03→17:13)
[2022-03-14] MEDS: hydrOXYzine HCL 50 MG TABLET PO (14:12)
[2022-03-14] MEDS: Acetaminophen 325 MG TABLET 650 MG PO (14:45)
[2022-03-14] MEDS: cloNIDine HCL 0.1 MG TABLET PO (16:21)
[2022-03-14 18:00] VITALS: BP 128/78; PULSE 68; RESP 14; TEMP 36.5
[2022-03-14] MEDS: Melatonin 3 MG TABLET 6 MG PO (19:59)
[2022-03-14] MEDS: traZODone HCL 50 MG TABLET PO (19:59)
[2022-03-14] MEDS: Divalproex Sodium ER 500 MG TAB.ER.24H PO (19:59)
[2022-03-14] MEDS: Benztropine Mesylate 1 MG TABLET PO (19:59)
[2022-03-15 06:00] VITALS: BP 124/58; PULSE 70; RESP 18; TEMP 36.4; O2SAT 98
[2022-03-15] MEDS: Buprenorphine/Naloxone 2/0.5mg FILM 1 FILM SUBLINGUAL ×2 (08:02→16:01)
--- NOTE | 2022-03-15 09:17 | HO.PSYCHPN ---
Subjective Subjective Date of Service: 03/15/22 Reason For Visit: psych Subjective Notes: 3 Day Healthcare Proxy: No Guardianship: No Medical Problems Affecting Mental Status: No Interim History: I am ready to go. In behavioral control-no outbursts, aggression. Visable with peers. Call to mother with Bryanna Dubon OTR/L to inform her of three day notice and discharge planned for 03/18. Mom reports pt has a court date on 03/19. Pt will use [facility] for his pharmacy. Reports pt has been calling her, asking her to come and get him, telling her he is being violated on the unit (She states this is the reason he asks her to leave each time on each unit). Informed mom this was pt's best admission yet with good control. Discussed pt's taking others belongings. She reports this to be a chronic ongoing issue, chronic stealing-pt takes things that he does not need or have any interest in. Mom has no current concerns, asks that we re-enforce that he does need to go to court on 03/19. Medication Compliance: Yes Side effects from medications: No Attending Groups: Intermittent Review of Systems Acute medical concerns: No Medical Review of Systems: unchanged Review of Systems Psychiatric: Reports no additional psychiatric complaints Mental Status Exam Mental Status Exam Patient Appearance: Appropriate Patient Orientation: Person, Place and Time Level of Consciousness: Alert Patient Behavior: Talkative, Cooperative, Suspicious, Wandering, Anxious, Distractible and Good Eye Contact Mood Description: Labile and Apprehensive Affect Description: Labile Patient Cognition Impaired: No Ability to Follow Directions: Fair Speech Pattern: Spontaneous Speech and Soft-Spoken Memory Description: Remote Impaired and Episodic Impaired Delusions: Being Controlled and Paranoid Ideation Perceptual Disturbances: Depersonalization and Derealization Thought Process: Distracted and Evasive Thought Content: positive for Circumstantial, positive for Tangential and positive for Evasive Depressive Symptoms: Increased Anxiety Abnormal Motor Activity Signs and Symptoms: Restlessness Judgement: Fair Diagnostics Vital Signs (24Hr): Vital Signs - 24 hr 03/14/22 18:00 03/15/22 06:00 Temperature 97.7 F 97.5 F Pulse Rate 68 70 Respiratory Rate 14 18 Blood Pressure 128/78 124/58 L Pulse Oximetry 98 BMI result Body Mass Index 31.6 Labs Labs: Laboratory Results - last 48 hr 03/13/22 03/13/22 03/13/22 08:17 08:17 08:17 Estimat Average Glucose 100 Hemoglobin A1c % 5.1 Iron 74 TIBC 323 % Saturation 23 Unsat Iron Binding 249 Triglycerides 243 Cholesterol 159 LDL Cholesterol, Calc 77 HDL Cholesterol 34 D Vitamin B12 569 Folate 7.5 TSH 2.92 Imaging Radiology Impressions: ITS Impressions Foot X-Ray 03/11/22 20:35 IMPRESSION: Deformity in the third metatarsal is appearance of a healing fracture without significant displacement. Correlate with physical exam and trauma history. Chest X-Ray 03/13/22 15:30 IMPRESSION: No acute pulmonary disease. Medications Medications Current Medications Acetaminophen (Acetaminophen 325 Mg Tablet) 650 mg PO Q6H PRN PRN Reason: Headache/Pain Mild Scale (1-3) Last Admin: 03/14/22 14:45 Dose: 650 mg Aripiprazole (Aripiprazole 20 Mg Tablet) 20 mg PO DAILY COUNTS INCLUDE 234 BEDS AT THE [facility] Last Admin: 03/14/22 09:10 Dose: 20 mg Benztropine Mesylate (Benztropine Mesylate 1 Mg Tablet) 1 mg PO BID COUNTS INCLUDE 234 BEDS AT THE [facility] Last Admin: 03/14/22 19:59 Dose: 1 mg Buprenorphine/Naloxone (Buprenorphine/Naloxone 2/0.5mg Film) 1 film SUBLINGUAL BID@0800,1600 COUNTS INCLUDE 234 BEDS AT THE [facility] Stop: 03/15/22 16:01 Last Admin: 03/15/22 08:02 Dose: 1 film Buprenorphine/Naloxone (Buprenorphine/Naloxone 4/1 Mg Film) 1 film SUBLINGUAL BID@0800,1600 COUNTS INCLUDE 234 BEDS AT THE [facility] Stop: 03/16/22 16:01 Buprenorphine/Naloxone (Buprenorphine/Naloxone 8/2 Mg Film) 1 film SUBLINGUAL DAILY COUNTS INCLUDE 234 BEDS AT THE [facility] Clonidine HCl (Clonidine Hcl 0.1 Mg Tablet) 0.1 mg PO TID PRN; Protocol PRN Reason: hyperarousal Last Admin: 03/14/22 16:21 Dose: 0.1 mg Divalproex Sodium (Divalproex Sodium Er 500 Mg Tab.Er.24h) 500 mg PO BEDTIME COUNTS INCLUDE 234 BEDS AT [facility] Last Admin: 03/14/22 19:59 Dose: 500 mg Docusate Sodium (Docusate Sodium 100 Mg Capsule) 100 mg PO DAILY PRN PRN Reason: Constipation Doxycycline Hyclate (Doxycycline Hyclate 100 Mg Tablet) 100 mg PO BID COUNTS INCLUDE 234 BEDS AT THE [facility] Stop: 03/16/22 09:00 Last Admin: 03/14/22 19:59 Dose: 100 mg Ferrous Sulfate (Ferrous Sulfate 324 Mg Tablet.Dr) 324 mg PO DAILY COUNTS INCLUDE 234 BEDS AT THE [facility] Last Admin: 03/14/22 09:10 Dose: 324 mg Folic Acid (Folic Acid 1 Mg Tablet) 1 mg PO DAILY COUNTS INCLUDE 234 BEDS AT THE [facility] Last Admin: 03/14/22 09:10 Dose: 1 mg Hydroxyzine HCl (Hydroxyzine Hcl 50 Mg Tablet) 50 mg PO Q6H PRN PRN Reason: Anxiety Last Admin: 03/14/22 14:12 Dose: 50 mg Ibuprofen (Ibuprofen 600 Mg Tablet) 600 mg PO Q6H PRN PRN Reason: mod-severe pain Last Admin: 03/14/22 13:02 Dose: 600 mg Loperamide HCl (Loperamide Hcl 2 Mg Capsule) 2 mg PO Q4H PRN PRN Reason: diarrhea Lorazepam (Lorazepam 1 Mg Tablet) 2 mg PO Q6H PRN PRN Reason: CIWA<8 Last Admin: 03/13/22 18:04 Dose: 2 mg Magnesium Hydroxide (Milk Of Magnesia 30 Ml Oral.Susp) 30 ml PO DAILY PRN PRN Reason: Constipation Melatonin (Melatonin 3 Mg Tablet) 6 mg PO BEDTIME PRN PRN Reason: insomnia Last Admin: 03/14/22 19:59 Dose: 6 mg Methadone HCl (Methadone Hcl 20 Mg/2 Ml Oral.Conc) 20 mg PO DAILY COUNTS INCLUDE 234 BEDS AT THE [facility] Stop: 03/16/22 10:00 Last Admin: 03/14/22 10:07 Dose: 20 mg Nicotine (Nicotine 21 Mg Patch.Td24) 21 mg TRANSDERMA DAILY COUNTS INCLUDE 234 BEDS AT THE [facility] Last Admin: 03/14/22 09:11 Dose: 21 mg Nicotine Polacrilex (Nicotine Polacrilex 2 Mg Gum) 2 mg BUCCAL Q2H PRN PRN Reason: nicotine withdrawal Last Admin: 03/14/22 13:21 Dose: 2 mg Olanzapine (Olanzapine 5 Mg Tablet) 5 mg PO Q6H PRN PRN Reason: agitation, psychosis, anxiety Ondansetron HCl (Ondansetron Odt 4 Mg Tab.Rapdis) 4 mg TRANSLINGU Q6H PRN PRN Reason: nausea Last Admin: 03/14/22 17:13 Dose: 4 mg Polyethylene Glycol (Polyethylene Glycol 3350 17 Gm Powd.Pack) 17 gm PO BID PRN PRN Reason: constipation Pyridoxine HCl (Pyridoxine Hcl (Vitamin B6) 50 Mg Tablet) 25 mg PO DAILY COUNTS INCLUDE 234 BEDS AT THE [facility] Last Admin: 03/14/22 09:10 Dose: 25 mg Quetiapine Fumarate (Quetiapine Fumarate 100 Mg Tablet) 100 mg PO BEDTIME PRN PRN Reason: Insomnia Last Admin: 03/13/22 22:04 Dose: 100 mg Thiamine HCl (Thiamine Hcl 100 Mg Tablet) 50 mg PO DAILY COUNTS INCLUDE 234 BEDS AT [facility] Last Admin: 03/14/22 09:10 Dose: 50 mg Trazodone HCl (Trazodone Hcl 50 Mg Tablet) 50 mg PO BEDTIME PRN PRN Reason: Insomnia Last Admin: 03/14/22 19:59 Dose: 50 mg Allergies Allergies Allergy/AdvReac Type Severity Reaction Status Date / Time No Known Allergies Allergy Verified 03/07/22 13:00 [No Known Allergies*] Assessment & Plan Assessment & Plan (1) Opioid use disorder: Status: Acute Code(s): F11.90 - Opioid use, unspecified, uncomplicated Assessment and Plan: continue plan offer comfort meds as necessary Plan 03/14/22- Continue current plan. Three day notice to 03/18 with plan to discharge. 03/15/22- Discharge 03/18/22. Encourage pt to comply with attendance to court on 03/19. I spent minutes with the patient and/or on the patient floor today, greater than?50% of which was spent counseling/coordinating care. Patient educated on: therapeutic strategies Informed Consent: understands Reason for contiued inpatient stay Substantial Risk for: stable for discharge
[2022-03-15] MEDS: Ferrous Sulfate 324 MG TABLET.DR PO (09:19)
[2022-03-15] MEDS: ARIPiprazole 20 MG TABLET PO (09:19)
[2022-03-15] MEDS: methADONE HCl 20 MG/2 ML ORAL.CONC PO (09:19)
[2022-03-15] MEDS: Benztropine Mesylate 1 MG TABLET PO ×2 (09:19→20:02)
[2022-03-15] MEDS: Pyridoxine HCl (Vitamin B6) 50 MG TABLET 25 MG PO (09:19)
[2022-03-15] MEDS: Folic Acid 1 MG TABLET PO (09:19)
[2022-03-15] MEDS: Thiamine HCL 100 MG TABLET 50 MG PO (09:19)
[2022-03-15] MEDS: Nicotine Polacrilex 2 MG GUM BUCCAL ×3 (09:21→22:18)
[2022-03-15] MEDS: Nicotine 21 MG PATCH.TD24 TRANSDERMA (09:21)
[2022-03-15] MEDS: Ondansetron ODT 4 MG TAB.RAPDIS TRANSLINGU ×3 (10:05→22:18)
--- NOTE | 2022-03-15 14:06 | P.PNADD_ITS ---
Subjective Subjective Date of Service: 03/15/22 Reason For Visit: psych Interim History: Patient seen in follow-up. Reports that he is tolerating Suboxone and methadone cross titration. Today will receive Suboxone 2 mg b.i.d.. Tomorrow will be last dose of methadone along with Suboxone 4 mg b.i.d.. Patient reports that he would like to continue outpatient treatment with [facility] once discharged. Unclear when that date will be. Denies any withdrawal symptoms. Review of Systems Medical Review of Systems: unchanged Mental Status Exam Mental Status Exam Patient Appearance: Well Grooomed Level of Consciousness: Awake and Alert Patient Behavior: Talkative and Cooperative Affect Description: Constricted Thought Process: Goal Oriented Diagnostics Vital Signs (24Hr): Vital Signs - 24 hr 03/14/22 18:00 03/15/22 06:00 Temperature 97.7 F 97.5 F Pulse Rate 68 70 Respiratory Rate 14 18 Blood Pressure 128/78 124/58 L Pulse Oximetry 98 BMI result Body Mass Index 31.6 Imaging Radiology Impressions: ITS Impressions Foot X-Ray 03/11/22 20:35 IMPRESSION: Deformity in the third metatarsal is appearance of a healing fracture without significant displacement. Correlate with physical exam and trauma history. Chest X-Ray 03/13/22 15:30 IMPRESSION: No acute pulmonary disease. Medications Medications Current Medications Acetaminophen (Acetaminophen 325 Mg Tablet) 650 mg PO Q6H PRN PRN Reason: Headache/Pain Mild Scale (1-3) Last Admin: 03/14/22 14:45 Dose: 650 mg Aripiprazole (Aripiprazole 20 Mg Tablet) 20 mg PO DAILY [facility] Last Admin: 03/15/22 09:19 Dose: 20 mg Benztropine Mesylate (Benztropine Mesylate 1 Mg Tablet) 1 mg PO BID [facility] Last Admin: 03/15/22 09:19 Dose: 1 mg Buprenorphine/Naloxone (Buprenorphine/Naloxone 2/0.5mg Film) 1 film SUBLINGUAL BID@0800,1600 [facility] Stop: 03/15/22 16:01 Last Admin: 03/15/22 08:02 Dose: 1 film Buprenorphine/Naloxone (Buprenorphine/Naloxone 4/1 Mg Film) 1 film SUBLINGUAL BID@0800,1600 [facility] Stop: 03/16/22 16:01 Buprenorphine/Naloxone (Buprenorphine/Naloxone 8/2 Mg Film) 1 film SUBLINGUAL DAILY [facility] Clonidine HCl (Clonidine Hcl 0.1 Mg Tablet) 0.1 mg PO TID PRN; Protocol PRN Reason: hyperarousal Last Admin: 03/14/22 16:21 Dose: 0.1 mg Divalproex Sodium (Divalproex Sodium Er 500 Mg Tab.Er.24h) 500 mg PO BEDTIME [facility] Last Admin: 03/14/22 19:59 Dose: 500 mg Docusate Sodium (Docusate Sodium 100 Mg Capsule) 100 mg PO DAILY PRN PRN Reason: Constipation Doxycycline Hyclate (Doxycycline Hyclate 100 Mg Tablet) 100 mg PO BID [facility] Stop: 03/16/22 09:00 Last Admin: 03/15/22 09:19 Dose: 100 mg Ferrous Sulfate (Ferrous Sulfate 324 Mg Tablet.Dr) 324 mg PO DAILY [facility] Last Admin: 03/15/22 09:19 Dose: 324 mg Folic Acid (Folic Acid 1 Mg Tablet) 1 mg PO DAILY [facility] Last Admin: 03/15/22 09:19 Dose: 1 mg Hydroxyzine HCl (Hydroxyzine Hcl 50 Mg Tablet) 50 mg PO Q6H PRN PRN Reason: Anxiety Last Admin: 03/14/22 14:12 Dose: 50 mg Ibuprofen (Ibuprofen 600 Mg Tablet) 600 mg PO Q6H PRN PRN Reason: mod-severe pain Last Admin: 03/14/22 13:02 Dose: 600 mg Loperamide HCl (Loperamide Hcl 2 Mg Capsule) 2 mg PO Q4H PRN PRN Reason: diarrhea Lorazepam (Lorazepam 1 Mg Tablet) 2 mg PO Q6H PRN PRN Reason: CIWA<8 Last Admin: 03/13/22 18:04 Dose: 2 mg Magnesium Hydroxide (Milk Of Magnesia 30 Ml Oral.Susp) 30 ml PO DAILY PRN PRN Reason: Constipation Melatonin (Melatonin 3 Mg Tablet) 6 mg PO BEDTIME PRN PRN Reason: insomnia Last Admin: 03/14/22 19:59 Dose: 6 mg Methadone HCl (Methadone Hcl 20 Mg/2 Ml Oral.Conc) 20 mg PO DAILY [facility] Stop: 03/16/22 10:00 Last Admin: 03/15/22 09:19 Dose: 20 mg Nicotine (Nicotine 21 Mg Patch.Td24) 21 mg TRANSDERMA DAILY [facility] Last Admin: 03/15/22 09:21 Dose: 21 mg Nicotine Polacrilex (Nicotine Polacrilex 2 Mg Gum) 2 mg BUCCAL Q2H PRN PRN Reason: nicotine withdrawal Last Admin: 03/15/22 09:21 Dose: 2 mg Olanzapine (Olanzapine 5 Mg Tablet) 5 mg PO Q6H PRN PRN Reason: agitation, psychosis, anxiety Ondansetron HCl (Ondansetron Odt 4 Mg Tab.Rapdis) 4 mg TRANSLINGU Q6H PRN PRN Reason: nausea Last Admin: 03/15/22 10:05 Dose: 4 mg Polyethylene Glycol (Polyethylene Glycol 3350 17 Gm Powd.Pack) 17 gm PO BID PRN PRN Reason: constipation Pyridoxine HCl (Pyridoxine Hcl (Vitamin B6) 50 Mg Tablet) 25 mg PO DAILY [facility] Last Admin: 03/15/22 09:19 Dose: 25 mg Quetiapine Fumarate (Quetiapine Fumarate 100 Mg Tablet) 100 mg PO BEDTIME PRN PRN Reason: Insomnia Last Admin: 03/13/22 22:04 Dose: 100 mg Thiamine HCl (Thiamine Hcl 100 Mg Tablet) 50 mg PO DAILY [facility] Last Admin: 03/15/22 09:19 Dose: 50 mg Trazodone HCl (Trazodone Hcl 50 Mg Tablet) 50 mg PO BEDTIME PRN PRN Reason: Insomnia Last Admin: 03/14/22 19:59 Dose: 50 mg Allergies Allergies Allergy/AdvReac Type Severity Reaction Status Date / Time No Known Allergies Allergy Verified 03/07/22 13:00 [No Known Allergies*] Assessment & Plan Assessment & Plan (1) Opioid use disorder: Status: Acute Code(s): F11.90 - Opioid use, unspecified, uncomplicated Assessment and Plan: * Continue current plan. Once methadone is stopped, if patient is reporting withdrawal symptoms on Friday additional dose of Suboxone may be administered as necessary * Addiction medicine will follow up as needed I spent __15____ minutes with the patient and/or on the patient floor today, greater than?50% of which was spent counseling/coordinating care.
[2022-03-15 18:42] VITALS: BP 127/63; PULSE 98; RESP 18; TEMP 36.7
[2022-03-15] MEDS: Ibuprofen 600 MG TABLET PO (20:03)
[2022-03-15] MEDS: Divalproex Sodium ER 500 MG TAB.ER.24H PO (20:03)
[2022-03-16 06:00] VITALS: BP 124/60; PULSE 92; RESP 18; TEMP 36.4; O2SAT 98
[2022-03-16] MEDS: Ondansetron ODT 4 MG TAB.RAPDIS TRANSLINGU ×3 (06:15→20:52)
[2022-03-16] MEDS: Buprenorphine/Naloxone 4/1 mg FILM 1 FILM SUBLINGUAL ×2 (08:02→15:55)
[2022-03-16] MEDS: Benztropine Mesylate 1 MG TABLET PO ×2 (08:47→20:20)
[2022-03-16] MEDS: Ferrous Sulfate 324 MG TABLET.DR PO (08:47)
[2022-03-16] MEDS: Thiamine HCL 100 MG TABLET 50 MG PO (08:47)
[2022-03-16] MEDS: methADONE HCl 20 MG/2 ML ORAL.CONC PO (08:47)
[2022-03-16] MEDS: Pyridoxine HCl (Vitamin B6) 50 MG TABLET 25 MG PO (08:47)
[2022-03-16] MEDS: Folic Acid 1 MG TABLET PO (08:47)
[2022-03-16] MEDS: ARIPiprazole 20 MG TABLET PO (08:47)
[2022-03-16] MEDS: Nicotine Polacrilex 2 MG GUM BUCCAL (08:47)
[2022-03-16] MEDS: Nicotine 21 MG PATCH.TD24 TRANSDERMA (08:49)
--- NOTE | 2022-03-16 08:52 | HO.PSYCHPN ---
Subjective Subjective Date of Service: 03/16/22 Reason For Visit: psych Subjective Notes: Conditional Voluntary and 3 Day Interim History: Patient was seen and discussed in rounds today. He has been med compliant. He has been switched from methadone to Suboxone which went uneventfully. He is continuing to be somewhat anxious and depressed. Eating and sleeping adequately. No changes were made Review of Systems Medical Review of Systems: changed Review of Systems Review of Systems Yes all other systems are reviewed and are negative Mental Status Exam Mental Status Exam Narrative: In today's visit he is alert, oriented and pleasant. Normal speech. Moderate eye contact. Appropriate affect. No signs of psychosis. No SI/HI. Cognitively intact. Judgment is intact Diagnostics Vital Signs (24Hr): Vital Signs - 24 hr 03/15/22 18:42 03/16/22 06:00 Temperature 98.0 F 97.6 F Pulse Rate 98 92 Respiratory Rate 18 18 Blood Pressure 127/63 124/60 Pulse Oximetry 98 Oxygen Delivery Method Room Air BMI result Body Mass Index 31.6 Imaging Radiology Impressions: ITS Impressions Foot X-Ray 03/11/22 20:35 IMPRESSION: Deformity in the third metatarsal is appearance of a healing fracture without significant displacement. Correlate with physical exam and trauma history. Chest X-Ray 03/13/22 15:30 IMPRESSION: No acute pulmonary disease. Medications Medications Current Medications Acetaminophen (Acetaminophen 325 Mg Tablet) 650 mg PO Q6H PRN PRN Reason: Headache/Pain Mild Scale (1-3) Last Admin: 03/14/22 14:45 Dose: 650 mg Aripiprazole (Aripiprazole 20 Mg Tablet) 20 mg PO DAILY [facility] Last Admin: 03/16/22 08:47 Dose: 20 mg Benztropine Mesylate (Benztropine Mesylate 1 Mg Tablet) 1 mg PO BID [facility] Last Admin: 03/16/22 08:47 Dose: 1 mg Buprenorphine/Naloxone (Buprenorphine/Naloxone 4/1 Mg Film) 1 film SUBLINGUAL BID@0800,1600 [facility] Stop: 03/16/22 16:01 Last Admin: 03/16/22 08:02 Dose: 1 film Buprenorphine/Naloxone (Buprenorphine/Naloxone 8/2 Mg Film) 1 film SUBLINGUAL DAILY [facility] Clonidine HCl (Clonidine Hcl 0.1 Mg Tablet) 0.1 mg PO TID PRN; Protocol PRN Reason: hyperarousal Last Admin: 03/14/22 16:21 Dose: 0.1 mg Divalproex Sodium (Divalproex Sodium Er 500 Mg Tab.Er.24h) 500 mg PO BEDTIME [facility] Last Admin: 03/15/22 20:03 Dose: 500 mg Docusate Sodium (Docusate Sodium 100 Mg Capsule) 100 mg PO DAILY PRN PRN Reason: Constipation Doxycycline Hyclate (Doxycycline Hyclate 100 Mg Tablet) 100 mg PO BID [facility] Stop: 03/16/22 09:00 Last Admin: 03/16/22 08:47 Dose: 100 mg Ferrous Sulfate (Ferrous Sulfate 324 Mg Tablet.Dr) 324 mg PO DAILY [facility] Last Admin: 03/16/22 08:47 Dose: 324 mg Folic Acid (Folic Acid 1 Mg Tablet) 1 mg PO DAILY [facility] Last Admin: 03/16/22 08:47 Dose: 1 mg Hydroxyzine HCl (Hydroxyzine Hcl 50 Mg Tablet) 50 mg PO Q6H PRN PRN Reason: Anxiety Last Admin: 03/14/22 14:12 Dose: 50 mg Ibuprofen (Ibuprofen 600 Mg Tablet) 600 mg PO Q6H PRN PRN Reason: mod-severe pain Last Admin: 03/15/22 20:03 Dose: 600 mg Loperamide HCl (Loperamide Hcl 2 Mg Capsule) 2 mg PO Q4H PRN PRN Reason: diarrhea Magnesium Hydroxide (Milk Of Magnesia 30 Ml Oral.Susp) 30 ml PO DAILY PRN PRN Reason: Constipation Melatonin (Melatonin 3 Mg Tablet) 6 mg PO BEDTIME PRN PRN Reason: insomnia Last Admin: 03/14/22 19:59 Dose: 6 mg Methadone HCl (Methadone Hcl 20 Mg/2 Ml Oral.Conc) 20 mg PO DAILY [facility] Stop: 03/16/22 10:00 Last Admin: 03/16/22 08:47 Dose: 20 mg Nicotine (Nicotine 21 Mg Patch.Td24) 21 mg TRANSDERMA DAILY [facility] Last Admin: 03/16/22 08:49 Dose: 21 mg Nicotine Polacrilex (Nicotine Polacrilex 2 Mg Gum) 2 mg BUCCAL Q2H PRN PRN Reason: nicotine withdrawal Last Admin: 03/16/22 08:47 Dose: 2 mg Olanzapine (Olanzapine 5 Mg Tablet) 5 mg PO Q6H PRN PRN Reason: agitation, psychosis, anxiety Ondansetron HCl (Ondansetron Odt 4 Mg Tab.Rapdis) 4 mg TRANSLINGU Q6H PRN PRN Reason: nausea Last Admin: 03/16/22 06:15 Dose: 4 mg Polyethylene Glycol (Polyethylene Glycol 3350 17 Gm Powd.Pack) 17 gm PO BID PRN PRN Reason: constipation Pyridoxine HCl (Pyridoxine Hcl (Vitamin B6) 50 Mg Tablet) 25 mg PO DAILY [facility] Last Admin: 03/16/22 08:47 Dose: 25 mg Quetiapine Fumarate (Quetiapine Fumarate 100 Mg Tablet) 100 mg PO BEDTIME PRN PRN Reason: Insomnia Last Admin: 03/13/22 22:04 Dose: 100 mg Thiamine HCl (Thiamine Hcl 100 Mg Tablet) 50 mg PO DAILY [facility] Last Admin: 03/16/22 08:47 Dose: 50 mg Trazodone HCl (Trazodone Hcl 50 Mg Tablet) 50 mg PO BEDTIME PRN PRN Reason: Insomnia Last Admin: 03/14/22 19:59 Dose: 50 mg Allergies Allergies Allergy/AdvReac Type Severity Reaction Status Date / Time No Known Allergies Allergy Verified 03/07/22 13:00 [No Known Allergies*] Assessment & Plan Assessment & Plan (1) Opioid use disorder: Status: Acute Code(s): F11.90 - Opioid use, unspecified, uncomplicated Assessment and Plan: Continue current plan. Once methadone is stopped, if patient is reporting withdrawal symptoms on Friday additional dose of Suboxone may be administered as necessary Addiction medicine will follow up as needed Plan 03/16: Continue current regimen and plans I spent minutes with the patient and/or on the patient floor today, greater than?50% of which was spent counseling/coordinating care. Reason for contiued inpatient stay Substantial Risk for: med/psych decompensation
[2022-03-16] MEDS: Acetaminophen 325 MG TABLET 650 MG PO (12:25)
[2022-03-16 16:46] VITALS: BP 143/73; PULSE 102; RESP 18; TEMP 36.9; O2SAT 98
[2022-03-16] MEDS: hydrOXYzine HCL 50 MG TABLET PO (18:34)
[2022-03-16] MEDS: traZODone HCL 50 MG TABLET PO (20:20)
[2022-03-16] MEDS: Divalproex Sodium ER 500 MG TAB.ER.24H PO (20:20)
[2022-03-16] MEDS: Melatonin 3 MG TABLET 6 MG PO (21:19)
[2022-03-16] MEDS: OLANZapine 5 MG TABLET PO (21:51)
[2022-03-17] MEDS: Ondansetron ODT 4 MG TAB.RAPDIS TRANSLINGU ×3 (05:28→16:22)
[2022-03-17] MEDS: Milk of Magnesia 30 ML ORAL.SUSP PO (05:46)
[2022-03-17 06:00] VITALS: BP 130/71; PULSE 97; RESP 18; TEMP 36.7; O2SAT 98
--- NOTE | 2022-03-17 07:49 | P.PNPSI_ITS ---
Subjective Subjective Date of Service: 03/17/22 Reason For Visit: psych Subjective Notes: Conditional Voluntary and 3 Day Healthcare Proxy: No Guardianship: No Medical Problems Affecting Mental Status: No Interim History: Patient was seen and discussed in rounds today. He has been med compliant. He continues to be guarded and walking quietly in the hallways. Continues to have some anxiety and depression. He is safe. No SI. He continues to be disorganized and having some impulse control problems at times. Eating and sleeping adequately. No complaints or side effects. No changes were made today Review of Systems Medical Review of Systems: changed Review of Systems Review of Systems Yes all other systems are reviewed and are negative Mental Status Exam Mental Status Exam Narrative: In today's visit he is alert, oriented and pleasant. He was interactive but only through nodding and did not say any words.. No eye contact. Affect is constricted and flat. No acute signs of psychosis. No SI/HI. Could not assess in cognitively. Judgment is marginally intact Diagnostics Vital Signs (24Hr): Vital Signs - 24 hr 03/16/22 16:46 03/17/22 06:00 Temperature 98.4 F 98.1 F Pulse Rate 102 H 97 Respiratory Rate 18 18 Blood Pressure 143/73 H 130/71 Pulse Oximetry 98 98 Oxygen Delivery Method Room Air BMI result Body Mass Index 31.6 Imaging Radiology Impressions: ITS Impressions Foot X-Ray 03/11/22 20:35 IMPRESSION: Deformity in the third metatarsal is appearance of a healing fracture without significant displacement. Correlate with physical exam and trauma history. Chest X-Ray 03/13/22 15:30 IMPRESSION: No acute pulmonary disease. Medications Medications Current Medications Acetaminophen (Acetaminophen 325 Mg Tablet) 650 mg PO Q6H PRN PRN Reason: Headache/Pain Mild Scale (1-3) Last Admin: 03/16/22 12:25 Dose: 650 mg Aripiprazole (Aripiprazole 20 Mg Tablet) 20 mg PO DAILY [facility] Last Admin: 03/16/22 08:47 Dose: 20 mg Benztropine Mesylate (Benztropine Mesylate 1 Mg Tablet) 1 mg PO BID [facility] Last Admin: 03/16/22 20:20 Dose: 1 mg Buprenorphine/Naloxone (Buprenorphine/Naloxone 8/2 Mg Film) 1 film SUBLINGUAL DAILY [facility] Clonidine HCl (Clonidine Hcl 0.1 Mg Tablet) 0.1 mg PO TID PRN; Protocol PRN Reason: hyperarousal Last Admin: 03/14/22 16:21 Dose: 0.1 mg Divalproex Sodium (Divalproex Sodium Er 500 Mg Tab.Er.24h) 500 mg PO BEDTIME [facility] Last Admin: 03/16/22 20:20 Dose: 500 mg Docusate Sodium (Docusate Sodium 100 Mg Capsule) 100 mg PO DAILY PRN PRN Reason: Constipation Ferrous Sulfate (Ferrous Sulfate 324 Mg Tablet.Dr) 324 mg PO DAILY [facility] Last Admin: 03/16/22 08:47 Dose: 324 mg Folic Acid (Folic Acid 1 Mg Tablet) 1 mg PO DAILY [facility] Last Admin: 03/16/22 08:47 Dose: 1 mg Hydroxyzine HCl (Hydroxyzine Hcl 50 Mg Tablet) 50 mg PO Q6H PRN PRN Reason: Anxiety Last Admin: 03/16/22 18:34 Dose: 50 mg Ibuprofen (Ibuprofen 600 Mg Tablet) 600 mg PO Q6H PRN PRN Reason: mod-severe pain Last Admin: 03/15/22 20:03 Dose: 600 mg Loperamide HCl (Loperamide Hcl 2 Mg Capsule) 2 mg PO Q4H PRN PRN Reason: diarrhea Magnesium Hydroxide (Milk Of Magnesia 30 Ml Oral.Susp) 30 ml PO DAILY PRN PRN Reason: Constipation Last Admin: 03/17/22 05:46 Dose: 30 ml Melatonin (Melatonin 3 Mg Tablet) 6 mg PO BEDTIME PRN PRN Reason: insomnia Last Admin: 03/16/22 21:19 Dose: 6 mg Nicotine (Nicotine 21 Mg Patch.Td24) 21 mg TRANSDERMA DAILY [facility] Last Admin: 03/16/22 08:49 Dose: 21 mg Nicotine Polacrilex (Nicotine Polacrilex 2 Mg Gum) 2 mg BUCCAL Q2H PRN PRN Reason: nicotine withdrawal Last Admin: 03/16/22 08:47 Dose: 2 mg Olanzapine (Olanzapine 5 Mg Tablet) 5 mg PO Q6H PRN PRN Reason: agitation, psychosis, anxiety Last Admin: 03/16/22 21:51 Dose: 5 mg Ondansetron HCl (Ondansetron Odt 4 Mg Tab.Rapdis) 4 mg TRANSLINGU Q6H PRN PRN Reason: nausea Last Admin: 03/17/22 05:28 Dose: 4 mg Polyethylene Glycol (Polyethylene Glycol 3350 17 Gm Powd.Pack) 17 gm PO BID PRN PRN Reason: constipation Pyridoxine HCl (Pyridoxine Hcl (Vitamin B6) 50 Mg Tablet) 25 mg PO DAILY [facility] Last Admin: 03/16/22 08:47 Dose: 25 mg Quetiapine Fumarate (Quetiapine Fumarate 100 Mg Tablet) 100 mg PO BEDTIME PRN PRN Reason: Insomnia Last Admin: 03/13/22 22:04 Dose: 100 mg Thiamine HCl (Thiamine Hcl 100 Mg Tablet) 50 mg PO DAILY [facility] Last Admin: 03/16/22 08:47 Dose: 50 mg Trazodone HCl (Trazodone Hcl 50 Mg Tablet) 50 mg PO BEDTIME PRN PRN Reason: Insomnia Last Admin: 03/16/22 20:20 Dose: 50 mg Allergies Allergies Allergy/AdvReac Type Severity Reaction Status Date / Time No Known Allergies Allergy Verified 03/07/22 13:00 [No Known Allergies*] Assessment & Plan Assessment & Plan (1) Opioid use disorder: Status: Acute Code(s): F11.90 - Opioid use, unspecified, uncomplicated Assessment and Plan: * continue plan * offer comfort meds as necessary Plan 03/14/22- Continue current plan. Three day notice to 03/18 with plan to discharge. 03/15/22- Discharge 03/18/22. Encourage pt to comply with attendance to court on 03/19. 03/16: Continue current regimen and plans 03/17: Continue current regimen and plans. His 3 day notice expires on 03/19 I spent minutes with the patient and/or on the patient floor today, gre ater than?50% of which was spent counseling/coordinating care. Reason for contiued inpatient stay Substantial Risk for: med/psych decompensation
[2022-03-17] MEDS: Buprenorphine/Naloxone 8/2 mg FILM 1 FILM SUBLINGUAL (07:57)
[2022-03-17] MEDS: Thiamine HCL 100 MG TABLET 50 MG PO (08:07)
[2022-03-17] MEDS: Folic Acid 1 MG TABLET PO (08:07)
[2022-03-17] MEDS: Pyridoxine HCl (Vitamin B6) 50 MG TABLET 25 MG PO (08:10)
[2022-03-17] MEDS: ARIPiprazole 20 MG TABLET PO (08:10)
[2022-03-17] MEDS: Benztropine Mesylate 1 MG TABLET PO ×2 (08:11→20:23)
[2022-03-17] MEDS: Ferrous Sulfate 324 MG TABLET.DR PO (08:12)
[2022-03-17] MEDS: Ibuprofen 600 MG TABLET PO (09:44)
[2022-03-17] MEDS: Nicotine 21 MG PATCH.TD24 TRANSDERMA (09:51)
[2022-03-17] MEDS: hydrOXYzine HCL 50 MG TABLET PO ×2 (11:07→17:35)
[2022-03-17 12:15] VITALS: BP 128/74; PULSE 104; RESP 18
[2022-03-17] MEDS: cloNIDine HCL 0.1 MG TABLET PO (12:21)
[2022-03-17 16:28] VITALS: BP 115/68; PULSE 102; RESP 18; TEMP 36.8; O2SAT 97
[2022-03-17] MEDS: OLANZapine 5 MG TABLET PO (18:13)
[2022-03-17] MEDS: Nicotine Polacrilex 2 MG GUM BUCCAL (18:26)
[2022-03-17] MEDS: Divalproex Sodium ER 500 MG TAB.ER.24H PO (20:23)
[2022-03-17] MEDS: Melatonin 3 MG TABLET 6 MG PO (20:27)
[2022-03-17] MEDS: traZODone HCL 50 MG TABLET PO (20:27)
[2022-03-18] MEDS: Ondansetron ODT 4 MG TAB.RAPDIS TRANSLINGU ×2 (01:26→06:33)
[2022-03-18 06:00] VITALS: BP 126/72; PULSE 100; RESP 18; TEMP 36.7; O2SAT 98
[2022-03-18] MEDS: Nicotine Polacrilex 2 MG GUM BUCCAL (06:53)
[2022-03-18] MEDS: Folic Acid 1 MG TABLET PO (08:05)
[2022-03-18] MEDS: Ferrous Sulfate 324 MG TABLET.DR PO (08:05)
[2022-03-18] MEDS: ARIPiprazole 20 MG TABLET PO (08:05)
[2022-03-18] MEDS: Thiamine HCL 100 MG TABLET 50 MG PO (08:06)
[2022-03-18] MEDS: Benztropine Mesylate 1 MG TABLET PO (08:06)
[2022-03-18] MEDS: Pyridoxine HCl (Vitamin B6) 50 MG TABLET 25 MG PO (08:06)
[2022-03-18] MEDS: Buprenorphine/Naloxone 8/2 mg FILM 1 FILM SUBLINGUAL (08:07)
[2022-03-18] MEDS: Milk of Magnesia 30 ML ORAL.SUSP PO (08:48)
--- NOTE | 2022-03-18 10:39 | P.DS_ITS ---
DS: Providers Provider Date of Service: 03/18/22 Date of admission: 03/10/22 15:44 Date of discharge: 03/18/22 Primary care physician: Unknown Physician Admitting clinician: Zoë Brady Attending physician on admission: Reinaldo Martinez Consults: 03/10/22 18:14 Addiction Medicine Routine Consulting Provider: Dennise Hess Reason for consultation: pt in withdrawal, methadone start Has provider been notified: Yes Attending physician on discharge: Reinaldo Martinez Discharging clinician: Zoë Brady DS: Diagnosis Discharge Diagnosis (1) Schizoaffective disorder, bipolar type: Status: Acute (2) Opioid use disorder: Status: Acute (3) Alcohol use disorder, moderate, dependence: Status: Acute (4) Cocaine use disorder: Status: Acute DS: Medications Discharge Medications Home Medications: Previous Rx's Medication Instructions Recorded aripiprazole 20 mg tablet (Abilify) 20 mg PO DAILY #30 tabs 03/18/22 benztropine 1 mg tablet 1 mg PO BID #60 tabs 03/18/22 buprenorphine 8 mg-naloxone 2 mg 1 film sublingual DAILY #0 ea 03/18/22 sublingual film (Suboxone) divalproex 500 mg tablet,extended 500 mg PO BEDTIME #30 tabs 03/18/22 release 24 hr docusate sodium 100 mg capsule 100 mg PO DAILY PRN Constipation 03/18/22 #30 caps ferrous sulfate 324 mg (65 mg 324 mg PO DAILY #30 tabs 03/18/22 iron) tablet,delayed release folic acid 1 mg tablet 1 mg PO DAILY #30 tabs 03/18/22 melatonin 3 mg tablet 6 mg PO BEDTIME PRN insomnia #30 03/18/22 tabs naloxone 4 mg/actuation nasal 4 mg intranasal Q2M PRN opioid 03/18/22 spray (Narcan) overdose #2 ea nicotine (polacrilex) 2 mg gum 2 mg buccal Q2H PRN nicotine 03/18/22 withdrawal #60 ea nicotine 21 mg/24 hr daily 21 mg transdermal DAILY #30 ea 03/18/22 transdermal patch olanzapine 5 mg tablet 5 mg PO Q6H PRN agitation, 03/18/22 psychosis, anxiety #30 tabs pyridoxine (vitamin B6) 50 mg 25 mg PO DAILY #30 tabs 03/18/22 tablet quetiapine 100 mg tablet 100 mg PO BEDTIME PRN Insomnia #30 03/18/22 tabs thiamine mononitrate (vit B1) 100 50 mg PO DAILY #30 tabs 03/18/22 mg tablet Mental Status Exam Mental Status Exam Patient Appearance: Appropriate Patient Orientation: Person, Place and Time Level of Consciousness: Alert Patient Behavior: Talkative, Cooperative, Suspicious, Wandering, Anxious, Distractible and Good Eye Contact Mood Description: Labile and Apprehensive Affect Description: Labile Patient Cognition Impaired: No Ability to Follow Directions: Fair Speech Pattern: Spontaneous Speech and Soft-Spoken Memory Description: Remote Impaired and Episodic Impaired Delusions: Being Controlled and Paranoid Ideation Perceptual Disturbances: Depersonalization and Derealization Thought Process: Distracted and Evasive Thought Content: positive for Circumstantial, positive for Tangential and positive for Evasive Depressive Symptoms: Increased Anxiety Abnormal Motor Activity Signs and Symptoms: Restlessness Judgement: Fair Data Data Completed and Pending Completed studies during hospitalization [Text1]: 03/13/22 03/13/22 03/13/22 08:17 08:17 08:17 Estimat Average Glucose 100 Hemoglobin A1c % 5.1 Iron 74 TIBC 323 % Saturation 23 Unsat Iron Binding 249 Triglycerides 243 Cholesterol 159 LDL Cholesterol, Calc 77 HDL Cholesterol 34 D Vitamin B12 569 Folate 7.5 TSH 2.92 Imaging Diagnostic Imaging Impressions Foot X-Ray 03/11/22 20:35 IMPRESSION: Deformity in the third metatarsal is appearance of a healing fracture without significant displacement. Correlate with physical exam and trauma history. Chest X-Ray 03/13/22 15:30 IMPRESSION: No acute pulmonary disease. DS: Summary Hospital Course Hospital Course: Admission to adult psychiatry to address exacerbation of schizoaffective disorder, bipolary type and polysubstance use. Medication regime was [id number], Benztropine, Depakote, Suboxone. PRN Olanzapine, Seroquel and Melatonin were used during titration. Pt agreed to a vitamin regime of Ferrous sulfate, folic acid, B6 and Thiamine. Pt discharge as he is to appear in court tomorrow, 03/19 for capacity eval to go to trial. Family will escort pt to court. Pt asymptomatic on discharge and did well in the milieu this admission without incidents. Time spent discussing smoking cessation with patient: 3 to 10 minutes Status at Discharge Functional status at discharge: independent ambulation Overall status at discharge: patient is back to baseline Time Spent with Patient Time attestation: Total time spent providing and/or coordinating discharge services: 35 Time spent: Greater than 30 minutes Discharge Plan Discharge Patient Disposition: Home, Self-Care Discharge Diagnosis: Schizoaffective Disorder, Bipolar Type Alcohol Use Disorder Polysubstance Abuse Referrals: [facility] [Other] - Tomorrow (Patient should call with his parent following discharge from [facility] to select primary care Physician. Patient will need to enroll in [employer] program to obtain services at [facility].) [facility] [Other] - Tomorrow ([facility] Patient must go to [facility] after discharge to set up his insurance to be enrolled in [employer] and receive medication assisted treatment (MAT) services for addiction.) Discharge Medications: New nicotine (polacrilex) 2 mg Gum 2 mg buccal Q2H PRN (Reason: nicotine withdrawal) Qty: 60 0RF olanzapine 5 mg Tablet 5 mg PO Q6H PRN (Reason: agitation, psychosis, anxiety) Qty: 30 0RF melatonin 3 mg Tablet 6 mg PO BEDTIME PRN (Reason: insomnia) Qty: 30 0RF quetiapine 100 mg Tablet 100 mg PO BEDTIME PRN (Reason: Insomnia) Qty: 30 0RF divalproex 500 mg Tablet Extended Release 24 Hr 500 mg PO BEDTIME Qty: 30 0RF benztropine 1 mg Tablet 1 mg PO BID Qty: 60 0RF nicotine 21 mg/24 hr Patch 24 Hour 21 mg transdermal DAILY Qty: 30 0RF docusate sodium 100 mg Capsule 100 mg PO DAILY PRN (Reason: Constipation) Qty: 30 0RF pyridoxine (vitamin B6) 50 mg Tablet 25 mg PO DAILY Qty: 30 0RF folic acid 1 mg Tablet 1 mg PO DAILY Qty: 30 0RF aripiprazole [Abilify] 20 mg Tablet 20 mg PO DAILY Qty: 30 0RF ferrous sulfate 324 mg (65 mg iron) Tablet,Delayed Release (Dr/Ec) 324 mg PO DAILY Qty: 30 0RF thiamine mononitrate (vit B1) 100 mg Tablet 50 mg PO DAILY Qty: 30 0RF buprenorphine-naloxone [Suboxone] 8-2 mg Film 1 film sublingual DAILY Qty: 0 0RF naloxone [Narcan] 4 mg/actuation spray,non-aerosol 4 mg intranasal Q2M PRN (Reason: opioid overdose) Qty: 2 0RF Rx Instructions: spray 1 dose into ONE nostril; alternate nostrils w each dose until help arrives buprenorphine-naloxone [Suboxone] 8-2 mg film 1 film sublingual DAILY Qty: 7 0RF Discharge Orders: Discharge Order (Routine); Ordered 03/18/22 Ordered By: Zoë Brady Diet: Advance to usual diet Activity on Discharge: As tolerated Stand Alone Forms: Patient Portal Discharge page, Community Support Care Plan Goals: Mood stabilization Work on sobriety Attend court date on 03/19/22 Health Concerns: Schizoaffective Disorder, bipolar type Alcohol Use Disorder Polysubstance Abuse Plan of Treatment: Attend follow up appointments Attend [facility]one [facility] Court Hearing 03/19/22 Take medications as directed Assessment: non-psychotic, non-suicidal Discharge Date/Time: 03/18/22 13:10
[2022-03-18] MEDS: hydrOXYzine HCL 50 MG TABLET PO (11:10)
--- NOTE | 2022-03-18 13:00 | P.PNADD_ITS ---
Subjective Subjective Date of Service: 03/18/22 Reason For Visit: psych Interim History: Reports current dose of 8 mg Suboxone daily working well to manage symptoms of withdrawals/cravings. Reports he is being discharged later today, with follow-up for Suboxone at [facility]. Will need script. Medication Compliance: Yes Side effects from medications: No Review of Systems Constitutional: Reports as per HPI Eyes: Reports as per HPI Reports Normal hearing present Reports Normal hearing present Mental Status Exam Mental Status Exam Narrative: Well-developed, overweight male, in NAD. No opioid withdrawals observed. Diagnostics Vital Signs (24Hr): Vital Signs - 24 hr 03/17/22 16:28 03/18/22 06:00 Temperature 98.3 F 98.0 F Pulse Rate 102 H 100 Respiratory Rate 18 18 Blood Pressure 115/68 126/72 Pulse Oximetry 97 98 Oxygen Delivery Method Room Air BMI result Body Mass Index 31.6 Imaging Radiology Impressions: ITS Impressions Foot X-Ray 03/11/22 20:35 IMPRESSION: Deformity in the third metatarsal is appearance of a healing fracture without significant displacement. Correlate with physical exam and trauma history. Chest X-Ray 03/13/22 15:30 IMPRESSION: No acute pulmonary disease. Medications Medications Current Medications Acetaminophen (Acetaminophen 325 Mg Tablet) 650 mg PO Q6H PRN PRN Reason: Headache/Pain Mild Scale (1-3) Last Admin: 03/16/22 12:25 Dose: 650 mg Aripiprazole (Aripiprazole 20 Mg Tablet) 20 mg PO DAILY [facility] Last Admin: 03/18/22 08:05 Dose: 20 mg Benztropine Mesylate (Benztropine Mesylate 1 Mg Tablet) 1 mg PO BID [facility] Last Admin: 03/18/22 08:06 Dose: 1 mg Buprenorphine/Naloxone (Buprenorphine/Naloxone 8/2 Mg Film) 1 film SUBLINGUAL DAILY [facility] Last Admin: 03/18/22 08:07 Dose: 1 film Clonidine HCl (Clonidine Hcl 0.1 Mg Tablet) 0.1 mg PO TID PRN; Protocol PRN Reason: hyperarousal Last Admin: 03/17/22 12:21 Dose: 0.1 mg Divalproex Sodium (Divalproex Sodium Er 500 Mg Tab.Er.24h) 500 mg PO BEDTIME [facility] Last Admin: 03/17/22 20:23 Dose: 500 mg Docusate Sodium (Docusate Sodium 100 Mg Capsule) 100 mg PO DAILY PRN PRN Reason: Constipation Ferrous Sulfate (Ferrous Sulfate 324 Mg Tablet.Dr) 324 mg PO DAILY [facility] Last Admin: 03/18/22 08:05 Dose: 324 mg Folic Acid (Folic Acid 1 Mg Tablet) 1 mg PO DAILY [facility] Last Admin: 03/18/22 08:05 Dose: 1 mg Hydroxyzine HCl (Hydroxyzine Hcl 50 Mg Tablet) 50 mg PO Q6H PRN PRN Reason: Anxiety Last Admin: 03/18/22 11:10 Dose: 50 mg Ibuprofen (Ibuprofen 600 Mg Tablet) 600 mg PO Q6H PRN PRN Reason: mod-severe pain Last Admin: 03/17/22 09:44 Dose: 600 mg Loperamide HCl (Loperamide Hcl 2 Mg Capsule) 2 mg PO Q4H PRN PRN Reason: diarrhea Magnesium Hydroxide (Milk Of Magnesia 30 Ml Oral.Susp) 30 ml PO DAILY PRN PRN Reason: Constipation Last Admin: 03/18/22 08:48 Dose: 30 ml Melatonin (Melatonin 3 Mg Tablet) 6 mg PO BEDTIME PRN PRN Reason: insomnia Last Admin: 03/17/22 20:27 Dose: 6 mg Nicotine (Nicotine 21 Mg Patch.Td24) 21 mg TRANSDERMA DAILY [facility] Last Admin: 03/18/22 08:10 Dose: Not Given Nicotine Polacrilex (Nicotine Polacrilex 2 Mg Gum) 2 mg BUCCAL Q2H PRN PRN Reason: nicotine withdrawal Last Admin: 03/18/22 06:53 Dose: 2 mg Olanzapine (Olanzapine 5 Mg Tablet) 5 mg PO Q6H PRN PRN Reason: agitation, psychosis, anxiety Last Admin: 03/17/22 18:13 Dose: 5 mg Ondansetron HCl (Ondansetron Odt 4 Mg Tab.Rapdis) 4 mg TRANSLINGU Q6H PRN PRN Reason: nausea Last Admin: 03/18/22 06:33 Dose: 4 mg Polyethylene Glycol (Polyethylene Glycol 3350 17 Gm Powd.Pack) 17 gm PO BID PRN PRN Reason: constipation Pyridoxine HCl (Pyridoxine Hcl (Vitamin B6) 50 Mg Tablet) 25 mg PO DAILY [facility] Last Admin: 03/18/22 08:06 Dose: 25 mg Quetiapine Fumarate (Quetiapine Fumarate 100 Mg Tablet) 100 mg PO BEDTIME PRN PRN Reason: Insomnia Last Admin: 03/13/22 22:04 Dose: 100 mg Thiamine HCl (Thiamine Hcl 100 Mg Tablet) 50 mg PO DAILY [facility] Last Admin: 03/18/22 08:06 Dose: 50 mg Trazodone HCl (Trazodone Hcl 50 Mg Tablet) 50 mg PO BEDTIME PRN PRN Reason: Insomnia Last Admin: 03/17/22 20:27 Dose: 50 mg Allergies Allergies Allergy/AdvReac Type Severity Reaction Status Date / Time No Known Allergies Allergy Verified 03/07/22 13:00 [No Known Allergies*] Assessment & Plan Assessment & Plan (1) Opioid use disorder: Status: Acute Code(s): F11.90 - Opioid use, unspecified, uncomplicated Plan Script sent for suboxone 8mg/2mg daily, 7 day-supply sent to outpatient pharmacy on file. 03/14/22- Continue current plan. Three day notice to 03/18 with plan to discharge. 03/15/22- Discharge 03/18/22. Encourage pt to comply with attendance to court on 03/19. 03/16: Continue current regimen and plans 03/17: Continue current regimen and plans. His 3 day notice expires on 03/19 I spent minutes with the patient and/or on the patient floor today, greater than?50% of which was spent counseling/coordinating care. Education Patient educated on: diagnosis, medication risk/benefits and substance abuse Informed Consent: understands
== END 2022-03-18 13:10 | disposition home or self-care (01) | DRG 885 ==
PROVIDERS: Admitting Provider Colon & Rectal Surgery; Visit Provider Clinical Nurse Specialist Psychiatric/Mental Health, Adult
DX: F25.0 Schizoaffective disorder, bipolar type (principal); F11.20 Opioid dependence, uncomplicated; F17.210 Nicotine dependence, cigarettes, uncomplicated; Z71.6 Tobacco abuse counseling; F10.20 Alcohol dependence, uncomplicated; F14.10 Cocaine abuse, uncomplicated; Z79.899 Other long term (current) drug therapy
CPT/HCPCS: 36415; 71045; 73620; 80061; 82607; 82746; 83036; 83540; 84443

== ENCOUNTER 2023-01-01 17:30 | Emergency (ER) | payer MEDICAID, SELFPAY ==
[2023-01-01 17:38] VITALS: BP 161/81; PULSE 100; RESP 14; TEMP 36.9; O2SAT 96; BMI 42.2
--- NOTE | 2023-01-01 17:41 | PC.NURSE ---
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
--- NOTE | 2023-01-01 17:53 | ED_ITS ---
HPI - Overdose General Chief Complaint: Overdose Stated Complaint: OVERDOSE Time Seen by Provider: 01/01/23 17:49 Source: patient Mode of arrival: EMS Limitations: no limitations History of Present Illness HPI Narrative: Patient with history of substance abuse snorted 6 bags of heroin and cocaine requiring 10 mg of intranasal Narcan in the field patient denied any suicidal ideation patient been sleeping since arrival saturating 96% at room air Related Data Previous Rx's Medication Instructions Recorded aripiprazole 20 mg tablet (Abilify) 20 mg PO DAILY #30 tabs 03/18/22 benztropine 1 mg tablet 1 mg PO BID #60 tabs 03/18/22 buprenorphine 8 mg-naloxone 2 mg 1 film sublingual DAILY #0 ea 03/18/22 sublingual film (Suboxone) buprenorphine 8 mg-naloxone 2 mg 1 film sublingual DAILY #7 ea 03/18/22 sublingual film (Suboxone) divalproex 500 mg tablet,extended 500 mg PO BEDTIME #30 tabs 03/18/22 release 24 hr docusate sodium 100 mg capsule 100 mg PO DAILY PRN Constipation 03/18/22 #30 caps ferrous sulfate 324 mg (65 mg 324 mg PO DAILY #30 tabs 03/18/22 iron) tablet,delayed release folic acid 1 mg tablet 1 mg PO DAILY #30 tabs 03/18/22 melatonin 3 mg tablet 6 mg PO BEDTIME PRN insomnia #30 03/18/22 tabs naloxone 4 mg/actuation nasal 4 mg intranasal Q2M PRN opioid 03/18/22 spray (Narcan) overdose #2 ea nicotine (polacrilex) 2 mg gum 2 mg buccal Q2H PRN nicotine 03/18/22 withdrawal #60 ea nicotine 21 mg/24 hr daily 21 mg transdermal DAILY #30 ea 03/18/22 transdermal patch olanzapine 5 mg tablet 5 mg PO Q6H PRN agitation, 03/18/22 psychosis, anxiety #30 tabs pyridoxine (vitamin B6) 50 mg 25 mg PO DAILY #30 tabs 03/18/22 tablet quetiapine 100 mg tablet 100 mg PO BEDTIME PRN Insomnia #30 03/18/22 tabs thiamine mononitrate (vit B1) 100 50 mg PO DAILY #30 tabs 03/18/22 mg tablet Allergies Allergy/AdvReac Type Severity Reaction Status Date / Time No Known Allergies Allergy Verified 03/07/22 13:00 [No Known Allergies*] Review of Systems Review of Systems: Yes all other systems are reviewed and are negative [facility] Past Medical History Medical History Opioid use disorder Schizoaffective disorder Schizoaffective disorder, bipolar type Social History Social History Household Members: None Housing: Apartment Do you presently have visiting nurse or other home services: No Unable to assess alcohol history related to: Refusing to respond Alcohol intake: never Patient Tobacco Use Status: Current everyday Tobacco user Tobacco use type: Cigarette Cigarette Packs Per Day: 1 Cigarettes Per Day: 20.0 Years Smoked: 5 e-Cigarette/Vaping Use: Currently Using Second Hand Smoke Exposure: No Substance Use Type: Crack/Cocaine, Heroin and Marijuana service: No Current occupational status: unemployed Sexual orientation: Straight/Heterosexual Physical Exam Vital Signs: Vital Signs: Last Vital Signs Temp 98.4 F 01/01/23 17:38 Pulse 100 01/01/23 17:38 Resp 14 01/01/23 17:38 BP 161/81 H 01/01/23 17:38 Pulse Ox 96 01/01/23 17:38 O2 Del Method Room Air 01/01/23 17:38 BMI result Body Mass Index 42.2 Appearance: Alert. sleepy Eyes: PERRLA, No Nystagmus ENT: Pharynx normal. Oral Mucosa moist Neck: Normal inspection. Neck supple. CVS: Normal heart rate and rhythm. Pulses normal. Respiratory: No respiratory distress. Equal air entry bilateral, no wheezing/rales/rhonchi Abdomen: Soft and nontender. Bowel sounds are present, no mass palpable, no CVA tenderness Skin: Skin warm and dry. Normal skin color. Normal skin turgor. Extremities: No lower extremity edema. No calf tenderness Neuro: Oriented X 3. No motor deficit. No sensory deficit.No cerebellar signs , cranial nerves II-XII intact Discharge Plan Discharge Clinical Impression: Substance abuse Patient Disposition: Home, Self-Care Instructions: Polysubstance Abuse (ED) Additional Instructions: Stop using drugs Follow up with detox Prescriptions: No Action nicotine (polacrilex) 2 mg Gum 2 mg buccal Q2H PRN (Reason: nicotine withdrawal) Qty: 60 0RF olanzapine 5 mg Tablet 5 mg PO Q6H PRN (Reason: agitation, psychosis, anxiety) Qty: 30 0RF melatonin 3 mg Tablet 6 mg PO BEDTIME PRN (Reason: insomnia) Qty: 30 0RF quetiapine 100 mg Tablet 100 mg PO BEDTIME PRN (Reason: Insomnia) Qty: 30 0RF divalproex 500 mg Tablet Extended Release 24 Hr 500 mg PO BEDTIME Qty: 30 0RF benztropine 1 mg Tablet 1 mg PO BID Qty: 60 0RF nicotine 21 mg/24 hr Patch 24 Hour 21 mg transdermal DAILY Qty: 30 0RF docusate sodium 100 mg Capsule 100 mg PO DAILY PRN (Reason: Constipation) Qty: 30 0RF pyridoxine (vitamin B6) 50 mg Tablet 25 mg PO DAILY Qty: 30 0RF folic acid 1 mg Tablet 1 mg PO DAILY Qty: 30 0RF aripiprazole [Abilify] 20 mg Tablet 20 mg PO DAILY Qty: 30 0RF ferrous sulfate 324 mg (65 mg iron) Tablet,Delayed Release (Dr/Ec) 324 mg PO DAILY Qty: 30 0RF thiamine mononitrate (vit B1) 100 mg Tablet 50 mg PO DAILY Qty: 30 0RF buprenorphine-naloxone [Suboxone] 8-2 mg Film 1 film sublingual DAILY Qty: 0 0RF naloxone [Narcan] 4 mg/actuation spray,non-aerosol 4 mg intranasal Q2M PRN (Reason: opioid overdose) Qty: 2 0RF Rx Instructions: spray 1 dose into ONE nostril; alternate nostrils w each dose until help arrives buprenorphine-naloxone [Suboxone] 8-2 mg film 1 film sublingual DAILY Qty: 7 0RF
[2023-01-01] MEDS: Naloxone HCl Nasal 4 MG SPRAY NOSTRILALT (19:56)
--- NOTE | 2023-01-01 20:00 | PC.NURSE ---
late entry- per dr mortensen nasal narcan ordered as pt responding to painful stimuli and sternal rub. this rn administered medication. able to educate pt on med administration.
[2023-01-01 20:01] VITALS: BP 139/86; PULSE 102; RESP 12; TEMP 36.9; O2SAT 98
--- NOTE | 2023-01-01 20:20 | PC.NURSE ---
late entry- pt called out from stretcher. pt calm and cooperative, however stating the need to make a bowel movement. when this rn and certified bench jeweler technician attempted to assist pt to restroom. pt refusing to get up. pt reports to ed provider want to go home
--- NOTE | 2023-01-01 21:00 | PC.NURSE ---
late entry- hemodialysis charge nurse assisted in discharge of pt. security called for assistance in discharge. per security. pt needed reirection while dressing to go home. per security it is believed pt threw up once discharged from hospital grounds. security staff member made this rn, hemodialysis charge nurse, and dr mortensen aware. per dr mortensen no new orders
== END 2023-01-01 21:00 | disposition home or self-care (01) ==
PROVIDERS: Emergency Provider Internal Medicine
DX: F19.10 Other psychoactive substance abuse, uncomplicated (principal); R40.0 Somnolence; T40.1X1A Poisoning by heroin, accidental (unintentional), initial encounter; T40.5X1A Poisoning by cocaine, accidental (unintentional), initial encounter; Y92.9 Unspecified place or not applicable; F11.20 Opioid dependence, uncomplicated; F25.0 Schizoaffective disorder, bipolar type; F17.210 Nicotine dependence, cigarettes, uncomplicated; Z79.899 Other long term (current) drug therapy
CPT/HCPCS: 99283

== ENCOUNTER 2023-01-06 09:46 | Emergency (ER) | payer MEDICAID, SELFPAY ==
[2023-01-06] VITALS (8 sets, daily range): BP systolic 108–172; BP diastolic 52–85; PULSE 82–111; RESP 10–18; TEMP 36.5–36.7; O2SAT 92–100; BMI 36.1
--- NOTE | 2023-01-06 09:51 | ED_ITS ---
HPI - Overdose General Chief Complaint: Overdose Stated Complaint: od, narcan given w/good result per ems Time Seen by Provider: 01/06/23 09:51 Source: patient, EMS and old records reviewed Mode of arrival: EMS Limitations: no limitations History of Present Illness HPI Narrative: 22 yo male with history of schizoaffective disorder, alcohol use disorder, cocaine and opioid use disorder, history of aspitation pneumonia who presents to the ER via EMS after he was found outside of a liquor store altered. PD on scene administered 4-8 mg of IN Narcan with improvement in his mentation. EMS arrived and patient was awake and alert. He was starting to get combative en route to the ER. His VS were stable. Patient was recently seen here on 01/01 for drug overdose requiring narcan. Per EMS he reportedly was in [place] [facility] recently and has been off of his psych medications since he has been out. He is poor historian on arrival, not answering questions. MD complaint: accidental overdose Onset (ago): unknown Intent: unwilling to say Context: Accidental Overdose: wanted to get high Treatments Prior to Arrival: narcan Related Data Previous Rx's Medication Instructions Recorded aripiprazole 20 mg tablet (Abilify) 20 mg PO DAILY #30 tabs 03/18/22 benztropine 1 mg tablet 1 mg PO BID #60 tabs 03/18/22 buprenorphine 8 mg-naloxone 2 mg 1 film sublingual DAILY #0 ea 03/18/22 sublingual film (Suboxone) buprenorphine 8 mg-naloxone 2 mg 1 film sublingual DAILY #7 ea 03/18/22 sublingual film (Suboxone) divalproex 500 mg tablet,extended 500 mg PO BEDTIME #30 tabs 03/18/22 release 24 hr docusate sodium 100 mg capsule 100 mg PO DAILY PRN Constipation 03/18/22 #30 caps ferrous sulfate 324 mg (65 mg 324 mg PO DAILY #30 tabs 03/18/22 iron) tablet,delayed release folic acid 1 mg tablet 1 mg PO DAILY #30 tabs 03/18/22 melatonin 3 mg tablet 6 mg PO BEDTIME PRN insomnia #30 03/18/22 tabs naloxone 4 mg/actuation nasal 4 mg intranasal Q2M PRN opioid 03/18/22 spray (Narcan) overdose #2 ea nicotine (polacrilex) 2 mg gum 2 mg buccal Q2H PRN nicotine 03/18/22 withdrawal #60 ea nicotine 21 mg/24 hr daily 21 mg transdermal DAILY #30 ea 03/18/22 transdermal patch olanzapine 5 mg tablet 5 mg PO Q6H PRN agitation, 03/18/22 psychosis, anxiety #30 tabs pyridoxine (vitamin B6) 50 mg 25 mg PO DAILY #30 tabs 03/18/22 tablet quetiapine 100 mg tablet 100 mg PO BEDTIME PRN Insomnia #30 03/18/22 tabs thiamine mononitrate (vit B1) 100 50 mg PO DAILY #30 tabs 03/18/22 mg tablet Allergies Allergy/AdvReac Type Severity Reaction Status Date / Time No Known Allergies Allergy Verified 03/07/22 13:00 [No Known Allergies*] Review of Systems Review of Systems: Yes all other systems are reviewed and are negative [facility] Past Medical History Medical History Opioid use disorder Schizoaffective disorder Schizoaffective disorder, bipolar type Social History Social History Household Members: None Housing: Apartment Do you presently have visiting nurse or other home services: No Unable to assess alcohol history related to: Refusing to respond Alcohol intake: current Alcohol intake frequency: 0-2 drinks per day Patient Tobacco Use Status: Current everyday Tobacco user Tobacco use type: Cigarette Cigarette Packs Per Day: 1 Cigarettes Per Day: 20.0 Years Smoked: 5 Smoked in Last 30 Days: Yes e-Cigarette/Vaping Use: Currently Using Second Hand Smoke Exposure: No Substance Use Type: Crack/Cocaine, Heroin and Marijuana Advance Directives: No Advance Directives Information Provided: Yes service: No Current occupational status: unemployed Sexual orientation: Straight/Heterosexual Physical Exam Vital Signs: Vital Signs: Last Vital Signs Temp 98.1 F 01/06/23 10:08 Pulse 96 01/06/23 11:15 Resp 10 L 01/06/23 11:15 BP 143/79 H 01/06/23 11:15 Pulse Ox 92 01/06/23 11:15 O2 Del Method Nasal Cannula 01/06/23 11:15 O2 Flow Rate 0.5 01/06/23 11:15 BMI result Body Mass Index 36.1 Appearance: Alert. Oriented X3. Falls asleep easily, poorly kempt, foul smelling Head: normocephalic, atraumatic. Eyes: Pupils 3mm equal, round and reactive to light. ENT: Pharynx normal. No tonsillar swelling or exudate. Neck: Normal inspection. Neck supple. CVS: Normal heart rate and rhythm. Pulses normal. Respiratory: No respiratory distress. Breath sounds normal. Abdomen: Soft and nontender. +BS x4 Skin: Skin warm and dry. Normal skin color. Normal skin turgor. No rashes. Extremities: No lower extremity edema. No joint swelling. bilateral feet macerated and foul smelling Neuro/psych: Oriented X 3. Moves all extremities and follows commands, CN II- XII intact. Steady gait, falls asleep easily but arouses to voice. Course Reevaluation(s) Reevaluation #1: pt on 2L NC for occasional desat. RR adequte. arouses easily to voice found to have rhabdomyolysis, CK 3900. No YAJAIRA. 2L IVF ordered to start. will plan to admit for further management. Time: 11:32 Medications Administered Generic Name Dose Route Start Last Admin Trade Name Freq PRN Reason Stop Dose Admin Sodium Chloride 1,000 mls @ 999 mls/hr 01/06/23 11:15 01/06/23 11:40 Ns IVCONT 01/06/23 12:15 999 mls/hr .Q1H1M DION Administration Medical Decision Making Medical Decision Making [facility] Narrative: 22 yo male with history of schizoaffective disorder, cocaine, opioid, alcohol use disorder, history of aspiration pneumonia in the past who presents to the ER for evaluation after he was found down outside of a liquor store. Police administered 48 mg of intranasal Narcan with improvement in his mental status. He had no evidence of trauma on exam. He is poorly kempt. He was intermittently aggressive but ultimately redirectable on arrival to the ER. He was hemodynamically stable and maintaining his airway, not requiring any additional Narcan. Labs are showing rhabdomyolysis with a CK of 3900. He has normal renal function at this time. IV was established and he was ordered for 2 L of IV fluids to start for resuscitation. He will require admission for further management. Differential Diagnosis Differential Diagnoses: The differential diagnosis associated with the presentation includes Unintentional drug overdose, intentional drug overdose, alcohol intoxication, polysubstance intoxication, rhabdomyolysis, dehydration, anemia, no evidence of head injury Admission/Observation Consideration of admission/observation: Escalation of care including admission/observation considered Consult Healthcare Provider Management of the patient was discussed with: Hospitalist Lab Data MDM Lab Attestation statement: I reviewed the patient's lab results. Stable anemia, normal renal function, rhabdomyolysis with CK 3900. 01/06/23 10:44 01/06/23 10:44 Labs: Lab Results 01/06/23 01/06/23 01/06/23 Range/Units 10:44 10:44 10:44 WBC 9.9 (4.8-10.8) X10*3/uL RBC 4.11 L (4.60-5.80) X10*6/uL Hgb 12.2 L (14.0-18.0) g/dl Hct 35.6 L (42.0-52.0) % MCV 86.6 (80.0-98.0) fL MCH 29.7 (27.0-33.0) pg MCHC 34.3 (31.0-36.0) g/dl RDW 12.4 (11.0-16.0) % Plt Count 271 (160-400) X10*3/uL MPV 9.8 (9.4-12.4) fL Immature Gran % (Auto) 0.7 H (0.0-0.4) % Neut % (Auto) 70.3 (45-73) % Lymph % (Auto) 18.4 L (20-40) % [place] % (Auto) 10.2 (2-11) % Eos % (Auto) 0.1 (0-4) % Baso % (Auto) 0.3 (0-2) % Lymph # (Auto) 1.8 (1.2-4.9) X10*3/uL [place]craft # (Auto) 1.0 (0.1-1.2) X10*3/uL Eos # (Auto) 0.0 (0.0-0.4) X10*3/uL Baso # (Auto) 0.0 (0.0-0.2) X10*3/uL Abs Immat Gran (auto) 0.07 H (0.00-0.03) X10*3/uL Absolute Neuts (auto) 6.9 (2.0-8.3) x10*3/uL Absolute Nucleated RBC 0.000 (0.0-0.012) X10*3/uL Nucleated RBC % (auto) 0.0 (0.0-0.2) /100WBC Sodium 138 (135-145) mmol/L Potassium 3.3 (3.3-5.1) mmol/L Chloride 98 (96-108) mmol/L Carbon Dioxide 29 (22-29) mmol/L Anion Gap 14 (12-20) BUN 7 L (9-16) mg/dL Creatinine 0.71 (0.5-1.4) mg/dL Estim Creat Clear Calc 204.6 Estimated GFR > 60 Random Glucose 123 H (60-115) mg/dL Calcium 9.0 (8.4-10.2) mg/dL Magnesium 2.1 (1.6-2.6) mg/dL Total Bilirubin 0.4 (0.0-1.0) mg/dL Direct Bilirubin 0.2 (0.0-0.5) mg/dL AST 67 H (5-37) U/L ALT 82 H (0-40) U/L Alkaline Phosphatase 117 (39-117) U/L Total Creatine Kinase 3939 H (38-174) U/L Total Protein 6.3 L (6.5-8.0) g/dL Albumin 3.6 (3.5-5.0) g/dL Ethyl Alcohol < 10 mg/dL COVID-19 (JOSUE) Negative (Negative) COVID-19 Clin Com See Note Independent Historian Clinical information obtained from an independent historian. History obtained from or confirmed by: EMS External Record Review External record reviewed: Office record, Outpatient record, Prior outpatient labs and Prior outpatient radiology Prescription Management I considered prescription management with: Other (IV fluids, Narcan) Chronic Conditions Patient?s care impacted by: Other (Polysubstance abuse, schizoaffective disorder) Social Determinants Patient?s care significantly limited by Social Determinants of Health including: Inadequate housing, Alcoholism and drug addiction in family, Problems related to primary support group and Other Social Determinant of Health Critical Care Time Critical Care Time Critical Care Time: Yes Total Critical Care Time: 36 Attestation: I have personally provided critical care time exclusive of time spent on separately billable procedures. Time includes review of lab data, radiology results, discussion with consultants, and monitoring for potential decompen sation. Intervention performed as documented. Discharge Plan Discharge Clinical Impression: Drug overdose, Rhabdomyolysis Patient Disposition: Admitted As Inpatient
--- NOTE | 2023-01-06 10:12 | PC.NURSE ---
Alert but minimally responsive. Arrived via ems after being found in front of liquor store. EMS report PD gave 4mg of narcan. Agitated and restless, Assisted to bathroom to have BM. VSS, NSR on monitor. Resting comfortably
--- NOTE | 2023-01-06 10:21 | PC.NURSE ---
ETCO2 on pt for monitoring, belongings taken by security to [facility]
[2023-01-06 10:50] LABS: MANUAL DIFF FLAG NO
[2023-01-06 10:52] LABS: Basophils Percent Auto 0.3 % (0-2); Eosinophils Percent Auto 0.1 % (0-4); Hematocrit 35.6 % (42.0-52.0); Hemoglobin 12.2 g/dl (14.0-18.0); Imm Gran Abs Auto 0.07 X10*3/uL (0.00-0.03); Imm Gran Pct Auto 0.7 % (0.0-0.4); Lymphocytes Absolute Auto 1.8 X10*3/uL (1.2-4.9); Lymphocytes Percent Auto 18.4 % (20-40); Mean Corpuscular HGB Conc 34.3 g/dl (31.0-36.0); Mean Corpuscular Hemoglobin 29.7 pg (27.0-33.0); Mean Corpuscular Volume 86.6 fL (80.0-98.0); Mean Platelet Volume 9.8 fL (9.4-12.4); Monocytes Percent Auto 10.2 % (2-11); Neutrophils Absolute Auto 6.9 x10*3/uL (2.0-8.3); Neutrophils Percent Auto 70.3 % (45-73); Platelet Count 271 X10*3/uL (160-400); Red Blood Count 4.11 X10*6/uL (4.60-5.80); Red Cell Distribution Width 12.4 % (11.0-16.0); White Blood Count 9.9 X10*3/uL (4.8-10.8)
[2023-01-06 11:05] LABS: COVID-19 Test Negative (Negative); IDNOW Serial# 9DB6401D
[2023-01-06 11:13] LABS: Alanine Aminotransferase 82 U/L (0-40); Albumin Level 3.6 g/dL (3.5-5.0); Alkaline Phosphatase 117 U/L (39-117); Anion Gap 14 (12-20); Aspartate Amino Transferase 67 U/L (5-37); Bilirubin Direct 0.2 mg/dL (0.0-0.5); Bilirubin Total 0.4 mg/dL (0.0-1.0); Blood Urea Nitrogen 7 mg/dL (9-16); Carbon Dioxide 29 mmol/L (22-29); Chloride 98 mmol/L (96-108); Creatinine Clr Calc Pharmacy 204.6; Estimated Glomerular Filt Rate > 60; Ethanol < 10 mg/dL; Glucose Random 123 mg/dL (60-115); Magnesium 2.1 mg/dL (1.6-2.6); Potassium 3.3 mmol/L (3.3-5.1); Sodium 138 mmol/L (135-145); Total Protein 6.3 g/dL (6.5-8.0)
[2023-01-06] MEDS: 0.9 % Sodium Chloride 1,000 ML 999 ML IVCONT (11:40)
--- NOTE | 2023-01-06 11:48 | PC.NURSE ---
Wolf from [facility] called to say that he will bring pt's Ott Order and current med list.
[2023-01-06] MEDS: 0.9 % Sodium Chloride 1,000 ML 999 ML IV (12:14)
[2023-01-06] MEDS: Naloxone HCl 0.4 MG/ML VIAL IVPUSH ×2 (12:15→15:48)
--- NOTE | 2023-01-06 12:45 | PC.NURSE ---
respirations 11-13, iv narcan given, respiration up to 16-17. pt a+o x3, resting quietly, no apparent distress. vss. will continue to observe.
--- NOTE | 2023-01-06 13:00 | PC.NURSE ---
Wolf from [facility] dropped off Ott Order and med list. Wolf- [phone] or [phone]. Guardian: Abelardo Villar [phone]
--- NOTE | 2023-01-06 14:10 | PHA.MEDREC ---
Pharmacy Consult ? Medication Reconciliation Pharmacy has completed the medication reconciliation. Pt is non-responsive to questions but previously told provider that he stopped home meds. Matches with claim history so entered as no home meds.
--- NOTE | 2023-01-06 14:44 | PC.NURSE ---
assessments not done, pt sleeping. will continue to monitor and do assessments when the pt wakes up.
--- NOTE | 2023-01-06 15:00 | PC.NURSE ---
respirations 8-11, iv narcan given, respirations 14-18. pt a+o to self and place. will continue to observe.
[2023-01-06 17:04] LABS: Appearance Urine Clear; Color Urine Yellow; Glucose Urine UA Negative (Negative); Leukocyte Esterase Urine Negative (Negative); Nitrite Urine Negative (Negative); PH 6.5 (5.0-9.0); Urine Blood Negative (Negative); Urine Ketones Trace mg/dL (Negative); Urine Protein Negative (Neg-Trace)
[2023-01-06 17:17] LABS: Amphetamine Screen Urine Not Detected (Not Detect); Barbiturates, Urine Not Detected (Not Detect); Benzodiazepines Screen Urine Not Detected (Not Detect); Cannabinoid Screen Urine POSITIVE (Not Detect); Cocaine Screen Urine POSITIVE (Not Detect); Fentanyl, urine POSITIVE (Not Detect); Opiate Screen Urine Not Detected (Not Detect); Phencyclidine Screen Urine Not Detected (Not Detect)
[2023-01-06] MEDS: Naloxone HCl Nasal TAKE HOME 4 MG SPRAY NOSTRILALT (17:19)
--- NOTE | 2023-01-06 17:41 | PC.NURSE ---
pt was pending admission and requested to leave. pt educated on risks of leaving against medical advice. pt refused to stay. discharge instructions given to pt. pt signed LAMA form witnessed by two RNs. mother at his bedside. pt's belongings returned. iv removed. vss denies pain.
== END 2023-01-06 17:43 | disposition left against medical advice (07) ==
PROVIDERS: Physician Assistant; Emergency Provider Student in an Organized Health Care Education/Training Program
DX: T40.5X1A Poisoning by cocaine, accidental (unintentional), initial encounter (principal); T50.901A Poisoning by unspecified drugs, medicaments and biological substances, accidental (unintentional), initial encounter; M62.82 Rhabdomyolysis; Y92.9 Unspecified place or not applicable; F11.10 Opioid abuse, uncomplicated; F14.10 Cocaine abuse, uncomplicated; F17.210 Nicotine dependence, cigarettes, uncomplicated; Z20.822 Contact with and (suspected) exposure to COVID-19; Z20.828 Contact with and (suspected) exposure to other viral communicable diseases; Z71.6 Tobacco abuse counseling; Z79.899 Other long term (current) drug therapy
CPT/HCPCS: 80048; 80076; 80307; 81003; 82550; 83735; 85025; 87635; 96361; 96374; 96376; 99284; 99285

== ENCOUNTER 2023-01-24 04:08 | Emergency (ER) | payer MEDICAID, SELFPAY ==
--- NOTE | 2023-01-24 04:18 | ED.CPR ---
HPI - CPR General Stated Complaint: cardiac arrest Time Seen by Provider: 01/24/23 04:18 Source: EMS Mode of arrival: EMS Limitations: other (Cardiac arrest) History of Present Illness HPI narrative: 29-year-old male was found by a bystander at the elementary school unresponsive, CPR and Narcan was administrated by the police at the scene, patient was pulseless with no electrical activity on the EKG CPR was started at the scene, patient also received 4 rounds of 1 mg of epinephrine at the scene then was transported to the hospital on arrival CPR was in progress, with no falls or spontaneous breathing. Patient was given 1 mg of epinephrine and 2 mg of Narcan and 1 amp of bicarb and 1 amp of D50 with no change was called that at 04:15. Patient had multiple ED visits for overdose and substance abuse related. Related Data Home Medications Medication Instructions Recorded Confirmed No Known Home Meds 01/06/23 01/06/23 Allergies Allergy/AdvReac Type Severity Reaction Status Date / Time No Known Allergies Allergy Verified 03/07/22 13:00 [No Known Allergies*] Review of Systems Review of Systems: Yes Unobtainable due to mental condition (Cardiac arrest) [facility] Past Medical History Medical History Opioid use disorder Schizoaffective disorder Schizoaffective disorder, bipolar type Social History Social History Household Members: None Housing: Apartment Do you presently have visiting nurse or other home services: No Unable to assess alcohol history related to: Refusing to respond Alcohol intake: current Alcohol intake frequency: 0-2 drinks per day Patient Tobacco Use Status: Current everyday Tobacco user Tobacco use type: Cigarette Cigarette Packs Per Day: 1 Cigarettes Per Day: 20.0 Years Smoked: 5 e-Cigarette/Vaping Use: Currently Using Second Hand Smoke Exposure: No Substance Use Type: Crack/Cocaine, Heroin and Marijuana Advance Directives: No Advance Directives Information Provided: No service: No Current occupational status: unemployed Sexual orientation: Straight/Heterosexual Physical Exam Vital Signs: Vital Signs: Vital signs: No spontaneous breathing, no cardiac activity. General: Pale, unresponsive. HEENT: No sign of trauma. Lungs: Supraglottic airway, no spontaneous breathing. Heart: no cardiac activity, no pulse. Abdomen: No sign of trauma. Back: No sign of trauma. Extremities: No deformity, no sign of trauma. Neuro: Nonresponsive pupil 4 mm nonreactive bilaterally, no head injury or trauma. Course Course Course Narrative: The case was discussed with medical records assistant for the case was accepted by [facility], case # [id number]. Attempt to call family at [phone] was unsuccessful. Medical Decision Making Differential Diagnosis Differential Diagnoses: The differential diagnosis associated with the presentation includes Cardiac arrest Discharge Plan Discharge Clinical Impression: Cardiac arrest Patient Disposition:
--- NOTE | 2023-01-24 04:37 | PC.NURSE ---
Addendum entered by Mora Garcias RN 01/24/23 05:12: referral #[id number] Original Note: Spoke with Adel Donor at [id number]. Fatemeh Ardon pt accepted at this time
--- NOTE | 2023-01-24 04:47 | MHC.EDTECH ---
call out to employment appeals examiner at [phone]
--- NOTE | 2023-01-24 04:48 | MHC.EDTECH ---
[employer] accepted
[2023-01-24 06:43] LABS: Glucose, Whole Blood 41 mg/dL (60-115)
--- NOTE | 2023-01-24 06:52 | PC.NURSE ---
was unable reach family. [place] police attempted to reach family
--- NOTE | 2023-01-24 08:48 | PC.NURSE ---
multiple attempts were made to notify family of . no success. [employer] and [place] also attempted to notify next of kin. no success. pt brought down to [facility] [place]
== END 2023-01-24 08:51 | disposition expired ==
LOC: HO.ED 04:35
PROVIDERS: Emergency Provider Emergency Medicine
DX: I46.9 Cardiac arrest, cause unspecified (principal); F11.10 Opioid abuse, uncomplicated; F19.10 Other psychoactive substance abuse, uncomplicated; F10.20 Alcohol dependence, uncomplicated; F17.210 Nicotine dependence, cigarettes, uncomplicated; F25.0 Schizoaffective disorder, bipolar type
CPT/HCPCS: 82947; 96374; 96375; 99281; 99285; J0171